=== PATIENT | female | born 1935 | race Caucasian/White ===

== ENCOUNTER → 2016-06-07 | Outpatient (CLI) | payer OTHER ==
--- NOTE | 2016-06-07 12:53 | MR ---
MRI of the Lumbar Spine (Without Contrast) Clinical Indications: Severe low back pain. Comparison: Most recent MRI or any lumbar spine imaging I have is from July 25, 2010, CT angio abdom en . There is a lumbar spine MRI of September 16, 2008. Technique: Sagittal and axial images of the lumbar spine were acquired using T1-weighted and fast T2 -weighted sequences. Findings: Alignment of the lumbar spine is within normal limits, with the exception of L5-S1, where t here is a 13 mm anterolisthesis of L5 on S1.. Conus terminates at L2. The canal is congenitally pasha l in size. No acute bony compression. No acute edema related to compression or infiltrative process. Paraspinal soft tissues are symmetric. T10-T11: There is near complete loss of disk height. This is a change from the 2008 MRI. At that time , this disk space was pretty much normal. In addition, there is moderate compression deformity to T11 , which was present in the 2010 CT scan. Therefore, the compression deformity must have happened some time between September 22, 2008, and July 25, 2010. There is a moderate amount of endplate edema surroundi ng the T10-T11 junction, at the lower aspect of T10, and superior aspect of T11. There is a small pos terior disk bulge with effacement of the ventral thecal sac, causing mild overall canal stenosis. The re is moderate right, and mild left foraminal stenosis. T11-T12: There is a Schmorl's node at the superior endplate of T12, also new. There is significant de generative disk height loss at T11-T12. No bone marrow edema to suggest acute compression. The disk b ulge contributes to moderate canal compromise. There is mild bilateral foraminal stenosis. T12-L1: Overall good preservation of the disk space. No canal or foraminal stenosis. L1-L2: Good preservation of disk space. Very minimal canal compromise from facet arthropathy. L2-L3: There is a very mild posterior disk bulge. There is moderate bilateral facet arthropathy and l igamentum flavum hypertrophy, with overall moderate canal stenosis. L3-L4: There is moderate disk height loss, and moderate posterior disk bulge. Canal stenosis is sever e. AP diameter of the canal is 6 mm compared to the normal 16 mm. This has significantly progressed c ompared to the previous MRI, where the AP diameter of the canal measured 12 mm. Moderate bilateral fa cet arthropathy, on the left second containing some fluid, also is associated with moderate bilateral ligamentum flavum hypertrophy. L4-L5: There is a central broad-based disk bulge. There is moderate bilateral facet arthropathy, with fluid in the facet joints bilaterally. The degree of canal stenosis is decreased because the overall degree of disk bulge has improved, along with disk dehydration. Overall disk height loss has increas ed. The degree of canal stenosis is moderate. AP diameter of the canal is 12 mm. L5-S1: There is now complete loss of the disk space, with the appearance of spontaneous fusion betwee n the 2 bones. There is a 13 mm anterolisthesis of L5 on S1, which is unchanged. Degree of canal and foraminal stenosis at this level is unchanged. Impression: 1. Significant interval worsening, since 2008, of degenerative spine disease centering at [id number], largely due to chronic compression deformity of T11. 2. Interval significant worsening of degenerative disk disease and facet disease at L3-L4, now with s evere canal stenosis. 3. Interval dehydration and improvement in degree of disk bulge at L4-L5, without significant change in degree of canal stenosis. 4. Autofusion of L5-S1 with absence of disk space at this point. No change in 13 mm anterolisthesis o f L5 on S1, and degree of canal and foraminal stenosis at this level. 5. Otherwise please see above.
--- NOTE | 2016-06-07 13:46 | MR ---
MRI pelvis without contrast History: Back pain. Technique: MRI was performed of the pelvis using a 1.5 Karon MRI system. Sagittal, coronal, and axial imaging was obtained with standard imaging sequences. Findings: Degenerative disk and degenerative joint disease are seen in the lower lumbar spine and th ere is anterolisthesis of L5 on S1 with fusion, which is described in the MRI lumbar spine report als o performed today. There is no evidence for sacroiliitis. No evidence for a stress fracture or insuff iciency fracture of the sacrum. No evidence for avascular necrosis of the femoral head or stress frac ture of the femoral neck. No significant joint effusion. Mild degenerative change is seen in both hip s. Mild degenerative change is seen in the symphysis pubis. There is abnormal signal intensity and at tenuation of the right common hamstring tendon origin with moderate attenuation and minimal edema. Th ere is mild abnormal signal intensity without attenuation of the left common hamstring tendon origin. Minimal edema is seen at the gluteus tendon insertion at the greater trochanters bilaterally, right greater than left. The other visualized musculature and tendons are unremarkable. A 2.5-cm leiomyoma is seen at the fundus of the uterus. Nabothian cyst is seen in the cervix. No significant free fluid in the pelvis. Impression: 1. No evidence for sacroiliitis or insufficiency fracture of the sacrum. 2. 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 3. Minimal tendinopathy gluteus tendon insertion at the greater trochanters bilaterally. 4. Mild degenerative change in both hips.
== END ==
LOC: FIMAGING 08:59
PROVIDERS: ATTEND Internal Medicine
DX: M54.5 Low back pain (principal); S76.311D Strain of muscle, fascia and tendon of the posterior muscle group at thigh level, right thigh, subsequent encounter; M77.9 Enthesopathy, unspecified; M16.0 Bilateral primary osteoarthritis of hip; M51.35 Other intervertebral disc degeneration, thoracolumbar region; M51.36 Other intervertebral disc degeneration, lumbar region; M48.06 Spinal stenosis, lumbar region; M43.26 Fusion of spine, lumbar region; S22.080D Wedge compression fracture of T11-T12 vertebra, subsequent encounter for fracture with routine healing

== ENCOUNTER 2016-09-26 07:50 | Inpatient (IN) | payer OTHER ==
[2016-09-26] MEDS ORDERED: fentaNYL 100 MCG/2 ML INJ ONE (08:07)
[2016-09-26] MEDS ORDERED: ONDANSETRON 4 MG/2 ML VIAL ONE (08:07)
[2016-09-26] MEDS ORDERED: fentaNYL 100 MCG/2 ML INJ IVP ONE (08:10)
[2016-09-26] MEDS ORDERED: ONDANSETRON 4 MG/2 ML VIAL IVP ONE (08:11)
[2016-09-26] MEDS ORDERED: NS 1,000 ML IV ONE (08:11)
--- NOTE | 2016-09-26 08:14 | EDPHY ---
H & P Time Seen by Provider: 09/26/16 07:55 HPI/ROS: CHIEF COMPLAINT: Severe left-sided abdominal pain HISTORY OF PRESENT ILLNESS: 81-year-old woman presents with sudden onset of severe left-sided abdominal pain which woke her from sleep this morning at 6 o' clock. She says radiates to her back and is associated with nausea. She felt fine when she went to bed last night. She specifically says she does not feel like it is in her chest, she does not feel short of breath. No urinary symptoms. REVIEW OF SYSTEMS: Eye: no change in vision ENT: no sore throat Cardiac: no chest pain or syncope Pulmonary: no cough or SOB Abdomen: HPI, no diarrhea Musculoskeletal: no back pain, no recent fall or injury Skin: no rash Neuro: no headache Constitutional: no fever : no urinary symptoms A comprehensive 10 point review of systems is otherwise negative aside from elements mentioned in the history of present illness. PAST MEDICAL HISTORY: Hypertension, arthritis, left knee surgery, left ankle surgery. Social history: General Appearance: Alert and conversant, cooperative. Moderately uncomfortable , and moving around on the bed. Eyes: No scleral icterus. ENT, Mouth: Slightly dry mucous membranes. Respiratory: Normal respiratory effort, breath sounds equal, lungs are clear to auscultation. Cardiovascular: Regular rate and rhythm. Gastrointestinal: No rebound or guarding. She has some voluntary guarding of the left upper and lower abdomen but no peritoneal signs. Neurological: Alert and oriented x3. Normally conversant. Face symmetric, normal movement and sensation in all extremities. Skin: Warm and dry, no rashes. Musculoskeletal: No peripheral edema and no joint swelling. Psychiatric: Not agitated. Emergency Department course/MDM: Plan for symptom control with IV Zofran 4 mg, CT scanning. 918: CT reviewed with Dr. Glenn Mullen at 9:18 a.m. showing 5 mm left proximal ureteral stone with hydronephrosis causing patient's symptoms. Results discussed with the patient at this time, 15 mg IV Toradol and 0.5 mg IV Dilaudid. Admission for pain control and urology consultation. 948: Discussed with Ysabel from Urology will consult. Negative UA for infection. Smoking Status: Never smoked Constitutional: Initial Vital Signs Temperature (C) 36.4 C 09/26/16 07:53 Heart Rate 65 09/26/16 07:53 Respiratory Rate 18 09/26/16 07:53 Blood Pressure 117/63 09/26/16 07:53 O2 Sat (%) 97 09/26/16 07:53 O2 Delivery Mode Room Air O2 (L/minute) 4 Allergies/Adverse Reactions: codeine Allergy (Verified 09/26/16 07:52) Home Medications: Medication Instructions Recorded Herbals/Supplements -Info Only 1 ea PO DAILY 09/26/16 Lovastatin 10 mg PO DAILY 09/26/16 [place]-3 Fatty Acids [Fish Oil 1000 1,000 mg PO DAILY 09/26/16 mg (*)] amLODIPine BESYLATE [Norvasc 10 mg 10 mg PO DAILY 09/26/16 (*)] celeCOXIB [Celebrex (*)] 200 mg PO DAILY 09/26/16 Medical Decision Making - Diagnostics Imaging Results: Imaging Impressions Abdomen CT 09/26/16 08:22 Impression: 1. Moderate to severe left hydronephrosis secondary to a 5 mm obstructing calculus in the proximal left ureter. Additional left renal pelvis 10 mm calculus. Diminished enhancement and excretion of the left kidney. 2. No right nephrolithiasis or hydronephrosis. 3. 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 4. Severe degenerative changes in the spine with L5-S1 spondylolytic grade 2 spondylolisthesis and old T11 moderate compression fracture. Findings and recommendations discussed with Emergency Department physician, Pantera Barrett at 0915 hours on September 26, 2016. Final report concurs with initial preliminary interpretation. Differential Diagnosis: Differential considered including but not limited to aortic aneurysm or dissection, kidney stone, bowel obstruction, diverticulitis. Consult/Admit Bed Type: [place] [id number] - Data Points Laboratory Results: Laboratory Results 09/26/16 08:00 09/26/16 08:00 09/26/16 09/26/16 09/26/16 09:15 08:14 08:00 WBC RBC Hgb POC Hgb 13.6 gm/dL gm/dL (12.3-15.9) Hct POC Hct 40 % % (35.5-47.5) MCV MCH MCHC RDW Plt Count MPV Neut % (Auto) Lymph % (Auto) [place] % (Auto) Eos % (Auto) Baso % (Auto) Nucleat RBC Rel Count Absolute Neuts (auto) Absolute Lymphs (auto) Absolute Monos (auto) Absolute Eos (auto) Absolute Basos (auto) Absolute Nucleated RBC Immature Gran % Immature Gran # POC Sodium 144 mEq/L mEq/L (134-144) Sodium 142 mEq/L mEq/L (134-144) POC Potassium 3.6 mEq/L mEq/L (3.3-5.0) Potassium 4.1 mEq/L mEq/L (3.5-5.2) POC Chloride 109 mEq/L H mEq/L (96-108) Chloride 110 mEq/L mEq/L (97-110) Carbon Dioxide 20 mEq/l L mEq/l (22-31) Anion Gap 12 mEq/L mEq/L (8-16) POC BUN 27 mg/dL H mg/dL (7-23) BUN 28 mg/dL H mg/dL (7-23) Creatinine 0.8 mg/dL mg/dL (0.6-1.0) POC Creatinine 0.7 mg/dL mg/dL (0.6-1.2) Estimated GFR > 60 Glucose 131 mg/dL H mg/dL (70-100) POC Glucose 133 mg/dL H mg/dL (70-100) Calcium 9.7 mg/dL mg/dL (8.5-10.4) Urine RBC 1-3 /hpf /hpf (0-3) Urine WBC 1-3 /hpf /hpf (0-3) Ur Epithelial Cells TRACE /lpf /lpf (NONE-1+) 09/26/16 08:00 WBC 9.10 10^3/uL 10^3/uL (3.80-9.50) RBC 4.54 10^6/uL 10^6/uL (4.18-5.33) Hgb 14.0 g/dL g/dL (12.6-16.3) POC Hgb Hct 42.4 % % (38.0-47.0) POC Hct MCV 93.4 fL fL (81.5-99.8) MCH 30.8 pg pg (27.9-34.1) MCHC 33.0 g/dL g/dL (32.4-36.7) RDW 14.6 % % (11.5-15.2) Plt Count 269 10^3/uL 10^3/uL (150-400) MPV 11.9 fL H fL (8.7-11.7) Neut % (Auto) 61.1 % % (39.3-74.2) Lymph % (Auto) 26.2 % % (15.0-45.0) [place] % (Auto) 8.2 % % (4.5-13.0) Eos % (Auto) 3.3 % % (0.6-7.6) Baso % (Auto) 0.8 % % (0.3-1.7) Nucleat RBC Rel Count 0.0 % % (0.0-0.2) Absolute Neuts (auto) 5.56 10^3/uL 10^3/uL (1.70-6.50) Absolute Lymphs (auto) 2.38 10^3/uL 10^3/uL (1.00-3.00) Absolute Monos (auto) 0.75 10^3/uL 10^3/uL (0.30-0.80) Absolute Eos (auto) 0.30 10^3/uL 10^3/uL (0.03-0.40) Absolute Basos (auto) 0.07 10^3/uL 10^3/uL (0.02-0.10) Absolute Nucleated RBC 0.00 10^3/uL 10^3/uL (0-0.01) Immature Gran % 0.4 % % (0.0-1.1) Immature Gran # 0.04 10^3/uL 10^3/uL (0.00-0.10) POC Sodium Sodium POC Potassium Potassium POC Chloride Chloride Carbon Dioxide Anion Gap POC BUN BUN Creatinine POC Creatinine Estimated GFR Glucose POC Glucose Calcium Urine RBC Urine WBC Ur Epithelial Cells Medications Given: Discontinued Medications Fentanyl (Sublimaze) 100 mcg IVP EDNOW ONE Stop: 09/26/16 08:11 Last Admin: 09/26/16 08:10 Dose: 100 mcg Hydromorphone HCl (Dilaudid) 0.5 mg IVP EDNOW ONE Stop: 09/26/16 09:21 Last Admin: 09/26/16 09:36 Dose: 0.5 mg Sodium Chloride (Ns) 1,000 mls @ 0 mls/hr IV ONCE ONE PRN Reason: Wide Open Stop: 09/26/16 08:12 Last Admin: 09/26/16 08:00 Dose: 1,000 mls Ketorolac Tromethamine (Toradol) 15 mg IVP EDNOW ONE Stop: 09/26/16 09:21 Last Admin: 09/26/16 09:36 Dose: 15 mg Morphine Sulfate (Morphine) 4 mg IVP EDNOW ONE Stop: 09/26/16 08:27 Last Admin: 09/26/16 08:34 Dose: 4 mg Ondansetron HCl (Zofran) 4 mg IVP EDNOW ONE Stop: 09/26/16 08:12 Last Admin: 09/26/16 08:11 Dose: 4 mg Point of Care Test Results: 09/26/16 08:14 POC Sodium 144 POC Potassium 3.6 POC Chloride 109 H POC BUN 27 H POC Creatinine 0.7 POC Glucose 133 H Departure - Departure Disposition: [facility] Inpatient Acute Clinical Impression: Renal colic on left side Condition: Good
[2016-09-26 08:24] LABS: % IMMATURE GRANULYOCYTES 0.4 % (0.0-1.1); ABSOLUTE IMMATURE GRANULOCYTES 0.04 10^3/uL (0.00-0.10); ADD DIFF? NO; ADD MORPH? NO; ADD SCAN? NO; ATYPICAL LYMPHOCYTE FLAG 10 (0-99); FRAGMENT RBC FLAG 0 (0-99); HEMATOCRIT 42.4 % (38.0-47.0); LEFT SHIFT FLG 0 (0-99); LIPEMIA HEMOLYSIS FLAG 80 (0-99); MEAN CELL HEMOGLOBIN 30.8 pg (27.9-34.1); MEAN CELL VOLUME 93.4 fL (81.5-99.8); MEAN PLATELET VOLUME 11.9 fL (8.7-11.7); PLATELET CLUMPS FLAG 0 (0-99); PLATELET COUNT 269 10^3/uL (150-400); RED BLOOD CELL COUNT 4.54 10^6/uL (4.18-5.33); RED CELL DISTRIBUTION WIDTH 14.6 % (11.5-15.2)
[2016-09-26 08:43] LABS: ANION GAP 12 mEq/L (8-16); CALCIUM 9.7 mg/dL (8.5-10.4); CARBON DIOXIDE 20 mEq/l (22-31); CHLORIDE 110 mEq/L (97-110); CREATININE 0.8 mg/dL (0.6-1.0); GLOMERULAR FILTRATION RATE > 60; GLUCOSE 131 mg/dL (70-100); POTASSIUM 4.1 mEq/L (3.5-5.2); SODIUM 142 mEq/L (134-144)
[2016-09-26] MEDS ORDERED: IOPAMIDOL (ISOVUE-300) 100 ML BTL ONE (08:48)
[2016-09-26] MEDS ORDERED: HYDROmorphONE/DILAUDID 1 MG/ML SYR IVP ONE (09:20)
[2016-09-26] MEDS ORDERED: KETOROLAC 30 MG/1 ML SDV IVP ONE (09:20)
[2016-09-26] MEDS ORDERED: MAGNESIUM HYDROXIDE 30 ML UDCUP PO PRN (11:12)
[2016-09-26] MEDS ORDERED: ONDANSETRON 4 MG/2 ML VIAL IVP PRN (11:12)
[2016-09-26] MEDS ORDERED: LACTULOSE 20 GM/30 ML UDCUP PO PRN (11:12)
[2016-09-26] MEDS ORDERED: BISACODYL 10 MG SUPP PR PRN (11:12)
[2016-09-26] MEDS ORDERED: ONDANSETRON DISINTEGRATING 4 MG TAB PO PRN (11:12)
[2016-09-26] MEDS ORDERED: POLYETHYLENE GLYCOL 3350 17 GM PKT PO PRN (11:12)
[2016-09-26] MEDS ORDERED: NS 1,000 ML IV SCH (11:15)
[2016-09-26] MEDS: PANTOPRAZOLE SODIUM 40 MG in NS 100 ML IV SCH (12:11)
--- NOTE | 2016-09-26 15:06 | SOAPPROG ---
SOAP Progress Note Assessment/Plan: Assessment: 81 yo female w/ nephrolithiasis and hydronephrosis, 1x 5-6 mm stone L ureter w/ obstruction, 1 x 10 mm L renal pelvis superiorly -admitted for pain mngt, urology consult - appreciated Dr. Grady seeing pt, will likely need ureteroscope and possible stenting. Place on IVF, npo P MN tonight for procedure tomorrow. Placed on PPI w/ toradol on board and hospitalization. Encourage po water intake as well. -h/o htn - cont amlodipine. -osteoporosis - on prolia, wt bearing exercise, d - level appropriate checked as outpt not excessively high. -dvt proph - lovenox -dispo - will depend on upcoming urologic procedure and recovery, anticipate likely 2 MN's. Will change admission status to inpt. Plan: 09/26/16 15:02 09/26/16 15:10 Subjective: Woke w/ acute L flank/side/abdominal pain -, went to ER this am - CT w/ L stones see hpi. Objective: Vital Signs Temp Pulse Resp BP Pulse Ox 36.7 C 77 16 111/50 L 96 09/26/16 11:44 09/26/16 11:44 09/26/16 11:44 09/26/16 11:44 09/26/16 11:44 09/25/16 09/26/16 09/27/16 05:59 05:59 05:59 Intake Total 1200 Output Total 400 Balance 800 Gen: doing better now, not uncomfortable ruth, was horribly uncomfortable this morning, A&O x 3, pleasant HEENT: perr, eomi Neck, soft, supple Chest: cta b CV: rrr nl s1 s2 Abd: soft, nl bs, + generalized discomfort ayo on L lateral side Ext: no edema, she reports she has had some w/ [place] was [place] her trip - Pending Discharge Pending Discharge Within 24 Hours: No ICD10 Worksheet Patient Problems: Problems Problem Status Onset Renal colic on left side Acute
[2016-09-26] MEDS: KETOROLAC 15 MG/1 ML SDV IM PRN (15:42)
[2016-09-26] MEDS ORDERED: ENOXAPARIN 40 MG/0.4 ML SYR SC ONE (17:00)
--- NOTE | 2016-09-26 17:26 | GHP ---
[f rep st] HISTORY AND PHYSICAL DATE OF ADMISSION: 09/26/2016 CHIEF COMPLAINT: Left-sided pain. HISTORY OF PRESENT ILLNESS: Patient is a pleasant 81-year-old female who went to bed last night in her usual state of health, but woke up this morning with sudden onset of severe left-sided abdominal pain, which was not like any other pain she has had before. It radiated across her abdomen, to her left side, and was so severe she felt chills and sweaty from it. She was supposed to go to an appointment up in [place] for her ankle, but the pain was so bad her spouse drove her to the ER for evaluation. In the ER, she had labs drawn (which were basically normal) and abdominal CT. The CT showed a 5-6 mm left proximal ureteral stone with hydronephrosis, as well as a higher up 10 mm stone in the renal pelvis, which was not likely contributing to the symptoms but, regardless , a large size stone up higher in the urinary tract. She was treated with Toradol and fentanyl and Dilaudid, and her pain improved greatly. We were called to admit the patient, and Dr. Carl Grady for Urology was on today and was also contacted by the ER, and a plan made to admit the patient for treatment of her renal stones with hydronephrosis. PAST MEDICAL HISTORY: Significant for hypertension, osteoporosis, and a pelvic fracture, stable L renal aneurysm. SURGICAL HISTORY: Significant for ankle replacement on her left side in 1999, left knee replacement in 2007. FAMILY HISTORY: Father is , no history known; she did not know him. Mother at 93 with a glioblastoma multiforme. She has no siblings. SOCIAL HISTORY: She is a nonsmoker. She has rare/occasional alcohol. She is , has 3 children, exercises regularly, no drugs, and recently is retired. ALLERGIES: Include codeine (which gave her a rash) and Cipro (left Achilles pain). REVIEW OF SYSTEMS: CONSTITUTIONAL: Positive for chills, in general not feeling well from the discomfort this morning, but now this has calmed down. HEENT: Negative. RESPIRATORY: Denies cough, shortness of breath, wheezing. CARDIOVASCULAR: No chest pain or palpitations. GI: Discomfort in left abdominal side and flank, has had good control, normal bowel movements over the past several days. : Denies any urinary burning, frequency, or urgency. MUSCULOSKELETAL: She has chronic low back pain, with lumbar stenosis, and discomfort in her left ankle that is not new. SKIN: Denies any hives, itching , or rash. NEUROLOGIC: No fainting, confusion, loss of strength. PSYCHIATRIC : No acute change in mood or stressors, other than her discomfort this morning. PHYSICAL EXAMINATION: VITALS: Her blood pressure is 100/56, heart rate 81, respiratory rate 18, satting 96% to 100% on 2 L. Afebrile at 36.4. LABORATORIES: Show white count of 9, hemoglobin 13.6, hematocrit 42.4. Chemistry: Sodium 142, potassium 4.1, chloride 110, carbon dioxide 20, anion gap 12, BUN 28, creatinine 0.8, glucose 131, calcium 9.7. IMAGING: CT abdomen, as discussed above, has moderate to severe left hydronephrosis secondary to a 5-6 mm, obstructing calculus in the left proximal ureter, with an additional 10 mm calculus in the left renal pelvis. Also showing severe degenerative disk disease in her lower lumbar spine, as previously known. ASSESSMENT AND PLAN: 1. 81-year-old female with acute onset of nephrolithiasis with hydronephrosis. She has not had any of this prior. She did just return from a long hiking trip in [facility]. She is very grateful that this did not occur while she was out in the middle of the [facility]. The plan will be to admit her for pain management. Urology consult placed with Dr. Grady. She will most likely need a ureteroscope and possible stenting. Will place her on IV fluids and encourage p.o. intake of water as well to help flush out anything that we can. She will be n.p.o. after midnight tonight for urologic procedure tomorrow. Will control pain with Toradol and fentanyl if needed as well, which she tolerated fine in the ER. Will place her on a PPI given the acute hospitalization stress as well as Toradol, for gastrointestinal protection. 2. History of hypertension: Continue on amlodipine. 3. Osteoporosis: Continue on Prolia, weightbearing exercise, appropriate calcium and vitamin D intake. Recent vitamin D level checked and appropriate as an outpatient. 4. Deep venous thrombosis prophylaxis: Lovenox. 5. Disposition: Most likely will require greater than 2 midnights in order to have urologic surgery and stent, so will place her on inpatient status. /[id number]/MODL MTDD
[2016-09-26] MEDS: ACETAMINOPHEN 325 MG TAB PO PRN (19:59)
[2016-09-26] MEDS: SENNOSIDES/DOCUSATE SODIUM TAB PO SCH (19:59)
--- NOTE | 2016-09-26 21:27 | GCON ---
[f rep st] CONSULTATION UROLOGY CONSULTATION DATE OF CONSULTATION: 09/26/2016 REFERRING PHYSICIAN: Sanjuanita Agosto MD REASON FOR CONSULTATION: Left kidney and ureteral stones. HISTORY: This is a 81-year-old woman who started experiencing acute onset of left-sided upper quadrant abdominal pain, with radiation into the lower abdomen early this morning, along with some associated sweats, chills, nausea, and near- emesis. She presented to the emergency room and underwent imaging, which revealed left nephroureterolithiasis. The patient was admitted for further management. Since admission, she has continued to have intermittent pain, but has greatly improved on the current medication regimen. She denies any prior history of nephrolithiasis, nor more recent history of dysuria, gross hematuria , changes in her voiding pattern, nor measured fevers. PAST MEDICAL HISTORY: Notable for hypertension, osteoporosis. ADMISSION MEDICATIONS: Include Celebrex 200 mg daily, Norvasc 10 mg daily, lovastatin 10 mg daily. ALLERGIES: Codeine. FAMILY HISTORY: Not contributory. Specifically, no kidney stones to her knowledge. SOCIAL HISTORY: The patient and her live in the [facility]. She denies use of tobacco products, and consumes alcohol occasionally. She has 3 children. She exercises regularly. REVIEW OF SYSTEMS: Unremarkable, other than mentioned above in the HPI and Past Medical History. PHYSICAL EXAM: GENERAL: Well-developed, well-nourished white female, lying supine in bed, in no acute distress presently. VITAL SIGNS: Blood pressure 100 /56, pulse 81, respirations 18, oxygen saturation is 91% on 3 L nasal cannula, temperature 36.8 Celsius. Height 162 cm. Weight 64.8 kg. BMI 24.5. HEENT: Normocephalic, atraumatic. NECK: Supple. HEART: Regular rate. CHEST: Unlabored respiratory pattern. ABDOMEN: Soft, with mild left upper quadrant tenderness to deep palpation. No peritoneal signs. No involuntary guarding. No obvious organomegaly is appreciated. EXTREMITIES: Warm, without cyanosis, clubbing, nor significant edema. NEUROLOGIC: She is alert and oriented. She answers all questions appropriately with normal mood and affect. VASCULAR: Normal femoral, dorsalis pedis, and posterior tibial pulses bilaterally. IMAGING: Iodinated abdominopelvic CT scan today: Upon my review, notable for possible 9.5 x 8 x 8 mm long left renal pelvic calculus (versus, less likely, vascular calcification). There is moderate left hydronephrosis down to a 5 x 4 x 7 mm long ureteral calculus at L3. There is also a left renal artery aneurysm measuring up to 14 mm. No other stones are seen. A calcified uterine fibroid is noted. LABORATORY: Chemistry panel today notable for unremarkable electrolytes, with creatinine 0.8, calcium 9.7. CBC is unremarkable. Admission urinalysis reveals 1-3 red blood cells, 1-3 white blood cells per high-power field, no bacteria. IMPRESSION: 1. Symptomatic left proximal ureterolithiasis. 2. Probable sizable left renal pelvic calculus. I had an extended discussion with the patient late this afternoon regarding her urologic situation. Management options for her symptomatic ureteral stone, as well as the other sizable ipsilateral renal stone, were reviewed in detail today. All questions were answered, and she appeared to understand. PLAN: 1. Continue medical management, parental analgesics, continuation of low-dose Toradol IV, and Flomax. 2. We will also increase her IV fluid rate and encourage p.o. fluid intake until midnight. 3. We will proceed with intraoperative ureteroscopy and stone management tomorrow, along with ureteral stent placement. Thank you for this consultation. /[id number]/MODL MTDD
[2016-09-26] MEDS: KETOROLAC 15 MG/1 ML SDV IVP SCH (22:02)
[2016-09-27] MEDS ORDERED: NS BOLUS 1000 ML (Wide open) IV ONE (02:00)
[2016-09-27] MEDS: ACETAMINOPHEN 325 MG TAB PO PRN (04:51)
[2016-09-27] MEDS: KETOROLAC 15 MG/1 ML SDV IVP SCH (04:53)
[2016-09-27 04:57] LABS: ADD DIFF? YES; ADD MORPH? NO; ATYPICAL LYMPHOCYTE FLAG 0 (0-99); FRAGMENT RBC FLAG 0 (0-99); HEMATOCRIT 34.6 % (38.0-47.0); HEMOGLOBIN 11.4 g/dL (12.6-16.3); LIPEMIA HEMOLYSIS FLAG 80 (0-99); MEAN CELL HEMOGLOBIN 31.8 pg (27.9-34.1); MEAN CELL HEMOGLOBIN CONCENTR. 32.9 g/dL (32.4-36.7); MEAN CELL VOLUME 96.4 fL (81.5-99.8); MEAN PLATELET VOLUME 11.2 fL (8.7-11.7); PLATELET CLUMPS FLAG 10 (0-99); PLATELET COUNT 117 10^3/uL (150-400); RED BLOOD CELL COUNT 3.59 10^6/uL (4.18-5.33)
[2016-09-27 05:07] LABS: LEFT SHIFT FLG 300 (0-99)
[2016-09-27 05:08] LABS: ADD SCAN? NO
[2016-09-27 05:22] LABS: ANION GAP 8 mEq/L (8-16); CALCIUM 7.8 mg/dL (8.5-10.4); CARBON DIOXIDE 18 mEq/l (22-31); CHLORIDE 108 mEq/L (97-110); CREATININE 1.3 mg/dL (0.6-1.0); GLOMERULAR FILTRATION RATE 40; GLUCOSE 117 mg/dL (70-100); POTASSIUM 4.8 mEq/L (3.5-5.2); SODIUM 134 mEq/L (134-144)
[2016-09-27 05:48] LABS: PLATELET ESTIMATE DECREASED (ADEQ)
[2016-09-27 06:38] LABS: ALBUMIN 2.7 g/dL (3.5-5.0); BILIRUBIN,TOTAL 0.6 mg/dL (0.1-1.4); BILIRUBIN-CONJUGATED 0.4 mg/dL (0.0-0.5); BILIRUBIN-UNCONJUGATED 0.2 mg/dL (0.0-1.1)
--- NOTE | 2016-09-27 06:47 | CPEKG ---
Heart Rate: 84 RR Interval: 714 P-R Interval: 188 QRSD Interval: 98 QT Interval: 376 QTC Interval: 445 P [place]: 59 QRS [place]: 29 T Wave [place]: 31 EKG Severity - BORDERLINE ECG - EKG Impression: SINUS RHYTHM EKG Impression: LOW VOLTAGE THROUGHOUT Electronically Signed By: Ursula Brady 27-Sep-2016 10:47:37
[2016-09-27 07:06] LABS: ADD DIFF? YES; ADD MORPH? NO; ATYPICAL LYMPHOCYTE FLAG 0 (0-99); FRAGMENT RBC FLAG 0 (0-99); HEMATOCRIT 34.6 % (38.0-47.0); HEMOGLOBIN 11.2 g/dL (12.6-16.3); LIPEMIA HEMOLYSIS FLAG 80 (0-99); MEAN CELL HEMOGLOBIN 31.2 pg (27.9-34.1); MEAN CELL HEMOGLOBIN CONCENTR. 32.4 g/dL (32.4-36.7); MEAN CELL VOLUME 96.4 fL (81.5-99.8); MEAN PLATELET VOLUME 11.4 fL (8.7-11.7); PLATELET CLUMPS FLAG 10 (0-99); PLATELET COUNT 107 10^3/uL (150-400); RED BLOOD CELL COUNT 3.59 10^6/uL (4.18-5.33); RED CELL DISTRIBUTION WIDTH 14.9 % (11.5-15.2)
[2016-09-27 07:09] LABS: LEFT SHIFT FLG 300 (0-99)
[2016-09-27 07:15] LABS: ADD SCAN? NO
[2016-09-27 07:24] LABS: CREATINE KINASE-MB FRACTION 1.06 ng/mL (0-3.19); TROPONIN I 0.032 ng/mL (0-0.034)
[2016-09-27] MEDS: KETOROLAC 15 MG/1 ML SDV IM PRN (07:38)
[2016-09-27 08:08] LABS: ELLIPTOCYTES 1+; PLATELET ESTIMATE DECREASED (ADEQ); TOXIC VACUOLIZATION PRESENT
[2016-09-27] MEDS: fentaNYL 100 MCG/2 ML INJ IVP PRN ×2 (08:21→08:22)
[2016-09-27 08:28] LABS: BASE EXCESS -9.9 mEq/L (-2.5-2.5); BICARBONATE 17 mEq/L (22-26); MEASURED OXYGEN SATURATION 94 % (92-95); PCO2 41 mmHg (34-38); PO2 82 mmHg (65-75); TCO2 18 mEq/L (23-27)
--- NOTE | 2016-09-27 08:30 | SOAPPROG ---
SOAP Progress Note Assessment/Plan: Assessment:Obstructing renal stone. Possible pneumonia. WBC and lactate strongly suggests sepsis. Plan: ICU, when stable repeat CT of abdomen to look for complication of renal stone. IV antibiotics. Skein Bander consult. 09/27/16 08:30 Subjective: Having ongoing pain in abdomen. Was hypotensive last night. Did not respond to fluid bolus. CBC revealed increased WBC and decreased HGB. Lactate was elevated. Pt transferred to ICU. Her BP has responded to wide open fluids. CXR shows possible LLL infiltrate. CT of abd from yesterday shows small infiltrate vs scar in LLL. She remains easily arousable and responds appropriately to questions. COR mild tachycardia. Oxygen saturation 96% on mask. Objective: Vital Signs Temp Pulse Resp BP Pulse Ox 37 C 83 16 100/61 95 09/27/16 05:57 09/27/16 05:57 09/27/16 05:57 09/27/16 07:54 09/27/16 05:57 Laboratory Results 09/27/16 06:56 09/27/16 04:39 09/26/16 09/27/16 09/28/16 05:59 05:59 05:59 Intake Total 3000 1478 Output Total 775 Balance 2225 1478 Lungs with bibasilar rales. L greater than R. COR RRR. Abd persistent tenderness. ICD10 Worksheet Patient Problems: Problems Problem Status Onset Renal colic on left side Acute
[2016-09-27] MEDS ORDERED: SODIUM BICARBONATE 50 MEQ/50 ML SYR IVP ONE ×5 (08:39→21:13)
[2016-09-27] MEDS ORDERED: SODIUM BICARBONATE 50 MEQ/50 ML SYR ONE (08:43)
[2016-09-27] MEDS ORDERED: MEROPENEM 1 GM in NS 100 ML IV SCH (09:00)
[2016-09-27] MEDS ORDERED: Herbals/Supplements -Info Only PO SCH (09:00)
[2016-09-27] MEDS ORDERED: LOVASTATIN 10 MG PO SCH (09:00)
--- NOTE | 2016-09-27 09:06 | SOAPPROG ---
SOAP Progress Note Assessment/Plan: Assessment: Last night & this AM's events reviewed with Drs. Agosto, Gary, & Jason. I am concerned she has become uroseptic from the obstruction of her left kidney. Plan: 1. Agree with antibiotics and aggressive medical management. 2. Postpone today's planned surgery & proceed with left nephrostomy in IR. I have left a message w/ Dr. Taylor regarding this case. Orders to go in now. 09/27/16 09:06 Objective: Vital Signs Temp Pulse Resp BP Pulse Ox 37 C 83 16 100/61 95 09/27/16 05:57 09/27/16 05:57 09/27/16 05:57 09/27/16 07:54 09/27/16 05:57 Laboratory Results 09/27/16 06:56 09/27/16 04:39 09/26/16 09/27/16 09/28/16 05:59 05:59 05:59 Intake Total 3000 1478 Output Total 775 Balance 2221 1478 ICD10 Worksheet Patient Problems: Problems Problem Status Onset Renal colic on left side Acute
[2016-09-27] MEDS: PRAVASTATIN SODIUM 10 MG TAB PO SCH (09:24)
[2016-09-27] MEDS: PANTOPRAZOLE SODIUM 40 MG in NS 100 ML IV SCH (09:24)
[2016-09-27] MEDS: SENNOSIDES/DOCUSATE SODIUM TAB PO SCH (09:25)
[2016-09-27] MEDS ORDERED: NOREPINEPHRINE/NS 4 MG/500 ML BAG IV ONE ×2 (09:38→13:21)
--- NOTE | 2016-09-27 10:28 | GCON ---
[f rep st] CONSULTATION PULMONARY/CRITICAL CARE CONSULTATION. DATE OF CONSULTATION: 09/27/2016 REFERRING PHYSICIAN: Daquan Vega MD REASON FOR REFERRAL: Evaluation and management of sepsis. HISTORY: The patient is a 81-year-old woman who was in her usual state of good health the day before yesterday, but woke up yesterday morning with sudden onset of severe left-sided abdominal pain that radiated across her abdomen. She presented to the emergency department where she had normal labs and an abdominal CT that showed a proximal obstructing left ureteral stone with hydronephrosis as well as a nonobstructing 10 mm stone in the renal pelvis. She was treated with Toradol, fentanyl and Dilaudid and her pain improved. Dr. Grady was consulted. The patient was started on antibiotics and moved to the floor. Overnight, she developed hypotension that did not respond to a fluid bolus as well as anemia and an elevated white blood count. Her lactate was also elevated. She responded to further fluid boluses. Currently the patient reports that her pain is fairly well controlled after receiving some fentanyl. She feels she is beginning to develop some shortness of breath. PAST MEDICAL HISTORY: 1. Hypertension. 2. Osteoporosis. 3. Pelvic fracture. 4. Left renal aneurysm. MEDICATIONS: At the time of admission include Celebrex, lovastatin, Norvasc. ALLERGIES: Codeine. SOCIAL HISTORY: The patient is a nonsmoker and drinks alcohol infrequently. She exercises regularly. She recently retired. FAMILY HISTORY: Unremarkable. REVIEW OF SYSTEMS: A 10-point review of systems adds nothing to the history of present illness. PHYSICAL EXAMINATION: GENERAL: The patient is awake, alert, and in mild distress with some dyspnea. VITAL SIGNS: Her blood pressure is 77/42, her heart rate is 92. She is afebrile. Oxygen saturation 95% on 4 L. HEENT: Normocephalic and atraumatic. No icterus. NECK: No JVD. Trachea is midline. CHEST: She has some basilar rales. CARDIAC: Regular rate and rhythm without murmur. ABDOMEN: Soft. Nontender. Bowel sounds are present. EXTREMITIES: No clubbing, cyanosis, or edema. LABORATORY DATA: Creatinine is 1.3, up from 0.8. A white blood count is 3.8, with 28% bands, down from 18.6. Hemoglobin is 11.2. Her platelet count is 107. An arterial blood gas shows a pH of 7.23 with a pO2 of 82, a CO2 of 41 and a bicarbonate of 18. Lactate is 3.8, up from 3.1. IMAGING: Chest x-ray shows hypoventilatory changes with some possible diffuse interstitial infiltrates/edema as well as a small amount of possible density in the left base. Images reviewed. A CT of the abdomen shows the aforementioned 5 mm obstructing calculus in the left ureter with severe hydronephrosis as well as a left renal pelvic calculus. There are no significant lung findings. Images reviewed. ASSESSMENT: 1. Severe sepsis. The patient has an elevated lactate, hypotension, renal insufficiency and a dramatically reduced white blood count with bandemia as well as increasing oxygen needs. The likely source is her obstructed left kidney. The patient has been started on appropriate antibiotics with Levaquin and meropenem. The patient is receiving IV fluids. A PICC line is being placed to start pressors. 2. History of hypertension. The patient is currently hypotensive. 3. Acute hypoxemic respiratory failure. This is likely due to the patient's sepsis. RECOMMENDATIONS: Continue antibiotics. Continue IV fluid boluses to support pressure. I will place an icon monitor to help determine fluid responsiveness. A PICC line will be placed and the patient will be started on norepinephrine once this is in place. Dr. Taylor has been consulted regarding placement of a percutaneous nephrostomy tube, which can occur as soon as the patient is stable. The patient is getting increasingly unstable throughout the day despite aggressive resuscitation. Total critical care time managing hypotension, hypoxemia, coagulopathy, electrolyte disturbances, and coordinating urgent procedures during 6-8 visits throughout the day: 175 minutes. /[id number]/MODL MTDD
[2016-09-27 10:52] LABS: ADD DIFF? YES; ADD MORPH? NO; ATYPICAL LYMPHOCYTE FLAG 0 (0-99); FRAGMENT RBC FLAG 0 (0-99); HEMATOCRIT 30.5 % (38.0-47.0); HEMOGLOBIN 9.9 g/dL (12.6-16.3); LIPEMIA HEMOLYSIS FLAG 80 (0-99); MEAN CELL HEMOGLOBIN CONCENTR. 32.5 g/dL (32.4-36.7); MEAN CELL VOLUME 98.7 fL (81.5-99.8); MEAN PLATELET VOLUME 11.5 fL (8.7-11.7); PLATELET CLUMPS FLAG 20 (0-99); PLATELET COUNT 73 10^3/uL (150-400); RED BLOOD CELL COUNT 3.09 10^6/uL (4.18-5.33); RED CELL DISTRIBUTION WIDTH 15.3 % (11.5-15.2)
[2016-09-27 10:54] LABS: LEFT SHIFT FLG 300 (0-99)
[2016-09-27 10:55] LABS: ADD SCAN? NO
[2016-09-27] MEDS ORDERED: VASOPRESSIN/DEXTROSE 250 ML IV SCH (11:00)
[2016-09-27] MEDS ORDERED: MIDAZOLAM 2 MG/2 ML VIAL ONE ×2 (11:30→17:10)
[2016-09-27] MEDS ORDERED: IOPAMIDOL (ISOVUE-300) 100 ML BTL ONE (12:04)
--- NOTE | 2016-09-27 12:07 | POSTOPPROG ---
Post Op Note Date of Operation: 09/27/16 Surgeon: Wyatt Taylor Anesthesia: IV Sedation Pre-op Diagnosis: Obstructive urosepsis Post-op Diagnosis: Left ureter obstructed by stone Indication: Sepsis Procedure: Percutaneous left nephrostomy Findings: 10 F nephrostomy tube in good position Inf/Abcess present in the surg proc area at time of surgery?: Yes Depth: Organ Space (Possibly infected urine.) EBL: Minimal Complications: 0 Drains: Nephrostomy (10 F pigtail) Specimen(s): 15 ml dark yellow urine sent to lab for microbiology.
[2016-09-27 12:24] LABS: TOXIC VACUOLIZATION PRESENT
[2016-09-27 12:27] LABS: ECHINOCYTES 2+; PLATELET ESTIMATE DECREASED (ADEQ)
[2016-09-27] MEDS: OMEGA-3 FATTY ACIDS 1,000 MG CAP PO SCH (13:08)
[2016-09-27] MEDS ORDERED: ALBUMIN 5% 500 ML BOTTLE IV ONE (13:37)
[2016-09-27] MEDS ORDERED: ALBUMIN 5% 500 ML IV ONE (14:00)
[2016-09-27 14:49] LABS: ADD DIFF? YES; ADD MORPH? NO; ATYPICAL LYMPHOCYTE FLAG 0 (0-99); FRAGMENT RBC FLAG 0 (0-99); HEMATOCRIT 35.8 % (38.0-47.0); HEMOGLOBIN 11.3 g/dL (12.6-16.3); LIPEMIA HEMOLYSIS FLAG 80 (0-99); MEAN CELL HEMOGLOBIN 31.9 pg (27.9-34.1); MEAN CELL HEMOGLOBIN CONCENTR. 31.6 g/dL (32.4-36.7); MEAN CELL VOLUME 101.1 fL (81.5-99.8); MEAN PLATELET VOLUME 11.4 fL (8.7-11.7); PLATELET CLUMPS FLAG 20 (0-99); PLATELET COUNT 76 10^3/uL (150-400); RED BLOOD CELL COUNT 3.54 10^6/uL (4.18-5.33); RED CELL DISTRIBUTION WIDTH 15.4 % (11.5-15.2)
[2016-09-27 14:52] LABS: LEFT SHIFT FLG 300 (0-99)
[2016-09-27 14:53] LABS: ADD SCAN? NO
[2016-09-27 14:54] LABS: INR 2.29 (0.83-1.16); PROTIME(PATIENT) 25.4 SEC (12.0-15.0)
[2016-09-27 14:55] LABS: ALANINE AMINOTRANSFERASE 35 IU/L (9-52); ALBUMIN 3.1 g/dL (3.5-5.0); ALKALINE PHOSPHATASE 136 IU/L (38-126); ANION GAP 12 mEq/L (8-16); ASPARTATE AMINOTRANSFERASE 34 IU/L (14-46); BILIRUBIN,TOTAL 1.9 mg/dL (0.1-1.4); CALCIUM 6.6 mg/dL (8.5-10.4); CARBON DIOXIDE 16 mEq/l (22-31); CHLORIDE 110 mEq/L (97-110); CREATININE 1.5 mg/dL (0.6-1.0); GLOMERULAR FILTRATION RATE 33; GLUCOSE 98 mg/dL (70-100); POTASSIUM 3.8 mEq/L (3.5-5.2); SODIUM 138 mEq/L (134-144); TOTAL PROTEIN 5.1 g/dL (6.3-8.2)
[2016-09-27 14:58] LABS: CALCULATED OXYGEN SATURATION 81 % (92-95); O2 CONCENTRATIION 12 % (0-100)
[2016-09-27 14:59] LABS: BASE EXCESS -14.1 mEq/L (-2.5-2.5); BICARBONATE 12 mEq/L (22-26); MEASURED OXYGEN SATURATION 88 % (92-95); PCO2 28 mmHg (34-38); PO2 61 mmHg (65-75); TCO2 13 mEq/L (23-27)
[2016-09-27 15:02] LABS: CALCULATED OXYGEN SATURATION 80 % (92-95); O2 CONCENTRATIION 12 % (0-100)
[2016-09-27 15:06] LABS: TROPONIN I 0.096 ng/mL (0-0.034)
[2016-09-27] MEDS ORDERED: LIDOCAINE 2% JELLY 5 ML TUBE ONE (15:23)
[2016-09-27] MEDS ORDERED: LIDOCAINE 1% 300 MG/30 ML SDV ONE (15:23)
[2016-09-27] MEDS ORDERED: HYDROCORTISONE 100 MG/2 ML VIAL ONE (15:29)
[2016-09-27] MEDS ORDERED: LIDOCAINE 1% 300 MG/30 ML SDV MISC ONE (15:30)
[2016-09-27] MEDS ORDERED: LIDOCAINE 2% JELLY 5 ML TUBE TP ONE ×3 (15:30→18:31)
[2016-09-27 15:37] LABS: PLATELET ESTIMATE DECREASED (ADEQ); POLYCHROMASIA 1+
[2016-09-27] MEDS ORDERED: VANCOMYCIN 1 GM/NS 250 ML BAG IV ONE (15:37)
[2016-09-27 15:38] LABS: ECHINOCYTES 1+; ELLIPTOCYTES 1+; MACROCYTES 1+
[2016-09-27] MEDS ORDERED: NA BICARBONATE 50 MEQ/50 ML VIAL ONE (15:43)
[2016-09-27] MEDS ORDERED: fentanYL/NACL/100 ML BAG IV ONE (15:44)
[2016-09-27] MEDS ORDERED: PROPOFOL/EMULSION 1,000 MG/100 ML BOTTLE IV ONE (15:44)
[2016-09-27] MEDS ORDERED: BENZOCAINE UNIT DOSE SPRAY HURRICAINE MM ONE ×3 (15:48→19:00)
[2016-09-27] MEDS ORDERED: ceFAZolin 2 GM/DEXTROSE 100 ML IV ONE (16:00)
[2016-09-27] MEDS: HYDROCORTISONE 100 MG/2 ML VIAL IVP SCH (16:16)
[2016-09-27] MEDS ORDERED: CALCIUM GLUCONATE 50 ML IV ONE ×2 (16:30→19:00)
[2016-09-27] MEDS ORDERED: VANCOMYCIN HCL/NORMAL SALINE 250 ML IV ONE (16:30)
[2016-09-27 17:40] LABS: PCO2 VENOUS 35 mmHg (40-44); PO2 VENOUS 46 mmHg (35-40); TCO2 VENOUS 14 mEq/L (23-27); VEN MEASURED OXYGEN SATURATION 76 % (65-75)
[2016-09-27 17:42] LABS: IONIZED CALCIUM 0.94 MMOL/L (1.12-1.30)
[2016-09-27 17:45] LABS: ADD DIFF? YES; ADD MORPH? NO; ATYPICAL LYMPHOCYTE FLAG 0 (0-99); FRAGMENT RBC FLAG 0 (0-99); HEMATOCRIT 30.8 % (38.0-47.0); HEMOGLOBIN 9.7 g/dL (12.6-16.3); LIPEMIA HEMOLYSIS FLAG 80 (0-99); MEAN CELL HEMOGLOBIN 31.9 pg (27.9-34.1); MEAN CELL HEMOGLOBIN CONCENTR. 31.5 g/dL (32.4-36.7); MEAN CELL VOLUME 101.3 fL (81.5-99.8); MEAN PLATELET VOLUME 12.3 fL (8.7-11.7); PLATELET CLUMPS FLAG 10 (0-99); PLATELET COUNT 61 10^3/uL (150-400); RED BLOOD CELL COUNT 3.04 10^6/uL (4.18-5.33); RED CELL DISTRIBUTION WIDTH 15.6 % (11.5-15.2)
[2016-09-27] MEDS ORDERED: fentaNYL 100 MCG/2 ML INJ IVP ONE (17:45)
[2016-09-27] MEDS ORDERED: MIDAZOLAM 2 MG/2 ML VIAL IVP ONE (17:45)
[2016-09-27] MEDS ORDERED: CALCIUM CHLORIDE 1 GM/10 ML INJ IVP ONE (17:45)
[2016-09-27 17:48] LABS: LEFT SHIFT FLG 300 (0-99)
[2016-09-27 17:49] LABS: ADD SCAN? NO
[2016-09-27 17:56] LABS: ALANINE AMINOTRANSFERASE 41 IU/L (9-52); ALBUMIN 2.6 g/dL (3.5-5.0); ALKALINE PHOSPHATASE 87 IU/L (38-126); ANION GAP 12 mEq/L (8-16); ASPARTATE AMINOTRANSFERASE 45 IU/L (14-46); BILIRUBIN,TOTAL 2.3 mg/dL (0.1-1.4); CALCIUM 6.6 mg/dL (8.5-10.4); CARBON DIOXIDE 15 mEq/l (22-31); CHLORIDE 101 mEq/L (97-110); CREATININE 1.4 mg/dL (0.6-1.0); GLOMERULAR FILTRATION RATE 36; GLUCOSE 432 mg/dL (70-100); POTASSIUM 3.4 mEq/L (3.5-5.2); SODIUM 128 mEq/L (134-144); TOTAL PROTEIN 4.6 g/dL (6.3-8.2)
[2016-09-27 18:06] LABS: BILIRUBIN-CONJUGATED 1.1 mg/dL (0.0-0.5); BILIRUBIN-UNCONJUGATED 1.2 mg/dL (0.0-1.1)
[2016-09-27] MEDS: SODIUM BICARBONATE 150 MEQ in D5W 1,000 ML IV SCH (18:08)
--- NOTE | 2016-09-27 18:19 | SOAPPROG ---
SOAP Progress Note Assessment/Plan: Assessment:Obstructing renal stone. Possible pneumonia. WBC and lactate strongly suggests sepsis. Cultures confirm gm negative sepsis. Plan: Continue IV antibiotics, Trial of PRBC to expand volume to allow pressors to work. IV Bicarb 09/27/16 08:30 09/27/16 18:18 Objective: Vital Signs Temp Pulse Resp BP Pulse Ox 37.8 C 86 30 H 89/46 L 88 L 09/27/16 16:00 09/27/16 16:10 09/27/16 16:10 09/27/16 16:00 09/27/16 16:10 Microbiology 09/27/16 11:55 Gram Stain - Final Other - Aspirate Laboratory Results 09/27/16 17:30 09/27/16 17:30 09/26/16 09/27/16 09/28/16 05:59 05:59 05:59 Intake Total 3000 1978 Output Total 775 195 Balance 2225 1783 PT 25.4 SEC (12.0-15.0) H 09/27/16 14:35 INR 2.29 (0.83-1.16) H 09/27/16 14:35 Terrible day. Persistent hypotension, Inability to maintain fluid volume. Now in near end stage shock. ICD10 Worksheet Patient Problems: Problems Problem Status Onset Renal colic on left side Acute
--- NOTE | 2016-09-27 18:30 | GCON ---
[f rep st] CONSULTATION DATE OF CONSULTATION: 09/27/2016 REFERRING PHYSICIAN: Ward Gomez MD REASON FOR CONSULTATION: Acute kidney injury. HISTORY OF PRESENT ILLNESS: The patient is a 81-year-old female, who was in her normal state of health until yesterday, when she developed acute left flank pain. She just got back on a sight-seeing trip in [facility] in [facility]. She came into the emergency department, then underwent abdominal CT scan with IV contrast that showed an obstructing proximal left ureteral stone. She had left-sided hydronephrosis. Her denies any antecedent fevers or urinary symptoms, or prior history of kidney stones or kidney disease. Her creatinine on admission was 0.8. Over the course of today, she has deteriorated hemodynamically. She has become oliguric and her creatinnie bumped to 1.5. She now is requiring 3 vasopressors for blood pressure support. She developed lactic acidosis, and increased respiratory effort. She was intubated to offload her respiratory demands. We were asked to evaluate and help manage her renal failure. This morning at 10 a.m., due to deterioration, she underwent urgent percutaneous nephrostomy tube placement by Interventional Radiology. The history is taken from discussion with Dr. Gomez, the patient's , and review of the medical record, all of which I summarized here. I do note that she received a single dose of Toradol 15 mg yesterday evening. She also received an ampule of sodium bicarbonate with intubation. PAST MEDICAL HISTORY: See HPI. Hypertension, osteoporosis, prior left ankle fracture, with replacement, also left knee replacement. SOCIAL HISTORY: She does not smoke. She rarely drinks alcohol. She is with 3 children, and exercises regularly. She is recently retired. FAMILY HISTORY: Noncontributory. ALLERGIES: Codeine and Cipro. REVIEW OF SYSTEMS: Unable to obtain, as patient is intubated. Per review of the admitting note, she has chronic low back pain. CURRENT MEDICATIONS: Include Levophed, vasopressin, Obed-Synephrine, meropenem, vancomycin, Levaquin, Protonix, fentanyl p.r.n. PHYSICAL EXAMINATION: VITAL SIGNS: 97/52 on 3 vasopressors, with a heart rate of 86, respiratory rate of 30, saturating 88% on 100% FiO2, with a temperature of 35.9, T-max of 37.9 yesterday evening. CVP of 15. GENERAL APPEARANCE: She is alert and communicative with her and staff, and appears uncomfortable. She is intubated. HEAD: Atraumatic. EYES: Without scleral icterus. NECK: No lymphadenopathy. Jugular venous distention is not seen. HEART: Tachycardic, regular rhythm, without murmurs, gallops, or rubs. LUNGS: Clear to auscultation bilaterally. ABDOMEN: Obese, but soft and nontender. No suprapubic tenderness. GENITOURINARY: She has a left-sided percutaneous nephrostomy tube that has 50-100 cc of bloody urine, as well as a Shafer catheter in place with 200 cc of dark dylan urine drained over the past 10 hours since 8 a.m. LOWER EXTREMITIES: Without any pitting edema. She has Cruzito's on and REGINALDO hose. Her hands are cool, clammy, and cyanotic. SKIN: Otherwise without mottling or rashes. NEUROLOGICAL: Nonfocal. MUSCULOSKELETAL : No gross joint deformity. Left ankle appears slightly more swollen than the right. LABORATORY DATA: I personally reviewed her abdominal CT scan, which did show a large, approximately 1 cm, left ureteropelvic junction stone with hydronephrosis. Her kidneys otherwise appeared normal to my eye, and her bladder was full of urine. Per radiology report, there was a 5-mm proximal ureteral stone, 10-mm left renal pelvic stone. Left renal artery aneurysm. Spinal degenerative changes. Chest x-ray showed increased bilateral pulmonary infiltrates. Urine showed 1-3 red and white cells, and trace epithelial cells. Last blood gas at 1450 was 7.24, 28, 61, 13 on 12 L OxyMask. Lactate of 5.5. IMPRESSION AND PLAN: 1. Acute kidney injury. Her baseline creatinine was normal. She is now oliguric. This is presumably ischemic acute tubular necrosis. Also, she undoubtedly has a component of contrast, as well as NSAID-induced kidney injury. She appears to have had adequate fluid resuscitation, but is still extremely ill requiring 3 vasopressors. She is acidotic. There is a good likelihood that she will require dialysis. I would start with CRRT, given her hemodynamic instability. It is not clear what her trajectory is, now that she has had decompression of her left kidney, and adequate antibiotic therapy. I have discussed the findings and plan with her , who is in agreement with dialysis as necessary. 2. Septic shock. Continue broad-spectrum antibiotic coverage. Doses have been renally adjusted for GFR of less than 10. Continue vasopressor support. Her CVP is 15. She appears to have received adequate fluid resuscitation. 3. Acidosis. Her lactate was as high as 5. I will add some sodium bicarbonate -based IV fluids. If she is not turning around by the morning, then we will place a dialysis catheter and initiate CRRT. Repeat some labs later tonight. Her anion gap was not elevated; however, her clinical scenario is consistent with primary lactic acidosis. 4. Urosepsis. 5. Respiratory failure. Either congestive heart failure due to fluid resuscitation versus adult respiratory distress syndrome. Her respiratory drive is also a result of her acidosis. She has been intubated. 6. Further definitive management of her renal stone once she has stabilized. For now, continue percutaneous nephrostomy. I did spend from 1630 to 1715 with this patient in critical care time. Thank you for this consultation. We will continue to follow closely michael. /[id number]/MODL MTDD
[2016-09-27 18:33] LABS: ECHINOCYTES 1+; KERATOCYTES 1+; MACROCYTES 1+; PLATELET ESTIMATE DECREASED (ADEQ); POLYCHROMASIA 1+
[2016-09-27] MEDS ORDERED: POTASSIUM Cl (KCl) 50 ML IV ONE (19:00)
[2016-09-27] MEDS: PHENYLEPHRINE HCL 50 MG in D5W 250 ML IV SCH (19:20)
[2016-09-27] MEDS: NOREPINEPHRINE BITARTRATE 16 MG in D5W 250 ML IV SCH (19:53)
[2016-09-27] MEDS: fentaNYL/NACL 100 ML IV SCH (19:54)
[2016-09-27] MEDS: PROPOFOL/EMULSION 100 ML IV SCH (19:54)
[2016-09-27 21:00] LABS: ANION GAP 19 mEq/L (8-16); CALCIUM 7.8 mg/dL (8.5-10.4); CARBON DIOXIDE 14 mEq/l (22-31); CHLORIDE 111 mEq/L (97-110); CREATININE 1.8 mg/dL (0.6-1.0); GLOMERULAR FILTRATION RATE 27; GLUCOSE 133 mg/dL (70-100); POTASSIUM 3.7 mEq/L (3.5-5.2); SODIUM 144 mEq/L (134-144)
[2016-09-27 21:07] LABS: PCO2 VENOUS 38 mmHg (40-44); PO2 VENOUS 42 mmHg (35-40); TCO2 VENOUS 14 mEq/L (23-27); VEN MEASURED OXYGEN SATURATION 70 % (65-75)
[2016-09-27 21:11] LABS: PH VENOUS BLOOD 7.16 (7.31-7.42)
[2016-09-27] MEDS: ACETAMINOPHEN 650 MG SUPP PR PRN (21:46)
[2016-09-27 22:01] LABS: INR 2.15 (0.83-1.16); PROTIME(PATIENT) 24.2 SEC (12.0-15.0)
[2016-09-27 22:02] LABS: APTT 45.6 SEC (23.0-38.0)
--- NOTE | 2016-09-27 22:21 | PCMIDPN ---
Assessment/Plan: Called by lab with results that polymicrobial GNR bacteremia based on BCID panel : E coli and Klebsiella. No changes to antibiotics based on these results. Continue meropenem and levofloxacin renal dosed for CrCl <10 based on anuria Objective: Vital Signs Temp Pulse Resp BP Pulse Ox 38.5 C H 101 H 30 H 88/67 L 90 L 09/27/16 22:00 09/27/16 22:00 09/27/16 22:00 09/27/16 22:00 09/27/16 22:00 Microbiology 09/27/16 11:55 Gram Stain - Final Other - Aspirate Laboratory Results 09/27/16 17:30 09/27/16 20:40 09/26/16 09/27/16 09/28/16 05:59 05:59 05:59 Intake Total 3000 6670 Output Total 775 195 Balance 4137 9245 ICD10 Worksheet Patient Problems: Problems Problem Status Onset Renal colic on left side Acute
[2016-09-27 22:28] LABS: PCO2 VENOUS 36 mmHg (40-44); PH VENOUS BLOOD 7.24 (7.31-7.42); PO2 VENOUS 38 mmHg (35-40); TCO2 VENOUS 16 mEq/L (23-27); VEN MEASURED OXYGEN SATURATION 69 % (65-75)
--- NOTE | 2016-09-27 23:25 | SOAPPROG ---
AL[facility]A Progress Note Assessment/Plan: Assessment: 1. GNR bacteremia. 2. Obstructing left nephroureterolithiasis, s/p nephrostomy tube placement earlier today. Plan: 1. Continue aggressive medical management, as per critical care, ID, & nephrology. 2. Continue left nephrostomy drainage. Had an extensive discussion w/ the pt's today regarding her current situation. Subjective: Pt. intubated and sedated. Objective: Vital Signs Temp Pulse Resp BP Pulse Ox 38.5 C H 101 H 30 H 88/67 L 90 L 09/27/16 22:00 09/27/16 22:00 09/27/16 22:00 09/27/16 22:00 09/27/16 22:00 Microbiology 09/27/16 11:55 Gram Stain - Final Other - Aspirate Laboratory Results 09/27/16 17:30 09/27/16 20:40 09/26/16 09/27/16 09/28/16 05:59 05:59 05:59 Intake Total 3000 6670 Output Total 775 195 Balance 2225 6475 PT 24.2 SEC (12.0-15.0) H 09/27/16 21:45 INR 2.15 (0.83-1.16) H 09/27/16 21:45 Physical Exam - Physical Exam General Appearance: other (intubated & sedated) Back: Other (left neph. tube draining blood-tinged urine) ICD10 Worksheet Patient Problems: Problems Problem Status Onset Renal colic on left side Acute
[2016-09-27 23:52] LABS: IONIZED CALCIUM 0.98 MMOL/L (1.12-1.30)
[2016-09-27] MEDS ORDERED: CALCIUM CHLORIDE 1 GM/10 ML INJ IV ONE (23:56)
[2016-09-28 00:11] LABS: ANION GAP 22 mEq/L (8-16); CALCIUM 7.1 mg/dL (8.5-10.4); CARBON DIOXIDE 13 mEq/l (22-31); CHLORIDE 105 mEq/L (97-110); CREATININE 2.1 mg/dL (0.6-1.0); GLOMERULAR FILTRATION RATE 23; GLUCOSE 149 mg/dL (70-100); MAGNESIUM 1.6 mg/dL (1.6-2.3); POTASSIUM 4.7 mEq/L (3.5-5.2); SODIUM 140 mEq/L (134-144)
[2016-09-28] MEDS: BGK 4/2.5 PRISMASATE 5,000 ML DIAL SCH ×14 (00:12→22:53)
[2016-09-28 00:15] LABS: PCO2 VENOUS 38 mmHg (40-44); PO2 VENOUS 45 mmHg (35-40); TCO2 VENOUS 12 mEq/L (23-27); VEN MEASURED OXYGEN SATURATION 70 % (65-75)
[2016-09-28] MEDS: SENNOSIDES/DOCUSATE SODIUM TAB PO SCH ×2 (00:23→10:50)
[2016-09-28] MEDS ORDERED: CALCIUM CHLORIDE 1 GM/10 ML INJ IV ONE (00:25)
[2016-09-28] MEDS ORDERED: SODIUM BICARBONATE 50 MEQ/50 ML SYR IVP ONE (00:26)
[2016-09-28] MEDS ORDERED: POTASSIUM Cl (KCl) 100 ML IV PRN (00:30)
[2016-09-28] MEDS ORDERED: MAGNESIUM SULF 2 GM/WATER 50 ML IV PRN (00:30)
[2016-09-28] MEDS ORDERED: NA BICARBONATE 50 MEQ/50 ML VIAL ONE (00:33)
[2016-09-28] MEDS: SODIUM BICARBONATE 150 MEQ in D5W 1,000 ML IV SCH ×2 (00:37→05:04)
[2016-09-28] MEDS: PROPOFOL/EMULSION 100 ML IV SCH ×2 (02:47→17:01)
[2016-09-28] MEDS: HYDROCORTISONE 100 MG/2 ML VIAL IVP SCH ×2 (03:40→16:47)
--- NOTE | 2016-09-28 04:01 | GOP ---
[f rep st] OPERATIVE REPORT DATE OF OPERATION: 09/27/2016 SURGEON: Tia Storey MD ANESTHESIA: Currently sedated and intubated. PREOPERATIVE DIAGNOSIS: Acute kidney injury with acidosis. POSTOPERATIVE DIAGNOSIS: Acute kidney injury with acidosis. PROCEDURE PERFORMED: Ultrasound-guided right internal jugular placement of temporary dialysis catheter. FINDINGS: Hematoma after procedure SPECIMENS: None. ESTIMATED BLOOD LOSS: 15 cc. INDICATIONS: The patient is a 81-year-old woman, who was admitted with pyelonephritis and has developed sepsis. She is becoming progressively acidotic and has acute kidney injury. She had a nephrostomy tube placed but is continuing to decompensate. Due to the urgent need of CRRT temporary dialysis catheter was requested. Her INR was 2.1. I gave her 2 units of FFP, and then proceeded with the procedure. Her signed the consent DESCRIPTION OF PROCEDURE: She was in the ICU intubated and sedated. A time out was performed. Her right neck was prepped and draped in the usual sterile fashion. I used the ultrasound to identify the right internal jugular vein. It was easily accessed with dark return of blood flow. The guidewire was advanced and the needle was withdrawn. I made a small barbara in the skin, and then I sequentially using the Seldinger technique, placed the dilators over the wire. I then ultimately placed the catheter that I had previously flushed over the wire and removed the wire. Each of the ports withdrew blood easily and were flushed with saline. It was sutured into place with 2-0 nylon. A dressing was applied. At the end of the procedure she did have a hematoma at her neck. Chest x-ray shows the catheter in good position. We are monitoring the hematoma. Case discussed with Dr. Vega, as well as her Michael /[id number]/MODL MTDD
[2016-09-28] MEDS: NS 1,000 ML MISC SCH ×3 (04:34→16:38)
[2016-09-28] MEDS: PHENYLEPHRINE HCL 50 MG in D5W 250 ML IV SCH ×2 (05:04→10:38)
[2016-09-28] MEDS: NOREPINEPHRINE BITARTRATE 16 MG in D5W 250 ML IV SCH (05:04)
[2016-09-28 05:39] LABS: BASE EXCESS -16.6 mEq/L (-2.5-2.5); BICARBONATE 11 mEq/L (22-26); IONIZED CALCIUM 1.07 MMOL/L (1.12-1.30); MEASURED OXYGEN SATURATION 98 % (92-95); PCO2 28 mmHg (34-38); PO2 108 mmHg (65-75); TCO2 11 mEq/L (23-27)
[2016-09-28 05:40] LABS: ASSIST CONTROL YES; O2 CONCENTRATIION 80 % (0-100); P/F RATIO 135 RATIO
[2016-09-28 05:41] LABS: END TIDAL CO2 26; TOTAL RATE 30
[2016-09-28 06:11] LABS: ADD DIFF? YES; ADD MORPH? NO; ATYPICAL LYMPHOCYTE FLAG 0 (0-99); FRAGMENT RBC FLAG 0 (0-99); HEMATOCRIT 41.2 % (38.0-47.0); HEMOGLOBIN 12.9 g/dL (12.6-16.3); LIPEMIA HEMOLYSIS FLAG 80 (0-99); MEAN CELL HEMOGLOBIN 31.4 pg (27.9-34.1); MEAN CELL HEMOGLOBIN CONCENTR. 31.3 g/dL (32.4-36.7); MEAN CELL VOLUME 100.2 fL (81.5-99.8); MEAN PLATELET VOLUME 12.7 fL (8.7-11.7); PLATELET CLUMPS FLAG 30 (0-99); RED BLOOD CELL COUNT 4.11 10^6/uL (4.18-5.33); RED CELL DISTRIBUTION WIDTH 17.7 % (11.5-15.2)
[2016-09-28 06:22] LABS: INR 2.08 (0.83-1.16); PROTIME(PATIENT) 23.5 SEC (12.0-15.0)
[2016-09-28 06:24] LABS: ADD SCAN? NO; LEFT SHIFT FLG 300 (0-99); PLATELET COUNT 38 10^3/uL (150-400)
[2016-09-28 06:35] LABS: ALBUMIN 3.2 g/dL (3.5-5.0); ALKALINE PHOSPHATASE 106 IU/L (38-126); ANION GAP 21 mEq/L (8-16); CALCIUM 7.6 mg/dL (8.5-10.4); CARBON DIOXIDE 13 mEq/l (22-31); CHLORIDE 104 mEq/L (97-110); CREATININE 1.6 mg/dL (0.6-1.0); GLOMERULAR FILTRATION RATE 31; GLUCOSE 104 mg/dL (70-100); MAGNESIUM 2.1 mg/dL (1.6-2.3); POTASSIUM 4.4 mEq/L (3.5-5.2); SODIUM 138 mEq/L (134-144); TOTAL PROTEIN 5.7 g/dL (6.3-8.2)
[2016-09-28 06:43] LABS: ALANINE AMINOTRANSFERASE 1523 IU/L (9-52)
[2016-09-28 06:52] LABS: BILIRUBIN-CONJUGATED 2.3 mg/dL (0.0-0.5); BILIRUBIN-UNCONJUGATED 1.7 mg/dL (0.0-1.1)
[2016-09-28 06:56] LABS: PLATELET ESTIMATE DECREASED (ADEQ)
[2016-09-28 06:59] LABS: ASPARTATE AMINOTRANSFERASE 2264 IU/L (14-46); ECHINOCYTES 1+; MACROCYTES 1+
--- NOTE | 2016-09-28 08:25 | SOAPPROG ---
SOAP Progress Note Assessment/Plan: Assessment: 1. LYLA. Ischemia/NSAIDs/IV contrast. CRRT initiated with noncitrated solution d/t shock liver. RFR 1500, DFR 1500 cc/hr. Excessive, reduce dose to 1250/1250 once acidosis improved. No UF. 2. Severe septic shock/urosepsis. BCxs with E. Coli and K. pneumo. Adjust abx for CRRT. Discussed with pharmacy. 3. Lactic acidosis. Lactate 14.9 this am. Poor prognostic indicator. pH 7.2, adequate resp compensation. Continue HCO3 gtt, CRRT. 4. MODS w/ shock liver, ARDS? Also may have CHF. Consider echo. Aggressive fluid resuscitation. 5. Coagulopathy- DIC? Check DIC panel. Avoid heparin. Plan: 09/28/16 08:25 09/28/16 08:27 Subjective: Due to persistent anuria, acidosis and shock not improving, Dr. Storey placed dialysis catheter (appreciate help) and pt started CRRT last night. Received PRBCs. Received FFP prior to procedure. Objective: Vital Signs Temp Pulse Resp BP Pulse Ox 35.7 C L 79 30 H 96/63 L 100 09/28/16 06:00 09/28/16 06:00 09/28/16 06:00 09/28/16 06:00 09/28/16 06:00 Microbiology 09/27/16 11:55 Gram Stain - Final Other - Aspirate Laboratory Results 09/28/16 05:50 09/28/16 05:50 09/27/16 09/28/16 09/29/16 05:59 05:59 05:59 Intake Total 3000 9690 Output Total 775 295 Balance 2225 9395 PT 23.5 SEC (12.0-15.0) H 09/28/16 05:50 INR 2.08 (0.83-1.16) H 09/28/16 05:50 Intubated, FiO2 80%, PEEP 10 Barely responsive to vigorous sternal rub. On fent/propofol +vasopressin/levophed/neosynephrin; [id number] at 100/hr On CRRT RRR, no m/g/r CTAB Abdom obese, soft, nt Hands and feet cyanotic but warm, no purpura or necrosis L PCN with scan bloody urine CXR - cardiomegaly, no obvious infiltrates ICD10 Worksheet Patient Problems: Problems Problem Status Onset Renal colic on left side Acute
--- NOTE | 2016-09-28 08:25 | SOAPPROG ---
SOAP Progress Note Assessment/Plan: Assessment: s/p temporary dialysis catheter. 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 Hematoma at site much softer. Surgery on standby Plan: 09/28/16 08:24 Objective: Vital Signs Temp Pulse Resp BP Pulse Ox 35.7 C L 79 30 H 96/63 L 100 09/28/16 06:00 09/28/16 06:00 09/28/16 06:00 09/28/16 06:00 09/28/16 06:00 Microbiology 09/27/16 11:55 Gram Stain - Final Other - Aspirate Laboratory Results 09/28/16 05:50 09/28/16 05:50 09/27/16 09/28/16 09/29/16 05:59 05:59 05:59 Intake Total 3000 9690 Output Total 775 295 Balance 2225 9395 PT 23.5 SEC (12.0-15.0) H 09/28/16 05:50 INR 2.08 (0.83-1.16) H 09/28/16 05:50 ICD10 Worksheet Patient Problems: Problems Problem Status Onset Renal colic on left side Acute
[2016-09-28] MEDS: PRE-DILUTION FILTER SET 100 ****SEND #2 INITIALLY MISC PRN ×2 (08:39→16:38)
[2016-09-28] MEDS ORDERED: NS IV SCH (09:00)
[2016-09-28] MEDS ORDERED: MEROPENEM IV SCH (09:00)
[2016-09-28] MEDS ORDERED: ENOXAPARIN 40 MG/0.4 ML SYR SC SCH (09:00)
[2016-09-28] MEDS: fentaNYL/NACL 100 ML IV SCH ×2 (09:15→10:30)
--- NOTE | 2016-09-28 09:25 | PDINTPN ---
Data Entry Associate Progress Note Assessment/Plan: Assessment: Severe Sepsis: Due to bacteremia with E. Coli, K. pneumonia from impacted left nephrolithiasis. Now s/p drainage with nephrostomy tube, but MSOF has progressed , now hepatic and renal failure. LYLA: Anuric, on CVVHD. Severe lactic acidosis: Lactate continues to increase. Likely due to peripheral ischemia, acute hepatitis, but mesenteric ischemia also a possibility. Acute hepatitic: Lexii to shock. INR remains moderately elevated. Thrombocytopenia: Continues to fall. Likely due to consumption/DIC. Acute hypoxemic respiratory failure: Stable on vent, with slightly improved O2 needs. Cardiomyopathy: Likely septic. Plan: Add DB, try to wean down propofol, NE, phenylephrine. Continue CVVHD. Repeat labs and transfuse platelets, FFP, adjust HCO3 PRN. 45 minutes CC time managing hypotension on pressors, metabolic acidosis. 09/28/16 13:08 Subjective: Intubated, sedated Objective: Vital Signs Temp Pulse Resp BP Pulse Ox 35.8 C L 86 25 H 103/58 L 99 09/28/16 09:01 09/28/16 09:01 09/28/16 09:01 09/28/16 09:01 09/28/16 09:01 Microbiology 09/27/16 06:48 Blood Panel (PCR) - Final Blood Klebsiella Pneumoniae Escherichia Coli 09/27/16 11:55 Gram Stain - Final Other - Aspirate Laboratory Results 09/28/16 05:50 09/28/16 05:50 09/27/16 09/28/16 09/29/16 05:59 05:59 05:59 Intake Total 3000 9690 Output Total 775 295 Balance 2225 9395 PT 23.5 SEC (12.0-15.0) H 09/28/16 05:50 INR 2.08 (0.83-1.16) H 09/28/16 05:50 Laboratory Tests 09/28/16 09/28/16 09/28/16 05:30 05:50 05:50 INR 2.08 H pCO2 28 L pO2 108 H Total CO2 11 L ABG pH 7.20 L ABG O2 Saturation 98 H VBG Lactic Acid 14.9 H O2 Concentration % 80 Respiration Rate 30 Assist Control YES Tidal Volume 450 CXR: Improved interstitial edema. ETT, Central line OK. Images reviewed. ECHO: EF 15-20%, global hypokinesis. Microbiology 09/27/16 06:48 Blood Blood Panel (PCR) - Final Klebsiella Pneumoniae Escherichia Coli 09/27/16 06:48 Blood Blood Culture - Preliminary 09/27/16 06:48 Blood Gram Negative Mike Physical Exam - Physical Exam General Appearance: unresponsive, No alert EENT: normal ENT inspection Neck: normal inspection Respiratory: lungs clear, normal breath sounds Cardiac/Chest: regular rate, rhythm, No edema Abdomen: normal bowel sounds, non-tender, soft Skin: normal color, warm/dry Extremities: other (cyanosis of all digits.) Neuro/Psych: No alert ICD10 Worksheet Patient Problems: Problems Problem Status Onset Renal colic on left side Acute
[2016-09-28 09:35] LABS: INR 2.41 (0.83-1.16); PROTIME(PATIENT) 26.5 SEC (12.0-15.0)
[2016-09-28 09:36] LABS: APTT 46.8 SEC (23.0-38.0)
[2016-09-28 09:44] LABS: PLATELET COUNT 35 10^3/uL (150-400)
[2016-09-28 09:46] LABS: FIBRINOGEN 282 mg/dL (214-456)
[2016-09-28] MEDS: MEROPENEM 1 GM in NS 100 ML IV SCH ×2 (10:31→21:49)
[2016-09-28] MEDS: PRAVASTATIN SODIUM 10 MG TAB PO SCH (10:49)
[2016-09-28] MEDS: OMEGA-3 FATTY ACIDS 1,000 MG CAP PO SCH (10:49)
--- NOTE | 2016-09-28 11:03 | SOAPPROG ---
SOAP Progress Note Assessment/Plan: Assessment: 81 yo female w/ nephrolithiasis and hydronephrosis, 1x 5-6 mm stone L ureter w/ obstruction, 1 x 10 mm L renal pelvis superiorly -admitted for pain mngt, urology consult - appreciated Dr. Grady seeing pt, will likely need ureteroscope and possible stenting. Place on IVF, npo P MN tonight for procedure tomorrow. Placed on PPI w/ toradol on board and hospitalization. Encourage po water intake as well. -h/o htn - cont amlodipine. -osteoporosis - on prolia, wt bearing exercise, d - level appropriate checked as outpt not excessively high. -dvt proph - lovenox -dispo - will depend on upcoming urologic procedure and recovery, anticipate likely 2 MN's. Will change admission status to inpt. Plan: 09/26/16 15:02 09/26/16 15:10 09/28/16 10:56 81 yo female w/ sepsis/multiorgan failure/ likely DIC/resp'y failure, admitted w / nephrolithiasis w/ obstruction -[facility] - appreciate support of global marketing coordinator, nephrology, surgery, resp'y team - pt lightly sedated on vent, oxygen saturations better today, central line placed last night by w/ initiation of dialysis by Dr. Irene after to help w/ her severe lactic acidosis - lactate very high at 15 today, LFT's jumped, INR holding at 2.4, platelets continue to drop at 35 now concern for DIC. Pt very critically ill. -Spent time w/ family last night and this morning discussing her sepsis and grim prognosis. -Pharmacy helping to dose abx for E coli and klebsiella sepsis, ID helping w/ guidance. - Objective: Vital Signs Temp Pulse Resp BP Pulse Ox 36 C 83 29 H 100/76 100 09/28/16 10:00 09/28/16 10:00 09/28/16 10:00 09/28/16 10:00 09/28/16 10:00 Microbiology 09/27/16 11:55 Gram Stain - Final Other - Aspirate 09/27/16 06:48 Blood Panel (PCR) - Final Blood Klebsiella Pneumoniae Escherichia Coli Laboratory Results 09/28/16 09:00 09/28/16 05:50 09/27/16 09/28/16 09/29/16 05:59 05:59 05:59 Intake Total 3000 9690 389.0 Output Total 775 295 558 Balance 2225 9395 -169.0 PT 26.5 SEC (12.0-15.0) H 09/28/16 09:00 INR 2.41 (0.83-1.16) H 09/28/16 09:00 GEN: pt is arousable, is moving all extremities, family at bedside Neck: R neck w/ hematoma and central line Chest: coarse bs CV: rrr Ext: dusky but warmer - Pending Discharge Pending Discharge Within 48 Hours: No ICD10 Worksheet Patient Problems: Problems Problem Status Onset Renal colic on left side Acute
--- NOTE | 2016-09-28 11:37 | ECHO ---
[id number] + + [address] : : [place] [address] : : [phone] + + Adult Echocardiographic Report + --------+ :Name: AMAIRANI RUTHERFORD WStudy Date: 09/28/2016 10:34 AM BP: 91/57 mmH g : : Hospital Admission Number: [id number] Locat ion: 247: :: 1935 Gender: Female Height: 64 in : :Age: 81 yrs Race: WH Weight: 143 l b : :Reason For Study: Eval LV Fx : : BSA: 1.7 mete rs2 : :History: Sepsis, Intubated, Hypotension : + --------+ MMode/2D Measurements \T\ Calculations IVSd: 1.1 cm LVIDd: 4.7 cm FS: 14.6 % Ao root diam: LVPWd: 1.3 cm LVIDs: 4.0 cm EDV(Teich): 2.8 cm 101.0 ml ACS: 2.0 cm ESV(Teich): 69.7 ml EF(Teich): 31.0 % LVLd ap4: 6.4 cm SV(MOD-sp4): EDV(MOD-sp4): 11.0 ml 51.0 ml LVLs ap4: 6.4 cm ESV(MOD-sp4): 40.0 ml EF(MOD-sp4): 21.6 % Normal Measurement Values: + + :LVIDd (3.5-5.7cm) IVSd (0.6-1.1cm) LVPWd (0.6-1.1cm) Aortic Root (2.0-3.7cm)Left Atrium (1.5-4.0cm): :LV Vol(d) (76-115ml) LV Vol(s) (29-48ml) Ejec Fraction (50-65%)PV Manny (0.6- 1.2m/s) TV Manny (0.4-1.0m/s) : :MV E Manny (0.8-1.0m/s)MV A Manny (0.3-1.0m/s)LVOT Manny (0.7-1.2m/s) Asc Ao Manny ( 0.9-1.8m/s) : + + Doppler Measurements \T\ Calculations Ao V2 max: 112.7 cm/sec LV V1 max: 65.2 cm/sec TR max manny: 248.4 cm/sec Ao max P.1 mmHg LV V1 max P.7 mmHg TR max P.7 mmHg RAP systole: 5.0 mmHg RVSP(TR): 29.7 mmHg Left Ventricle The left ventricle is normal in size. There is normal left ventricular wall thickness. Left ventricular systolic function is severely reduced. Ejection Fraction = 15-20%. There is severe global hypokinesis of the left ventricle. Right Ventricle The right ventricle is moderately dilated. The right ventricular systolic function is moderate to severely reduced. Atria The left atrial size is normal. The right atrium is moderately dilated. Mitral Valve The mitral valve is normal. There is no evidence of mitral valve prolapse. No significant mitral valve stenosis. There is trace mitral regurgitation. Tricuspid Valve Grossly normal. There is mild tricuspid regurgitation. Aortic Valve Mild Aortic Valve Calcification. There is no aortic stenosis. There is no aortic insufficiency. Pulmonic Valve The pulmonic valve is normal in structure and function. There is no pulmonic valvular regurgitation. Great Vessels The aortic root is normal size. Pericardium/Pleural Small anterior pericardial effusion. There is a moderate pleural effusion. Conclusion A complete two-dimensional transthoracic echocardiogram was performed (2D, M-mode, Doppler and color flow Doppler). Normal LV size. Left ventricular systolic function is severely reduced. Ejection Fraction = 15-20%. There is severe global hypokinesis of the left ventricle. The right ventricle is moderately dilated. The right ventricular systolic function is moderate to severely reduced. The left atrial size is normal. The right atrium is moderately dilated. Normal appearing valvular structures with mild age appropriate valvular changes. Small anterior pericardial effusion There is a moderate pleural effusion. There is mild tricuspid regurgitation. There is trace mitral regurgitation. Final Reading Physician: Karlos Noonan signed on 09/28/2016 11:36 AM Ordering Physician: Brenda Mora Performed By: Adrian Levy, RUST
--- NOTE | 2016-09-28 11:43 | GCON ---
[f rep st] CONSULTATION INFECTIOUS DISEASE CONSULTATION DATE OF CONSULTATION: 09/27/2016 REFERRING PHYSICIAN: Ward Gomez MD REASON FOR CONSULTATION: Antibiotic management for Septic shock, secondary to left-sided pyelonephritis and gram-negative evelio bacteremia. HISTORY OF PRESENT ILLNESS: A 81-year-old relatively healthy woman, who was in her usual state of health, but awoke on 09/26/2016 with sudden-onset left flank pain. It radiated across her abdomen, and she felt associated chills and sweats. She came to the emergency room for evaluation, and underwent a CT scan. A CT scan showed a 6-mm obstructing stone on the proximal left ureter, and a second calculus in the pelvis. She had [id number] left hydronephrosis. The patient did not initially receive antibiotics as she looked well and was afebrile, normal blood pressure, had a normal white count, and urinalysis was bland. The patient subsequently had hypotension overnight, and Dr. Vega transferred the patient to the ICU this morning and started on empiric antibiotics at that time, with meropenem and levofloxacin. Subsequently, patient had increasing pressor requirements, and eventually required intubation for further hemodynamic stabilization and airway protection. Today, the patient also had a nephrostomy tube placed on the left, with Gram stain showing 4+ gram- negative rods - simultaneously blood cultures all grew gram-negative rods. ID is asked to see the patient for directed antibiotic therapy. Today, in addition to meropenem, Levaquin, patient received 1 dose of IV vancomycin and 1 dose of Zosyn. Source of history: , chart. PAST MEDICAL HISTORY: 1. Recurrent UTIs. Microbiology was reviewed back to 2014. Most recent culture from 02/2016 showed Klebsiella, was only resistant to nitrofurantoin and ampicillin. In 03/2015, patient had a more resistant E. coli, which was resistant to levofloxacin, Bactrim, ceftriaxone, cefepime, and Unasyn. 2. Hypertension. 3. Osteoporosis. 4. Pelvic fracture. 5. Left renal aneurysm. SURGICAL HISTORY: 1. Ankle replacement on the left. 2. Knee replacement in 2007. FAMILY HISTORY: Mother had glioblastoma multiforme. No siblings. SOCIAL HISTORY: She is a nonsmoker. She has been for over 50 years. She has 3 adult children, and 7 grandchildren. Exercises regularly. In fact, they were traveling on a tour prior to the onset of this illness through [employer] and [employer]. No drugs. The patient's last international travel was [place] in May of 2016. MEDICATIONS: Dulcolax, fentanyl, lactulose, Levaquin 750mg x1, meropenem 1 g IV q.12, norepinephrine, fish oil, Protonix, phenylephrine, Pravachol, Senokot, normal saline, vasopressin, and vancomycin x1. ALLERGIES: Codeine causes a rash, and she has had some tendon pain related to Cipro. REVIEW OF SYSTEMS: A review of systems was obtained through questioning of her . The patient denied any urinary symptoms, GI symptoms, respiratory symptoms. She does have chronic low back pain, and left ankle pain that is not new. PHYSICAL EXAM: VITAL SIGNS: Blood pressure 90/50, heart rate in the 100s, saturation 100% on 100% ventilator support, temperature 36.8. GENERAL: This is a sedated woman, who has a general healthy appearance. HEENT: Pupils are reactive bilaterally. No conjunctival hemorrhages. ET tube is in place. NECK: Supple. No lymphadenopathy. CARDIOVASCULAR: tachycardia. No systolic murmur. CHEST: Clear to auscultation bilaterally. ABDOMEN: Mildly distended, soft nontender. Bowel sounds are decreased. : Shafer was in place. Left nephrostomy tube was in place, with blood tinged urine in the bag, no purulence. EXTREMITIES : No joint swelling. No joint stiffness. Patient was recently sedated, not moving spontaneously at time of my exam. SKIN: No rashes. LABORATORY DATA: White count 4.7, hematocrit 35, platelets of 76, 69% neutrophils, 26% bands. Creatinine 1.5, with no urinary output. Total bilirubin 1.6, AST 34, ALT 35, alkaline phosphatase 136. ABG: pH 7.2, pO2 is 61, pCO2 28. IMAGING: As per HPI. In addition, chest x-ray was personally reviewed by me, which showed a slightly enlarged cardiomediastinal silhouette and some interstitial infiltrates. ASSESSMENT AND PLAN: A 81-year-old woman, with a past medical history of recurrent urinary tract infections, who is critically ill with septic shock, evidenced by refractory metabolic acidosis, mild elevated LFTs, with bilirubinemia, acute renal failure with anuria, and a bandemia, but notable, also, with a relatively low total WBC. # Septic Shock: Source of infection is left pyelonephritis related to obstruction, secondary to obstructive nephrolithiasis complicated by bacteremia. RECOMMENDATIONS: 1. Spectrum of activity of meropenem and levofloxacin is reasonable while await identification of gram-negative evelio. Most recent urine cultures so relatively susceptible Klebsiella, but because of critical illness would include coverage of ESBLs. Adjust dosing of antibiotics because of ARF/anuria: creatinine clearance as less than 10. Would adjust dosing of meropenem to 500 mg IV daily. In addition, the patient received a loading dose of levofloxacin 750 today, and would dose at 500 every 48 hours. 2. Await identification of gram-negative rods. Once specific organism(s) identified, can narrow antibiotic therapy. May be able to select an antibiotic with minimal kidney metabolism. 3. discontinuation of Zosyn and vancomycin needed. Known GNR in blood, coverage of MRSA not needed 4. Slightly elevated cardiomediastinal silhouette on x ray would obtain ECHO # Acute renal failure is likely multifactorial, with sepsis, obstructive uropathy, and kidney toxic agents such as Toradol, antibiotics, and contrast. Renal dosing of antibiotics as above. Assess daily as patient may initiated hemodialysis soon. Time was 75 minutes. Greater than 50% time spent with education and counseling, with the at the bedside, coordination of care, with Nephrology and Critical Care. Emphasis was placed on management of infection which including placement of nephrostomy tube to drain source of infection (L kidney) and initial broad coverage to improve changes of covering GNR and subsequent tailoring of therapy. Thank you for this consultation. We will continue to follow on a daily basis. /[id number]/MODL MTDD
[2016-09-28] MEDS: DOBUTamine 500 MG in D5W 250 ML IV SCH (12:35)
[2016-09-28 12:55] LABS: ALBUMIN 3.2 g/dL (3.5-5.0); ANION GAP 21 mEq/L (8-16); CALCIUM 7.3 mg/dL (8.5-10.4); CARBON DIOXIDE 14 mEq/l (22-31); CHLORIDE 103 mEq/L (97-110); CREATININE 1.4 mg/dL (0.6-1.0); GLOMERULAR FILTRATION RATE 36; GLUCOSE 86 mg/dL (70-100); MAGNESIUM 2.1 mg/dL (1.6-2.3); POTASSIUM 4.7 mEq/L (3.5-5.2); SODIUM 138 mEq/L (134-144)
--- NOTE | 2016-09-28 14:03 | GPN ---
[f rep st] PROCEDURE NOTE DATE OF PROCEDURE: 09/27/2016 PROCEDURE: Flexible fiberoptic bronchoscopy. REASON FOR THE PROCEDURE: Respiratory failure, possible retained secretions. PROCEDURE NOTE: The risks and benefits of the procedure were explained to the patient's family, who agreed to proceed. The entire procedure was performed in the intensive care unit with the patient under blood pressure, EKG, and oximetry monitoring. It was my assessment that there was no signific ant risk of airborne infection from the procedure. After a time out, the patient's oropharynx was a nesthetized with topical spray, and a bite block was placed between her teeth. The bronchoscope was advanced through the bite block into the posterior pharynx where I encountered some thick purulent secretions. These were suctioned and the scope had to be removed to clear the channel. The patient saturations were falling precipitously, so the patient was bagged, but her saturations remained in the 40s to 50s. The bronchoscope was quickly reintroduced into the oropharynx and the vocal cords w ere identified. The bronchoscope was advanced through the vocal cords, and an endotracheal tube was advanced over the bronchoscope and secured in place. The patient was bagged, and her oxygen satura tions came up to the 80s quickly. The bronchoscope was then reintroduced into the endotracheal tube , and the endotracheal tube was found to be just above the farheen. It was withdrawn somewhat. I ex amined all the airways bilaterally and encountered just a small amount of secretions, which were eas nely suctioned. The bronchoscope was then removed from the endotracheal tube. The patient received 2 mg of Versed and 50 mcg of fentanyl intravenously for analgesia and sedation. No specimens were s ent. There were no complications apparent at the end of the procedure with the exception of the tra nsient hypoxemia. /[id number]/MODL
--- NOTE | 2016-09-28 14:29 | PCMIDPN ---
Assessment/Plan: Assessment: septic shock -- stable from a hemodynamic viewpoint at present. Agree completely with the concentration on dobutamine rather than levophed given low EF. Of interest, the patient is growing both e.coli and klebsiella from blood. She is well covered with both levaquin and meropenem providing empiric coverage. Await formal sensitivity panel before making any changes. Plan: 1) Continue both Meropenem and Levaquin to cover the gram negatives in the blood. 2) Follow up on clinical changes as well as urine culture (from the neph tube) and sensitivities of the isolates. 09/29/16 00:02 Subjective: Patient remains intubated and sedated. Spoke at length with her son in the patient's room. Questions all addressed. Objective: Levaqiun # 2 Meropenem # 2 Vital Signs Temp Pulse Resp BP Pulse Ox 36.1 C 84 30 H 95/59 L 98 09/28/16 14:00 09/28/16 14:00 09/28/16 14:00 09/28/16 14:00 09/28/16 14:00 Microbiology 09/27/16 11:55 Gram Stain - Final Other - Aspirate 09/27/16 06:48 Blood Panel (PCR) - Final Blood Klebsiella Pneumoniae Escherichia Coli Laboratory Results 09/28/16 09:00 09/28/16 12:30 09/27/16 09/28/16 09/29/16 05:59 05:59 05:59 Intake Total 3000 9690 1086.7 Output Total 880 161 5685 Balance 2225 9395 -33.3 - Physical Exam General Appearance: WD/WN, other (intubated and sedated) Respiratory: lungs clear, normal breath sounds, other (ET tube in place), No respiratory distress Cardiac/Chest: regular rate, rhythm, No tachycardia Extremities: other, No normal inspection ICD10 Worksheet Patient Problems: Problems Problem Status Onset Renal colic on left side Acute
[2016-09-28 15:54] LABS: PCO2 VENOUS 34 mmHg (40-44); PH VENOUS BLOOD 7.32 (7.31-7.42); PO2 VENOUS 39 mmHg (35-40); TCO2 VENOUS 18 mEq/L (23-27); VEN MEASURED OXYGEN SATURATION 72 % (65-75)
[2016-09-28] MEDS: ACCESSORY DRAIN 1 EA BAG***SEND #2 INITIALLY MISC PRN (16:38)
[2016-09-28] MEDS: SODIUM CITRATE 4% 5 ML in SYRINGE 0 ML DIAL PRN (16:38)
[2016-09-28] MEDS: PANTOPRAZOLE SODIUM 40 MG in NS 100 ML IV SCH (16:40)
[2016-09-28 18:34] LABS: IONIZED CALCIUM 0.97 MMOL/L (1.12-1.30)
[2016-09-28 18:38] LABS: ABSOLUTE NRBC COUNT 0.03 10^3/uL (0-0.01); ADD MORPH? NO; ADD SCAN? YES; ATYPICAL LYMPHOCYTE FLAG 0 (0-99); FRAGMENT RBC FLAG 0 (0-99); HEMATOCRIT 35.7 % (38.0-47.0); HEMOGLOBIN 11.7 g/dL (12.6-16.3); LEFT SHIFT FLG 300 (0-99); LIPEMIA HEMOLYSIS FLAG 80 (0-99); MEAN CELL HEMOGLOBIN 31.5 pg (27.9-34.1); MEAN CELL HEMOGLOBIN CONCENTR. 32.8 g/dL (32.4-36.7); MEAN CELL VOLUME 96.2 fL (81.5-99.8); NRBC-AUTO% 0.2 % (0.0-0.2); PLATELET CLUMPS FLAG 10 (0-99); RED BLOOD CELL COUNT 3.71 10^6/uL (4.18-5.33); RED CELL DISTRIBUTION WIDTH 17.2 % (11.5-15.2)
[2016-09-28 18:44] LABS: PLATELET COUNT 25 10^3/uL (150-400)
[2016-09-28 18:56] LABS: ALBUMIN 3.1 g/dL (3.5-5.0); ANION GAP 15 mEq/L (8-16); CALCIUM 6.9 mg/dL (8.5-10.4); CARBON DIOXIDE 20 mEq/l (22-31); CHLORIDE 102 mEq/L (97-110); CREATININE 1.2 mg/dL (0.6-1.0); GLOMERULAR FILTRATION RATE 43; GLUCOSE 90 mg/dL (70-100); POTASSIUM 4.9 mEq/L (3.5-5.2); SODIUM 137 mEq/L (134-144)
[2016-09-28 20:25] LABS: PLATELET ESTIMATE DECREASED (ADEQ); SCAN POSITIVE
[2016-09-28 20:26] LABS: ADD DIFF? YES
[2016-09-28 20:47] LABS: TOXIC VACUOLIZATION PRESENT
[2016-09-28 21:04] LABS: ECHINOCYTES 1+; GIANT PLATELETS PRESENT; KERATOCYTES 1+; POLYCHROMASIA 1+
[2016-09-29 00:38] LABS: IONIZED CALCIUM 0.99 MMOL/L (1.12-1.30)
[2016-09-29] MEDS: fentaNYL/NACL 100 ML IV SCH ×2 (00:40→19:53)
[2016-09-29 01:00] LABS: ALBUMIN 2.9 g/dL (3.5-5.0); ANION GAP 11 mEq/L (8-16); CALCIUM 7.1 mg/dL (8.5-10.4); CARBON DIOXIDE 24 mEq/l (22-31); CHLORIDE 101 mEq/L (97-110); CREATININE 1.2 mg/dL (0.6-1.0); GLOMERULAR FILTRATION RATE 43; GLUCOSE 113 mg/dL (70-100); MAGNESIUM 2.1 mg/dL (1.6-2.3); POTASSIUM 4.8 mEq/L (3.5-5.2); SODIUM 136 mEq/L (134-144)
[2016-09-29] MEDS: BGK 4/2.5 PRISMASATE 5,000 ML DIAL SCH ×9 (02:37→22:55)
[2016-09-29] MEDS: HYDROCORTISONE 100 MG/2 ML VIAL IVP SCH ×2 (04:21→21:21)
[2016-09-29 05:52] LABS: BASE EXCESS 0.3 mEq/L (-2.5-2.5); BICARBONATE 24 mEq/L (22-26); MEASURED OXYGEN SATURATION 82 % (92-95); PCO2 37 mmHg (34-38); PO2 47 mmHg (65-75); TCO2 25 mEq/L (23-27)
[2016-09-29 05:58] LABS: ABSOLUTE NRBC COUNT 0.06 10^3/uL (0-0.01); ADD MORPH? NO; ADD SCAN? YES; ATYPICAL LYMPHOCYTE FLAG 0 (0-99); FRAGMENT RBC FLAG 0 (0-99); HEMATOCRIT 35.4 % (38.0-47.0); HEMOGLOBIN 11.7 g/dL (12.6-16.3); LIPEMIA HEMOLYSIS FLAG 80 (0-99); MEAN CELL HEMOGLOBIN CONCENTR. 33.1 g/dL (32.4-36.7); MEAN CELL VOLUME 93.9 fL (81.5-99.8); NRBC-AUTO% 0.4 % (0.0-0.2); PLATELET CLUMPS FLAG 0 (0-99); RED BLOOD CELL COUNT 3.77 10^6/uL (4.18-5.33); RED CELL DISTRIBUTION WIDTH 16.6 % (11.5-15.2)
[2016-09-29 06:03] LABS: INR 1.98 (0.83-1.16); PROTIME(PATIENT) 22.6 SEC (12.0-15.0)
[2016-09-29 06:04] LABS: LEFT SHIFT FLG 300 (0-99)
[2016-09-29 06:08] LABS: PLATELET COUNT 15 10^3/uL (150-400)
[2016-09-29] MEDS: SODIUM BICARBONATE 150 MEQ in D5W 1,000 ML IV SCH (06:27)
[2016-09-29 06:32] LABS: ALBUMIN 2.8 g/dL (3.5-5.0); ALKALINE PHOSPHATASE 141 IU/L (38-126); ANION GAP 11 mEq/L (8-16); BILIRUBIN,TOTAL 8.6 mg/dL (0.1-1.4); CALCIUM 7.2 mg/dL (8.5-10.4); CARBON DIOXIDE 25 mEq/l (22-31); CHLORIDE 102 mEq/L (97-110); CREATININE 1.1 mg/dL (0.6-1.0); GLOMERULAR FILTRATION RATE 48; GLUCOSE 126 mg/dL (70-100); MAGNESIUM 2.3 mg/dL (1.6-2.3); POTASSIUM 4.8 mEq/L (3.5-5.2); SODIUM 138 mEq/L (134-144); TOTAL PROTEIN 5.2 g/dL (6.3-8.2)
[2016-09-29 06:37] LABS: ADD DIFF? YES; SCAN POSITIVE
[2016-09-29 06:44] LABS: PLATELET ESTIMATE DECREASED (ADEQ); TOXIC VACUOLIZATION PRESENT
[2016-09-29 06:45] LABS: KERATOCYTES 1+
[2016-09-29 06:46] LABS: POLYCHROMASIA 1+
[2016-09-29 06:57] LABS: BILIRUBIN-CONJUGATED 3.5 mg/dL (0.0-0.5); BILIRUBIN-UNCONJUGATED 5.1 mg/dL (0.0-1.1)
[2016-09-29 06:58] LABS: ALANINE AMINOTRANSFERASE 3505 IU/L (9-52)
[2016-09-29 07:09] LABS: ASPARTATE AMINOTRANSFERASE 5206 IU/L (14-46)
[2016-09-29] MEDS ORDERED: levOFLOXACIN 500 MG/DEXTROSE 100 ML IV SCH (09:00)
--- NOTE | 2016-09-29 09:47 | SOAPPROG ---
SOAP Progress Note Assessment/Plan: Assessment: 1. LYLA. Ischemia/NSAIDs/IV contrast. CRRT initiated with noncitrated solution d/t shock liver. Currently anuric. RFR 1500, DFR 1500 cc/hr. Will reduce dose to 1250/1250 today as acidosis improved but with noncitrated solution, may need higher RFR to prevent clotting. CVP 19. Try 50cc/hr UF. Contiue CRRT until hemodynamically more stable. 2. Severe septic shock/urosepsis. Due to obstructed L kidney stone. s/p PCN, currently no UOP. BCxs with E. Coli and K. pneumo. Adjust abx for CRRT. Dobutamine for cardiogenic shock. CI in upper 2s. 3. Lactic acidosis. Lactate coming down nicely, 5.8 this am. D/c HCO3 gtt. 4. MODS w/ shock liver, CHF. EF 15%. 5. DIC. Plts 15 today. INR improving. Tx platelets prn. 6. Digital ischemia. Off pressors. Plan: 09/28/16 08:25 09/28/16 08:27 09/29/16 09:46 09/29/16 09:47 09/29/16 09:51 Subjective: Remains off pressors, on dobutamine. FiO2 needs decreased. C/o pain. Seen and examined on CRRT. Objective: Vital Signs Temp Pulse Resp BP Pulse Ox 35.5 C L 79 24 H 99/63 L 100 09/29/16 08:53 09/29/16 08:53 09/29/16 08:53 09/29/16 08:53 09/29/16 08:53 Microbiology 09/27/16 11:55 Gram Stain - Final Other - Aspirate 09/27/16 06:48 Blood Panel (PCR) - Final Blood Klebsiella Pneumoniae Escherichia Coli Laboratory Results 09/29/16 05:30 09/29/16 05:30 09/28/16 09/29/16 09/30/16 05:59 05:59 05:59 Intake Total 9690 3848.4 Output Total 295 2676.0 Balance 9395 1172.4 PT 22.6 SEC (12.0-15.0) H 09/29/16 05:30 INR 1.98 (0.83-1.16) H 09/29/16 05:30 Intubated but awake and responsive RRR, no m/g/r CTAB Abdom soft, nt Fingers/toes very cyanotic, cool but w/o necrosis 1-2+ sacral and LE edema ICD10 Worksheet Patient Problems: Problems Problem Status Onset ESBL (extended spectrum beta-lactamase) producing bacteria infection Acute ~ Renal colic on left side Acute
--- NOTE | 2016-09-29 10:00 | PDINTPN ---
Client Integration Manager Progress Note Assessment/Plan: Assessment: Severe Sepsis: Due to bacteremia with ESBL E. Coli, K. pneumonia from impacted left nephrolithiasis. Now s/p drainage with nephrostomy tube, but MSOF has progressed, now hepatic and renal failure. LYLA: Anuric, on CVVHD. Severe lactic acidosis: Improved today. Likely due to peripheral ischemia, acute hepatitis. Mesenteric ischemia less likely with improvement in lactate. Acute hepatitis: Lexii to shock. Transaminases higher, but INR down a bit. Thrombocytopenia: Continues to fall. Likely due to consumption/DIC. Increased risk of bleeding related to this Acute hypoxemic respiratory failure: Stable on vent, with improved O2 needs. Cardiomyopathy: Likely due to sepsis. Maintaining adequate BP since DB started. Plan: Try titrating DB, following CI and vitals. Continue CVVHD. Stop HCO3 infusion, reduce vent rate, and recheck ABG. Repeat labs and transfuse platelets. 40 minutes CC time managing pressors/CI, metabolic acidosis, thrombocytopenia. 09/29/16 10:56 Subjective: Awakens to voice, follows simple commands. Objective: Vital Signs Temp Pulse Resp BP Pulse Ox 35.5 C L 79 24 H 99/63 L 100 09/29/16 08:53 09/29/16 08:53 09/29/16 08:53 09/29/16 08:53 09/29/16 08:53 Microbiology 09/27/16 11:55 Gram Stain - Final Other - Aspirate 09/27/16 06:48 Blood Panel (PCR) - Final Blood Klebsiella Pneumoniae Escherichia Coli Laboratory Results 09/29/16 05:30 09/29/16 05:30 09/28/16 09/29/16 09/30/16 05:59 05:59 05:59 Intake Total 9690 3848.4 Output Total 295 2676.0 Balance 9395 1172.4 PT 22.6 SEC (12.0-15.0) H 09/29/16 05:30 INR 1.98 (0.83-1.16) H 09/29/16 05:30 Microbiology 09/27/16 11:55 Other - Aspirate Gram Stain - Final 09/27/16 11:55 Other - Aspirate Anaerobic Culture - Preliminary Escherichia Coli Esbl Laboratory Tests 09/29/16 09/29/16 09/29/16 05:30 05:30 05:30 INR 1.98 H pCO2 37 pO2 47 L Total CO2 25 ABG pH 7.43 ABG O2 Saturation 82 L VBG Lactic Acid 5.8 H Ionized Calcium 1.00 L Physical Exam - Physical Exam General Appearance: alert, no apparent distress EENT: normal ENT inspection Neck: normal inspection Respiratory: lungs clear, normal breath sounds Cardiac/Chest: regular rate, rhythm, edema Abdomen: normal bowel sounds, non-tender, soft Skin: normal color, warm/dry Extremities: other (peripheral cyanosis with small areas of necrosis at digital tips.) Neuro/Psych: alert (with stimulation), No oriented x 3 ICD10 Worksheet Patient Problems: Problems Problem Status Onset ESBL (extended spectrum beta-lactamase) producing bacteria infection Acute ~ Renal colic on left side Acute
--- NOTE | 2016-09-29 10:12 | PCMIDPN ---
Assessment/Plan: Assessment: septic shock -- stable from a hemodynamic viewpoint at present. The patient is growing both e.coli and klebsiella from blood. E coli is ESBL. Levaquin not covering and was appropriately discontinued this morning. Continues on meropenem monotherapy. Will wait Klebsiella sensitivity panel. Plan: 1) Continue Meropenem to cover both the E coli ESBL and Klebsiella.. 2) Follow up on clinical changes as well as urine culture (from the neph tube) and sensitivities of the isolates. 09/29/16 00:02 09/29/16 16:45 09/29/16 16:45 Subjective: Patient remains intubated and sedated. Hemodynamically stable at present. All pressors off except for dobutamine. Objective: Meropenem #3 Vital Signs Temp Pulse Resp BP Pulse Ox 35.5 C L 79 24 H 99/63 L 100 09/29/16 08:53 09/29/16 08:53 09/29/16 08:53 09/29/16 08:53 09/29/16 08:53 Microbiology 09/27/16 11:55 Gram Stain - Final Other - Aspirate 09/27/16 06:48 Blood Panel (PCR) - Final Blood Klebsiella Pneumoniae Escherichia Coli Laboratory Results 09/29/16 05:30 09/29/16 05:30 09/28/16 09/29/16 09/30/16 05:59 05:59 05:59 Intake Total 9690 3848.4 Output Total 295 2676.0 Balance 9395 1172.4 - Physical Exam General Appearance: WD/WN, toxic, other (Intubated and sedated.), No alert Respiratory: lungs clear, normal breath sounds, No respiratory distress Cardiac/Chest: regular rate, rhythm, No tachycardia Skin: normal color, warm/dry, No rash ICD10 Worksheet Patient Problems: Problems Problem Status Onset ESBL (extended spectrum beta-lactamase) producing bacteria infection Acute ~ Renal colic on left side Acute
[2016-09-29] MEDS: MEROPENEM 1 GM in NS 100 ML IV SCH ×2 (10:18→21:21)
[2016-09-29 11:13] LABS: PCO2 VENOUS 42 mmHg (40-44); PH VENOUS BLOOD 7.38 (7.31-7.42); PO2 VENOUS 62 mmHg (35-40); TCO2 VENOUS 25 mEq/L (23-27); VEN MEASURED OXYGEN SATURATION 90 % (65-75)
--- NOTE | 2016-09-29 11:29 | WOCRNPDOC ---
WOCRN Advanced Assessment Note - Skin Integrity Problem, Advanced Assess Left Lateral Breast Blister Dressing Type: Open to Air Exudate Amount: None Exudate Characteristic(s): None Integumentary Issue Intervention: Dressing Applied Laura Wound Tissue: Ecchymotic Laura Wound Swelling: Mild Wound Bed Color: Purple Wound Bed Constitution: Intact Sanguineous Blister Site Odor: None Site Measurement - Head-to-Toe Length X Width X Depth (cm): 3.5cmx5.5cmx blister (1 cm raised) Skin Integrity Problem Comment: Large, intact serosanguinous blister noted on L lateral breast. There is ecchymosis surrounding the blister, indicative of a possible deeper tissue injury. Etiology is unknown at this time. This wound does not appear to be pressure-related, as it is located over a fleshy area and does not appear to have any device-related involvement. Patient has been on pressors, which may have contributed to the injury. Site covered w/ protective dressing, and nursing advised to contact wound care if blister de-roofs and begins draining. Wound RN will round on patient again on Sunday 10/01.
[2016-09-29] MEDS: PANTOPRAZOLE SODIUM 40 MG in NS 100 ML IV SCH (11:52)
[2016-09-29] MEDS: NS 1,000 ML MISC SCH ×2 (11:53→16:24)
[2016-09-29 12:21] LABS: IONIZED CALCIUM 1.03 MMOL/L (1.12-1.30)
[2016-09-29 12:44] LABS: ALBUMIN 2.9 g/dL (3.5-5.0); ANION GAP 8 mEq/L (8-16); CALCIUM 7.2 mg/dL (8.5-10.4); CARBON DIOXIDE 27 mEq/l (22-31); CHLORIDE 102 mEq/L (97-110); GLOMERULAR FILTRATION RATE 53; GLUCOSE 124 mg/dL (70-100); MAGNESIUM 2.3 mg/dL (1.6-2.3); POTASSIUM 4.4 mEq/L (3.5-5.2); SODIUM 137 mEq/L (134-144)
[2016-09-29 12:46] LABS: ABSOLUTE NRBC COUNT 0.06 10^3/uL (0-0.01); ADD MORPH? NO; ADD SCAN? YES; ATYPICAL LYMPHOCYTE FLAG 0 (0-99); FRAGMENT RBC FLAG 0 (0-99); HEMATOCRIT 35.2 % (38.0-47.0); HEMOGLOBIN 11.5 g/dL (12.6-16.3); LIPEMIA HEMOLYSIS FLAG 80 (0-99); MEAN CELL HEMOGLOBIN 30.9 pg (27.9-34.1); MEAN CELL HEMOGLOBIN CONCENTR. 32.7 g/dL (32.4-36.7); MEAN CELL VOLUME 94.6 fL (81.5-99.8); MEAN PLATELET VOLUME 8.8 fL (8.7-11.7); NRBC-AUTO% 0.4 % (0.0-0.2); PLATELET CLUMPS FLAG 0 (0-99); RED BLOOD CELL COUNT 3.72 10^6/uL (4.18-5.33); RED CELL DISTRIBUTION WIDTH 16.5 % (11.5-15.2)
[2016-09-29 12:50] LABS: LEFT SHIFT FLG 300 (0-99); PLATELET COUNT 35 10^3/uL (150-400)
[2016-09-29 12:51] LABS: ADD DIFF? NO
[2016-09-29 13:13] LABS: SCAN POSITIVE
[2016-09-29 13:28] LABS: ECHINOCYTES 1+; PLATELET ESTIMATE DECREASED (ADEQ); TOXIC GRANULATION PRESENT
[2016-09-29 13:30] LABS: ACANTHOCYTES 1+; ELLIPTOCYTES 1+; MACROCYTES 1+
[2016-09-29] MEDS ORDERED: NITROGLYCERIN/DEXTROSE 250 ML IV SCH (13:30)
[2016-09-29 15:08] LABS: PCO2 VENOUS 44 mmHg (40-44); PH VENOUS BLOOD 7.38 (7.31-7.42); PO2 VENOUS 50 mmHg (35-40); TCO2 VENOUS 26 mEq/L (23-27); VEN MEASURED OXYGEN SATURATION 83 % (65-75)
[2016-09-29 15:10] LABS: O2 CONCENTRATIION 70 % (0-100); PATIENT RATE 20; PRESSURE SUPPORT 7; SIMV YES
[2016-09-29] MEDS: SODIUM PHOS 20 MM in D5W 250 ML IV PRN (15:35)
--- NOTE | 2016-09-29 18:11 | SOAPPROG ---
SOAP Progress Note Assessment/Plan: Assessment:Obstructing renal stone. Cultures confirm gm negative sepsis. Renal failure from shock kidney, hepatic failure from shock liver, Low platelets from DIC and shock. However compared to 48 hours ago, her prognosis has steadily improved. Plan: Continue IV antibiotics, continue full court press support. Will hold Levaquin pending ID evaluation. 09/27/16 08:30 09/27/16 18:18 09/29/16 18:09 Subjective: She continues to slowly improve. She is sedated at this time however she has been able to awaken and recognize family. Objective: Vital Signs Temp Pulse Resp BP Pulse Ox 35.7 C L 89 18 106/47 L 100 09/29/16 17:00 09/29/16 17:00 09/29/16 17:00 09/29/16 17:00 09/29/16 17:00 Microbiology 09/27/16 06:48 Blood Panel (PCR) - Final Blood Klebsiella Pneumoniae Escherichia Coli 09/27/16 11:55 Gram Stain - Final Other - Aspirate Laboratory Results 09/29/16 12:37 09/29/16 12:10 09/28/16 09/29/16 09/30/16 05:59 05:59 05:59 Intake Total 9690 3848.4 Output Total 295 2676.0 Balance 9395 1172.4 PT 22.6 SEC (12.0-15.0) H 09/29/16 05:30 INR 1.98 (0.83-1.16) H 09/29/16 05:30 Requiring lower oxygen concentration. Also blood pressure good on 5mcg/kg/min of dobutamine. Perfusion of extremities improved. Liver tests continue to deteriorate however INR is improved. Platelet count down to 15K. ICD10 Worksheet Patient Problems: Problems Problem Status Onset ESBL (extended spectrum beta-lactamase) producing bacteria infection Acute ~ Renal colic on left side Acute
[2016-09-29 18:46] LABS: IONIZED CALCIUM 1.05 MMOL/L (1.12-1.30)
[2016-09-29 19:10] LABS: ALBUMIN 2.5 g/dL (3.5-5.0); ANION GAP 6 mEq/L (8-16); CARBON DIOXIDE 26 mEq/l (22-31); CHLORIDE 102 mEq/L (97-110); CREATININE 0.9 mg/dL (0.6-1.0); GLOMERULAR FILTRATION RATE > 60; GLUCOSE 165 mg/dL (70-100); MAGNESIUM 2.2 mg/dL (1.6-2.3); POTASSIUM 4.1 mEq/L (3.5-5.2); SODIUM 134 mEq/L (134-144)
[2016-09-29 20:33] LABS: PCO2 VENOUS 48 mmHg (40-44); PH VENOUS BLOOD 7.35 (7.31-7.42); PO2 VENOUS 53 mmHg (35-40); TCO2 VENOUS 27 mEq/L (23-27); VEN MEASURED OXYGEN SATURATION 85 % (65-75)
[2016-09-29 20:37] LABS: ABSOLUTE NRBC COUNT 0.06 10^3/uL (0-0.01); ADD DIFF? YES; ADD MORPH? NO; ATYPICAL LYMPHOCYTE FLAG 0 (0-99); FRAGMENT RBC FLAG 0 (0-99); HEMATOCRIT 32.7 % (38.0-47.0); HEMOGLOBIN 10.7 g/dL (12.6-16.3); LIPEMIA HEMOLYSIS FLAG 80 (0-99); MEAN CELL HEMOGLOBIN 30.9 pg (27.9-34.1); MEAN CELL HEMOGLOBIN CONCENTR. 32.7 g/dL (32.4-36.7); MEAN CELL VOLUME 94.5 fL (81.5-99.8); NRBC-AUTO% 0.3 % (0.0-0.2); PLATELET CLUMPS FLAG 20 (0-99); RED BLOOD CELL COUNT 3.46 10^6/uL (4.18-5.33); RED CELL DISTRIBUTION WIDTH 16.4 % (11.5-15.2)
[2016-09-29 20:39] LABS: LEFT SHIFT FLG 300 (0-99)
[2016-09-29 20:40] LABS: PLATELET COUNT 19 10^3/uL (150-400)
[2016-09-29 21:12] LABS: KERATOCYTES 1+; MACROCYTES 1+; MICROCYTES 1+; PLATELET ESTIMATE DECREASED (ADEQ); SCHISTOCYTES 1+; TOXIC VACUOLIZATION PRESENT
[2016-09-30] MEDS: BGK 4/2.5 PRISMASATE 5,000 ML DIAL SCH ×10 (04:03→20:15)
[2016-09-30] MEDS: ACCESSORY DRAIN 1 EA BAG***SEND #2 INITIALLY MISC PRN (04:04)
[2016-09-30 05:33] LABS: ABSOLUTE NRBC COUNT 0.06 10^3/uL (0-0.01); ADD DIFF? YES; ADD MORPH? NO; ATYPICAL LYMPHOCYTE FLAG 0 (0-99); FRAGMENT RBC FLAG 0 (0-99); HEMATOCRIT 33.7 % (38.0-47.0); LIPEMIA HEMOLYSIS FLAG 80 (0-99); MEAN CELL HEMOGLOBIN CONCENTR. 32.6 g/dL (32.4-36.7); MEAN CELL VOLUME 94.9 fL (81.5-99.8); MEAN PLATELET VOLUME 10.5 fL (8.7-11.7); NRBC-AUTO% 0.3 % (0.0-0.2); PLATELET CLUMPS FLAG 0 (0-99); RED BLOOD CELL COUNT 3.55 10^6/uL (4.18-5.33); RED CELL DISTRIBUTION WIDTH 16.7 % (11.5-15.2)
[2016-09-30 05:34] LABS: INR 1.26 (0.83-1.16); PROTIME(PATIENT) 15.8 SEC (12.0-15.0)
[2016-09-30 05:35] LABS: ADD SCAN? NO; LEFT SHIFT FLG 300 (0-99); PLATELET COUNT 46 10^3/uL (150-400)
[2016-09-30 05:50] LABS: ALBUMIN 2.8 g/dL (3.5-5.0); ALKALINE PHOSPHATASE 190 IU/L (38-126); ANION GAP 7 mEq/L (8-16); BILIRUBIN,TOTAL 13.3 mg/dL (0.1-1.4); CALCIUM 7.5 mg/dL (8.5-10.4); CARBON DIOXIDE 27 mEq/l (22-31); CHLORIDE 105 mEq/L (97-110); GLOMERULAR FILTRATION RATE 53; GLUCOSE 84 mg/dL (70-100); POTASSIUM 4.2 mEq/L (3.5-5.2); SODIUM 139 mEq/L (134-144); TOTAL PROTEIN 5.6 g/dL (6.3-8.2)
[2016-09-30 06:22] LABS: ASPARTATE AMINOTRANSFERASE 1464 IU/L (14-46)
[2016-09-30 06:39] LABS: BILIRUBIN-CONJUGATED 9.1 mg/dL (0.0-0.5); BILIRUBIN-UNCONJUGATED 4.2 mg/dL (0.0-1.1); SPECIMEN ICTERUS 6
[2016-09-30] MEDS: DOBUTamine 500 MG in D5W 250 ML IV SCH ×2 (06:47→07:44)
[2016-09-30 06:50] LABS: ALANINE AMINOTRANSFERASE 2502 IU/L (9-52)
[2016-09-30 07:25] LABS: ACANTHOCYTES 1+; ECHINOCYTES 1+; SCHISTOCYTES 1+
[2016-09-30 07:26] LABS: KERATOCYTES 1+
[2016-09-30 07:27] LABS: PLATELET ESTIMATE DECREASED (ADEQ)
[2016-09-30 07:52] LABS: MAGNESIUM 2.4 mg/dL (1.6-2.3)
[2016-09-30] MEDS: MEROPENEM 1 GM in NS 100 ML IV SCH ×2 (08:55→21:36)
[2016-09-30] MEDS: NS 1,000 ML MISC SCH ×3 (09:00→17:44)
[2016-09-30] MEDS: HYDROCORTISONE 100 MG/2 ML VIAL IVP SCH ×2 (09:21→21:36)
--- NOTE | 2016-09-30 09:30 | PDINTPN ---
Web Marketing Strategist Progress Note Assessment/Plan: Assessment: Severe Sepsis: Due to bacteremia with ESBL E. Coli, K. pneumonia from impacted left nephrolithiasis. Now s/p drainage with nephrostomy tube. On Meropenem. LYLA: Anuric, on CVVHD. 20ml from nephrostomy Severe lactic acidosis: Continues to improve, nearly normal today. Likely due to peripheral ischemia, acute hepatitis. Mesenteric ischemia less likely with improvement in lactate. Acute hepatitis: due to shock. Transaminases , INR down today. Bili up suggesting cholestasis. Thrombocytopenia: Remains low, but a bit better than yesterday. Likely due to consumption/DIC. Increased risk of bleeding related to this. Acute hypoxemic respiratory failure: Stable on vent, with improved O2 needs. Have reduced set respiratory rate. Cardiomyopathy: Likely due to sepsis. Maintaining adequate BP since DB started. Tolerating low-dose nitro to try to improve peripheral perfusion, reduce ischemia/necrosis. Plan: Continue DB, following CI and vitals. Continue CVVHD. ? increase fluid removal if possible. Repeat labs and transfuse platelets PRN. Wean ventilator, ? trial of CPAP. 35 minutes CC time managing pressors/CI, reassessing ventilator needs/settings, metabolic acidosis, thrombocytopenia. 09/30/16 09:25 Subjective: Alerts to voice and following commands Objective: Vital Signs Temp Pulse Resp BP Pulse Ox 37 C 100 18 111/49 L 97 09/30/16 08:00 09/30/16 08:30 09/30/16 08:30 09/30/16 08:30 09/30/16 08:30 Microbiology 09/27/16 06:48 Blood Panel (PCR) - Final Blood Klebsiella Pneumoniae Escherichia Coli 09/27/16 11:55 Gram Stain - Final Other - Aspirate Laboratory Results 09/30/16 05:00 09/30/16 05:00 09/29/16 09/30/16 10/01/16 05:59 05:59 05:59 Intake Total 3848.4 2862 Output Total 2676.0 4269 Balance 1172.4 -1407 PT 15.8 SEC (12.0-15.0) H 09/30/16 05:00 INR 1.26 (0.83-1.16) H 09/30/16 05:00 CXR: Increased basilar atelectasis/effusions. Images reviewed. Laboratory Tests 09/30/16 09/30/16 09/30/16 05:00 05:00 05:00 INR 1.26 H VBG Lactic Acid 2.4 H Phosphorus Total Bilirubin 13.3 H D AST 1464 H ALT 2502 H Alkaline Phosphatase 190 H Albumin 2.8 L 09/30/16 05:00 INR VBG Lactic Acid Phosphorus 2.2 L D Total Bilirubin AST ALT Alkaline Phosphatase Albumin Physical Exam - Physical Exam General Appearance: alert EENT: normal ENT inspection Neck: normal inspection Respiratory: lungs clear, normal breath sounds Cardiac/Chest: regular rate, rhythm, No edema Abdomen: normal bowel sounds, non-tender Skin: normal color, warm/dry Extremities: other (persistent distal digital cyanosis/necrosis multiple digits) Neuro/Psych: alert, normal mood/affect, No oriented x 3 ICD10 Worksheet Patient Problems: Problems Problem Status Onset ESBL (extended spectrum beta-lactamase) producing bacteria infection Acute ~ Renal colic on left side Acute
--- NOTE | 2016-09-30 10:07 | SOAPPROG ---
SOAP Progress Note Assessment/Plan: Assessment:Obstructing renal stone. Cultures confirm gm negative sepsis. Renal failure from shock kidney, hepatic failure from shock liver, Low platelets from DIC and shock. However compared to 48 hours ago, her prognosis has steadily improved. Liver and platelets are further improved. Lungs are improved. Renal function still nil. Plan: Continue IV antibiotics, continue full court press support. Consider DVT prophylaxis if platelet count exceeds 50K 09/27/16 08:30 09/27/16 18:18 09/29/16 18:09 09/30/16 10:06 Subjective: Awakens easily with verbal stimulation. Responds to questions accurately. Fingers are not painful. Objective: Vital Signs Temp Pulse Resp BP Pulse Ox 37.1 C 94 16 103/48 L 98 09/30/16 09:27 09/30/16 09:27 09/30/16 09:27 09/30/16 09:27 09/30/16 09:27 Microbiology 09/27/16 06:48 Blood Panel (PCR) - Final Blood Klebsiella Pneumoniae Escherichia Coli 09/27/16 11:55 Gram Stain - Final Other - Aspirate Laboratory Results 09/30/16 05:00 09/30/16 05:00 09/29/16 09/30/16 10/01/16 05:59 05:59 05:59 Intake Total 3848.4 2862 Output Total 2676.0 4269 Balance 1172.4 -1407 PT 15.8 SEC (12.0-15.0) H 09/30/16 05:00 INR 1.26 (0.83-1.16) H 09/30/16 05:00 TV improved. INR improved Platelet count improved Transaminase levels improved , Unconjugated bili improved. ICD10 Worksheet Patient Problems: Problems Problem Status Onset ESBL (extended spectrum beta-lactamase) producing bacteria infection Acute ~ Renal colic on left side Acute
--- NOTE | 2016-09-30 10:15 | SOAPPROG ---
SOAP Progress Note Assessment/Plan: Assessment/Plan: LYLA: likely ischemic ATN, remains oliguric, on CRRT. - Will continue CRRT without citrate, no clotting issues overnight. - Will increase fluid removal to 50-100ml/hr. - Will continue to monitor labs closely and adjust as needed. Shock: pt on dobutamine for cardiogenic shock and BP now stable, will continue to monitor. Hypophosphatemia: due to CRRT, will replace today and continue to replace as needed. Subjective: No acute events overnight. BP has been stable and tolerating 50cc fluid removal an hour. She remains on vent, denies any pain but mostly just uncomfortable. Objective: Vital Signs Temp Pulse Resp BP Pulse Ox 37.1 C 94 16 103/48 L 98 09/30/16 09:27 09/30/16 09:27 09/30/16 09:27 09/30/16 09:27 09/30/16 09:27 Microbiology 09/27/16 06:48 Blood Panel (PCR) - Final Blood Klebsiella Pneumoniae Escherichia Coli 09/27/16 11:55 Gram Stain - Final Other - Aspirate Laboratory Results 09/30/16 05:00 09/30/16 05:00 09/29/16 09/30/16 10/01/16 05:59 05:59 05:59 Intake Total 3848.4 2862 Output Total 2676.0 4269 Balance 1172.4 -1407 PT 15.8 SEC (12.0-15.0) H 09/30/16 05:00 INR 1.26 (0.83-1.16) H 09/30/16 05:00 General: awake, alert, no acute distress Eyes; EOMI, PERRL OP: intubated CV: RRR Resp: intubated and on vent Abd; Soft, NT Ext: +1 edema, ischemic toes Neuro: CN II-XII grossly intact, no asterixis ICD10 Worksheet Patient Problems: Problems Problem Status Onset ESBL (extended spectrum beta-lactamase) producing bacteria infection Acute ~ Renal colic on left side Acute
[2016-09-30] MEDS: PANTOPRAZOLE SODIUM 40 MG in NS 100 ML IV SCH (10:18)
[2016-09-30] MEDS: SODIUM PHOS 20 MM in D5W 250 ML IV PRN ×2 (10:24→20:02)
[2016-09-30 10:58] LABS: PCO2 VENOUS 43 mmHg (40-44); PH VENOUS BLOOD 7.37 (7.31-7.42); PO2 VENOUS 49 mmHg (35-40); TCO2 VENOUS 25 mEq/L (23-27); VEN MEASURED OXYGEN SATURATION 85 % (65-75)
[2016-09-30 12:44] LABS: ANION GAP 6 mEq/L (8-16); CALCIUM 7.2 mg/dL (8.5-10.4); CARBON DIOXIDE 26 mEq/l (22-31); CHLORIDE 104 mEq/L (97-110); CREATININE 0.9 mg/dL (0.6-1.0); GLOMERULAR FILTRATION RATE > 60; GLUCOSE 179 mg/dL (70-100); MAGNESIUM 2.2 mg/dL (1.6-2.3); SODIUM 136 mEq/L (134-144)
--- NOTE | 2016-09-30 13:48 | PCMIDPN ---
Assessment/Plan: 1. Severe sepsis secondary to ESBL E coli and Klebsiella from obstructive nephrolithiasis: I spoke to the microbiology lab. Full Klebsiella susceptibility panel is pending, but preliminary results show sensitivity to meropenem. Therefore, continue meropenem as is, and present dose is fine. I ordered repeat blood cultures to document clearance. 2. Urine culture with 1000 colonies of enterococcus faecalis: This is clearly not an issue presently. No need to treat. (Not covered with meropenem) 3. transaminitis: Secondary to ischemic hepatopathy. Continue to follow. 4. Elevated white blood cell count: Patient's initial white blood cell count was 1.87. This is likely an appropriate leukemoid response in the setting of her significant sepsis. Suspect it will start to fall moving forward as she continues to improve. 09/30/16 13:50 Subjective: Continues to improve each day. No overnight events. Remains intubated But alert. Complaining of pain in her feet. Objective: Vital Signs Temp Pulse Resp BP Pulse Ox 36.5 C 96 12 131/61 H 100 09/30/16 13:00 09/30/16 13:00 09/30/16 13:00 09/30/16 13:00 09/30/16 13:00 Microbiology 09/27/16 11:55 Gram Stain - Final Other - Aspirate 09/27/16 06:48 Blood Panel (PCR) - Final Blood Klebsiella Pneumoniae Escherichia Coli Laboratory Results 09/30/16 05:00 09/30/16 12:12 09/29/16 09/30/16 10/01/16 05:59 05:59 05:59 Intake Total 3848.4 2862 Output Total 2676.0 4269 Balance 1172.4 -1407 - Physical Exam General Appearance: other ( Intubated, but awake. Complaining of pain in her feet.) EENT: No scleral icterus Respiratory: lungs clear Cardiac/Chest: regular rate, rhythm Extremities: other ( Mottled, with several purple and dusky digits.) Abdomen: non-tender, soft Skin: other ( Diffuse purpura. No evidence of drug rash.) ICD10 Worksheet Patient Problems: Problems Problem Status Onset ESBL (extended spectrum beta-lactamase) producing bacteria infection Acute ~ Renal colic on left side Acute
[2016-09-30 14:16] LABS: PCO2 VENOUS 43 mmHg (40-44); PH VENOUS BLOOD 7.37 (7.31-7.42); PO2 VENOUS 41 mmHg (35-40); TCO2 VENOUS 26 mEq/L (23-27); VEN MEASURED OXYGEN SATURATION 76 % (65-75)
[2016-09-30 14:19] LABS: ABSOLUTE NRBC COUNT 0.14 10^3/uL (0-0.01); ADD DIFF? YES; ADD MORPH? NO; ATYPICAL LYMPHOCYTE FLAG 0 (0-99); FRAGMENT RBC FLAG 20 (0-99); HEMATOCRIT 32.6 % (38.0-47.0); HEMOGLOBIN 10.7 g/dL (12.6-16.3); LIPEMIA HEMOLYSIS FLAG 80 (0-99); MEAN CELL HEMOGLOBIN 31.1 pg (27.9-34.1); MEAN CELL HEMOGLOBIN CONCENTR. 32.8 g/dL (32.4-36.7); MEAN CELL VOLUME 94.8 fL (81.5-99.8); NRBC-AUTO% 0.4 % (0.0-0.2); PLATELET CLUMPS FLAG 0 (0-99); RED BLOOD CELL COUNT 3.44 10^6/uL (4.18-5.33); RED CELL DISTRIBUTION WIDTH 16.7 % (11.5-15.2)
[2016-09-30 14:38] LABS: ADD SCAN? NO; LEFT SHIFT FLG 300 (0-99); PLATELET COUNT 21 10^3/uL (150-400)
[2016-09-30 15:38] LABS: TOXIC GRANULATION PRESENT
[2016-09-30 15:39] LABS: PLATELET ESTIMATE DECREASED (ADEQ); SCHISTOCYTES 2+
[2016-09-30 18:23] LABS: IONIZED CALCIUM 1.12 MMOL/L (1.12-1.30)
[2016-09-30 18:41] LABS: ANION GAP 5 mEq/L (8-16); CALCIUM 7.2 mg/dL (8.5-10.4); CARBON DIOXIDE 27 mEq/l (22-31); CHLORIDE 107 mEq/L (97-110); CREATININE 1.1 mg/dL (0.6-1.0); GLOMERULAR FILTRATION RATE 48; GLUCOSE 108 mg/dL (70-100); MAGNESIUM 2.4 mg/dL (1.6-2.3); SODIUM 139 mEq/L (134-144)
[2016-09-30] MEDS: fentaNYL/NACL 100 ML IV SCH (18:42)
[2016-09-30] MEDS: PROPOFOL/EMULSION 100 ML IV SCH (18:47)
--- NOTE | 2016-09-30 21:13 | SOAPPROG ---
SOAP Progress Note Assessment/Plan: Assessment:Obstructing renal stone. Cultures confirm gm negative sepsis. Renal failure from shock kidney, hepatic failure from shock liver, Low platelets from DIC and shock. However compared to 48 hours ago, her prognosis has steadily improved. Liver and platelets are further improved. Lungs are improved. Renal function still nil. Plan: Continue IV antibiotics, continue full court press support. Consider DVT prophylaxis if platelet count exceeds 50K 09/27/16 08:30 09/27/16 18:18 09/29/16 18:09 09/30/16 10:06 Subjective: Awakens with verbal command. No CO pain in fingers or toes. Able to feel toe with touching. MOves fingers and toes on command. Objective: Vital Signs Temp Pulse Resp BP Pulse Ox 36.7 C 91 10 L 124/54 H 100 09/30/16 20:00 09/30/16 20:00 09/30/16 20:00 09/30/16 20:00 09/30/16 20:00 Microbiology 09/27/16 11:00 Urine Culture - Final Urine,Catheterized Enterococcus Faecalis 09/27/16 11:55 Gram Stain - Final Other - Aspirate 09/27/16 06:56 Blood Culture - Final Blood Escherichia Coli Esbl Klebsiella Pneumoniae 09/27/16 06:48 Blood Panel (PCR) - Final Blood Klebsiella Pneumoniae Escherichia Coli Laboratory Results 09/30/16 14:10 09/30/16 18:20 09/29/16 09/30/16 10/01/16 05:59 05:59 05:59 Intake Total 3848.4 2862 1245 Output Total 2676.0 4269 2096 Balance 1172.4 -1407 -851 PT 15.8 SEC (12.0-15.0) H 09/30/16 05:00 INR 1.26 (0.83-1.16) H 09/30/16 05:00 Labs reviewed. CVP is down and blood pressure is good. Platelet count still low however INR improved this morning. No significant urine yet. ICD10 Worksheet Patient Problems: Problems Problem Status Onset ESBL (extended spectrum beta-lactamase) producing bacteria infection Acute ~ Renal colic on left side Acute
[2016-10-01 00:53] LABS: IONIZED CALCIUM 1.11 MMOL/L (1.12-1.30); PCO2 VENOUS 47 mmHg (40-44); PH VENOUS BLOOD 7.33 (7.31-7.42); PO2 VENOUS 47 mmHg (35-40); TCO2 VENOUS 25 mEq/L (23-27); VEN MEASURED OXYGEN SATURATION 81 % (65-75)
[2016-10-01 01:06] LABS: INR 1.21 (0.83-1.16); PROTIME(PATIENT) 15.3 SEC (12.0-15.0)
[2016-10-01 01:17] LABS: ALBUMIN 2.9 g/dL (3.5-5.0); ALKALINE PHOSPHATASE 277 IU/L (38-126); ANION GAP 8 mEq/L (8-16); BILIRUBIN,TOTAL 16.2 mg/dL (0.1-1.4); CALCIUM 7.5 mg/dL (8.5-10.4); CARBON DIOXIDE 26 mEq/l (22-31); CHLORIDE 107 mEq/L (97-110); CREATININE 1.1 mg/dL (0.6-1.0); GLOMERULAR FILTRATION RATE 48; GLUCOSE 110 mg/dL (70-100); POTASSIUM 3.9 mEq/L (3.5-5.2); SODIUM 141 mEq/L (134-144); SPECIMEN ICTERUS 8; TOTAL PROTEIN 5.4 g/dL (6.3-8.2)
[2016-10-01 01:35] LABS: BILIRUBIN-CONJUGATED 13.5 mg/dL (0.0-0.5); BILIRUBIN-UNCONJUGATED 2.7 mg/dL (0.0-1.1)
[2016-10-01 01:36] LABS: ALANINE AMINOTRANSFERASE 1849 IU/L (9-52); ASPARTATE AMINOTRANSFERASE 765 IU/L (14-46)
[2016-10-01 01:59] LABS: MAGNESIUM 2.5 mg/dL (1.6-2.3)
[2016-10-01] MEDS: ACCESSORY DRAIN 1 EA BAG***SEND #2 INITIALLY MISC PRN (02:00)
[2016-10-01] MEDS: BGK 4/2.5 PRISMASATE 5,000 ML DIAL SCH ×9 (03:05→21:00)
[2016-10-01 03:10] LABS: HEMATOCRIT 30.6 % (38.0-47.0); LIPEMIA HEMOLYSIS FLAG 80 (0-99); MEAN CELL HEMOGLOBIN CONCENTR. 32.7 g/dL (32.4-36.7); MEAN CELL VOLUME 94.7 fL (81.5-99.8); PLATELET CLUMPS FLAG 20 (0-99); RED BLOOD CELL COUNT 3.23 10^6/uL (4.18-5.33); RED CELL DISTRIBUTION WIDTH 17.1 % (11.5-15.2)
[2016-10-01 03:12] LABS: PLATELET COUNT 35 10^3/uL (150-400)
[2016-10-01 03:57] LABS: PLATELET ESTIMATE DECREASED (ADEQ)
[2016-10-01 05:01] LABS: PCO2 VENOUS 49 mmHg (40-44); PH VENOUS BLOOD 7.31 (7.31-7.42); PO2 VENOUS 81 mmHg (35-40); TCO2 VENOUS 26 mEq/L (23-27); VEN MEASURED OXYGEN SATURATION 95 % (65-75)
[2016-10-01] MEDS: fentaNYL/NACL 100 ML IV SCH ×2 (05:16→20:48)
[2016-10-01] MEDS: SODIUM CITRATE 4% 5 ML in SYRINGE 0 ML DIAL PRN (05:16)
[2016-10-01 05:18] LABS: INR 1.17 (0.83-1.16); PROTIME(PATIENT) 14.9 SEC (12.0-15.0)
[2016-10-01 05:23] LABS: ALBUMIN 2.7 g/dL (3.5-5.0); ALKALINE PHOSPHATASE 276 IU/L (38-126); ANION GAP 7 mEq/L (8-16); ASPARTATE AMINOTRANSFERASE 661 IU/L (14-46); CALCIUM 7.5 mg/dL (8.5-10.4); CARBON DIOXIDE 26 mEq/l (22-31); CHLORIDE 108 mEq/L (97-110); CREATININE 1.1 mg/dL (0.6-1.0); GLOMERULAR FILTRATION RATE 48; GLUCOSE 109 mg/dL (70-100); POTASSIUM 4.1 mEq/L (3.5-5.2); SODIUM 141 mEq/L (134-144); SPECIMEN ICTERUS 6; TOTAL PROTEIN 5.3 g/dL (6.3-8.2)
[2016-10-01 05:55] LABS: ALANINE AMINOTRANSFERASE 1669 IU/L (9-52)
[2016-10-01 06:04] LABS: BILIRUBIN-CONJUGATED 12.6 mg/dL (0.0-0.5); BILIRUBIN-UNCONJUGATED 2.4 mg/dL (0.0-1.1)
[2016-10-01] MEDS ORDERED: niCARdipine/NACL 200 ML IV SCH (08:00)
--- NOTE | 2016-10-01 09:12 | PDINTPN ---
Electromatic Typist Progress Note Assessment/Plan: Assessment: Severe Sepsis: Due to bacteremia with ESBL E. Coli, K. pneumonia from impacted left nephrolithiasis. Now s/p drainage with nephrostomy tube. On Meropenem. LYLA: Anuric, on CVVHD. No output from nephrostomy Severe lactic acidosis: Likely due to peripheral ischemia, acute hepatitis. Likely normalized Acute hepatitis: due to shock. Transaminases , INR down today. Bili up suggesting cholestasis, improved slightly. Thrombocytopenia: Remains low, s/p daily Plt transfusions. Likely due to consumption/DIC. Increased risk of bleeding related to this. Acute hypoxemic respiratory failure: Stable on vent, with improved O2 needs. Trying CPAP Cardiomyopathy: Likely due to sepsis. Maintaining adequate BP since DB started. BP and CI up overnight, now back to prior levels. Digital necrosis: Due to sepsis, high-dose pressors/hypotension. Clinically stable. Using vasodilators to try to improve perfusion. Plan: Continue DB, following CI and vitals. Add nicardipine if BP goes up to try to increase CI in setting of non-ischemic CM. Continue CVVHD with fluid removal, ? change to standard HD soon. Less imperative to transfuse Plt given normalized INR. Wean ventilator, ? extubate. Start DVT prophylaxis once Plt increase further. 40 minutes CC time managing pressors/CI, reassessing ventilator wean/extubation , thrombocytopenia. 10/01/16 09:20 10/01/16 09:22 Subjective: More alert, c/o foot pain and some chest discomfort. Objective: Vital Signs Temp Pulse Resp BP Pulse Ox 36.6 C 83 14 136/57 H 100 10/01/16 08:00 10/01/16 08:00 10/01/16 08:00 10/01/16 08:00 10/01/16 08:00 Microbiology 09/27/16 06:48 Blood Panel (PCR) - Final Blood Klebsiella Pneumoniae Escherichia Coli 09/27/16 11:00 Urine Culture - Final Urine,Catheterized Enterococcus Faecalis 09/27/16 11:55 Gram Stain - Final Other - Aspirate 09/27/16 06:56 Blood Culture - Final Blood Escherichia Coli Esbl Klebsiella Pneumoniae Laboratory Results 10/01/16 03:00 10/01/16 04:45 09/30/16 10/01/16 10/02/16 05:59 05:59 05:59 Intake Total 2862 2195 Output Total 4269 4232 Balance -1407 -2037 PT 14.9 SEC (12.0-15.0) 10/01/16 04:45 INR 1.17 (0.83-1.16) H 10/01/16 04:45 CXR: Improved basilar infiltrate left, effusion on right. Images reviewed. Physical Exam - Physical Exam General Appearance: alert, no apparent distress EENT: normal ENT inspection, ET tube Neck: normal inspection Respiratory: lungs clear, respiratory distress, No normal breath sounds Cardiac/Chest: regular rate, rhythm, No edema Abdomen: non-tender, No soft Skin: normal color, warm/dry, rash (petichial) Extremities: normal inspection (stable digital cyanosis, necrosis), other Neuro/Psych: alert, No motor weakness ICD10 Worksheet Patient Problems: Problems Problem Status Onset ESBL (extended spectrum beta-lactamase) producing bacteria infection Acute ~ Renal colic on left side Acute
[2016-10-01] MEDS: HYDROCORTISONE 100 MG/2 ML VIAL IVP SCH (09:41)
[2016-10-01] MEDS: MEROPENEM 1 GM in NS 100 ML IV SCH ×2 (09:41→21:48)
[2016-10-01] MEDS: PANTOPRAZOLE SODIUM 40 MG in NS 100 ML IV SCH (09:42)
--- NOTE | 2016-10-01 10:27 | SOAPPROG ---
SOAP Progress Note Assessment/Plan: Assessment/Plan: LYLA: likely ischemic ATN, remains oliguric, on CRRT. - Will continue CRRT without citrate. - Will change prismasate, both DFR and RFR, to 1500ml/1500ml. - Will increase fluid removal to 50-150ml/hr. - Will continue to monitor labs closely and adjust as needed. Shock: pt on dobutamine alone for cardiogenic shock and BP now stable, will continue to monitor. Hypophosphatemia: due to CRRT, will replace today and continue to replace as needed. Subjective: No acute events overnight. CRRT clotted at 4am, now restarted. Tolerated yesterday pulling 100cc/hr. Objective: Vital Signs Temp Pulse Resp BP Pulse Ox 36.3 C 101 H 13 98/73 L 94 10/01/16 10:00 10/01/16 10:00 10/01/16 10:00 10/01/16 10:00 10/01/16 10:00 Microbiology 09/27/16 06:48 Blood Culture - Final Blood Escherichia Coli Esbl Klebsiella Pneumoniae Ssp Pneu Blood Panel (PCR) - Final Klebsiella Pneumoniae Escherichia Coli 09/27/16 11:00 Urine Culture - Final Urine,Catheterized Enterococcus Faecalis 09/27/16 11:55 Gram Stain - Final Other - Aspirate 09/27/16 06:56 Blood Culture - Final Blood Escherichia Coli Esbl Klebsiella Pneumoniae Laboratory Results 10/01/16 03:00 10/01/16 04:45 09/30/16 10/01/16 10/02/16 05:59 05:59 05:59 Intake Total 2862 2195 Output Total 4262 4232 Balance -1407 -2037 PT 14.9 SEC (12.0-15.0) 10/01/16 04:45 INR 1.17 (0.83-1.16) H 10/01/16 04:45 General: alert and oriented, no acute distress Eyes: EOMI, PERRL OP: intubatd CV: RRR Resp: intubated and on vent, coarse breath sounds throughout Abd: SOft, NT Ext: +1 edema all extremities Neuro: CN II-XII Grossly intact, no asterixis ICD10 Worksheet Patient Problems: Problems Problem Status Onset ESBL (extended spectrum beta-lactamase) producing bacteria infection Acute ~ Renal colic on left side Acute
--- NOTE | 2016-10-01 12:04 | WOCRNPDOC ---
JON Advanced Assessment Note - Skin Integrity Problem, Advanced Assess Left Lateral Breast Blister Dressing Type: Allevyn Life Dressing Description: Intact Exudate Amount: None Exudate Characteristic(s): None Integumentary Issue Intervention: Visualized Under Dressing Laura Wound Tissue: Intact Laura Wound Swelling: None Wound Bed Color: Purple Wound Bed Constitution: Intact Sanguineous Blister Site Odor: None Skin Integrity Problem Comment: Serosanguinous blister to L lateral breast remains intact, no changes since prior assessment on 09/29. Concerning because of the purple, ecchymotic appearance. Etiology unlcear, but it is possible that this injury was caused by pressure or tx w/ pressors, or combination of both. Surrounding tissue is intact w/ resolving ecchymosis. Wound care will continue to follow patient, rounding again on Wednesday 10/04. Lip Pressure Injury Dressing Type: Open to Air Exudate Amount: Scant Exudate Color: Red Exudate Characteristic(s): Bloody, Dried Integumentary Issue Intervention: Lotion/Cream Applied (Lip balm applied) Laura Wound Tissue: Swollen Laura Wound Swelling: Mild Wound Bed Color: Red Wound Bed Constitution: Smooth Tissue, Intact Sanguineous Blister Site Odor: None Site Measurement - Head-to-Toe Length X Width X Depth (cm): 0.4cmx0.3cmx blister ( medial bottom lip). 0.2cmx0.5cmx0.1 cm (upper lip) Pressure Injury Stage: Stage 2, Coater Operator Related Pressure Injury (ET tube) Pressure Injury Present on Admit: No Skin Integrity Problem Comment: Partial thickness tissue loss observed on upper lip, w/ red, bloody tissue noted. Lower lip has a small, serosanguinous blister medially. Both are consistent w/ stage 2 pressure injury r/t to pressure fro ET tube. There is also a small area of pinpoint petechiae-like lesions on the soft palate of patient's mouth, also consistent w/ pressure injury from ET tube. This injury appears shallow, no apparent necrosis. Expect al injuries to resolve now that ET tube is out. Cleansed lips w/ NS and gauze, and applied lip balm. Wound care will conitnue to follow these wounds.
[2016-10-01 13:41] LABS: ALBUMIN 2.8 g/dL (3.5-5.0); ALKALINE PHOSPHATASE 327 IU/L (38-126); ANION GAP 5 mEq/L (8-16); ASPARTATE AMINOTRANSFERASE 603 IU/L (14-46); BILIRUBIN,TOTAL 15.2 mg/dL (0.1-1.4); CALCIUM 7.7 mg/dL (8.5-10.4); CARBON DIOXIDE 27 mEq/l (22-31); CHLORIDE 107 mEq/L (97-110); CREATININE 1.1 mg/dL (0.6-1.0); GLOMERULAR FILTRATION RATE 48; GLUCOSE 101 mg/dL (70-100); POTASSIUM 4.1 mEq/L (3.5-5.2); SODIUM 139 mEq/L (134-144); SPECIMEN ICTERUS 7; TOTAL PROTEIN 5.6 g/dL (6.3-8.2)
[2016-10-01 14:50] LABS: ALANINE AMINOTRANSFERASE 1671 IU/L (9-52)
[2016-10-01 15:00] LABS: BILIRUBIN-CONJUGATED 12.6 mg/dL (0.0-0.5); BILIRUBIN-UNCONJUGATED 2.6 mg/dL (0.0-1.1)
--- NOTE | 2016-10-01 15:15 | PCMIDPN ---
Assessment/Plan: 1. Severe sepsis secondary to ESBL E coli and Klebsiella from obstructive nephrolithiasis: Given susceptibility profiles of the two gram negative rods, will change meropenem to ertapenem, dose adjusted for renal insufficiency. Repeat blood cultures no growth so far. 2. Urine culture with 1000 colonies of enterococcus faecalis: This is clearly not an issue presently. No need to treat. (Not covered with Ertapenem) 3. transaminitis: Secondary to ischemic hepatopathy. Continue to follow. improving. 4. Elevated white blood cell count: Patient's initial white blood cell count was 1.87. This is likely an appropriate leukemoid response in the setting of her significant sepsis. Suspect it will start to fall moving forward as she continues to improve. 5. Digital ischemia/necrosis: Being followed by wound care. Subjective: Extubated! Flat affect. Alert and oriented, but tells me "I do not feel well." Starting to process the fact that she almost . Remains on 5 of dobutamine only, for cardiogenic shock. On CRRT. Objective: Meropenem 1 g IV q.12 hours day 5 T-max 37.1degrees Vital Signs Temp Pulse Resp BP Pulse Ox 37.1 C 101 H 14 156/59 H 99 10/01/16 13:00 10/01/16 13:00 10/01/16 13:00 10/01/16 13:00 10/01/16 13:00 Microbiology 09/27/16 06:48 Blood Culture - Final Blood Escherichia Coli Esbl Klebsiella Pneumoniae Ssp Pneu Blood Panel (PCR) - Final Klebsiella Pneumoniae Escherichia Coli 09/27/16 11:00 Urine Culture - Final Urine,Catheterized Enterococcus Faecalis 09/27/16 11:55 Gram Stain - Final Other - Aspirate 09/27/16 06:56 Blood Culture - Final Blood Escherichia Coli Esbl Klebsiella Pneumoniae Laboratory Results 10/01/16 03:00 10/01/16 13:00 09/30/16 10/01/16 10/02/16 05:59 05:59 05:59 Intake Total 2862 2195 Output Total 4233 9592 Balance -7 -2036September 27 blood cultures with ESBL E coli sensitive to ertapenem and Klebsiella pneumoniae sensitive to ertapenem Blood culture no growth so far - Physical Exam General Appearance: alert, other ( looks tired) EENT: scleral icterus, No thrush Respiratory: lungs clear Neck: other ( hemodialysis catheter right neck) Cardiac/Chest: regular rate, rhythm, systolic murmur Extremities: other ( PICC line left upper extremity looks fine.) Abdomen: non-tender, soft Skin: other ( digital ischemia fingertips and toes) ICD10 Worksheet Patient Problems: Problems Problem Status Onset ESBL (extended spectrum beta-lactamase) producing bacteria infection Acute ~ Renal colic on left side Acute
[2016-10-01 15:43] LABS: MAGNESIUM 2.4 mg/dL (1.6-2.3)
[2016-10-01] MEDS: NS 1,000 ML MISC SCH (15:58)
[2016-10-01] MEDS: SODIUM PHOS 20 MM in D5W 250 ML IV PRN (17:17)
[2016-10-01 18:15] LABS: IONIZED CALCIUM 1.12 MMOL/L (1.12-1.30)
[2016-10-01 18:37] LABS: ALBUMIN 2.9 g/dL (3.5-5.0); ALKALINE PHOSPHATASE 323 IU/L (38-126); ANION GAP 7 mEq/L (8-16); ASPARTATE AMINOTRANSFERASE 583 IU/L (14-46); BILIRUBIN,TOTAL 15.8 mg/dL (0.1-1.4); CALCIUM 7.9 mg/dL (8.5-10.4); CARBON DIOXIDE 26 mEq/l (22-31); CHLORIDE 107 mEq/L (97-110); CREATININE 1.1 mg/dL (0.6-1.0); GLOMERULAR FILTRATION RATE 48; GLUCOSE 108 mg/dL (70-100); MAGNESIUM 2.5 mg/dL (1.6-2.3); POTASSIUM 4.2 mEq/L (3.5-5.2); SODIUM 140 mEq/L (134-144); TOTAL PROTEIN 5.6 g/dL (6.3-8.2)
[2016-10-01 18:49] LABS: SPECIMEN ICTERUS 8
[2016-10-01 18:54] LABS: ALANINE AMINOTRANSFERASE 1617 IU/L (9-52)
[2016-10-01 19:02] LABS: BILIRUBIN-CONJUGATED 12.9 mg/dL (0.0-0.5); BILIRUBIN-UNCONJUGATED 2.9 mg/dL (0.0-1.1)
[2016-10-01 20:43] LABS: ABSOLUTE NRBC COUNT 0.46 10^3/uL (0-0.01); ADD DIFF? YES; ADD MORPH? NO; ADD SCAN? YES; ATYPICAL LYMPHOCYTE FLAG 0 (0-99); FRAGMENT RBC FLAG 20 (0-99); HEMOGLOBIN 10.6 g/dL (12.6-16.3); LIPEMIA HEMOLYSIS FLAG 80 (0-99); MEAN CELL HEMOGLOBIN 31.1 pg (27.9-34.1); MEAN CELL HEMOGLOBIN CONCENTR. 33.1 g/dL (32.4-36.7); MEAN CELL VOLUME 93.8 fL (81.5-99.8); NRBC-AUTO% 0.7 % (0.0-0.2); PLATELET CLUMPS FLAG 10 (0-99); RED BLOOD CELL COUNT 3.41 10^6/uL (4.18-5.33); RED CELL DISTRIBUTION WIDTH 17.2 % (11.5-15.2)
[2016-10-01 20:46] LABS: LEFT SHIFT FLG 300 (0-99)
[2016-10-01 20:48] LABS: PLATELET COUNT 18 10^3/uL (150-400)
[2016-10-01 20:52] LABS: ALBUMIN 2.9 g/dL (3.5-5.0); ALKALINE PHOSPHATASE 332 IU/L (38-126); ANION GAP 9 mEq/L (8-16); ASPARTATE AMINOTRANSFERASE 529 IU/L (14-46); BILIRUBIN,TOTAL 15.5 mg/dL (0.1-1.4); CALCIUM 7.7 mg/dL (8.5-10.4); CARBON DIOXIDE 26 mEq/l (22-31); CHLORIDE 106 mEq/L (97-110); GLOMERULAR FILTRATION RATE 53; GLUCOSE 107 mg/dL (70-100); SODIUM 141 mEq/L (134-144); SPECIMEN ICTERUS 7; TOTAL PROTEIN 5.6 g/dL (6.3-8.2)
[2016-10-01 21:25] LABS: PLATELET ESTIMATE DECREASED (ADEQ); POLYCHROMASIA 1+; SCHISTOCYTES 1+
[2016-10-01 21:26] LABS: TOXIC GRANULATION PRESENT
[2016-10-01] MEDS: MELATONIN 3 MG TAB PO SCH (21:48)
[2016-10-01 22:13] LABS: BILIRUBIN-CONJUGATED 12.7 mg/dL (0.0-0.5); BILIRUBIN-UNCONJUGATED 2.8 mg/dL (0.0-1.1)
[2016-10-01 22:14] LABS: ALANINE AMINOTRANSFERASE 1560 IU/L (9-52)
[2016-10-02] MEDS: BGK 4/2.5 PRISMASATE 5,000 ML DIAL SCH ×6 (00:17→09:36)
[2016-10-02 00:37] LABS: IONIZED CALCIUM 1.12 MMOL/L (1.12-1.30)
[2016-10-02 00:50] LABS: ANION GAP 6 mEq/L (8-16); CALCIUM 7.7 mg/dL (8.5-10.4); CARBON DIOXIDE 26 mEq/l (22-31); CHLORIDE 108 mEq/L (97-110); GLOMERULAR FILTRATION RATE 53; GLUCOSE 104 mg/dL (70-100); MAGNESIUM 2.4 mg/dL (1.6-2.3); POTASSIUM 3.9 mEq/L (3.5-5.2); SODIUM 140 mEq/L (134-144)
[2016-10-02] MEDS: DOBUTamine 500 MG in D5W 250 ML IV SCH (01:10)
[2016-10-02 05:57] LABS: IONIZED CALCIUM 1.14 MMOL/L (1.12-1.30)
[2016-10-02 06:02] LABS: ABSOLUTE NRBC COUNT 0.41 10^3/uL (0-0.01); ADD DIFF? YES; ADD MORPH? NO; ATYPICAL LYMPHOCYTE FLAG 0 (0-99); FRAGMENT RBC FLAG 20 (0-99); HEMATOCRIT 29.6 % (38.0-47.0); HEMOGLOBIN 9.8 g/dL (12.6-16.3); LIPEMIA HEMOLYSIS FLAG 80 (0-99); MEAN CELL HEMOGLOBIN 31.1 pg (27.9-34.1); MEAN CELL HEMOGLOBIN CONCENTR. 33.1 g/dL (32.4-36.7); NRBC-AUTO% 0.6 % (0.0-0.2); PLATELET CLUMPS FLAG 10 (0-99); RED BLOOD CELL COUNT 3.15 10^6/uL (4.18-5.33); RED CELL DISTRIBUTION WIDTH 17.2 % (11.5-15.2)
[2016-10-02 06:03] LABS: PLATELET COUNT 47 10^3/uL (150-400)
[2016-10-02 06:04] LABS: LEFT SHIFT FLG 300 (0-99)
[2016-10-02 06:05] LABS: ADD SCAN? NO
[2016-10-02 06:08] LABS: INR 1.17 (0.83-1.16); PROTIME(PATIENT) 14.9 SEC (12.0-15.0)
[2016-10-02 06:21] LABS: ALBUMIN 2.6 g/dL (3.5-5.0); ALKALINE PHOSPHATASE 258 IU/L (38-126); ANION GAP 4 mEq/L (8-16); ASPARTATE AMINOTRANSFERASE 317 IU/L (14-46); BILIRUBIN,TOTAL 11.9 mg/dL (0.1-1.4); CALCIUM 7.8 mg/dL (8.5-10.4); CARBON DIOXIDE 25 mEq/l (22-31); CHLORIDE 108 mEq/L (97-110); CREATININE 0.9 mg/dL (0.6-1.0); GLOMERULAR FILTRATION RATE > 60; GLUCOSE 90 mg/dL (70-100); MAGNESIUM 2.4 mg/dL (1.6-2.3); POTASSIUM 3.8 mEq/L (3.5-5.2); SODIUM 137 mEq/L (134-144); TOTAL PROTEIN 5.4 g/dL (6.3-8.2)
[2016-10-02 06:24] LABS: BILIRUBIN-CONJUGATED 9.4 mg/dL (0.0-0.5); BILIRUBIN-UNCONJUGATED 2.5 mg/dL (0.0-1.1)
[2016-10-02 06:31] LABS: ALANINE AMINOTRANSFERASE 1217 IU/L (9-52)
[2016-10-02 06:34] LABS: ELLIPTOCYTES 1+; HYPOCHROMIA 1+; KERATOCYTES 1+; PLATELET ESTIMATE DECREASED (ADEQ); POLYCHROMASIA 1+
[2016-10-02] MEDS ORDERED: K PHOS 20 MMOL in D5W 250 ML IV ONE (08:00)
[2016-10-02] MEDS: ERTAPENEM 0.5 GM in NS 100 ML IV SCH (09:34)
[2016-10-02] MEDS: PANTOPRAZOLE SODIUM 40 MG in NS 100 ML IV SCH (09:34)
[2016-10-02] MEDS: SODIUM PHOS 20 MM in D5W 250 ML IV PRN (09:35)
[2016-10-02] MEDS ORDERED: OXYCODONE/APAP 5/325 TAB PO PRN (10:06)
[2016-10-02] MEDS ORDERED: niCARdipine/NACL 200 ML IV PRN (11:02)
--- NOTE | 2016-10-02 11:03 | SOAPPROG ---
SOAP Progress Note Assessment/Plan: Assessment:Obstructing renal stone. Cultures confirm gm negative sepsis. Renal failure from shock kidney, hepatic failure from shock liver- improving, Low platelets from DIC and shock. However, her prognosis has steadily improved. Liver and platelets are further improved. Lungs are improved. Renal function still nil. Plan: Continue IV antibiotics, continue full court press support. Consider DVT prophylaxis if platelet count exceeds 50K. Agree with CT scan with oral contrast . 09/27/16 08:30 09/27/16 18:18 09/29/16 18:09 09/30/16 10:06 10/02/16 11:02 Subjective: Doing about the same. Can awaken to verbal commands. On a reasonable dose of fentanyl and somewhat sedated. Objective: Vital Signs Temp Pulse Resp BP Pulse Ox 35.7 C L 78 7 L 92/45 L 95 10/02/16 09:00 10/02/16 09:00 10/02/16 09:00 10/02/16 09:00 10/02/16 09:00 Microbiology 09/27/16 06:48 Blood Culture - Final Blood Escherichia Coli Esbl Klebsiella Pneumoniae Ssp Pneu Blood Panel (PCR) - Final Klebsiella Pneumoniae Escherichia Coli Laboratory Results 10/02/16 05:45 10/02/16 05:45 10/01/16 10/02/16 10/03/16 05:59 05:59 05:59 Intake Total 2195 1514 Output Total 4232 3777 Balance -7 -2263 PT 14.9 SEC (12.0-15.0) 10/02/16 05:45 INR 1.17 (0.83-1.16) H 10/02/16 05:45 Liver functions continue to improve. WBC still significantly elevated. Blood pressure and rhythm is stable. Toes on L foot look better. R foot demonstrates blisters over the toes but good color to the feet up to the toes. Very little necrosis of toes. ICD10 Worksheet Patient Problems: Problems Problem Status Onset ESBL (extended spectrum beta-lactamase) producing bacteria infection Acute ~ Renal colic on left side Acute
--- NOTE | 2016-10-02 11:05 | PDINTPN ---
Mental Health Aides Teacher Progress Note Assessment/Plan: Assessment: Severe Sepsis: Due to bacteremia with ESBL E. Coli, K. pneumonia from impacted left nephrolithiasis. Now s/p drainage with nephrostomy tube. On Invanz. LYLA: Anuric, on CVVHD. No output from nephrostomy Severe lactic acidosis: Likely due to peripheral ischemia, acute hepatitis. Normalized Acute hepatitis: due to shock. Transaminases, INR down today. Bili up suggesting cholestasis, improved slightly. Thrombocytopenia: Remains low, s/p daily Plt transfusions, last 10/01 PM. Likely due to consumption/DIC. Increased risk of bleeding related to this. Acute hypoxemic respiratory failure: Extubated. O2 needs up with increased narcotics Cardiomyopathy: Likely due to sepsis. Maintaining adequate BP since DB started. CI down overnight. Digital necrosis: Due to sepsis, high-dose pressors/hypotension. Clinically stable. Using low-dose nicardipine to try to improve perfusion Abdominal/back pain: Likely due to nephrolithiasis or chronic back pain. However , other acute causes such as RP hemorrhage, perinephric abscess, viscous perf also possible, but less likely. Labs reassuring, except for climbing WBC. Plan: CT abdomen. Continue DB, following CI and vitals, aim to wean down/off today. Wean Fentanyl down/off, start PO narcotics. Nicardipine if gets hypertensive. Continue CVVHD with fluid removal, ? change to standard HD today. Less imperative to transfuse Plt given normalized INR. Start DVT prophylaxis once Plt increase further. 10/02/16 11:09 Subjective: Abdominal/back pain overnight. Improved now on higher dose of fentanyl. Objective: Vital Signs Temp Pulse Resp BP Pulse Ox 35.7 C L 78 7 L 92/45 L 95 10/02/16 09:00 10/02/16 09:00 10/02/16 09:00 10/02/16 09:00 10/02/16 09:00 Microbiology 09/27/16 06:48 Blood Culture - Final Blood Escherichia Coli Esbl Klebsiella Pneumoniae Ssp Pneu Blood Panel (PCR) - Final Klebsiella Pneumoniae Escherichia Coli Laboratory Results 10/02/16 05:45 10/02/16 05:45 10/01/16 10/02/16 10/03/16 05:59 05:59 05:59 Intake Total 2195 1514 Output Total 4232 7467 Balance -2036 -2262 PT 14.9 SEC (12.0-15.0) 10/02/16 05:45 INR 1.17 (0.83-1.16) H 10/02/16 05:45 CXR: Basilar atelectasis. Images reviewed. Abdominal Xray: Normal bowel gas, no free air. Images reviewed. Laboratory Tests 10/02/16 10/02/16 05:45 05:45 VBG Lactic Acid 1.2 D Total Bilirubin 11.9 H AST 317 H ALT 1217 H Albumin 2.6 L Physical Exam - Physical Exam General Appearance: alert, no apparent distress EENT: normal ENT inspection Neck: normal inspection Respiratory: lungs clear, normal breath sounds Cardiac/Chest: regular rate, rhythm, No edema Abdomen: normal bowel sounds, non-tender, soft Skin: normal color, warm/dry Extremities: other (increased hemorrhagic blisters right toes.), No normal inspection Neuro/Psych: alert, normal mood/affect, oriented x 3 ICD10 Worksheet Patient Problems: Problems Problem Status Onset ESBL (extended spectrum beta-lactamase) producing bacteria infection Acute ~ Renal colic on left side Acute
[2016-10-02] MEDS ORDERED: niCARdipine/NACL 200 ML IV SCH (11:30)
[2016-10-02] MEDS: NS 1,000 ML MISC SCH (11:51)
--- NOTE | 2016-10-02 11:58 | PCMIDPN ---
Assessment/Plan: 1. Severe sepsis secondary to ESBL E coli and Klebsiella from obstructive nephrolithiasis: Obtain abdominal CT with oral contrast only today to look for evidence of intrarenal/perinephric abscess, or evidence of bowel ischemia versus other. Will continue ertapenem alone for now pending further data. Repeat blood cultures sterile. 2. Urine culture with 1000 colonies of enterococcus faecalis: This is clearly not an issue presently. No need to treat. (Not covered with Ertapenem) 3. transaminitis: Secondary to ischemic hepatopathy. Continue to follow. improving. 4. Elevated white blood cell count: Initially, felt secondary to profound leukemoid response after initial white cell count was 1.8. That being said, given her abdominal pain as outlined I do feel that it is prudent to obtain a CT scan of the abdomen and pelvis to disprove alternate process. 5. Digital ischemia/necrosis: Being followed by wound care. Subjective: Complained of abdominal pain last night that would not relent. Nurse reports that she had a small BM. She does not know whether or not it had blood. Patient denies abdominal pain now. No nausea or vomiting. Nephrostomy tube drainage practically nil. remains on dobutamine, but no other pressors. Patient is very tired, but opens her eyes to voice and responds appropriately. Received a significant amount of Fentanyl last night. Objective: ertapenem 0.5 g IV daily day 1 ( antibiotics day 7 T max 36 Vital Signs Temp Pulse Resp BP Pulse Ox 35.7 C L 78 7 L 92/45 L 95 10/02/16 09:00 10/02/16 09:00 10/02/16 09:00 10/02/16 09:00 10/02/16 09:00 Microbiology 09/27/16 06:48 Blood Culture - Final Blood Escherichia Coli Esbl Klebsiella Pneumoniae Ssp Pneu Blood Panel (PCR) - Final Klebsiella Pneumoniae Escherichia Coli Laboratory Results 10/02/16 05:45 10/02/16 05:45 10/01/16 10/02/16 10/03/16 05:59 05:59 05:59 Intake Total 2195 1514 Output Total 9229 8304 Balance -2036 blood culture September 30 no growth September 27 blood culture with E coli, ESBL, and Klebsiella pneumoniae - Physical Exam General Appearance: other ( extremely fatigued.) EENT: scleral icterus, No thrush Neck: other ( right-sided hemodialysis catheter) Cardiac/Chest: regular rate, rhythm Extremities: necrosis ( Necrosis /digital ischemia Multiple fingers and toes. No open wounds.), other Abdomen: non-tender, soft, No distended Skin: rash ( ecchymoses diffusely. Digital necrosis fingers and toes as above.) ICD10 Worksheet Patient Problems: Problems Problem Status Onset ESBL (extended spectrum beta-lactamase) producing bacteria infection Acute ~ Renal colic on left side Acute
[2016-10-02 12:12] LABS: IONIZED CALCIUM 1.15 MMOL/L (1.12-1.30)
[2016-10-02 12:29] LABS: ANION GAP 5 mEq/L (8-16); CALCIUM 7.6 mg/dL (8.5-10.4); CARBON DIOXIDE 27 mEq/l (22-31); CHLORIDE 105 mEq/L (97-110); CREATININE 0.9 mg/dL (0.6-1.0); GLOMERULAR FILTRATION RATE > 60; GLUCOSE 102 mg/dL (70-100); MAGNESIUM 2.3 mg/dL (1.6-2.3); POTASSIUM 3.8 mEq/L (3.5-5.2); SODIUM 137 mEq/L (134-144)
--- NOTE | 2016-10-02 17:19 | SOAPPROG ---
SOAP Progress Note Assessment/Plan: Assessment/Plan: LYLA: likely ischemic ATN, remains oliguric, was on CRRT until this afternoon. She is now extubated and off dobutamine and all pressors. Her volume status is markedly improved with volume removal on CRRT the past few days. - Will stop CRRT. - Will do intermittent HD tomorrow. - Will continue to monitor renal function. - Avoid hypotension and nephrotoxins. Shock: improved, now off dobutamine, will monitor. Subjective: No acute events overnight. Pt extubated and off dobutamine. Went for CT abd/ pelvis today, taken off of CRRT this afternoon. Objective: Vital Signs Temp Pulse Resp BP Pulse Ox 36.8 C 77 10 L 106/83 H 97 10/02/16 16:00 10/02/16 16:00 10/02/16 16:00 10/02/16 16:00 10/02/16 16:00 Microbiology 09/27/16 11:55 Gram Stain - Final Other - Aspirate Laboratory Results 10/02/16 05:45 10/02/16 12:00 10/01/16 10/02/16 10/03/16 05:59 05:59 05:59 Intake Total 2195 1514 1473 Output Total 4232 3777 1476 Balance -7 -2263 -3 PT 14.9 SEC (12.0-15.0) 10/02/16 05:45 INR 1.17 (0.83-1.16) H 10/02/16 05:45 General: awake, alert, no acute distress, somnolent Eyes: EOMI, PERRL OP: clear CV: RRR Resp: CTAB, nonlabored respirations on NC Abd: Soft, NT Ext: trace edema BLE Neuro: CN II-XII Grossly intact, no asterixis ICD10 Worksheet Patient Problems: Problems Problem Status Onset ESBL (extended spectrum beta-lactamase) producing bacteria infection Acute ~ Renal colic on left side Acute
[2016-10-02] MEDS: MELATONIN 3 MG TAB PO SCH (22:10)
[2016-10-03 05:06] LABS: ABSOLUTE NRBC COUNT 0.34 10^3/uL (0-0.01); ADD DIFF? YES; ADD MORPH? NO; ATYPICAL LYMPHOCYTE FLAG 0 (0-99); FRAGMENT RBC FLAG 20 (0-99); HEMATOCRIT 31.3 % (38.0-47.0); HEMOGLOBIN 10.4 g/dL (12.6-16.3); LIPEMIA HEMOLYSIS FLAG 80 (0-99); MEAN CELL HEMOGLOBIN 30.5 pg (27.9-34.1); MEAN CELL HEMOGLOBIN CONCENTR. 33.2 g/dL (32.4-36.7); MEAN CELL VOLUME 91.8 fL (81.5-99.8); NRBC-AUTO% 0.5 % (0.0-0.2); PLATELET CLUMPS FLAG 10 (0-99); RED BLOOD CELL COUNT 3.41 10^6/uL (4.18-5.33); RED CELL DISTRIBUTION WIDTH 16.8 % (11.5-15.2)
[2016-10-03 05:10] LABS: LEFT SHIFT FLG 300 (0-99)
[2016-10-03 05:12] LABS: ADD SCAN? NO; PLATELET COUNT 22 10^3/uL (150-400)
[2016-10-03 05:18] LABS: ALANINE AMINOTRANSFERASE 802 IU/L (9-52); ALBUMIN 2.5 g/dL (3.5-5.0); ALKALINE PHOSPHATASE 289 IU/L (38-126); ANION GAP 6 mEq/L (8-16); ASPARTATE AMINOTRANSFERASE 152 IU/L (14-46); BILIRUBIN,TOTAL 7.1 mg/dL (0.1-1.4); CALCIUM 7.9 mg/dL (8.5-10.4); CARBON DIOXIDE 23 mEq/l (22-31); CHLORIDE 106 mEq/L (97-110); CREATININE 1.8 mg/dL (0.6-1.0); GLOMERULAR FILTRATION RATE 27; GLUCOSE 104 mg/dL (70-100); POTASSIUM 4.2 mEq/L (3.5-5.2); SODIUM 135 mEq/L (134-144); TOTAL PROTEIN 5.3 g/dL (6.3-8.2)
[2016-10-03 05:29] LABS: BILIRUBIN-CONJUGATED 5.4 mg/dL (0.0-0.5); BILIRUBIN-UNCONJUGATED 1.7 mg/dL (0.0-1.1)
[2016-10-03 05:45] LABS: VITAMIN D 25-HYDROXY TOTAL 35.8 ng/mL (30-100)
[2016-10-03 05:49] LABS: ECHINOCYTES 1+; HYPOCHROMIA 1+; KERATOCYTES 1+; MACROCYTES 1+; POLYCHROMASIA 1+; SCHISTOCYTES 1+; TOXIC GRANULATION PRESENT
[2016-10-03 05:50] LABS: PLATELET ESTIMATE DECREASED (ADEQ)
[2016-10-03] MEDS: PANTOPRAZOLE SODIUM 40 MG in NS 100 ML IV SCH (08:32)
[2016-10-03] MEDS: fentaNYL 100 MCG/2 ML INJ IVP PRN (08:32)
--- NOTE | 2016-10-03 08:32 | PCMIDPN ---
Assessment/Plan: Assessment/Plan: 1. Polymicrobial septic shock with ESBL E.coli/Klebsiella pneumonia secondary to obstructive uropathy: - Left ureter stone s/p left nephrostomy - Currently on Invanz. -Initial blood cx positive on 09/27/16. f/u blood cx still positive with E. coli and now yeast. drawn from picc line per RN.see below -Remains critical. prognosis guarded. -care coodinated with RN, pulp piler 2. Fungemia: new -f/u blood cx now with C. albicans from one set -due to elevated LFT from ischemia hepatopathy, will start micafungin. -will repeat blood cx in 48 hours -ideally would like to remove picc line but given above, low plts etc, will keep in and hopefully can change out soon. 3. Leukocytosis: - multifactorial (current infection, digital ischemia, new fungemia etc) - c. diff pending. -will follow 4. Abd pain: - unclear etiology. Ct abd (noncontrast) unrevealing. - new loose stools. c. diff pending -will d/w pulp piler 5. Elevated LFT's/ischemic hepatopathy: - improving 6. Digitial ischemia: - followed by wound care. Meds invanz 500mg daily- 10/02/16 Subjective: Afebrile. in ICU. On HD. Continues to c/o of abd pain all over. denies nausea. loose stools since yesterday. Minimal cough. Objective: Vital Signs Temp Pulse Resp BP Pulse Ox 36.8 C 82 20 131/62 H 96 10/03/16 04:00 10/03/16 06:00 10/03/16 06:00 10/03/16 06:00 10/03/16 06:00 Microbiology 09/30/16 14:10 Blood Panel (PCR) - Final Blood Escherichia Coli Adriana Albicans 09/27/16 11:55 Gram Stain - Final Other - Aspirate Laboratory Results 10/03/16 04:30 10/03/16 04:30 10/02/16 10/03/16 10/04/16 05:59 05:59 05:59 Intake Total 1514 1903 Output Total 9287 1511 Balance -2263 392 - Physical Exam General Appearance: alert, other (weak) EENT: other (mucous membranes dry. necrotic changes involving lips.) Respiratory: lungs clear Cardiac/Chest: regular rate, rhythm Extremities: other (digital ischemia involving toes and fingers. soft. no induration. no cellulitis. ), No swelling Abdomen: normal bowel sounds, soft, tender (to mild palpation), No distended Skin: other (see above. Flattened blister involving left breast. no surrouinding cellulitis.) - Time Spent With Patient Time Spent with Patient: greater than 35 minutes Time Spent with Patient: Greater than 35 minutes spent on this patients care, greater than 50% of time spent counseling, educating, and coordinating care regarding the above mentioned plan. ICD10 Worksheet Patient Problems: Problems Problem Status Onset ESBL (extended spectrum beta-lactamase) producing bacteria infection Acute ~ Renal colic on left side Acute
[2016-10-03] MEDS: ERTAPENEM 0.5 GM in NS 100 ML IV SCH (08:33)
--- NOTE | 2016-10-03 08:57 | PDINTPN ---
Manager Paper Progress Note Assessment/Plan: Assessment/Plan: * Severe Sepsis: Due to bacteremia with ESBL E. Coli, K. pneumonia from impacted left nephrolithiasis. Now s/p drainage with nephrostomy tube. On Invanz. * LYLA: Anuric, of CRRT, now on hemodialysis * Severe lactic acidosis-resolved * Acute hepatitis: due to shock. Transaminases markedly improved. INR down today. Bili up suggesting cholestasis, improved slightly. -follow * Shock-off pressors. * Thrombocytopenia: Remains low, s/p daily Plt transfusions, last 10/01 PM. Likely due to consumption/DIC. Increased risk of bleeding related to this. * Acute hypoxemic respiratory failure: Extubated. O2 needs up with increased narcotics * Cardiomyopathy: Likely due to sepsis. Maintaining adequate BP since DB started. CI down overnight. * Digital necrosis: Due to sepsis, high-dose pressors/hypotension. Clinically stable. Using low-dose nicardipine to try to improve perfusion * Abdominal/back pain: Likely due to nephrolithiasis or chronic back pain. However, other acute causes such as RP hemorrhage, perinephric abscess, viscous perf also possible, but less likely. Labs reassuring, except for climbing WBC. -CT scan of the abdomen and pelvis showed normal bowel pattern and nothing acute Case discussed with Infectious Disease, and nursing. Subjective: Awake and alert. Complains of abdominal pain. Objective: Vital Signs Temp Pulse Resp BP Pulse Ox 36.8 C 82 20 131/62 H 96 10/03/16 04:00 10/03/16 06:00 10/03/16 06:00 10/03/16 06:00 10/03/16 06:00 Microbiology 09/30/16 14:10 Blood Panel (PCR) - Final Blood Escherichia Coli Adriana Albicans 09/27/16 11:55 Gram Stain - Final Other - Aspirate Laboratory Results 10/03/16 04:30 10/03/16 04:30 10/02/16 10/03/16 10/04/16 05:59 05:59 05:59 Intake Total 1514 1903 Output Total 0357 1511 Balance -2263 392 PT 14.9 SEC (12.0-15.0) 10/02/16 05:45 INR 1.17 (0.83-1.16) H 10/02/16 05:45 Laboratory Results 10/03/16 04:30 10/03/16 04:30 10/03/16 10/03/16 04:45 04:30 Total Bilirubin 7.1 mg/dL H mg/dL (0.1 - 1.4) Conjugated Bilirubin 5.4 mg/dL H mg/dL (0.0 - 0.5) Unconjugated Bilirubin 1.7 mg/dL H mg/dL (0.0 - 1.1) AST 152 IU/L H IU/L (14 - 46) ALT 802 IU/L H IU/L (9 - 52) Alkaline Phosphatase 289 IU/L H IU/L (38 - 126) Total Protein 5.3 g/dL L g/dL (6.3 - 8.2) Albumin 2.5 g/dL L g/dL (3.5 - 5.0) 25-OH Vitamin D Total 35.8 ng/mL ng/mL (30 - 100) C. difficile Tox (PCR) NEGATIVE 09/30/16 14:10 Blood Culture - Preliminary Blood Blood Panel (PCR) - Final Escherichia Coli Adriana Albicans 09/27/16 11:55 Gram Stain - Final Other - Aspirate Anaerobic Culture - Preliminary Escherichia Coli Esbl 09/27/16 06:48 Blood Culture - Final Blood Blood Panel (PCR) - Final Escherichia Coli Esbl Klebsiella Pneumoniae Ssp Pneu Klebsiella Pneumoniae Escherichia Coli Physical Exam - Physical Exam General Appearance: alert, mild distress EENT: PERRL/EOMI Neck: non-tender, full range of motion, supple, normal inspection Respiratory: chest non-tender, lungs clear, normal breath sounds Cardiac/Chest: normal peripheral pulses, regular rate, rhythm Abdomen: soft, No non-tender Pelvic Exam: deferred Rectal: deferred Extremities: normal range of motion, non-tender, normal inspection, normal capillary refill Neuro/Psych: alert ICD10 Worksheet Patient Problems: Problems Problem Status Onset ESBL (extended spectrum beta-lactamase) producing bacteria infection Acute ~ Renal colic on left side Acute
--- NOTE | 2016-10-03 09:52 | SOAPPROG ---
SOAP Progress Note Assessment/Plan: Assessment: 1. LYLA Off CRRT. HD today, tolerating well. Had slight drop in BP, backed off on UF. 2. Leukocytosis/ID Impressive, ID following. Fungemia, initial urinary source 3. Urology Nephrostomy in place. Ultimate care when stabilized 4. Abdominal Pain Soft on exam, but concerning 5. Ischemic Digits Follow. 6. Anemia Stable Plan: 10/03/16 09:42 10/03/16 09:53 Subjective: Awake, disoriented Objective: Vital Signs Temp Pulse Resp BP Pulse Ox 36.8 C 82 20 131/62 H 96 10/03/16 04:00 10/03/16 06:00 10/03/16 06:00 10/03/16 06:00 10/03/16 06:00 Microbiology 09/30/16 14:10 Blood Panel (PCR) - Final Blood Escherichia Coli Adriana Albicans 09/27/16 11:55 Gram Stain - Final Other - Aspirate Laboratory Results 10/03/16 04:30 10/03/16 04:30 10/02/16 10/03/16 10/04/16 05:59 05:59 05:59 Intake Total 1514 1903 Output Total 3777 1511 Balance -2263 392 PT 14.9 SEC (12.0-15.0) 10/02/16 05:45 INR 1.17 (0.83-1.16) H 10/02/16 05:45 Physical Exam - Physical Exam General Appearance: mild distress Respiratory: lungs clear Cardiac/Chest: regular rate, rhythm Abdomen: soft Extremities: pedal edema, other (toe ischemic noted) ICD10 Worksheet Patient Problems: Problems Problem Status Onset ESBL (extended spectrum beta-lactamase) producing bacteria infection Acute ~ Renal colic on left side Acute
[2016-10-03] MEDS ORDERED: SODIUM CITRATE 4% 5 ML in SYRINGE 0 ML DIAL PRN (10:38)
--- NOTE | 2016-10-03 14:27 | SOAPPROG ---
SOAP Progress Note Assessment/Plan: Assessment: Impacted, infected left ureterolithiasis. Sepsis. Plan: Catheter removed last night by RN per protocol, according to note. Unable to assess patient voiding status given limited mobility and loose stools. Bladder scan ordered and urology to be called if retaining >400ml. Continue aggressive care in this patient. Our office will contact her to arrange followup with Dr Grady and management of stone in 2-3 weeks from discharge. 10/03/16 14:26 10/03/16 14:40 Subjective: No new or different suprapubic pain. Objective: Vital Signs Temp Pulse Resp BP Pulse Ox 36.4 C 76 16 110/59 L 96 10/03/16 12:00 10/03/16 12:00 10/03/16 12:00 10/03/16 12:00 10/03/16 12:00 Microbiology 09/30/16 14:10 Blood Panel (PCR) - Final Blood Escherichia Coli Adriana Albicans 09/27/16 11:55 Gram Stain - Final Other - Aspirate Laboratory Results 10/03/16 04:30 10/03/16 04:30 10/02/16 10/03/16 10/04/16 05:59 05:59 05:59 Intake Total 1514 1903 Output Total 3777 1511 1300 Balance -2263 392 -1300 PT 14.9 SEC (12.0-15.0) 10/02/16 05:45 INR 1.17 (0.83-1.16) H 10/02/16 05:45 Physical Exam - Physical Exam General Appearance: No alert Respiratory: No respiratory distress Abdomen: non-tender, other (neph tube with minimal dark red urine) Pelvic Exam: other (no bladder distension. ) ICD10 Worksheet Patient Problems: Problems Problem Status Onset ESBL (extended spectrum beta-lactamase) producing bacteria infection Acute ~ Renal colic on left side Acute
[2016-10-03] MEDS: MICAFUNGIN NA 100 MG in NS 100 ML IV SCH (15:00)
[2016-10-03 15:18] LABS: HEMOGLOBIN 10.6 g/dL (12.6-16.3)
[2016-10-03] MEDS: MELATONIN 3 MG TAB PO SCH (19:57)
[2016-10-03 20:39] LABS: HEMATOCRIT 30.2 % (38.0-47.0); HEMOGLOBIN 10.3 g/dL (12.6-16.3)
--- NOTE | 2016-10-03 21:48 | SOAPPROG ---
SOAP Progress Note Assessment/Plan: Assessment:Obstructing renal stone. Cultures confirm gm negative sepsis. Repeat cultures show persistent bactereia as well as adriana. There were drawn through the PICC which was placed durig sepsis which makes the culture results questionable but mandates the early removal of this as well as possiblty the dialysis lines. Plan: Continue IV antibiotics, begin antifungal antibiotics. Remove PICC in AM even if it mandates platelet transfusion to do so. continue full court press support. Consider DVT prophylaxis if platelet count exceeds 50K. Agree with CT scan with oral contrast . 09/27/16 08:30 09/27/16 18:18 09/29/16 18:09 09/30/16 10:06 10/02/16 11:02 10/03/16 21:46 Subjective: CO abdominal pain. responding to questions clearly. Objective: Vital Signs Temp Pulse Resp BP Pulse Ox 36.6 C 83 16 109/55 L 96 10/03/16 20:00 10/03/16 20:00 10/03/16 20:00 10/03/16 20:00 10/03/16 20:00 Microbiology 09/30/16 14:10 Blood Panel (PCR) - Final Blood Escherichia Coli Adriana Albicans 09/27/16 11:55 Gram Stain - Final Other - Aspirate Laboratory Results 10/03/16 20:20 10/03/16 04:30 10/02/16 10/03/16 10/04/16 05:59 05:59 05:59 Intake Total 1514 1903 940 Output Total 3777 1511 1300 Balance -2263 392 -360 PT 14.9 SEC (12.0-15.0) 10/02/16 05:45 INR 1.17 (0.83-1.16) H 10/02/16 05:45 Culture positive for gm - evelio and adriana. The PICC as well as the dialysis catheter were placed during the peak of sepsis. Lungs without wheezing. COR RRR afebrile ICD10 Worksheet Patient Problems: Problems Problem Status Onset ESBL (extended spectrum beta-lactamase) producing bacteria infection Acute ~ Renal colic on left side Acute
[2016-10-04 03:38] LABS: ADD DIFF? YES; ADD MORPH? NO; ATYPICAL LYMPHOCYTE FLAG 50 (0-99); FRAGMENT RBC FLAG 20 (0-99); HEMATOCRIT 29.8 % (38.0-47.0); HEMOGLOBIN 10.1 g/dL (12.6-16.3); LIPEMIA HEMOLYSIS FLAG 90 (0-99); MEAN CELL HEMOGLOBIN 30.9 pg (27.9-34.1); MEAN CELL HEMOGLOBIN CONCENTR. 33.9 g/dL (32.4-36.7); MEAN CELL VOLUME 91.1 fL (81.5-99.8); NRBC-AUTO% 0.4 % (0.0-0.2); PLATELET CLUMPS FLAG 0 (0-99); RED BLOOD CELL COUNT 3.27 10^6/uL (4.18-5.33); RED CELL DISTRIBUTION WIDTH 16.2 % (11.5-15.2)
[2016-10-04 03:40] LABS: LEFT SHIFT FLG 300 (0-99); PLATELET COUNT 35 10^3/uL (150-400)
[2016-10-04 03:43] LABS: ADD SCAN? NO
[2016-10-04 04:19] LABS: KERATOCYTES 1+; MACROCYTES 1+; PLATELET ESTIMATE DECREASED (ADEQ); POLYCHROMASIA 1+
[2016-10-04 04:49] LABS: ALANINE AMINOTRANSFERASE 518 IU/L (9-52); ALBUMIN 2.2 g/dL (3.5-5.0); ALKALINE PHOSPHATASE 269 IU/L (38-126); ANION GAP 6 mEq/L (8-16); ASPARTATE AMINOTRANSFERASE 84 IU/L (14-46); BILIRUBIN,TOTAL 4.2 mg/dL (0.1-1.4); CALCIUM 7.5 mg/dL (8.5-10.4); CARBON DIOXIDE 25 mEq/l (22-31); CHLORIDE 102 mEq/L (97-110); CREATININE 2.2 mg/dL (0.6-1.0); GLOMERULAR FILTRATION RATE 22; GLUCOSE 95 mg/dL (70-100); POTASSIUM 4.1 mEq/L (3.5-5.2); SODIUM 133 mEq/L (134-144); TOTAL PROTEIN 4.8 g/dL (6.3-8.2)
[2016-10-04 05:04] LABS: BILIRUBIN-CONJUGATED 3.1 mg/dL (0.0-0.5); BILIRUBIN-UNCONJUGATED 1.1 mg/dL (0.0-1.1)
[2016-10-04] MEDS: PANTOPRAZOLE SODIUM 40 MG in NS 100 ML IV SCH (08:04)
[2016-10-04] MEDS: ERTAPENEM 0.5 GM in NS 100 ML IV SCH (08:04)
--- NOTE | 2016-10-04 08:24 | SOAPPROG ---
SOAP Progress Note Assessment/Plan: Assessment:Obstructing renal stone. Cultures confirm gm negative sepsis. Repeat cultures show persistent bactereia as well as adriana. There were drawn through the PICC which was placed durig sepsis which makes the culture results questionable but mandates the early removal of this as well as possiblty the dialysis lines. Plan: Continue IV antibiotics, begin antifungal antibiotics. Remove PICC in AM even if it mandates platelet transfusion to do so. Consider replacement of dialysis catheter also considering it was also placed during period of florid sepsis. continue full court press support. Consider DVT prophylaxis if platelet count exceeds 50K. 09/27/16 08:30 09/27/16 18:18 09/29/16 18:09 09/30/16 10:06 10/02/16 11:02 10/03/16 21:46 10/04/16 08:23 Subjective: No complaint of pain this morning. CO vertigo which resolved after a couple of minutes. Objective: Vital Signs Temp Pulse Resp BP Pulse Ox 36.4 C 74 16 92/72 L 97 10/04/16 04:00 10/04/16 06:00 10/04/16 06:00 10/04/16 06:00 10/04/16 06:00 Microbiology 09/30/16 14:10 Blood Panel (PCR) - Final Blood Escherichia Coli Adriana Albicans 09/27/16 11:55 Gram Stain - Final Other - Aspirate Laboratory Results 10/04/16 03:30 10/04/16 03:30 10/03/16 10/04/16 10/05/16 05:59 05:59 05:59 Intake Total 1903 940 Output Total 1511 1320 Balance 392 -380 PT 14.9 SEC (12.0-15.0) 10/02/16 05:45 INR 1.17 (0.83-1.16) H 10/02/16 05:45 PEERL. good symmetrical strength. No nystagmus. Ischemic digits continue to look non-infected. COR RRR, no murmur. WBC still significantly elevated but slightly lower. ONe of two blood cultures posiotive for e-coli and adriana, likely contaminants however persistent infection remains a concern. ICD10 Worksheet Patient Problems: Problems Problem Status Onset ESBL (extended spectrum beta-lactamase) producing bacteria infection Acute ~ Renal colic on left side Acute
[2016-10-04] MEDS ORDERED: ALTEPLASE 2 MG VIAL IVP PRN (08:57)
--- NOTE | 2016-10-04 08:58 | SOAPPROG ---
SOAP Progress Note Assessment/Plan: Assessment: 1. LYLA. Ischemia/NSAIDs/IV contrast. Oliguric but 100cc urine in [place] today. Volume status much better. HD yesterday, plan for next tomorrow. 2. Severe septic shock/urosepsis. Due to obstructed L kidney stone. s/p L PCN, currently minimal UOP. BCxs with persistent ESBL E. Coli and now adriana. Continue invanz, micafungin per ID. Agree with line exchange. D/c dialysis cath today, draw BCxs, replace tomorrow if BCxs clear. 3. MODS w/ shock liver, CHF. EF 15%. LFTs, plts improving. Off dobutamine. Plan: 09/28/16 08:25 09/28/16 08:27 09/29/16 09:46 09/29/16 09:47 09/29/16 09:51 10/04/16 08:56 10/04/16 08:56 10/04/16 08:58 10/04/16 08:59 10/04/16 09:00 Subjective: No over night events reported. No complaints. Objective: Vital Signs Temp Pulse Resp BP Pulse Ox 36.4 C 74 16 92/72 L 97 10/04/16 04:00 10/04/16 06:00 10/04/16 06:00 10/04/16 06:00 10/04/16 06:00 Microbiology 09/30/16 14:10 Blood Panel (PCR) - Final Blood Escherichia Coli Adriana Albicans 09/27/16 11:55 Gram Stain - Final Other - Aspirate Laboratory Results 10/04/16 03:30 10/04/16 03:30 10/03/16 10/04/16 10/05/16 05:59 05:59 05:59 Intake Total 1903 940 Output Total 1511 1320 Balance 392 -380 PT 14.9 SEC (12.0-15.0) 10/02/16 05:45 INR 1.17 (0.83-1.16) H 10/02/16 05:45 Weak, lethargic, arousable. Answers questions RRR, no m/g/r CTAB Abdom soft, nt Several digits on hands and feet dark purple, some with swelling, blistering. Hands/feet warm Tr sacral pitting edema ICD10 Worksheet Patient Problems: Problems Problem Status Onset ESBL (extended spectrum beta-lactamase) producing bacteria infection Acute ~ Renal colic on left side Acute
[2016-10-04] MEDS: MICAFUNGIN NA 100 MG in NS 100 ML IV SCH (09:01)
--- NOTE | 2016-10-04 09:05 | PDINTPN ---
Teasel Setter Progress Note Assessment/Plan: Assessment/Plan: * Severe Sepsis: Due to bacteremia with ESBL E. Coli, K. pneumonia from impacted left nephrolithiasis. Now s/p drainage with nephrostomy tube. On Invanz. 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 Transaminases markedly improved. INR down today. Bili up suggesting cholestasis, improved slightly. -follow * Shock-off pressors. * Central lines-will change out PICC line today and dialysis catheter tomorrow. Will culture the tips of both. * Thrombocytopenia: Remains low, however count is up today * Acute hypoxemic respiratory failure: Extubated. O2 needs up with increased narcotics * Cardiomyopathy: Likely due to sepsis. Maintaining adequate BP since DB started. CI down overnight. * Digital necrosis: Due to sepsis, high-dose pressors/hypotension. Clinically stable. Using low-dose nicardipine to try to improve perfusion. Digits site John improved today * Abdominal/back pain: Likely due to nephrolithiasis or chronic back pain. However, other acute causes such as RP hemorrhage, perinephric abscess, viscous perf also possible, but less likely. Labs reassuring, except for climbing WBC. -CT scan of the abdomen and pelvis showed normal bowel pattern and nothing acute * Disposition-will transfer to step-down unit today Case discussed with Infectious Disease, and nursing. Subjective: Drowsy this morning, however awake and alert. She states she feels weak this morning. Objective: Vital Signs Temp Pulse Resp BP Pulse Ox 36.4 C 75 16 123/58 H 96 10/04/16 04:00 10/04/16 08:00 10/04/16 08:00 10/04/16 08:00 10/04/16 08:00 Microbiology 09/30/16 14:10 Blood Panel (PCR) - Final Blood Escherichia Coli Adriana Albicans 09/27/16 11:55 Gram Stain - Final Other - Aspirate Laboratory Results 10/04/16 03:30 10/04/16 03:30 10/03/16 10/04/16 10/05/16 05:59 05:59 05:59 Intake Total 1903 940 Output Total 1511 1320 Balance 392 -380 PT 14.9 SEC (12.0-15.0) 10/02/16 05:45 INR 1.17 (0.83-1.16) H 10/02/16 05:45 Laboratory Results 10/04/16 03:30 10/04/16 03:30 10/04/16 03:30 Calcium 7.5 mg/dL L mg/dL (8.5 - 10.4) Total Bilirubin 4.2 mg/dL H mg/dL (0.1 - 1.4) Conjugated Bilirubin 3.1 mg/dL H mg/dL (0.0 - 0.5) Unconjugated Bilirubin 1.1 mg/dL mg/dL (0.0 - 1.1) AST 84 IU/L H IU/L (14 - 46) ALT 518 IU/L H IU/L (9 - 52) Alkaline Phosphatase 269 IU/L H IU/L (38 - 126) Total Protein 4.8 g/dL L g/dL (6.3 - 8.2) Albumin 2.2 g/dL L g/dL (3.5 - 5.0) Physical Exam - Physical Exam General Appearance: alert, mild distress EENT: PERRL/EOMI, normal ENT inspection Neck: non-tender, full range of motion, supple, normal inspection Respiratory: chest non-tender, lungs clear, normal breath sounds Cardiac/Chest: normal peripheral pulses, regular rate, rhythm Abdomen: normal bowel sounds, non-tender, soft Pelvic Exam: deferred Rectal: deferred Skin: normal color, warm/dry Extremities: other (Does appear improved) Neuro/Psych: no motor/sensory deficits, alert ICD10 Worksheet Patient Problems: Problems Problem Status Onset ESBL (extended spectrum beta-lactamase) producing bacteria infection Acute ~ Renal colic on left side Acute
--- NOTE | 2016-10-04 09:35 | WOCRNPDOC ---
JON Advanced Assessment Note - Skin Integrity Problem, Advanced Assess Left Lateral Breast Blister Dressing Type: Allevyn Life Dressing Description: Intact Exudate Amount: None Exudate Characteristic(s): None Integumentary Issue Intervention: Visualized Under Dressing Laura Wound Tissue: Ecchymotic Laura Wound Swelling: Mild Wound Bed Color: Purple, Red Wound Bed Constitution: Intact Serous Filled Blister Site Odor: None Skin Integrity Problem Comment: Blister on L lateral breast remains intact, more clearly serous-filled upon this assessment than in previous assessments, where fluid appeared serosanguinous. Fluid is reabsorbing, and bruising that was apparent underneath the blister is turning from purple to red, resolving. Advise keeping site covered and protected until injury fully resolves. Report given to silhouette artist Marium. Lip Pressure Injury Dressing Type: Open to Air Exudate Amount: Scant Exudate Color: Brown Exudate Characteristic(s): Bloody, Dried Laura Wound Tissue: Swollen Laura Wound Swelling: Mild Wound Bed Color: Brown, Red Wound Bed Constitution: De-roofed Sanguineous blister Pressure Injury Stage: Stage 2, Billiard Table Assembler Related Pressure Injury Pressure Injury Present on Admit: No (The result of pressure from ET tube.) Skin Integrity Problem Comment: Sanguinous blister on lower lip noted in previous assessment has since deroofed, presently dried and scabbed. Scab remains intact, soft on upper lip. Will continue to have nursing apply lip balm to site and monitor for complications.
[2016-10-04 10:49] LABS: HEMATOCRIT 29.2 % (38.0-47.0); HEMOGLOBIN 9.9 g/dL (12.6-16.3)
[2016-10-04] MEDS: ACETAMINOPHEN 325 MG TAB PO PRN (12:43)
--- NOTE | 2016-10-04 13:08 | PCMIDPN ---
Assessment/Plan: Assessment/Plan: * Polymicrobial bacteremia with ESBL producing E coli as well as Klebsiella pneumoniae due to obstructive uropathy from ureteral stone status post nephrostomy: Continue ertapenem. Repeat blood cultures in a.m. to assess for clearing of bacteremia. Clinically appears to be stabilizing from septic shock perspective. * Candidemia: Considerations for etiology include potential association with obstructive uropathy/urosepsis versus line-related infection. Cultures taken at time of nephrostomy tube placement to date have not shown growth of yeast however. PICC line will be changed today and dialysis catheter removed. Repeat blood cultures in a.m. to assess for clearing of candidemia. Continue micafungin which is being utilized over fluconazole in the setting of elevated liver enzymes. * Leukocytosis: Likely multifactorial with component of leukemoid reaction after initially having leukopenia with septic shock. C difficile testing is negative. * Increased liver function tests: Likely associated with hypoperfusion in the setting of septic shock. Improving with time. * Digital ischemia: No signs of superinfection present currently. Subjective: Patient without specific complaints. History, clinical findings, and microbiologic data all reviewed. Objective: Vital Signs Temp Pulse Resp BP Pulse Ox 36.4 C 74 20 128/67 H 96 10/04/16 04:00 10/04/16 12:00 10/04/16 12:00 10/04/16 12:00 10/04/16 12:00 Microbiology 09/27/16 11:55 Gram Stain - Final Other - Aspirate 09/30/16 14:10 Blood Panel (PCR) - Final Blood Escherichia Coli Adriana Albicans Laboratory Results 10/04/16 10:20 10/04/16 03:30 10/03/16 10/04/16 10/05/16 05:59 05:59 05:59 Intake Total 1903 940 Output Total 1511 1320 Balance 392 -380 Ertapenem # 3 Micafungin # 2 Blood culture 09/30/2016 with growth of ESBL producing E coli and Adriana albicans Blood culture 09/27/2016 with growth of ESBL producing E coli and Klebsiella pneumoniae Nephrostomy culture with growth of ESBL producing E coli - Physical Exam General Appearance: alert, no apparent distress EENT: other (Scabbing over lips) Respiratory: coarse breath sounds, No respiratory distress Cardiac/Chest: regular rate, rhythm Extremities: inflammation (Ischemic changes diffusely over feet and toes) Abdomen: non-tender, No distended Skin: No rash ICD10 Worksheet Patient Problems: Problems Problem Status Onset ESBL (extended spectrum beta-lactamase) producing bacteria infection Acute ~ Renal colic on left side Acute
[2016-10-04 13:58] LABS: HEPATITIS Bs Ab QUANT 14.4 mIU/mL
[2016-10-04 15:47] LABS: HEMATOCRIT 30.6 % (38.0-47.0); HEMOGLOBIN 10.4 g/dL (12.6-16.3)
[2016-10-04] MEDS: MELATONIN 3 MG TAB PO SCH (21:50)
[2016-10-05 05:35] LABS: ABSOLUTE NRBC COUNT 0.04 10^3/uL (0-0.01); ADD DIFF? YES; ADD MORPH? NO; ATYPICAL LYMPHOCYTE FLAG 70 (0-99); FRAGMENT RBC FLAG 20 (0-99); HEMATOCRIT 27.6 % (38.0-47.0); HEMOGLOBIN 9.3 g/dL (12.6-16.3); LIPEMIA HEMOLYSIS FLAG 80 (0-99); MEAN CELL HEMOGLOBIN CONCENTR. 33.7 g/dL (32.4-36.7); NRBC-AUTO% 0.1 % (0.0-0.2); PLATELET CLUMPS FLAG 10 (0-99); PLATELET COUNT 75 10^3/uL (150-400); RED CELL DISTRIBUTION WIDTH 17.2 % (11.5-15.2)
[2016-10-05 05:45] LABS: LEFT SHIFT FLG 170 (0-99)
[2016-10-05 06:28] LABS: PLATELET ESTIMATE ADEQUATE (ADEQ)
[2016-10-05 06:29] LABS: POLYCHROMASIA 1+
[2016-10-05 07:11] LABS: ADD SCAN? NO
[2016-10-05] MEDS: MICAFUNGIN NA 100 MG in NS 100 ML IV SCH (08:16)
[2016-10-05] MEDS: PANTOPRAZOLE SODIUM 40 MG in NS 100 ML IV SCH (08:16)
[2016-10-05] MEDS: ERTAPENEM 0.5 GM in NS 100 ML IV SCH (08:16)
--- NOTE | 2016-10-05 09:00 | PDINTPN ---
Portfolio Consultant Progress Note Assessment/Plan: Assessment/Plan: * Severe Sepsis: Due to bacteremia with ESBL E. Coli, K. pneumonia from impacted left nephrolithiasis. Now s/p drainage with nephrostomy tube. On Invanz. Clinically improved. 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 Transaminases markedly improved. INR down today. -follow * Shock-off pressors. Resolved * Central lines-will change out PICC line today and dialysis catheter tomorrow. Will culture the tips of both. * Thrombocytopenia: Remains low, however count is up today * Acute hypoxemic respiratory failure: Extubated. O2 needs up with increased narcotics * Cardiomyopathy: Likely due to sepsis. Maintaining adequate BP since DB started. CI down overnight. * Digital necrosis: Due to sepsis, high-dose pressors/hypotension. Clinically stable. Using low-dose nicardipine to try to improve perfusion. -improving * Abdominal/back pain: Improved -CT scan of the abdomen and pelvis showed normal bowel pattern and nothing acute * Disposition-will keep in step-down today Case discussed with Infectious Disease, and nursing. Subjective: Resting comfortably in bed. Awake and alert and oriented x3. Still somewhat fatigued. Denies any breathlessness or chest pain Objective: Vital Signs Temp Pulse Resp BP Pulse Ox 36.2 C 66 17 120/54 L 98 10/05/16 07:33 10/05/16 07:33 10/05/16 07:33 10/05/16 07:33 10/05/16 07:33 Microbiology 09/30/16 14:10 Blood Panel (PCR) - Final Blood Escherichia Coli Adriana Albicans 09/27/16 11:55 Gram Stain - Final Other - Aspirate Laboratory Results 10/05/16 04:48 10/04/16 03:30 10/04/16 10/05/16 10/06/16 05:59 05:59 05:59 Intake Total 940 310 Output Total 1320 40 Balance -380 270 PT 14.9 SEC (12.0-15.0) 10/02/16 05:45 INR 1.17 (0.83-1.16) H 10/02/16 05:45 Laboratory Results 10/05/16 04:48 10/04/16 03:30 09/30/16 14:10 Blood Culture - Preliminary Blood Blood Panel (PCR) - Final Escherichia Coli Esbl Adriana Albicans Escherichia Coli Adriana Albicans 09/27/16 11:55 Gram Stain - Final Other - Aspirate Anaerobic Culture - Preliminary Escherichia Coli Esbl Physical Exam - Physical Exam General Appearance: alert, no apparent distress EENT: PERRL/EOMI, other (Necrotic lips healing) Neck: non-tender, full range of motion, supple, normal inspection Respiratory: crackles, No respiratory distress, No stridor, No wheezing Cardiac/Chest: normal peripheral pulses, regular rate, rhythm Abdomen: normal bowel sounds, non-tender, soft Pelvic Exam: deferred Rectal: deferred Skin: normal color, warm/dry Extremities: other (Digital necrosis healing) Neuro/Psych: alert, oriented x 3 ICD10 Worksheet Patient Problems: Problems Problem Status Onset ESBL (extended spectrum beta-lactamase) producing bacteria infection Acute ~ Renal colic on left side Acute
[2016-10-05] MEDS: fentaNYL 100 MCG/2 ML INJ IVP PRN (09:12)
--- NOTE | 2016-10-05 09:12 | SOAPPROG ---
SOAP Progress Note Assessment/Plan: Assessment: Plan: 10/05/16 09:52 Sepsis due to obstructing stone: improved. PICC line replaced yesterday due to positive f/u cx. Cath tip cx pending. Dialysis catheter likely to be removed today as well, possibly after dialysis, as per renal. Additional blood cx drawn this morning. WBC down significantly. Slight drop in hgb as well. LYLA: making small amount urine. Cr up to 2.2 today. Continuing with dialysis. Urine with small amount of Enteroccoccus. Thrombocytopenia: plts better today. Pain in L thigh: associated with petechiae. New complaint. Will check doppler to assess for clot. Not yet inclined to begin lovenox due to slight drop in hgb , ongoing need for plt transfusion, unless clot present. 10/05/16 09:54 Subjective: C/o pain in her upper thigh that started this morning. Discouraged. Objective: Vital Signs Temp Pulse Resp BP Pulse Ox 36.2 C 66 17 120/54 L 98 10/05/16 07:33 10/05/16 07:33 10/05/16 07:33 10/05/16 07:33 10/05/16 07:33 Microbiology 09/30/16 14:10 Blood Panel (PCR) - Final Blood Escherichia Coli Adriana Albicans 09/27/16 11:55 Gram Stain - Final Other - Aspirate Laboratory Results 10/05/16 04:48 10/04/16 03:30 10/04/16 10/05/16 10/06/16 05:59 05:59 05:59 Intake Total 940 310 Output Total 1320 40 Balance -380 270 PT 14.9 SEC (12.0-15.0) 10/02/16 05:45 INR 1.17 (0.83-1.16) H 10/02/16 05:45 General: resting in bed but arouses easily. Lungs: limited exam--clear Cardiovascular: RRR Abdomen: soft, NT Extremities: L thigh with petechiae, tender with light touch. No edema, erythema. Digital ischemia, swelling. ICD10 Worksheet Patient Problems: Problems Problem Status Onset ESBL (extended spectrum beta-lactamase) producing bacteria infection Acute ~ Renal colic on left side Acute
[2016-10-05 10:24] LABS: ALBUMIN 2.4 g/dL (3.5-5.0); ANION GAP 11 mEq/L (8-16); CALCIUM 7.4 mg/dL (8.5-10.4); CARBON DIOXIDE 22 mEq/l (22-31); CHLORIDE 103 mEq/L (97-110); CREATININE 4.1 mg/dL (0.6-1.0); GLOMERULAR FILTRATION RATE 10; GLUCOSE 101 mg/dL (70-100); POTASSIUM 4.8 mEq/L (3.5-5.2); SODIUM 136 mEq/L (134-144)
--- NOTE | 2016-10-05 10:56 | SOAPPROG ---
SOAP Progress Note Assessment/Plan: Assessment/Plan: LYLA: likely ischemic ATN, remains oliguric. She is now extubated and off dobutamine and all pressors. Was on CRRT but stopped on 10/02, last had HD on . - Will do HD today after line replaced. - Next HD on Sunday. - Will continue to monitor renal function. - Avoid hypotension and nephrotoxins. Hypervolemia: will modulate on HD. Subjective: No acute events overnight. Pt had dialysis catheter removed yesterday, new one being replaced this am. Objective: Vital Signs Temp Pulse Resp BP Pulse Ox 36.2 C 66 17 120/54 L 98 10/05/16 07:33 10/05/16 07:33 10/05/16 07:33 10/05/16 07:33 10/05/16 07:33 Microbiology 09/30/16 14:10 Blood Panel (PCR) - Final Blood Escherichia Coli Adriana Albicans 09/27/16 11:55 Gram Stain - Final Other - Aspirate Laboratory Results 10/05/16 04:48 10/05/16 09:58 10/04/16 10/05/16 10/06/16 05:59 05:59 05:59 Intake Total 940 310 Output Total 1320 40 Balance -380 270 PT 14.9 SEC (12.0-15.0) 10/02/16 05:45 INR 1.17 (0.83-1.16) H 10/02/16 05:45 General: sleepy but arousable, no acute distress Eyes; EOMI, PERRL OP: Clear CV: RRR Resp: nonlabored respirations on NC Abd: Soft, ND Ext: trace edema BLE Neuro: CN II-XII grossly intact, no asterixis Access; none ICD10 Worksheet Patient Problems: Problems Problem Status Onset ESBL (extended spectrum beta-lactamase) producing bacteria infection Acute ~ Renal colic on left side Acute
[2016-10-05] MEDS ORDERED: LIDO/EPI 1% **Not for Epidural 20 ML MDV IF ONE (13:15)
--- NOTE | 2016-10-05 14:32 | WOCRNPDOC ---
WOCRN Advanced Assessment Note - Skin Integrity Problem, Advanced Assess Left Lateral Breast Blister Dressing Type: Open to Air Exudate Amount: Minimal Exudate Color: Yellow Exudate Characteristic(s): Serous Integumentary Issue Intervention: Dressing Applied (Cavilon prep to periwound; Adaptic Touch contact layer, Mepilex non-bordered foam, hydrocolloid (Replicare ) strips to secure), Dressing Initialed & Dated Laura Wound Tissue: Erythema, Thin, Painful/Tender Wound Bed Color: [place] Wound Bed Constitution: Smooth Tissue, Draining Serous Blister Wound Edges: Irregular (blister flap attached) Site Odor: None Site Measurement - Head-to-Toe Length X Width X Depth (cm): 5.5 x 4.5 x 0 ( blister flap) Skin Integrity Problem Comment: Followed up per request of NADINE Celis reporting that blister was found opened and draining clear yellow serous. Drainage subsided after cleansing with sterile NS and gauze. Applied dressing as described above; NADINE Celis observing. Right Fifth Finger Blister Dressing Type: Open to Air Exudate Amount: Scant Exudate Color: Clear, Yellow Exudate Characteristic(s): Serous Integumentary Issue Intervention: Dressing Applied (Cavilon prep; Adaptic Touch , non-bordered foam, gauze and tape), Dressing Initialed & Dated Laura Wound Tissue: Ecchymotic Laura Wound Swelling: Moderate Wound Bed Constitution: Draining Serous Blister Site Odor: None Skin Integrity Problem Comment: Approximately 0.7 cm protruding height of blister extending along most of small digit. Blister is beginning to drain serous fluid. A protective, wicking dressing was applied, as described above. Bilateral Toe Blister Dressing Type: Open to Air Exudate Amount: Scant Exudate Color: Clear, Yellow Exudate Characteristic(s): Serous Integumentary Issue Intervention: Dressing Applied (Cavilon prep; Mepilex transfer foam, rose mary gauze) Laura Wound Tissue: Ecchymotic, Thin Laura Wound Swelling: Moderate Wound Bed Constitution: Draining Serous Blister Site Odor: None Skin Integrity Problem Comment: Blistering across dorsal aspects of all 10 pedal digits, some beginning to open and drain serous fluid. Provided supplies for dressing application, to be completed by NADINE Celis.
[2016-10-05] MEDS ORDERED: HEPARIN 50,000 UNIT/10 ML VIAL DIAL ONE (15:00)
--- NOTE | 2016-10-05 18:29 | PCMIDPN ---
Assessment/Plan: Assessment/Plan: * Polymicrobial bacteremia with ESBL producing E coli as well as Klebsiella pneumoniae due to obstructive uropathy from ureteral stone status post nephrostomy: Slow clinical improvement. Repeat blood cultures pending from today to assess for clearing of bacteremia. Continue ertapenem * Candidemia: PICC line and dialysis catheter both changed. Repeat cultures are pending. Suspect this is most likely associated with obstructive uropathy although line related process remains possible. Catheter tip cultures are also pending. Continue micafungin given liver enzyme abnormality. Adriana susceptibility profile has been requested. * Leukocytosis: Likely multifactorial with component of leukemoid reaction after initially having leukopenia with septic shock. Improved significantly today. * Increased liver function tests: Likely associated with hypoperfusion in the setting of septic shock. Follow over time. * Digital ischemia: No signs of superinfection present currently. 10/05/16 18:25 Subjective: Patient without specific complaints. Objective: Vital Signs Temp Pulse Resp BP Pulse Ox 36.3 C 75 17 101/64 99 10/05/16 16:00 10/05/16 16:00 10/05/16 16:00 10/05/16 16:00 10/05/16 16:00 Microbiology 09/30/16 14:10 Blood Panel (PCR) - Final Blood Escherichia Coli Adriana Albicans 09/27/16 11:55 Gram Stain - Final Other - Aspirate Laboratory Results 10/05/16 04:48 10/05/16 09:58 10/04/16 10/05/16 10/06/16 05:59 05:59 05:59 Intake Total 940 310 680 Output Total 1320 40 1550 Balance -380 270 -870 Ertapenem # 4 Micafungin # 3 Blood cultures 10/05/2016 pending - Physical Exam General Appearance: alert, no apparent distress, non-toxic EENT: No thrush Cardiac/Chest: regular rate, rhythm Extremities: other (No change in diffuse digital ischemia) Abdomen: non-tender, No distended ICD10 Worksheet Patient Problems: Problems Problem Status Onset ESBL (extended spectrum beta-lactamase) producing bacteria infection Acute ~ Renal colic on left side Acute
[2016-10-05] MEDS: MELATONIN 3 MG TAB PO SCH (21:23)
[2016-10-06 04:32] LABS: ADD DIFF? YES; ADD MORPH? NO; ATYPICAL LYMPHOCYTE FLAG 60 (0-99); FRAGMENT RBC FLAG 20 (0-99); HEMATOCRIT 27.1 % (38.0-47.0); LIPEMIA HEMOLYSIS FLAG 80 (0-99); MEAN CELL HEMOGLOBIN 30.9 pg (27.9-34.1); MEAN CELL HEMOGLOBIN CONCENTR. 33.2 g/dL (32.4-36.7); MEAN CELL VOLUME 93.1 fL (81.5-99.8); MEAN PLATELET VOLUME 13.8 fL (8.7-11.7); PLATELET CLUMPS FLAG 10 (0-99); PLATELET COUNT 137 10^3/uL (150-400); RED BLOOD CELL COUNT 2.91 10^6/uL (4.18-5.33); RED CELL DISTRIBUTION WIDTH 16.9 % (11.5-15.2)
[2016-10-06 04:49] LABS: ALANINE AMINOTRANSFERASE 259 IU/L (9-52); ALBUMIN 2.2 g/dL (3.5-5.0); ALKALINE PHOSPHATASE 183 IU/L (38-126); ANION GAP 5 mEq/L (8-16); ASPARTATE AMINOTRANSFERASE 74 IU/L (14-46); BILIRUBIN,TOTAL 2.6 mg/dL (0.1-1.4); CALCIUM 7.5 mg/dL (8.5-10.4); CARBON DIOXIDE 27 mEq/l (22-31); CHLORIDE 101 mEq/L (97-110); CREATININE 2.6 mg/dL (0.6-1.0); GLOMERULAR FILTRATION RATE 18; GLUCOSE 95 mg/dL (70-100); LEFT SHIFT FLG 110 (0-99); POTASSIUM 4.7 mEq/L (3.5-5.2); SODIUM 133 mEq/L (134-144); TOTAL PROTEIN 4.8 g/dL (6.3-8.2)
[2016-10-06 05:10] LABS: BILIRUBIN-CONJUGATED 1.7 mg/dL (0.0-0.5); BILIRUBIN-UNCONJUGATED 0.9 mg/dL (0.0-1.1)
[2016-10-06 05:42] LABS: ADD SCAN? NO
[2016-10-06 05:44] LABS: PLATELET ESTIMATE ADEQUATE (ADEQ)
[2016-10-06 05:47] LABS: SCHISTOCYTES 1+
[2016-10-06 05:50] LABS: POLYCHROMASIA 1+
[2016-10-06] MEDS ORDERED: ERTAPENEM 0.5 GM in NS 100 ML IV ONE (08:30)
--- NOTE | 2016-10-06 08:38 | PCMIDPN ---
Assessment/Plan: # Septic shock: Significant measures of improvement including Off pressors and extubated, improving LFTs, improving leukocytosis and thrombocytopenia # Polymicrobial bacteremia with ESBL E coli, Klebsiella, and Adriana albicans. Source obstructive uropathy and left pyelonephritis but oddly sample from left kidney only grew ESBL E coli. Once Adriana albicans isolated to be cautious all lines were changed. 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 Complaining of nasal congestion and digit pain Objective: Vital Signs Temp Pulse Resp BP Pulse Ox 36.3 C 69 14 128/72 H 99 10/06/16 08:00 10/06/16 08:00 10/06/16 08:00 10/06/16 08:00 10/06/16 08:00 Microbiology 09/30/16 14:10 Blood Panel (PCR) - Final Blood Escherichia Coli Adriana Albicans 09/27/16 11:55 Gram Stain - Final Other - Aspirate Laboratory Results 10/06/16 04:20 10/06/16 04:20 10/05/16 10/06/16 10/07/16 05:59 05:59 05:59 Intake Total 310 930 Output Total 40 1550 Balance 270 -620 - Physical Exam General Appearance: alert, no apparent distress EENT: pale conjunctiva, other (Crusted hemorrhagic lesions on lips likely related to pressure from the ETT and hypotension), No scleral icterus Respiratory: other (Decreased breath sounds in the bases), No accessory muscle use Neck: supple Cardiac/Chest: regular rate, rhythm Extremities: other (Ischemic lesions on both toes and fingers from septic shock) , No pedal edema Abdomen: normal bowel sounds, non-tender, soft, other (Left nephrostomy tube with dark brown drainage) Skin: No rash Neuro/Psych: alert, normal mood/affect - Line/s RUE PICC Lines: No drainage, No erythema Mcnamara Lines: other (Left chest wall), No drainage, No erythema - Time Spent With Patient Time Spent with Patient: greater than 35 minutes Time Spent with Patient: Greater than 35 minutes spent on this patients care, greater than 50% of time spent counseling, educating, and coordinating care regarding the above mentioned plan. ICD10 Worksheet Patient Problems: Problems Problem Status Onset ESBL (extended spectrum beta-lactamase) producing bacteria infection Acute ~ Renal colic on left side Acute
[2016-10-06] MEDS: PANTOPRAZOLE SODIUM 40 MG TAB PO SCH (08:45)
[2016-10-06] MEDS: MICAFUNGIN NA 100 MG in NS 100 ML IV SCH (08:45)
[2016-10-06] MEDS ORDERED: ENOXAPARIN 40 MG/0.4 ML SYR SC SCH (09:00)
--- NOTE | 2016-10-06 09:39 | PDINTPN ---
Hydrotel Operator Progress Note Assessment/Plan: Assessment/Plan: * Severe Sepsis: Due to bacteremia with ESBL E. Coli, K. pneumonia from impacted left nephrolithiasis. Now s/p drainage with nephrostomy tube. On Invanz. Clinically improved. 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 Transaminases continued to improve -follow * Shock- Resolved * Central lines-new PICC line and dialysis catheter placed * Thrombocytopenia: Markedly up today * Acute hypoxemic respiratory failure: Extubated. O2 needs up with increased narcotics * Cardiomyopathy: Will recheck echocardiogram * Digital necrosis: Due to sepsis, high-dose pressors/hypotension. Clinically stable. -improving * Abdominal/back pain: Improved -CT scan of the abdomen and pelvis showed normal bowel pattern and nothing acute * PT/OT Case discussed with Infectious Disease, and nursing. 10/06/16 09:39 Subjective: Awake and alert. Seems less confused and more conversant this morning. Objective: Vital Signs Temp Pulse Resp BP Pulse Ox 36.3 C 69 14 128/72 H 99 10/06/16 08:00 10/06/16 08:00 10/06/16 08:00 10/06/16 08:00 10/06/16 08:00 Microbiology 09/30/16 14:10 Blood Panel (PCR) - Final Blood Escherichia Coli Adriana Albicans 09/27/16 11:55 Gram Stain - Final Other - Aspirate Laboratory Results 10/06/16 04:20 10/06/16 04:20 10/05/16 10/06/16 10/07/16 05:59 05:59 05:59 Intake Total 310 930 Output Total 40 1550 Balance 270 -620 PT 14.9 SEC (12.0-15.0) 10/02/16 05:45 INR 1.17 (0.83-1.16) H 10/02/16 05:45 Physical Exam - Physical Exam General Appearance: alert, no apparent distress EENT: PERRL/EOMI, normal ENT inspection Neck: non-tender, full range of motion, supple, normal inspection Respiratory: crackles (Few), No respiratory distress, No wheezing Cardiac/Chest: normal peripheral pulses, regular rate, rhythm, systolic murmur Peripheral Pulses: 2+: carotid (R), carotid (L), femoral (R), femoral (L), dorsalis-pedis (R), dorsalis-pedis (L) Abdomen: normal bowel sounds, non-tender, soft Pelvic Exam: deferred Rectal: deferred Skin: normal color, warm/dry Extremities: other (Digital infarctions unchanged) Neuro/Psych: alert ICD10 Worksheet Patient Problems: Problems Problem Status Onset ESBL (extended spectrum beta-lactamase) producing bacteria infection Acute ~ Renal colic on left side Acute
--- NOTE | 2016-10-06 10:47 | ECHO ---
[id number] + + [address] : : [place] [address] : : [phone] + + Adult Echocardiographic Report + --------+ :Name: AMAIRANI RUTHERFORD WStudy Date: 10/06/2016 10:12 AM : : Hospital Admission Number: [id number] Locat ion: 243: :: 1935 Gender: Female : :Age: 81 yrs Race: WH : :Reason For Study: CMP : + --------+ Left Ventricle Left ventricular systolic function is normal. Ejection Fraction = 60-65%. Pericardium/Pleural Left pleural effusion. Conclusion Limited 2-D echo. Compared to the previous echo of 09/28/16, the EF has normalized. Left ventricular systolic function is normal. Ejection Fraction = 60-65%. Final Reading Physician: Karlos Zayas signed on 10/06/2016 10:45 AM Ordering Physician: Ward Stinson Performed By: Dalila Harper [facility]
--- NOTE | 2016-10-06 12:51 | SOAPPROG ---
ALIZA Progress Note Assessment/Plan: Assessment:Plan: ARF-normal baseline -50ml of urine documented -I would expect recovery -plan for dialysis tomorrow -follow urine output Access-s/p new catheter Dispo-if she does not recover renal function prior to release to rehab, the [facility] and the [facility] are equipped with Arabella lifts. This is not available at the [facility] unit. She would need to be able to transfer independently to be able to get treatment at a dialysis clinic that does not provide this level of care. Hopefully she will recover kidney function and be off dialysis prior to discharge. Discussed with family. 10/06/16 12:52 Subjective: up in chair Objective: Vital Signs Temp Pulse Resp BP Pulse Ox 36.3 C 66 16 135/64 H 99 10/06/16 12:00 10/06/16 12:00 10/06/16 12:00 10/06/16 12:00 10/06/16 12:00 Microbiology 09/30/16 14:10 Blood Panel (PCR) - Final Blood Escherichia Coli Adriana Albicans 09/27/16 11:55 Gram Stain - Final Other - Aspirate Laboratory Results 10/06/16 04:20 10/06/16 04:20 10/05/16 10/06/16 10/07/16 05:59 05:59 05:59 Intake Total 310 930 Output Total 40 1550 Balance 270 -620 PT 14.9 SEC (12.0-15.0) 10/02/16 05:45 INR 1.17 (0.83-1.16) H 10/02/16 05:45 Physical Exam - Physical Exam General Appearance: alert, mild distress EENT: normal ENT inspection, other (mouth sores on lip) Neck: normal inspection Respiratory: decreased breath sounds Cardiac/Chest: regular rate, rhythm Abdomen: normal bowel sounds Extremities: swelling (trace) ICD10 Worksheet Patient Problems: Problems Problem Status Onset ESBL (extended spectrum beta-lactamase) producing bacteria infection Acute ~ Renal colic on left side Acute
[2016-10-06] MEDS ORDERED: ERTAPENEM 0.5 GM in NS 100 ML IV SCH (16:00)
--- NOTE | 2016-10-06 18:14 | SOAPPROG ---
SOAP Progress Note Assessment/Plan: Assessment:Obstructing renal stone. Cultures confirm gm negative sepsis. Repeat cultures show persistent bactereia as well as adriana. Repeat cultures are negative at 24 hours since the removal of the lines. Plan: Continue IV antibiotics, begin antifungal antibiotics. Agree with proplylatic heparin now that the platelet counts are adequate. 09/27/16 08:30 09/27/16 18:18 09/29/16 18:09 09/30/16 10:06 10/02/16 11:02 10/03/16 21:46 10/04/16 08:23 10/06/16 18:13 Subjective: Alert an appropriate. Had multiple questions about the events of the past week. CO diffuse muscle pain and some toe pain. Objective: Vital Signs Temp Pulse Resp BP Pulse Ox 36.3 C 77 16 113/49 L 96 10/06/16 12:00 10/06/16 16:00 10/06/16 16:00 10/06/16 16:00 10/06/16 16:00 Microbiology 09/27/16 11:55 Gram Stain - Final Other - Aspirate Anaerobic Culture - Final Escherichia Coli Esbl 09/30/16 14:10 Blood Panel (PCR) - Final Blood Escherichia Coli Adriana Albicans Laboratory Results 10/06/16 04:20 10/06/16 04:20 10/05/16 10/06/16 10/07/16 05:59 05:59 05:59 Intake Total 310 930 680 Output Total 40 1550 Balance 270 -620 680 PT 14.9 SEC (12.0-15.0) 10/02/16 05:45 INR 1.17 (0.83-1.16) H 10/02/16 05:45 Labs significantly improved. Lungs without wheezing. COR RRR. moves all extremities. Alert and appropriate. Conversational. ICD10 Worksheet Patient Problems: Problems Problem Status Onset ESBL (extended spectrum beta-lactamase) producing bacteria infection Acute ~ Renal colic on left side Acute
[2016-10-06] MEDS: MELATONIN 3 MG TAB PO SCH (20:50)
[2016-10-06] MEDS: ACETAMINOPHEN 325 MG TAB PO PRN (20:55)
[2016-10-07 04:49] LABS: ADD DIFF? YES; ADD MORPH? NO; ADD SCAN? NO; ATYPICAL LYMPHOCYTE FLAG 80 (0-99); FRAGMENT RBC FLAG 40 (0-99); HEMATOCRIT 24.8 % (38.0-47.0); HEMOGLOBIN 8.3 g/dL (12.6-16.3); LEFT SHIFT FLG 70 (0-99); LIPEMIA HEMOLYSIS FLAG 80 (0-99); MEAN CELL HEMOGLOBIN 31.7 pg (27.9-34.1); MEAN CELL HEMOGLOBIN CONCENTR. 33.5 g/dL (32.4-36.7); MEAN CELL VOLUME 94.7 fL (81.5-99.8); MEAN PLATELET VOLUME 12.9 fL (8.7-11.7); PLATELET CLUMPS FLAG 0 (0-99); PLATELET COUNT 186 10^3/uL (150-400); RED BLOOD CELL COUNT 2.62 10^6/uL (4.18-5.33); RED CELL DISTRIBUTION WIDTH 16.7 % (11.5-15.2)
[2016-10-07 04:50] LABS: ALANINE AMINOTRANSFERASE 182 IU/L (9-52); ALBUMIN 2.1 g/dL (3.5-5.0); ALKALINE PHOSPHATASE 133 IU/L (38-126); ANION GAP 10 mEq/L (8-16); ASPARTATE AMINOTRANSFERASE 62 IU/L (14-46); BILIRUBIN,TOTAL 2.2 mg/dL (0.1-1.4); CALCIUM 7.3 mg/dL (8.5-10.4); CARBON DIOXIDE 23 mEq/l (22-31); CHLORIDE 100 mEq/L (97-110); GLOMERULAR FILTRATION RATE 11; GLUCOSE 88 mg/dL (70-100); MAGNESIUM 2.2 mg/dL (1.6-2.3); SODIUM 133 mEq/L (134-144); TOTAL PROTEIN 4.4 g/dL (6.3-8.2)
[2016-10-07 05:04] LABS: BILIRUBIN-CONJUGATED 1.6 mg/dL (0.0-0.5); BILIRUBIN-UNCONJUGATED 0.6 mg/dL (0.0-1.1)
[2016-10-07 05:18] LABS: PLATELET ESTIMATE ADEQUATE (ADEQ)
[2016-10-07] MEDS: PANTOPRAZOLE SODIUM 40 MG TAB PO SCH (07:56)
[2016-10-07] MEDS: HEPARIN 5,000 UNIT/0.5 ML SYR SC SCH ×3 (07:56→21:56)
[2016-10-07] MEDS: ACETAMINOPHEN 325 MG TAB PO PRN (08:32)
--- NOTE | 2016-10-07 08:46 | SOAPPROG ---
ALIZA Progress Note Assessment/Plan: Assessment:Plan: ARF-normal baseline -50ml of urine documented previous 24 hours, 95 today -I would expect recovery -plan for dialysis today -follow urine output Access-s/p new catheter Dispo-if she does not recover renal function prior to release to rehab, the [facility] and the [facility] are equipped with Arabella lifts. This is not available at the [facility] unit. She would need to be able to transfer independently to be able to get treatment at a dialysis clinic that does not provide this level of care. Hopefully she will recover kidney function and be off dialysis prior to discharge. Discussed with family. 10/07/16 08:44 Subjective: stable overnite Objective: Vital Signs Temp Pulse Resp BP Pulse Ox 36.3 C 64 12 127/63 H 100 10/07/16 07:50 10/07/16 07:50 10/07/16 07:50 10/07/16 07:50 10/07/16 07:50 Microbiology 09/27/16 11:55 Gram Stain - Final Other - Aspirate Anaerobic Culture - Final Escherichia Coli Esbl Laboratory Results 10/07/16 04:25 10/07/16 04:25 10/06/16 10/07/16 10/08/16 05:59 05:59 05:59 Intake Total 930 920 Output Total 1550 95 Balance -620 825 PT 14.9 SEC (12.0-15.0) 10/02/16 05:45 INR 1.17 (0.83-1.16) H 10/02/16 05:45 Physical Exam - Physical Exam General Appearance: no apparent distress EENT: other (unchanged) Neck: normal inspection Respiratory: lungs clear, decreased breath sounds Cardiac/Chest: regular rate, rhythm Abdomen: normal bowel sounds, non-tender Extremities: swelling, other (unchanged) ICD10 Worksheet Patient Problems: Problems Problem Status Onset ESBL (extended spectrum beta-lactamase) producing bacteria infection Acute ~ Renal colic on left side Acute
[2016-10-07] MEDS: MICAFUNGIN NA 100 MG in NS 100 ML IV SCH (09:45)
--- NOTE | 2016-10-07 10:25 | SOAPPROG ---
SOAP Progress Note Assessment/Plan: Assessment: Plan: 10/05/16 09:52 Sepsis due to obstructing stone: improved. PICC line replaced yesterday due to positive f/u cx. Cath tip cx pending. Dialysis catheter likely to be removed today as well, possibly after dialysis, as per renal. Additional blood cx drawn this morning. WBC down significantly. Slight drop in hgb as well. LYLA: making small amount urine. Cr up to 2.2 today. Continuing with dialysis. Urine with small amount of Enteroccoccus. Thrombocytopenia: plts better today. Pain in L thigh: associated with petechiae. New complaint. Will check doppler to assess for clot. Not yet inclined to begin lovenox due to slight drop in hgb , ongoing need for plt transfusion, unless clot present. 10/05/16 09:54 10/07/16 10:21 Sepsis: making a remarkable recovery. Echocardiogram yesterday with normalized EF. F/u blood cx, cath tip cx negative so far. Remains on antibiotics for obstructing renal stone, sandy LYLA: to be dialyzed today. Making small amounts of urine. DVT prophylaxis: now on sq heparin as platelets have normalized Subjective: Sitting up in chair. Family here. Eating some raspberries. Main complaint is pain in her feet. Objective: Vital Signs Temp Pulse Resp BP Pulse Ox 36.3 C 64 12 127/63 H 100 10/07/16 07:50 10/07/16 07:50 10/07/16 07:50 10/07/16 07:50 10/07/16 07:50 Microbiology 09/27/16 11:55 Gram Stain - Final Other - Aspirate Anaerobic Culture - Final Escherichia Coli Esbl Laboratory Results 10/07/16 04:25 10/07/16 04:25 10/06/16 10/07/16 10/08/16 05:59 05:59 05:59 Intake Total 930 920 Output Total 1550 95 Balance -620 825 PT 14.9 SEC (12.0-15.0) 10/02/16 05:45 INR 1.17 (0.83-1.16) H 10/02/16 05:45 General: awake, alert, interacting with family Lungs: clear Cardiovascular: RRR without murmur Abdomen: soft, NT Extremities: pedal edema, necrotic toes wrapped ICD10 Worksheet Patient Problems: Problems Problem Status Onset ESBL (extended spectrum beta-lactamase) producing bacteria infection Acute ~ Renal colic on left side Acute
[2016-10-07] MEDS ORDERED: STERILE WATER INJ 20 ML VIAL MISC ONE ×2 (11:30)
[2016-10-07] MEDS ORDERED: ALTEPLASE 2 MG VIAL IV ONE ×2 (11:30)
--- NOTE | 2016-10-07 12:09 | PCMIDPN ---
Assessment/Plan: # Septic shock: Significant measures of improvement including Off pressors and extubated, improving LFTs, improving leukocytosis and thrombocytopenia # Polymicrobial bacteremia with ESBL E coli, Klebsiella, and Adriana albicans. Source obstructive uropathy and left pyelonephritis but oddly sample from left kidney only grew ESBL E coli. Once Adriana albicans isolated to be cautious all lines were changed. 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 # Leukocytosis/thrombocytopenia - all improving, due to septic shock Microbiology 10/05/16 blood culture (2 sets): Pending 10/04/16 tips of lines x2: No growth to date 09/30/16 Blood culture (1 set): ESBL Escherichia Coli, Adriana Albicans 09/27/16 left kidney aspirate ESBL E coli 09/27/16 Urine,Catheterized Enterococcus Faecalis 09/27/16 Blood culture (2 sets): Escherichia Coli Esbl, Klebsiella Pneumoniae medications micafungin 100mg IV daily, #5 ertapenem 500mg IV daily, #6 Objective: Vital Signs Temp Pulse Resp BP Pulse Ox 36.3 C 60 16 130/61 H 100 10/07/16 07:50 10/07/16 12:00 10/07/16 12:00 10/07/16 12:00 10/07/16 12:00 Microbiology 10/04/16 13:05 Catheter Tip Culture - Final Catheter Tip 09/27/16 11:55 Gram Stain - Final Other - Aspirate Anaerobic Culture - Final Escherichia Coli Esbl Laboratory Results 10/07/16 04:25 10/07/16 04:25 10/06/16 10/07/16 10/08/16 05:59 05:59 05:59 Intake Total 930 920 Output Total 1550 95 Balance -620 825 ICD10 Worksheet Patient Problems: Problems Problem Status Onset ESBL (extended spectrum beta-lactamase) producing bacteria infection Acute ~ Renal colic on left side Acute
[2016-10-07 14:25] LABS: INR 1.12 (0.83-1.16); PROTIME(PATIENT) 14.3 SEC (12.0-15.0)
[2016-10-07 14:26] LABS: APTT 30.1 SEC (23.0-38.0)
[2016-10-07 14:27] LABS: ADD DIFF? YES; ADD MORPH? NO; ADD SCAN? NO; ATYPICAL LYMPHOCYTE FLAG 30 (0-99); FRAGMENT RBC FLAG 40 (0-99); HEMATOCRIT 26.8 % (38.0-47.0); LEFT SHIFT FLG 50 (0-99); LIPEMIA HEMOLYSIS FLAG 80 (0-99); MEAN CELL HEMOGLOBIN 31.6 pg (27.9-34.1); MEAN CELL HEMOGLOBIN CONCENTR. 33.6 g/dL (32.4-36.7); MEAN PLATELET VOLUME 13.3 fL (8.7-11.7); PLATELET CLUMPS FLAG 0 (0-99); PLATELET COUNT 225 10^3/uL (150-400); RED BLOOD CELL COUNT 2.85 10^6/uL (4.18-5.33); RED CELL DISTRIBUTION WIDTH 16.6 % (11.5-15.2)
[2016-10-07] MEDS ORDERED: LIDOCAINE 1% 300 MG/30 ML SDV ONE (14:39)
[2016-10-07] MEDS ORDERED: HEPARIN 50,000 UNIT/10 ML VIAL ONE ×2 (14:52→21:27)
[2016-10-07 15:15] LABS: KERATOCYTES 1+; MACROCYTES 1+; PLATELET ESTIMATE ADEQUATE (ADEQ); POLYCHROMASIA 2+
--- NOTE | 2016-10-07 15:19 | POSTOPPROG ---
Post Op Note Date of Operation: 10/05/16 Surgeon: Wyatt Fernandes Anesthesia: Local (Specify) Pre-op Diagnosis: renal failure Post-op Diagnosis: same Indication: dialysis Procedure: left subclavian 20cm dialysis cath Findings: great flow Inf/Abcess present in the surg proc area at time of surgery?: No Depth: Deep Incisional (Fascial) EBL: Minimal Complications: 0
--- NOTE | 2016-10-07 15:21 | SOAPPROG ---
SOAP Progress Note Assessment/Plan: Assessment: pts dialysis catheter occluded and not functioning risks and options fully discussed and she wishes to proceed coags ok Plan:replace with flouro guidance 10/07/16 15:19 Objective: Vital Signs Temp Pulse Resp BP Pulse Ox 36.3 C 60 16 130/61 H 100 10/07/16 07:50 10/07/16 12:00 10/07/16 12:00 10/07/16 12:00 10/07/16 12:00 Microbiology 10/04/16 13:05 Catheter Tip Culture - Final Catheter Tip 09/27/16 11:55 Gram Stain - Final Other - Aspirate Anaerobic Culture - Final Escherichia Coli Esbl Laboratory Results 10/07/16 13:20 10/07/16 04:25 10/06/16 10/07/16 10/08/16 05:59 05:59 05:59 Intake Total 930 920 Output Total 1550 95 Balance -620 825 PT 14.3 SEC (12.0-15.0) 10/07/16 13:20 INR 1.12 (0.83-1.16) 10/07/16 13:20 ICD10 Worksheet Patient Problems: Problems Problem Status Onset ESBL (extended spectrum beta-lactamase) producing bacteria infection Acute ~ Renal colic on left side Acute
--- NOTE | 2016-10-07 15:23 | POSTOPPROG ---
Post Op Note Date of Operation: 10/07/16 Surgeon: Wyatt Fernandes Anesthesia: Local (Specify) Pre-op Diagnosis: occluded dialysis access Post-op Diagnosis: same Indication: left subclavian cath placement with flouro Procedure: left subclavian dialysis cath placement with flouro Findings: great flow and position Inf/Abcess present in the surg proc area at time of surgery?: No Depth: Deep Incisional (Fascial) EBL: Minimal Complications: 0
--- NOTE | 2016-10-07 16:20 | PCMIDPN ---
Assessment/Plan: # Septic shock: Resolved. Off pressors and extubated, improving LFTs, improving leukocytosis and thrombocytopenia # Polymicrobial bacteremia with ESBL E coli, Klebsiella, and Adriana albicans. Source obstructive uropathy and left pyelonephritis but oddly sample from left kidney only grew ESBL E coli. Once Adriana albicans isolated to be cautious all lines were changed. 10/05/16 show clearance of bacteremia --follow-up on Adriana albicans susceptibilities --continue micafungin &ertapenem renal dosing --contact precautions for ESBL E coli # Positive cath top cx GPC clusters: clinical improvement, no abx changes currently. Blood cx were not drawn simultaneous, significance of results will be difficult to determine. # Lip ulcer r/o HSV --swab today # Obstructive uropathy and L pyelonephritis, nephrostomy in place : source of bacteremia as above. Stone removal at some point. 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 # Leukocytosis/thrombocytopenia - all improving, due to septic shock Microbiology 10/05/16 blood culture (2 sets): NGTD 10/04/16 tips of lines x2: one set with GPC clusters 09/30/16 Blood culture (1 set): ESBL Escherichia Coli, Adriana Albicans 09/27/16 left kidney aspirate ESBL E coli 09/27/16 Urine,Catheterized Enterococcus Faecalis 09/27/16 Blood culture (2 sets): Escherichia Coli Esbl, Klebsiella Pneumoniae medications micafungin 100mg IV daily, #5 ertapenem 500mg IV daily, #6 10/07/16 16:21 Subjective: patient worried about slow strength improvements c/o finger and toe pain Objective: Vital Signs Temp Pulse Resp BP Pulse Ox 36.3 C 60 16 130/61 H 100 10/07/16 07:50 10/07/16 12:00 10/07/16 12:00 10/07/16 12:00 10/07/16 12:00 Microbiology 10/04/16 13:05 Catheter Tip Culture - Final Catheter Tip 09/27/16 11:55 Gram Stain - Final Other - Aspirate Anaerobic Culture - Final Escherichia Coli Esbl Laboratory Results 10/07/16 13:20 10/07/16 04:25 10/06/16 10/07/16 10/08/16 05:59 05:59 05:59 Intake Total 930 920 Output Total 1550 95 Balance -620 825 General Appearance: alert, no apparent distress EENT: pale conjunctiva, Crusted hemorrhagic lesions on upper and lower lips, No scleral icterus Respiratory: other (Decreased breath sounds in the bases), No accessory muscle use Neck: supple Cardiac/Chest: regular rate, rhythm Extremities: Ischemic lesions on both toes and fingers from septic shock, No pedal edema Abdomen: normal bowel sounds, non-tender, soft, Left nephrostomy tube with mixed dark brown and yellow urine Skin: No rash Neuro/Psych: alert, normal mood/affect RUE PICC: No drainage, No erythema Mcnamara (Left chest wall), No drainage, No erythema, currently clotted no thornton - Time Spent With Patient Time Spent with Patient: greater than 35 minutes (reviewed source of sepsis, planned antibiotic therapy, measures of improvement with patient and her daugher ) Time Spent with Patient: Greater than 35 minutes spent on this patients care, greater than 50% of time spent counseling, educating, and coordinating care regarding the above mentioned plan. ICD10 Worksheet Patient Problems: Problems Problem Status Onset ESBL (extended spectrum beta-lactamase) producing bacteria infection Acute ~ Renal colic on left side Acute
[2016-10-07] MEDS: CHOLECALCIFEROL VIT D3 2,000 UNITS TAB/CAP PO SCH ×2 (17:21→20:55)
[2016-10-07] MEDS: ERTAPENEM 0.5 GM in NS 100 ML IV SCH (17:23)
[2016-10-07] MEDS: MELATONIN 3 MG TAB PO SCH (20:55)
[2016-10-08 04:27] LABS: ADD MORPH? NO; ADD SCAN? YES; ATYPICAL LYMPHOCYTE FLAG 30 (0-99); FRAGMENT RBC FLAG 20 (0-99); HEMATOCRIT 24.7 % (38.0-47.0); HEMOGLOBIN 8.1 g/dL (12.6-16.3); LEFT SHIFT FLG 20 (0-99); LIPEMIA HEMOLYSIS FLAG 80 (0-99); MEAN CELL HEMOGLOBIN 30.9 pg (27.9-34.1); MEAN CELL HEMOGLOBIN CONCENTR. 32.8 g/dL (32.4-36.7); MEAN CELL VOLUME 94.3 fL (81.5-99.8); MEAN PLATELET VOLUME 12.5 fL (8.7-11.7); PLATELET CLUMPS FLAG 10 (0-99); PLATELET COUNT 262 10^3/uL (150-400); RED BLOOD CELL COUNT 2.62 10^6/uL (4.18-5.33); RED CELL DISTRIBUTION WIDTH 16.6 % (11.5-15.2)
[2016-10-08 04:42] LABS: ALANINE AMINOTRANSFERASE 153 IU/L (9-52); ALBUMIN 2.2 g/dL (3.5-5.0); ALKALINE PHOSPHATASE 124 IU/L (38-126); ANION GAP 8 mEq/L (8-16); ASPARTATE AMINOTRANSFERASE 62 IU/L (14-46); CALCIUM 7.5 mg/dL (8.5-10.4); CARBON DIOXIDE 25 mEq/l (22-31); CHLORIDE 101 mEq/L (97-110); CREATININE 3.3 mg/dL (0.6-1.0); GLOMERULAR FILTRATION RATE 13; GLUCOSE 74 mg/dL (70-100); MAGNESIUM 2.1 mg/dL (1.6-2.3); POTASSIUM 4.7 mEq/L (3.5-5.2); SODIUM 134 mEq/L (134-144); TOTAL PROTEIN 4.5 g/dL (6.3-8.2)
[2016-10-08 04:51] LABS: ADD DIFF? YES; SCAN POSITIVE
[2016-10-08 04:59] LABS: HYPOCHROMIA 1+
[2016-10-08 05:00] LABS: KERATOCYTES 1+; MICROCYTES 1+; PLATELET ESTIMATE ADEQUATE (ADEQ); POLYCHROMASIA 1+
[2016-10-08] MEDS: HEPARIN 5,000 UNIT/0.5 ML SYR SC SCH ×3 (06:11→22:30)
[2016-10-08] MEDS: CHOLECALCIFEROL VIT D3 2,000 UNITS TAB/CAP PO SCH ×2 (09:27→20:20)
[2016-10-08] MEDS: ACETAMINOPHEN 325 MG TAB PO PRN ×2 (09:27→20:20)
[2016-10-08] MEDS: PANTOPRAZOLE SODIUM 40 MG TAB PO SCH (09:27)
[2016-10-08] MEDS: MICAFUNGIN NA 100 MG in NS 100 ML IV SCH (09:28)
--- NOTE | 2016-10-08 10:36 | SOAPPROG ---
SOAP Progress Note Assessment/Plan: Assessment: Plan: 10/05/16 09:52 Sepsis due to obstructing stone: improved. PICC line replaced yesterday due to positive f/u cx. Cath tip cx pending. Dialysis catheter likely to be removed today as well, possibly after dialysis, as per renal. Additional blood cx drawn this morning. WBC down significantly. Slight drop in hgb as well. LYLA: making small amount urine. Cr up to 2.2 today. Continuing with dialysis. Urine with small amount of Enteroccoccus. Thrombocytopenia: plts better today. Pain in L thigh: associated with petechiae. New complaint. Will check doppler to assess for clot. Not yet inclined to begin lovenox due to slight drop in hgb , ongoing need for plt transfusion, unless clot present. 10/05/16 09:54 10/07/16 10:21 Sepsis: making a remarkable recovery. Echocardiogram yesterday with normalized EF. F/u blood cx, cath tip cx negative so far. Remains on antibiotics for obstructing renal stone, sandy LYLA: to be dialyzed today. Making small amounts of urine. DVT prophylaxis: now on sq heparin as platelets have normalized 10/08/16 10:36 Sepsis: recovered. She is much improved today compared to the last 2 days. Remains on antibx per ID. Cath tip culture with S. epidermidis 2/2, but cx done a couple of hours previously is negative so far. LYLA: continues to require dialysis but catheter not functioning. Was replaced yesterday by surgery but dialysis short yesterday due to malfunction. Per discussion with Dr. Stinson, will keep her here one more day as these issues are worked out. Making more urine each day. Anemia: note decrease in hgb from yesterday. Will continue to monitor closely. 10/08/16 10:37 10/08/16 10:42 10/08/16 10:44 10/08/16 10:46 Subjective: Sitting up in bed. Family here. Feeding herself with help. Joking. Difficulty with dialysis catheter not functioning properly. Objective: Vital Signs Temp Pulse Resp BP Pulse Ox 36.1 C 61 13 119/61 97 10/08/16 08:00 10/08/16 08:00 10/08/16 08:00 10/08/16 08:00 10/08/16 08:00 Microbiology 10/04/16 13:05 Catheter Tip Culture - Final Catheter Tip Laboratory Results 10/08/16 04:15 10/08/16 04:15 10/07/16 10/08/16 10/09/16 05:59 05:59 05:59 Intake Total 920 740 Output Total 95 140 Balance 825 600 PT 14.3 SEC (12.0-15.0) 10/07/16 13:20 INR 1.12 (0.83-1.16) 10/07/16 13:20 General: awake, alert, conversant, making jokes Neck: dialysis catheter Lungs: limited exam--clear Cardiovascular: RRR Abdomen: soft Extremities: still with edema in hands, feet, necrosis in fingers, toes. Edema in hands making it difficult to use them. ICD10 Worksheet Patient Problems: Problems Problem Status Onset ESBL (extended spectrum beta-lactamase) producing bacteria infection Acute ~ Renal colic on left side Acute
--- NOTE | 2016-10-08 11:03 | PDINTPN ---
[facility] Progress Note Assessment/Plan: Assessment/Plan: * Severe Sepsis: Due to bacteremia with ESBL E. Coli, K. pneumonia from impacted left nephrolithiasis. Now s/p drainage with nephrostomy tube. On Invanz. Clinically resolved. * LYLA: on hemodialysis- improving. Making urine. Problems with dialysis catheter * Severe lactic acidosis-resolved * Acute hepatitis: due to shock. Transaminases continued to improve -follow * Shock- Resolved * Central lines-new PICC line and dialysis catheter placed * Thrombocytopenia-resolved * Respiratory-stable on minimal oxygen * Cardiomyopathy-resolved. Current ejection fraction in the normal range * Digital necrosis: Due to sepsis, high-dose pressors/hypotension. Clinically stable. -improving * Abdominal/back pain: Resolved * PT/OT Subjective: Much more awake and alert this morning. Very conversant. Digital pain has improved. Objective: Vital Signs Temp Pulse Resp BP Pulse Ox 36.1 C 61 13 119/61 97 10/08/16 08:00 10/08/16 08:00 10/08/16 08:00 10/08/16 08:00 10/08/16 08:00 Microbiology 10/04/16 13:05 Catheter Tip Culture - Final Catheter Tip Laboratory Results 10/08/16 04:15 10/08/16 04:15 10/07/16 10/08/16 10/09/16 05:59 05:59 05:59 Intake Total 920 740 Output Total 95 140 Balance 825 600 PT 14.3 SEC (12.0-15.0) 10/07/16 13:20 INR 1.12 (0.83-1.16) 10/07/16 13:20 Laboratory Results 10/08/16 04:15 10/08/16 04:15 10/08/16 10/06/16 04:15 04:20 Calcium 7.5 mg/dL L mg/dL 7.5 mg/dL L mg/dL (8.5 - 10.4) (8.5 - 10.4) Phosphorus 6.8 mg/dL H D mg/dL 5.9 mg/dL H D mg/dL (2.5 - 4.5) (2.5 - 4.5) Magnesium 2.1 mg/dL mg/dL (1.6 - 2.3) Total Bilirubin 2.0 mg/dL H mg/dL 2.6 mg/dL H mg/dL (0.1 - 1.4) (0.1 - 1.4) Conjugated Bilirubin 1.7 mg/dL H mg/dL (0.0 - 0.5) Unconjugated Bilirubin 0.9 mg/dL mg/dL (0.0 - 1.1) AST 62 IU/L H IU/L 74 IU/L H IU/L (14 - 46) (14 - 46) ALT 153 IU/L H IU/L 259 IU/L H IU/L (9 - 52) (9 - 52) Alkaline Phosphatase 124 IU/L IU/L 183 IU/L H IU/L (38 - 126) (38 - 126) Total Protein 4.5 g/dL L g/dL 4.8 g/dL L g/dL (6.3 - 8.2) (6.3 - 8.2) Albumin 2.2 g/dL L g/dL 2.2 g/dL L g/dL (3.5 - 5.0) (3.5 - 5.0) 10/04/16 15:30 Catheter Tip Culture - Preliminary Catheter Tip Staphylococcus Epidermidis Physical Exam - Physical Exam General Appearance: alert, no apparent distress EENT: PERRL/EOMI, other (Necrosis of lips improving) Neck: non-tender, full range of motion, supple, normal inspection Respiratory: crackles (Few ), No respiratory distress, No wheezing Cardiac/Chest: systolic murmur Abdomen: normal bowel sounds, non-tender, soft Pelvic Exam: deferred Rectal: deferred Skin: normal color, warm/dry Extremities: normal range of motion, other (Digital infarcts improving) Neuro/Psych: alert, oriented x 3 ICD10 Worksheet Patient Problems: Problems Problem Status Onset ESBL (extended spectrum beta-lactamase) producing bacteria infection Acute ~ Renal colic on left side Acute
--- NOTE | 2016-10-08 12:41 | GOP ---
[f rep st] OPERATIVE REPORT DATE OF OPERATION: 10/05/2016 SURGEON: Wyatt Fernandes MD PREOPERATIVE DIAGNOSIS: Acute renal failure. POSTOPERATIVE DIAGNOSIS: Acute renal failure. PROCEDURE PERFORMED: Placement of left subclavian Mahurkar dialysis catheter. FINDINGS: GOOD FLOW DESCRIPTION OF PROCEDURE: The patient was placed in Trendelenburg, prepped and draped in the usual sterile fashion. Using a 1% Xylocaine local infiltration, a direct stick was made into the left subclavian vein. A guidewire was introduced and passed into the right atrium. A dilator was passed with the guidewire and then a 20 cm dialysis catheter was then introduced and passed over the guidewire. There were some difficulties going into the clavicle with the larger catheter, but the catheter was positioned in a good enough place to have excellent back flow on testing. The catheter was secured in place with 3-0 nylon sutures. All lumens were flushed and instilled with the appropriate amount of 5000 units/mL of heparin. The wound was dressed. She tolerated the procedure well. Chest x-ray showed good position of the catheter. There were no complications. /[id number]/MODL MTDD
--- NOTE | 2016-10-08 12:56 | GOP ---
[f rep st] OPERATIVE REPORT DATE OF OPERATION: 10/07/2016 SURGEON: Wyatt Fernandes MD PREOPERATIVE DIAGNOSIS: 1. Acute renal failure. 2. Malfunctioning dialysis catheter. POSTOPERATIVE DIAGNOSIS: RENAL FAILURE PROCEDURE PERFORMED: LEFT SUBCLAVIAN DIALYSIS CATH FINDINGS: GOOD FLOW DESCRIPTION OF PROCEDURE: The patient was in her own bed in the hospital. She was prepped and draped in the usual sterile fashion and placed in Trendelenburg. A guidewire was passed through her present dialysis catheter and passed into the right atrium. Position was confirmed with fluoroscopy. A dilator was passed with the guidewire and then a 20 cm Mahurkar catheter was introduced and passed without difficulty over the guidewire into the right atrium. The catheter was then secured in place with 3-0 nylon sutures. Back flow from the catheter was excellent. The catheter was flushed with heparin and saline, and then instilled with the appropriate amount of 5000 units/mL of heparin. The wound was dressed. She tolerated the procedure well. Chest x-ray confirmed good position of the catheter, without complications. /[id number]/MODL MTDD
--- NOTE | 2016-10-08 14:37 | PCMIDPN ---
Assessment/Plan: Multiple attempts were made to see patient, but was not successful. Labs reviewed # Polymicrobial bacteremia with ESBL E coli, Klebsiella, and Adriana albicans. Source obstructive uropathy and left pyelonephritis but oddly sample from left kidney only grew ESBL E coli. Once Adriana albicans isolated to be cautious all lines were changed. 10/05/16 show clearance of bacteremia --Adriana albicans susceptible to fluconazole. LFTs improved from sepsis, could consider change to PO fluconazole to complete treatment course when patient seen tomorrow --ertapenem renal dosing --contact precautions for ESBL E coli # Positive cath top staph Epi: doubt pathogen. # Lip ulcer r/o HSV: pending PCR # Obstructive uropathy and L pyelonephritis, nephrostomy in place : source of bacteremia as above. Stone removal at some point. # ARF on intermittent HD --ertapenem 500 mg dose to be given after hemodialysis Microbiology 10/05/16 blood culture (2 sets): NGTD 10/04/16 tips of lines x2 one grew s. epi 09/30/16 Blood culture (1 set): ESBL Escherichia Coli, Adriana Albicans 09/27/16 left kidney aspirate ESBL E coli 09/27/16 Urine,Catheterized Enterococcus Faecalis 09/27/16 Blood culture (2 sets): Escherichia Coli Esbl, Klebsiella Pneumoniae medications micafungin 100mg IV daily, #6 (plan 14 days antifungal therapy from negative blood cx 10/05) ertapenem 500mg IV daily, #7 (plan 14 days antibacterial therapy from negative blood cx 10/05) Objective: Vital Signs Temp Pulse Resp BP Pulse Ox 36.1 C 69 22 H 112/69 96 10/08/16 08:00 10/08/16 12:00 10/08/16 12:00 10/08/16 12:00 10/08/16 12:00 Microbiology 09/30/16 14:10 Blood Culture - Final Blood Escherichia Coli Esbl Adriana Albicans Blood Panel (PCR) - Final Escherichia Coli Adriana Albicans 10/04/16 13:05 Catheter Tip Culture - Final Catheter Tip Laboratory Results 10/08/16 04:15 10/08/16 04:15 10/07/16 10/08/16 10/09/16 05:59 05:59 05:59 Intake Total 920 740 Output Total 95 140 Balance 825 600 ICD10 Worksheet Patient Problems: Problems Problem Status Onset ESBL (extended spectrum beta-lactamase) producing bacteria infection Acute ~ Renal colic on left side Acute
--- NOTE | 2016-10-08 15:43 | SOAPPROG ---
SOAP Progress Note Assessment/Plan: Assessment:Plan: ARF-normal baseline -urine output increasing daily -50ml then 95 then 140 the last 24 hours -I would expect recovery -plan for dialysis tomorrow -follow urine output Access-s/p new catheter -poor function -CXR does not show any issues with position -as long as it aspirates and can run at 200 or better we will limp along with current catheter Dispo-if she does not recover renal function prior to release to rehab, the [facility] and the [facility] are equipped with Arabella lifts. This is not available at the [facility] unit. She would need to be able to transfer independently to be able to get treatment at a dialysis clinic that does not provide this level of care. Hopefully she will recover kidney function and be off dialysis prior to discharge. Discussed previously with family. Discussed pathology of acute injury and recovery from this injury with daughter and patient. 10/08/16 15:42 Subjective: out on patio Objective: Vital Signs Temp Pulse Resp BP Pulse Ox 36.1 C 69 22 H 112/69 96 10/08/16 08:00 10/08/16 12:00 10/08/16 12:00 10/08/16 12:00 10/08/16 12:00 Microbiology 09/30/16 14:10 Blood Culture - Final Blood Escherichia Coli Esbl Adriana Albicans Blood Panel (PCR) - Final Escherichia Coli Adriana Albicans 10/04/16 13:05 Catheter Tip Culture - Final Catheter Tip Laboratory Results 10/08/16 04:15 10/08/16 04:15 10/07/16 10/08/16 10/09/16 05:59 05:59 05:59 Intake Total 920 740 Output Total 95 140 Balance 825 600 PT 14.3 SEC (12.0-15.0) 10/07/16 13:20 INR 1.12 (0.83-1.16) 10/07/16 13:20 Physical Exam - Physical Exam General Appearance: WD/WN, alert, no apparent distress EENT: other (lip sores) Neck: normal inspection Respiratory: decreased breath sounds (at bases) Cardiac/Chest: regular rate, rhythm Abdomen: normal bowel sounds Extremities: swelling (minimal edema) ICD10 Worksheet Patient Problems: Problems Problem Status Onset ESBL (extended spectrum beta-lactamase) producing bacteria infection Acute ~05/ 27/17 Renal colic on left side Acute
[2016-10-08] MEDS: CALCIUM CARBONATE 500 MG CHEWABLE TAB PO SCH ×2 (16:58→20:19)
[2016-10-08] MEDS: ERTAPENEM 0.5 GM in NS 100 ML IV SCH (16:58)
[2016-10-08] MEDS: MELATONIN 3 MG TAB PO SCH (20:30)
[2016-10-09 04:44] LABS: ADD MORPH? NO; ADD SCAN? YES; ATYPICAL LYMPHOCYTE FLAG 70 (0-99); FRAGMENT RBC FLAG 20 (0-99); HEMATOCRIT 23.8 % (38.0-47.0); HEMOGLOBIN 7.9 g/dL (12.6-16.3); LEFT SHIFT FLG 10 (0-99); LIPEMIA HEMOLYSIS FLAG 80 (0-99); MEAN CELL HEMOGLOBIN 31.6 pg (27.9-34.1); MEAN CELL HEMOGLOBIN CONCENTR. 33.2 g/dL (32.4-36.7); MEAN CELL VOLUME 95.2 fL (81.5-99.8); MEAN PLATELET VOLUME 12.3 fL (8.7-11.7); PLATELET CLUMPS FLAG 10 (0-99); PLATELET COUNT 338 10^3/uL (150-400); RED CELL DISTRIBUTION WIDTH 16.4 % (11.5-15.2)
[2016-10-09 05:00] LABS: ALANINE AMINOTRANSFERASE 120 IU/L (9-52); ALBUMIN 2.2 g/dL (3.5-5.0); ALKALINE PHOSPHATASE 114 IU/L (38-126); ANION GAP 7 mEq/L (8-16); ASPARTATE AMINOTRANSFERASE 46 IU/L (14-46); BILIRUBIN,TOTAL 1.5 mg/dL (0.1-1.4); CALCIUM 7.4 mg/dL (8.5-10.4); CARBON DIOXIDE 24 mEq/l (22-31); CHLORIDE 101 mEq/L (97-110); CREATININE 4.4 mg/dL (0.6-1.0); GLOMERULAR FILTRATION RATE 10; GLUCOSE 90 mg/dL (70-100); MAGNESIUM 2.1 mg/dL (1.6-2.3); POTASSIUM 5.4 mEq/L (3.5-5.2); SODIUM 132 mEq/L (134-144); TOTAL PROTEIN 4.6 g/dL (6.3-8.2)
[2016-10-09 05:25] LABS: ADD DIFF? YES; SCAN POSITIVE
[2016-10-09] MEDS: HEPARIN 5,000 UNIT/0.5 ML SYR SC SCH ×3 (06:00→21:08)
[2016-10-09] MEDS: CALCIUM CARBONATE 500 MG CHEWABLE TAB PO SCH ×3 (09:00→21:06)
[2016-10-09] MEDS: PANTOPRAZOLE SODIUM 40 MG TAB PO SCH (09:00)
[2016-10-09] MEDS: CHOLECALCIFEROL VIT D3 2,000 UNITS TAB/CAP PO SCH ×2 (09:00→21:07)
[2016-10-09] MEDS: MICAFUNGIN NA 100 MG in NS 100 ML IV SCH (09:00)
--- NOTE | 2016-10-09 10:38 | PDINTPN ---
[employer] Progress Note Assessment/Plan: Assessment: * Severe Sepsis: Due to bacteremia with ESBL E. Coli, K. pneumonia from impacted left nephrolithiasis. Now s/p drainage with nephrostomy tube. On Invanz. With hypotension and lactic acidosis: resolving. * LYLA: on hemodialysis- improving. Making increased urine. Problems with dialysis catheter: replaced yesterday. For repeat HD today. * Acute hepatitis: due to shock liver. Resolving: Transaminases continued to improve * Shock- Resolved * Thrombocytopenia-resolved * Respiratory-stable, on minimal oxygen * Cardiomyopathy-resolved. Ejection fraction now normal * Digital necrosis: Due to sepsis, high-dose pressors/hypotension. Clinically stable, improved * Anemia: Hct 24. No evidence of active bleeding, follow. * Pain: Especially in feet if she tries to stand. Remains weak as well. Hand pain and clumsiness also an issue. * PT/OT Plan: Continue to increase activity as tolerated. For HD today. Transfer to medical-surgical bed after HD. Follow laboratory, clinical status. Increase activity as tolerated. Pain management 25 minutes of critical care time spent directly with the patient today. Discussed with nursing. Subjective: Complains of weakness, hand pain, foot pain. Unable to walk secondary to pain and weakness. Denies shortness of breath. Objective: Vital Signs Temp Pulse Resp BP Pulse Ox 36.6 C 75 16 110/61 92 10/08/16 23:29 10/09/16 04:00 10/09/16 04:00 10/09/16 04:00 10/09/16 04:00 Microbiology 09/30/16 14:10 Blood Culture - Final Blood Escherichia Coli Esbl Adriana Albicans Blood Panel (PCR) - Final Escherichia Coli Adriana Albicans Laboratory Results 10/09/16 04:30 10/09/16 04:30 10/08/16 10/09/16 10/10/16 05:59 05:59 05:59 Intake Total 740 616 Output Total 140 115 Balance 600 501 PT 14.3 SEC (12.0-15.0) 10/07/16 13:20 INR 1.12 (0.83-1.16) 10/07/16 13:20 Laboratory Tests 10/09/16 04:30 Calcium 7.4 L Phosphorus 8.0 H Magnesium 2.1 Total Bilirubin 1.5 H AST 46 ALT 120 H Albumin 2.2 L Physical Exam - Physical Exam General Appearance: alert, mild distress EENT: other (Nasal cannula at 1 L), No normal ENT inspection (Lip eschars comma of all then) Neck: normal inspection Respiratory: lungs clear, decreased breath sounds, rales (Few basilar rales), other (Dialysis catheter in place on the left via subclavian approach), No rhonchi (at bases), No wheezing Cardiac/Chest: regular rate, rhythm Abdomen: normal bowel sounds, non-tender, soft Pelvic Exam: other (Nephrostomy tube in place) Skin: warm/dry, pallor, other (Digital ischemia, hands and feetcomma of all the) Extremities: pedal edema, No normal inspection (As above, ischemic areas: Black comma vulva Ng) Neuro/Psych: motor weakness (Generalized, nonfocal) ICD10 Worksheet Patient Problems: Problems Problem Status Onset ESBL (extended spectrum beta-lactamase) producing bacteria infection Acute ~ Renal colic on left side Acute
--- NOTE | 2016-10-09 12:38 | SOAPPROG ---
SOAP Progress Note Assessment/Plan: Assessment: Plan: 10/05/16 09:52 Sepsis due to obstructing stone: improved. PICC line replaced yesterday due to positive f/u cx. Cath tip cx pending. Dialysis catheter likely to be removed today as well, possibly after dialysis, as per renal. Additional blood cx drawn this morning. WBC down significantly. Slight drop in hgb as well. LYLA: making small amount urine. Cr up to 2.2 today. Continuing with dialysis. Urine with small amount of Enteroccoccus. Thrombocytopenia: plts better today. Pain in L thigh: associated with petechiae. New complaint. Will check doppler to assess for clot. Not yet inclined to begin lovenox due to slight drop in hgb , ongoing need for plt transfusion, unless clot present. 10/05/16 09:54 10/07/16 10:21 Sepsis: making a remarkable recovery. Echocardiogram yesterday with normalized EF. F/u blood cx, cath tip cx negative so far. Remains on antibiotics for obstructing renal stone, adriana LYLA: to be dialyzed today. Making small amounts of urine. DVT prophylaxis: now on sq heparin as platelets have normalized 10/08/16 10:36 Sepsis: recovered. She is much improved today compared to the last 2 days. Remains on antibx per ID. Cath tip culture with S. epidermidis 2/2, but cx done a couple of hours previously is negative so far. LYLA: continues to require dialysis but catheter not functioning. Was replaced yesterday by surgery but dialysis short yesterday due to malfunction. Per discussion with Dr. Stinson, will keep her here one more day as these issues are worked out. Making more urine each day. Anemia: note decrease in hgb from yesterday. Will continue to monitor closely. 10/08/16 10:37 10/08/16 10:42 10/08/16 10:44 10/08/16 10:46 10/09/16 12:40 Sepsis: due to obstructing stone, resolved. Remains on Ivanz, micafungin LYLA: note Cr 4.4, K+ 5.4. To undergo dialysis today. Making more urine. Anemia: hgb down to 7.9, so will transfuse 1 u PRBCs with dialysis. Spoke to Dr. Angel about this. Concerned about her digital necrosis. Doubt she is bleeding , given the slow decline. Expect this is due to renal injury. Dispo: continue with PT, OT. Agree with transfer to floor after dialysis. 10/09/16 12:41 10/09/16 12:43 Subjective: Sitting up in chair, awake, alert. No complaints other than significant pain in feet when standing with PT, and hands still clumsy due to swelling. with her. Objective: Vital Signs Temp Pulse Resp BP Pulse Ox 36.6 C 75 16 110/61 92 10/08/16 23:29 10/09/16 04:00 10/09/16 04:00 10/09/16 04:00 10/09/16 04:00 Microbiology 10/04/16 15:30 Catheter Tip Culture - Final Catheter Tip Staphylococcus Epidermidis 09/30/16 14:10 Blood Culture - Final Blood Escherichia Coli Esbl Adriana Albicans Blood Panel (PCR) - Final Escherichia Coli Adriana Albicans Laboratory Results 10/09/16 04:30 10/09/16 04:30 10/08/16 10/09/16 10/10/16 05:59 05:59 05:59 Intake Total 740 616 Output Total 140 115 Balance 600 501 PT 14.3 SEC (12.0-15.0) 10/07/16 13:20 INR 1.12 (0.83-1.16) 10/07/16 13:20 General: awake, alert, oriented, thoughtful today HEENT: lips looking better Lungs: clear Cardiovascular: RRR Abdomen: soft, NT Extremities: hands and feet remain edematous. Necrosis in fingers, toes appears somewhat imroved ICD10 Worksheet Patient Problems: Problems Problem Status Onset ESBL (extended spectrum beta-lactamase) producing bacteria infection Acute ~ Renal colic on left side Acute
[2016-10-09 13:59] LABS: HYPOCHROMIA 1+; KERATOCYTES 1+; PLATELET ESTIMATE ADEQUATE (ADEQ); POLYCHROMASIA 1+
--- NOTE | 2016-10-09 16:00 | PCMIDPN ---
Assessment/Plan: Assessment: septic shock -- clearly improved from my last visit the previous week. The patient initially grew both ESBL E coli and Klebsiella from her blood. She is covered for these by ertapenem. Subsequently she grew Adriana albicans from another culture set and lines were changed. Micafungin certainly covers. azoles are good choices as well however with recent liver inflammation secondary to septic shock perhaps an azole challenge would be best delayed until she is more stable. Plan: 1) Continue ertapenem to cover both the E coli ESBL and Klebsiella. Anticipate a 14 day total course from clearance. 2) continue micafungin for now. Also anticipate a 14 day total course. Subjective: Patient is sitting up in her bed. States that she feels weak is a kitten otherwise is feeling better. No new complaints. Is eating well. Objective: Micafungin # 7 Ertapenem # 8 Vital Signs Temp Pulse Resp BP Pulse Ox 36.8 C 70 18 117/58 L 99 10/09/16 12:00 10/09/16 12:00 10/09/16 12:00 10/09/16 12:00 10/09/16 12:00 Microbiology 10/04/16 15:30 Catheter Tip Culture - Final Catheter Tip Staphylococcus Epidermidis 09/30/16 14:10 Blood Culture - Final Blood Escherichia Coli Esbl Adriana Albicans Blood Panel (PCR) - Final Escherichia Coli Adriana Albicans Laboratory Results 10/09/16 04:30 10/09/16 04:30 10/08/16 10/09/16 10/10/16 05:59 05:59 05:59 Intake Total 740 616 Output Total 140 255 Balance 600 361 - Physical Exam General Appearance: WD/WN, alert, no apparent distress, non-toxic Respiratory: lungs clear, normal breath sounds, No respiratory distress Cardiac/Chest: regular rate, rhythm, No tachycardia Extremities: non-tender, No normal inspection (Dark duskiness in the nail beds both upper and lower extremities.), No inflammation Skin: normal color, warm/dry, No rash Neuro/Psych: alert, normal mood/affect, oriented x 3 ICD10 Worksheet Patient Problems: Problems Problem Status Onset ESBL (extended spectrum beta-lactamase) producing bacteria infection Acute ~ Renal colic on left side Acute
--- NOTE | 2016-10-09 16:33 | SOAPPROG ---
SOAP Progress Note Assessment/Plan: Assessment/Plan: LYLA: likely ischemic ATN. She is now extubated and off dobutamine and all pressors. Was on CRRT but stopped on 10/02 and switched to intermittent HD. Noted to have increasing UOP, up to 255ml yesterday. - Will do HD today. - Next HD on Sunday if needed. - Will continue to monitor renal function. - Avoid hypotension and nephrotoxins. Hyperkalemia: K 5.4, will modulate on HD. Anemia: pt to be transfused 1 unit PRBCs today while on HD, will continue to monitor. Subjective: No acute events overnight. Pt states that she is feeling ok, breathing comfortably, has no complaints this am, trying to get more PO intake. Objective: Vital Signs Temp Pulse Resp BP Pulse Ox 36.8 C 70 14 125/68 H 99 10/09/16 12:00 10/09/16 16:00 10/09/16 16:00 10/09/16 16:00 10/09/16 16:00 Microbiology 10/04/16 15:30 Catheter Tip Culture - Final Catheter Tip Staphylococcus Epidermidis 09/30/16 14:10 Blood Culture - Final Blood Escherichia Coli Esbl Adriana Albicans Blood Panel (PCR) - Final Escherichia Coli Adriana Albicans Laboratory Results 10/09/16 04:30 10/09/16 04:30 10/08/16 10/09/16 10/10/16 05:59 05:59 05:59 Intake Total 740 616 Output Total 140 255 Balance 600 361 PT 14.3 SEC (12.0-15.0) 10/07/16 13:20 INR 1.12 (0.83-1.16) 10/07/16 13:20 General: alert and oriented, no acute distress Eyes; EOMI, PERRL OP: Clear CV: RRR Resp: nonlabored respiraitons on NC Abd: Soft, NT Ext: trace edema BLE Neuro: CN II-XII grossly intact, no asterixis Psych: cooperative, appropriate mood and affect ICD10 Worksheet Patient Problems: Problems Problem Status Onset ESBL (extended spectrum beta-lactamase) producing bacteria infection Acute ~ Renal colic on left side Acute
[2016-10-09] MEDS ORDERED: HEPARIN 50,000 UNIT/10 ML VIAL ONE (19:45)
[2016-10-09] MEDS: MELATONIN 3 MG TAB PO SCH (21:06)
[2016-10-09] MEDS: ERTAPENEM 0.5 GM in NS 100 ML IV SCH (21:15)
[2016-10-10 04:18] LABS: % IMMATURE GRANULYOCYTES 2.7 % (0.0-1.1); ABSOLUTE IMMATURE GRANULOCYTES 0.22 10^3/uL (0.00-0.10); ADD DIFF? NO; ADD MORPH? NO; ADD SCAN? NO; ATYPICAL LYMPHOCYTE FLAG 70 (0-99); FRAGMENT RBC FLAG 10 (0-99); HEMOGLOBIN 8.8 g/dL (12.6-16.3); LEFT SHIFT FLG 30 (0-99); LIPEMIA HEMOLYSIS FLAG 90 (0-99); MEAN CELL HEMOGLOBIN 31.3 pg (27.9-34.1); MEAN CELL HEMOGLOBIN CONCENTR. 33.8 g/dL (32.4-36.7); MEAN CELL VOLUME 92.5 fL (81.5-99.8); MEAN PLATELET VOLUME 11.6 fL (8.7-11.7); PLATELET CLUMPS FLAG 0 (0-99); PLATELET COUNT 324 10^3/uL (150-400); RED BLOOD CELL COUNT 2.81 10^6/uL (4.18-5.33); RED CELL DISTRIBUTION WIDTH 16.7 % (11.5-15.2)
[2016-10-10 04:46] LABS: ALANINE AMINOTRANSFERASE 96 IU/L (9-52); ALBUMIN 2.1 g/dL (3.5-5.0); ALKALINE PHOSPHATASE 119 IU/L (38-126); ANION GAP 4 mEq/L (8-16); ASPARTATE AMINOTRANSFERASE 45 IU/L (14-46); BILIRUBIN,TOTAL 1.2 mg/dL (0.1-1.4); CALCIUM 7.7 mg/dL (8.5-10.4); CARBON DIOXIDE 27 mEq/l (22-31); CHLORIDE 100 mEq/L (97-110); CREATININE 2.9 mg/dL (0.6-1.0); GLOMERULAR FILTRATION RATE 16; GLUCOSE 95 mg/dL (70-100); MAGNESIUM 1.7 mg/dL (1.6-2.3); POTASSIUM 4.7 mEq/L (3.5-5.2); SODIUM 131 mEq/L (134-144); TOTAL PROTEIN 4.6 g/dL (6.3-8.2)
[2016-10-10] MEDS: HEPARIN 5,000 UNIT/0.5 ML SYR SC SCH ×3 (06:21→22:29)
[2016-10-10] MEDS: PANTOPRAZOLE SODIUM 40 MG TAB PO SCH (09:04)
[2016-10-10] MEDS: MICAFUNGIN NA 100 MG in NS 100 ML IV SCH (09:04)
[2016-10-10] MEDS: CHOLECALCIFEROL VIT D3 2,000 UNITS TAB/CAP PO SCH ×2 (09:04→20:23)
[2016-10-10] MEDS: CALCIUM CARBONATE 500 MG CHEWABLE TAB PO SCH ×3 (09:04→20:24)
--- NOTE | 2016-10-10 09:49 | SOAPPROG ---
SOAP Progress Note Assessment/Plan: Assessment/Plan: LYLA: likely ischemic ATN. She is now extubated and off dobutamine and all pressors. Was on CRRT but stopped on 10/02 and switched to intermittent HD. Noted to have increasing UOP, had 160ml yesterday. - HD done yesterday. - Will plan on HD again tomorrow. - Will continue to monitor renal function. - Avoid hypotension and nephrotoxins. Hyperkalemia: K improved to 4.7 with HD, will continue to monitor and modulate on HD as needed. Anemia: pt transfused 1 unit PRBCs yesterday with improvement of Hgb to 8.8, will continue to monitor. CAITLYN: phos 5.4, not on binders, will monitor for now. Subjective: No acute events overnight. Pt had HD done yesterday, line is very positional but did manage to have a decent run. She is feeling comfortable today, no dyspnea. She notes that she wants to start working out her legs more, but her feet are still quite painful. Objective: Vital Signs Temp Pulse Resp BP Pulse Ox 37.0 C 82 18 141/61 H 96 10/10/16 08:00 10/10/16 08:00 10/10/16 08:00 10/10/16 08:00 10/10/16 08:00 Microbiology 10/05/16 04:42 Blood Culture - Final Blood 10/05/16 04:48 Blood Culture - Final Blood 10/04/16 15:30 Catheter Tip Culture - Final Catheter Tip Staphylococcus Epidermidis Laboratory Results 10/10/16 04:12 10/10/16 04:12 10/09/16 10/10/16 10/11/16 05:59 05:59 05:59 Intake Total 616 490 Output Total 255 160 Balance 361 330 PT 14.3 SEC (12.0-15.0) 10/07/16 13:20 INR 1.12 (0.83-1.16) 10/07/16 13:20 General: alert and oriented, no acute distress Eyes; EOMI, PERRL CV: RRR Resp: nonlabored respirations on NC Abd: Soft, NT/ND Ext: no edema BLE Skin: ischemic toes bilaterally Neuro: CN II-XII grossly intact, no asterixis Psych: cooperative, appropriate mood and affect ICD10 Worksheet Patient Problems: Problems Problem Status Onset ESBL (extended spectrum beta-lactamase) producing bacteria infection Acute ~ Renal colic on left side Acute
--- NOTE | 2016-10-10 09:50 | SOAPPROG ---
SOAP Progress Note Assessment/Plan: Assessment: 81 yo female admitted w/ obstructive stone s/p septic shock and thrombocytopenia due to bacteremia from eSBL E. Coli and Klebsiella, also w candiasis. Required intubation, pressors, mulitple organ involvement, plt transfusions, prbc, dialysis. -LYLA - on going, 2/2 ischemic ATN likely, renal following, appreciate input, rec 'd HD yesterday w/ 1 u prbc's, is starting to slowly make more urine. Will likely need HD again tomorrow. Hoping renal function continues to progress. Has nephrostomy tube in place. -Hepatitis - resolving from ischemia -thrombocytopenia - resolved -digital necrosis 2/2 ischemia/pressors - wound care following, dressings in place, very painful - dw Dr. Angel of renal if pt could try low dose neurontin to help - trial w/ 100 mg qd neurontin to start will be initiated. -obstructing stone w/ esbl E coli and Kleb as above - has nephrostomy tube in place and draining - concern w/ leaving stone in place after abx discontinued - will discuss w/ urology and IR. Also w/ candiasis. -ESBL E coli/Kleb/candiasis - appreciate ID input, on ertapenem and micafungin. -dvt prohp- hep sq -PT/OT as much as possible - pt really motivated to gain strength -dispo - ok to transfer to floor when bed avail Subjective: Doing better, feeling overwhelmed with everything that has been going on, feet really hurt when she tries to stand, wants to get stronger Objective: Vital Signs Temp Pulse Resp BP Pulse Ox 37.0 C 82 18 141/61 H 96 10/10/16 08:00 10/10/16 08:00 10/10/16 08:00 10/10/16 08:00 10/10/16 08:00 Microbiology 10/05/16 04:42 Blood Culture - Final Blood 10/05/16 04:48 Blood Culture - Final Blood 10/04/16 15:30 Catheter Tip Culture - Final Catheter Tip Staphylococcus Epidermidis Laboratory Results 10/10/16 04:12 10/10/16 04:12 10/09/16 10/10/16 10/11/16 05:59 05:59 05:59 Intake Total 616 490 Output Total 255 160 Balance 361 330 PT 14.3 SEC (12.0-15.0) 10/07/16 13:20 INR 1.12 (0.83-1.16) 10/07/16 13:20 Gen: A&O x 3, pleasant HEENT: blisters on lips Chest: cta b CV: rrr Abd soft nt nd Ext: toe on RLE worst, but several digits w/ dusky discoloration and pain, dressings in place, moving feet - Pending Discharge Pending Discharge Within 48 Hours: No ICD10 Worksheet Patient Problems: Problems Problem Status Onset ESBL (extended spectrum beta-lactamase) producing bacteria infection Acute ~ Renal colic on left side Acute
--- NOTE | 2016-10-10 12:14 | PCMIDPN ---
Assessment/Plan: Assessment/Plan: 1. Polymicrobial septic shock with ESBL E.coli/Klebsiella pneumonia secondary to obstructive uropathy: - Left ureter stone s/p left nephrostomy - Currently on Invanz. -Initial blood cx positive on 09/27/16. f/u blood cx from 10/05/16 ngtd - wbc improved. -updated patient and regarding listed issues including results of labs and cultures. . - 2. Fungemia: new -f/u blood cx with C. albicans -picc line and HD catheter changed - f/u blood cx from 10/05/16 ngtd - on micafungin primarily due to #5. LFT overall are improving 3. Ischemic hepatopathy: - improving 4. Digitial ischemia: - followed by wound care. Meds invanz 500mg daily- 10/02/16 micafungin 100mg daily- 10/03/16 Subjective: afebrile. sitting up in chair. feeling weak but better overall. far less abdominal pain cmpared to last week. eating some. denies sob. has pain invlving her digits. no diarrhea. Objective: Vital Signs Temp Pulse Resp BP Pulse Ox 37.0 C 82 18 141/61 H 96 10/10/16 08:00 10/10/16 08:00 10/10/16 08:00 10/10/16 08:00 10/10/16 08:00 Microbiology 10/05/16 04:42 Blood Culture - Final Blood 10/05/16 04:48 Blood Culture - Final Blood 10/04/16 15:30 Catheter Tip Culture - Final Catheter Tip Staphylococcus Epidermidis Laboratory Results 10/10/16 04:12 10/10/16 04:12 10/09/16 10/10/16 10/11/16 05:59 05:59 05:59 Intake Total 616 490 Output Total 255 160 Balance 361 330 - Physical Exam General Appearance: alert, no apparent distress Respiratory: lungs clear Cardiac/Chest: regular rate, rhythm Extremities: swelling Abdomen: normal bowel sounds, soft, other (mild tenderness), No distended Skin: other (digits with ischemic changes involving fingers adn toes (r > l). tender. ) ICD10 Worksheet Patient Problems: Problems Problem Status Onset ESBL (extended spectrum beta-lactamase) producing bacteria infection Acute ~ Renal colic on left side Acute
[2016-10-10] MEDS: GABAPENTIN 100 MG CAP PO SCH (12:37)
[2016-10-10 13:31] LABS: SPECIMEN SOURCE UPPER LIP
[2016-10-10] MEDS: ERTAPENEM 0.5 GM in NS 100 ML IV SCH (16:14)
[2016-10-10] MEDS: MELATONIN 3 MG TAB PO SCH (20:24)
[2016-10-10] MEDS: DOCOSANOL 2 GM CREAM TP SCH (23:28)
[2016-10-11 04:48] LABS: % IMMATURE GRANULYOCYTES 2.1 % (0.0-1.1); ABSOLUTE IMMATURE GRANULOCYTES 0.17 10^3/uL (0.00-0.10); ADD DIFF? NO; ADD MORPH? NO; ADD SCAN? NO; ATYPICAL LYMPHOCYTE FLAG 40 (0-99); FRAGMENT RBC FLAG 10 (0-99); HEMATOCRIT 26.1 % (38.0-47.0); HEMOGLOBIN 8.4 g/dL (12.6-16.3); LEFT SHIFT FLG 10 (0-99); LIPEMIA HEMOLYSIS FLAG 80 (0-99); MEAN CELL HEMOGLOBIN 30.5 pg (27.9-34.1); MEAN CELL HEMOGLOBIN CONCENTR. 32.2 g/dL (32.4-36.7); MEAN CELL VOLUME 94.9 fL (81.5-99.8); MEAN PLATELET VOLUME 12.1 fL (8.7-11.7); PLATELET CLUMPS FLAG 0 (0-99); PLATELET COUNT 404 10^3/uL (150-400); RED BLOOD CELL COUNT 2.75 10^6/uL (4.18-5.33); RED CELL DISTRIBUTION WIDTH 16.5 % (11.5-15.2)
[2016-10-11 05:57] LABS: ALBUMIN 2.1 g/dL (3.5-5.0); ANION GAP 8 mEq/L (8-16); CALCIUM 7.8 mg/dL (8.5-10.4); CARBON DIOXIDE 25 mEq/l (22-31); CHLORIDE 100 mEq/L (97-110); CREATININE 3.7 mg/dL (0.6-1.0); GLOMERULAR FILTRATION RATE 12; GLUCOSE 99 mg/dL (70-100); MAGNESIUM 1.8 mg/dL (1.6-2.3); POTASSIUM 4.6 mEq/L (3.5-5.2); SODIUM 133 mEq/L (134-144)
[2016-10-11] MEDS: BENZOCAINE TP SCH ×4 (06:01→21:34)
[2016-10-11] MEDS: DOCOSANOL 2 GM CREAM TP SCH ×5 (06:02→21:34)
[2016-10-11] MEDS: HEPARIN 5,000 UNIT/0.5 ML SYR SC SCH ×3 (06:05→21:30)
--- NOTE | 2016-10-11 09:14 | SOAPPROG ---
SOAP Progress Note Assessment/Plan: Assessment: Plan: 10/05/16 09:52 Sepsis due to obstructing stone: improved. PICC line replaced yesterday due to positive f/u cx. Cath tip cx pending. Dialysis catheter likely to be removed today as well, possibly after dialysis, as per renal. Additional blood cx drawn this morning. WBC down significantly. Slight drop in hgb as well. LYLA: making small amount urine. Cr up to 2.2 today. Continuing with dialysis. Urine with small amount of Enteroccoccus. Thrombocytopenia: plts better today. Pain in L thigh: associated with petechiae. New complaint. Will check doppler to assess for clot. Not yet inclined to begin lovenox due to slight drop in hgb , ongoing need for plt transfusion, unless clot present. 10/05/16 09:54 10/07/16 10:21 Sepsis: making a remarkable recovery. Echocardiogram yesterday with normalized EF. F/u blood cx, cath tip cx negative so far. Remains on antibiotics for obstructing renal stone, sandy LYLA: to be dialyzed today. Making small amounts of urine. DVT prophylaxis: now on sq heparin as platelets have normalized 10/08/16 10:36 Sepsis: recovered. She is much improved today compared to the last 2 days. Remains on antibx per ID. Cath tip culture with S. epidermidis 2/2, but cx done a couple of hours previously is negative so far. LYLA: continues to require dialysis but catheter not functioning. Was replaced yesterday by surgery but dialysis short yesterday due to malfunction. Per discussion with Dr. Stinson, will keep her here one more day as these issues are worked out. Making more urine each day. Anemia: note decrease in hgb from yesterday. Will continue to monitor closely. 10/08/16 10:37 10/08/16 10:42 10/08/16 10:44 10/08/16 10:46 10/09/16 12:40 Sepsis: due to obstructing stone, resolved. Remains on Ivanz, micafungin LYLA: note Cr 4.4, K+ 5.4. To undergo dialysis today. Making more urine. Anemia: hgb down to 7.9, so will transfuse 1 u PRBCs with dialysis. Spoke to Dr. Angel about this. Concerned about her digital necrosis. Doubt she is bleeding , given the slow decline. Expect this is due to renal injury. Dispo: continue with PT, OT. Agree with transfer to floor after dialysis. 10/09/16 12:41 10/09/16 12:43 10/11/16 09:09 Sepsis: due to obstructing stone, which is still present. She remains on antibx as result. Dr. Grady to meet with pt today to look at stone removal, nephrostomy tube removal. LYLA: continues to slowly increase urine output through nephrostomy tube. HD today. Anemia: hgb improved following transfusion. Starting to decrease again, so will monitor closely. Note slightly increased plt count. Necrosis in fingers, toes: neurontin added yesterday to help with pain. Swelling in hands seems a little better. No suggestion infection at this point. Subjective: Awake, alert. Spirits good this morning. Exercising her hands and feet as best she can. Noted increased RR on vital signs this morning. She denies any SOB or respiratory discomfort. Feeling mildly constipated. Aide in room and she will try sitting on bedpan this morning. Objective: Vital Signs Temp Pulse Resp BP Pulse Ox 36.8 C 58 L 24 H 142/64 H 97 10/11/16 08:00 10/11/16 08:00 10/11/16 08:00 10/11/16 08:00 10/11/16 08:00 Microbiology 10/05/16 04:42 Blood Culture - Final Blood 10/05/16 04:48 Blood Culture - Final Blood Laboratory Results 10/11/16 04:35 10/11/16 04:35 10/10/16 10/11/16 10/12/16 05:59 05:59 05:59 Intake Total 490 980 Output Total 160 320 Balance 330 660 PT 14.3 SEC (12.0-15.0) 10/07/16 13:20 INR 1.12 (0.83-1.16) 10/07/16 13:20 General: awake, alert, comfortable appearing Lungs: clear Cardiovascular: RRR Abdomen: soft, NT Extremities: hands, feet remain edematous, necrotic fingers and toes ICD10 Worksheet Patient Problems: Problems Problem Status Onset ESBL (extended spectrum beta-lactamase) producing bacteria infection Acute ~ Renal colic on left side Acute
[2016-10-11] MEDS: GABAPENTIN 100 MG CAP PO SCH (10:05)
[2016-10-11] MEDS: CHOLECALCIFEROL VIT D3 2,000 UNITS TAB/CAP PO SCH ×2 (10:05→21:27)
[2016-10-11] MEDS: PANTOPRAZOLE SODIUM 40 MG TAB PO SCH (10:05)
[2016-10-11] MEDS: CALCIUM CARBONATE 500 MG CHEWABLE TAB PO SCH ×3 (10:05→21:30)
[2016-10-11] MEDS: MICAFUNGIN NA 100 MG in NS 100 ML IV SCH (10:06)
--- NOTE | 2016-10-11 11:30 | SOAPPROG ---
SOAP Progress Note Assessment/Plan: Assessment: 1. LYLA Now hemodynamically stable, on intermittant standard dialysis. She will get HD today. Her urine output it increasing. 2. Leukocytosis/ID Positive blood bacterial and fungal cultures, treatment managed by ID. 3. Urology Nephrostomy in place. Urology following. Ok for stone removal from renal standpoint. 4. Ischemic Digits Follow. Supportive Care 6. Anemia Stable Subjective: Much Improved Objective: Vital Signs Temp Pulse Resp BP Pulse Ox 36.8 C 58 L 24 H 142/64 H 97 10/11/16 08:00 10/11/16 08:00 10/11/16 08:00 10/11/16 08:00 10/11/16 08:00 Microbiology 10/05/16 04:42 Blood Culture - Final Blood 10/05/16 04:48 Blood Culture - Final Blood Laboratory Results 10/11/16 04:35 10/11/16 04:35 10/10/16 10/11/16 10/12/16 05:59 05:59 05:59 Intake Total 490 980 Output Total 160 320 Balance 330 660 PT 14.3 SEC (12.0-15.0) 10/07/16 13:20 INR 1.12 (0.83-1.16) 10/07/16 13:20 Physical Exam - Physical Exam General Appearance: no apparent distress Neck: other (line site looks ok) Respiratory: lungs clear Cardiac/Chest: regular rate, rhythm Extremities: other (ischemic digits, wrapped) ICD10 Worksheet Patient Problems: Problems Problem Status Onset ESBL (extended spectrum beta-lactamase) producing bacteria infection Acute ~ Renal colic on left side Acute
--- NOTE | 2016-10-11 13:05 | PCMIDPN ---
Assessment/Plan: # Polymicrobial bacteremia with ESBL E coli, Klebsiella, and Adriana albicans. Source obstructive uropathy and left pyelonephritis but oddly sample from left kidney only grew ESBL E coli. Once Adriana albicans isolated to be cautious, all lines were changed. 10/05/16 show clearance of bacteremia --day 8 of IV antifungal/antibiotic from negative blood cx; stop date 10/19 --hopeful to get stone removed in the next couple days, talked to Dr. 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 --hopeful for stone removal soon # ARF on intermittent HD: renal dose meds # Ischemic changes fingers and toes: stable, due to severe sepsis # Hepatitis due to sepsis: essentially resolved Microbiology 10/05/16 blood culture (2 sets): Neg 10/04/16 tips of lines x2 one grew s. epi 09/30/16 Blood culture (1 set): ESBL Escherichia Coli, Adriana Albicans 09/27/16 left kidney aspirate ESBL E coli 09/27/16 Urine,Catheterized Enterococcus Faecalis 09/27/16 Blood culture (2 sets): Escherichia Coli Esbl, Klebsiella Pneumoniae medications micafungin 100mg IV daily, #9 ertapenem 500mg IV daily, #10 Subjective: c/o lip pain as well as finger and toe pain Patient history and limited exam on porch on PCU Objective: Vital Signs Temp Pulse Resp BP Pulse Ox 36.8 C 58 L 24 H 142/64 H 97 10/11/16 08:00 10/11/16 08:00 10/11/16 08:00 10/11/16 08:00 10/11/16 08:00 Microbiology 10/05/16 04:42 Blood Culture - Final Blood 10/05/16 04:48 Blood Culture - Final Blood Laboratory Results 10/11/16 04:35 10/11/16 04:35 10/10/16 10/11/16 10/12/16 05:59 05:59 05:59 Intake Total 490 980 Output Total 160 320 Balance 330 660 - Physical Exam General Appearance: alert, no apparent distress EENT: other (multiple scaly ulceration on upper and lower lips, unchanged) Respiratory: No accessory muscle use Cardiac/Chest: other (L subclavian hemodialysis cath) Neuro/Psych: alert, normal mood/affect, oriented x 3 - Time Spent With Patient Time Spent with Patient: greater than 25 minutes Time Spent with Patient: Greater than 25 minutes spent on this patients care, greater than 50% of time spent counseling, educating, and coordinating care regarding the above mentioned plan. ICD10 Worksheet Patient Problems: Problems Problem Status Onset ESBL (extended spectrum beta-lactamase) producing bacteria infection Acute ~ Renal colic on left side Acute
[2016-10-11] MEDS ORDERED: ACYCLOVIR 400 MG TAB PO SCH (18:00)
[2016-10-11] MEDS: ERTAPENEM 0.5 GM in NS 100 ML IV SCH (21:26)
[2016-10-11] MEDS: ACYCLOVIR 400 MG TAB PO SCH (21:27)
[2016-10-11] MEDS: MELATONIN 3 MG TAB PO SCH (21:27)
--- NOTE | 2016-10-11 22:17 | SOAPPROG ---
[facility] Progress Note Assessment/Plan: Assessment: 1. Polymicrobial GNR septic shock: continues to gradually improve. 2. Obstructing left nephroureterolithiasis, s/p nephrostomy tube placement. CT reveals 5x4x7 mm long left ureteral stone at ~ L4. Left renal stone not easily seen due to nephrostomy tube. 3. Acute renal failure. Continues with HD. Had an extensive discussion with the pt. and separately w/ her today regarding intraoperative left ureteroscopy and stone management. ID & nephrology believe it is safe to proceed with surgery from their respective standpoints. Plan: 1. Proceed with left ureteroscopy, nephrostomy tube removal, and ureteral stent placement tomorrow afternoon. 2. Continue left nephrostomy drainage in the meantime. Case also reviewed w/ Dr. Agosto. Subjective: Denies any significant flank/abd. pain. Currently undergoing HD. Objective: Vital Signs Temp Pulse Resp BP Pulse Ox 36.5 C 57 L 16 130/61 H 90 L 10/11/16 14:11 10/11/16 17:45 10/11/16 17:45 10/11/16 17:45 10/11/16 17:45 Laboratory Results 10/11/16 04:35 10/11/16 04:35 10/10/16 10/11/16 10/12/16 05:59 05:59 05:59 Intake Total 490 980 240 Output Total 160 320 350 Balance 330 660 -110 PT 14.3 SEC (12.0-15.0) 10/07/16 13:20 INR 1.12 (0.83-1.16) 10/07/16 13:20 Physical Exam - Physical Exam General Appearance: other (ill-appearing but in no acute distress) Back: Other (left neph. tube draining clear urine) Neuro/Psych: alert, normal mood/affect ICD10 Worksheet Patient Problems: Problems Problem Status Onset ESBL (extended spectrum beta-lactamase) producing bacteria infection Acute ~ Renal colic on left side Acute
[2016-10-12] MEDS: DOCOSANOL 2 GM CREAM TP SCH ×5 (06:01→22:17)
[2016-10-12] MEDS: BENZOCAINE TP SCH ×4 (06:02→22:26)
[2016-10-12 06:26] LABS: % IMMATURE GRANULYOCYTES 1.5 % (0.0-1.1); ABSOLUTE IMMATURE GRANULOCYTES 0.11 10^3/uL (0.00-0.10); ADD DIFF? NO; ADD MORPH? NO; ADD SCAN? NO; ATYPICAL LYMPHOCYTE FLAG 30 (0-99); FRAGMENT RBC FLAG 10 (0-99); HEMATOCRIT 24.7 % (38.0-47.0); HEMOGLOBIN 8.1 g/dL (12.6-16.3); LEFT SHIFT FLG 10 (0-99); LIPEMIA HEMOLYSIS FLAG 80 (0-99); MEAN CELL HEMOGLOBIN 31.2 pg (27.9-34.1); MEAN CELL HEMOGLOBIN CONCENTR. 32.8 g/dL (32.4-36.7); MEAN PLATELET VOLUME 11.9 fL (8.7-11.7); PLATELET CLUMPS FLAG 0 (0-99); PLATELET COUNT 421 10^3/uL (150-400); RED CELL DISTRIBUTION WIDTH 15.9 % (11.5-15.2)
[2016-10-12 06:40] LABS: ALBUMIN 2.1 g/dL (3.5-5.0); ANION GAP 4 mEq/L (8-16); CALCIUM 7.8 mg/dL (8.5-10.4); CARBON DIOXIDE 26 mEq/l (22-31); CHLORIDE 101 mEq/L (97-110); CREATININE 2.3 mg/dL (0.6-1.0); GLOMERULAR FILTRATION RATE 20; GLUCOSE 93 mg/dL (70-100); MAGNESIUM 1.7 mg/dL (1.6-2.3); POTASSIUM 4.4 mEq/L (3.5-5.2); SODIUM 131 mEq/L (134-144)
[2016-10-12] MEDS: ACETAMINOPHEN 650 MG SUPP PR PRN (06:52)
[2016-10-12] MEDS: MICAFUNGIN NA 100 MG in NS 100 ML IV SCH (08:57)
--- NOTE | 2016-10-12 10:19 | SOAPPROG ---
SOAP Progress Note Assessment/Plan: Assessment: 1. LYLA Now hemodynamically stable, on intermittant standard dialysis. UO gradually improving. Next HD tomorrow. 2. Leukocytosis/ID Positive blood bacterial and fungal cultures, treatment managed by ID. Fever spike last pm. 3. Urology Nephrostomy in place. Urology following. Ok for stone removal from renal standpoint. 4. Ischemic Digits Follow. Supportive Care 6. Anemia Gradual trend downward. 7. Crackles LLL Encouraged incentive spirometry 10/12/16 10:17 Subjective: Doing better Objective: Vital Signs Temp Pulse Resp BP Pulse Ox 39.3 C H 74 18 132/66 H 90 L 10/12/16 08:00 10/12/16 08:00 10/12/16 08:00 10/12/16 08:00 10/12/16 08:00 Laboratory Results 10/12/16 06:00 10/12/16 06:00 10/11/16 10/12/16 10/13/16 05:59 05:59 05:59 Intake Total 980 940 Output Total 320 450 Balance 660 490 PT 14.3 SEC (12.0-15.0) 10/07/16 13:20 INR 1.12 (0.83-1.16) 10/07/16 13:20 Physical Exam - Physical Exam General Appearance: no apparent distress Neck: other (L HD cath ok) Respiratory: crackles (L base) Cardiac/Chest: regular rate, rhythm Extremities: other (Trace to 1+ ps edema) Neuro/Psych: oriented x 3 ICD10 Worksheet Patient Problems: Problems Problem Status Onset ESBL (extended spectrum beta-lactamase) producing bacteria infection Acute ~ Renal colic on left side Acute
[2016-10-12] MEDS: CALCIUM CARBONATE 500 MG CHEWABLE TAB PO SCH ×3 (12:03→22:12)
[2016-10-12] MEDS: PANTOPRAZOLE SODIUM 40 MG TAB PO SCH (12:04)
[2016-10-12] MEDS: CHOLECALCIFEROL VIT D3 2,000 UNITS TAB/CAP PO SCH ×2 (12:04→22:12)
[2016-10-12] MEDS: GABAPENTIN 100 MG CAP PO SCH (12:04)
--- NOTE | 2016-10-12 15:16 | SOAPPROG ---
SOAP Progress Note Assessment/Plan: Assessment: 81 yo female admitted w/ obstructive stone s/p septic shock and thrombocytopenia due to bacteremia from eSBL E. Coli and Klebsiella, also w candiasis. Required intubation, pressors, mulitple organ involvement, plt transfusions, prbc, dialysis. -LYLA - on going, 2/2 ischemic ATN likely, renal following, appreciate input, HD yesterday, likely again tomorrow. RAJ Hernandez. If h/h continues to decreased may need 1 u prbc w/ dialysis tomorrow. Making more urine. -digital necrosis 2/2 ischemia/pressors - wound care following, dressings in place, very painful - started on neurontin 100 mg a day low dose due to renal function which Laura feels is doing some help. -obstructing stone w/ esbl E coli and Kleb as above - was planned for O.R. originally today for nephrostomy tube removal and removal of obstructing stone, but does have additional large stone - concerned w/ recurrent infection from this. Will dw urology, ID team. Query if able to remove both stones and nephrostomy tube next week since procedure has been delayed due to fever this am. She has a L renal artery calcified aneurysm - ? role in difficulty of surgery vs lithotripsy. ? possiblity of IR to assist. Appreciate input. -ESBL E coli/Kleb/candiasis - appreciate ID input, on ertapenem and micafungin. RAJ Mora this am - did have fever today ? source. Had one dose acyclovir, 2 doses neurontin as far as new drugs for drug fever not likely, toes/fingers look a bit better today, does has oxygen req't, cxr ordered, maybe viral, consider c diff w/ abx. -hsv - on acyclovir and topical abreva/anbesol for pain prn -fever this am - see above -dvt prohp- hep sq -PT/OT as much as possible - pt really motivated to gain strength 10/12/16 15:08 10/12/16 15:18 Subjective: Had fever this am, but now feeling fine, feels better each day little by little Objective: Vital Signs Temp Pulse Resp BP Pulse Ox 37.1 C 74 18 132/66 H 90 L 10/12/16 10:36 10/12/16 11:00 10/12/16 08:00 10/12/16 08:00 10/12/16 11:00 Laboratory Results 10/12/16 06:00 10/12/16 06:00 10/11/16 10/12/16 10/13/16 05:59 05:59 05:59 Intake Total 980 940 Output Total 320 450 Balance 660 490 PT 14.3 SEC (12.0-15.0) 10/07/16 13:20 INR 1.12 (0.83-1.16) 10/07/16 13:20 GEN: A&Ox 3, pleasant, spouse at bedside this am Heent: blisters on lips, wearing nasal cannula Chest: line in place no s/sx of infection Lungs: cta b, slightly decreased bs CV: rrr nl s1s 2 Ext: ischemic digits - R toe and R index finger worst of it, areas of dusky dark discoloration but warm to palpation ICD10 Worksheet Patient Problems: Problems Problem Status Onset ESBL (extended spectrum beta-lactamase) producing bacteria infection Acute ~ Renal colic on left side Acute
--- NOTE | 2016-10-12 15:28 | SOAPPROG ---
SOAP Progress Note Assessment/Plan: Assessment: 1. Polymicrobial GNR septic shock: continues to gradually improve. But spiked additional fevers earlier this AM. 2. Obstructing left nephroureterolithiasis, s/p nephrostomy tube placement. CT reveals 5x4x7 mm long left ureteral stone at ~ L4. Left renal stone not easily seen due to nephrostomy tube. 3. Acute renal failure. Continues with HD. Plan: 1. Due to fevers, postpone left ureteroscopy & stone management, nephrostomy tube removal, and ureteral stent placement that was scheduled for this afternoon. Surgery has been rescheduled for Sunday afternoon. 2. Continue left nephrostomy drainage in the meantime. Rescheduled timing of surgery discussed w/ Dr. Mora earlier today. Objective: Vital Signs Temp Pulse Resp BP Pulse Ox 36.3 C 66 18 156/72 H 96 10/12/16 15:16 10/12/16 15:16 10/12/16 15:16 10/12/16 15:16 10/12/16 15:16 Laboratory Results 10/12/16 06:00 10/12/16 06:00 10/11/16 10/12/16 10/13/16 05:59 05:59 05:59 Intake Total 980 940 Output Total 320 450 Balance 660 490 PT 14.3 SEC (12.0-15.0) 10/07/16 13:20 INR 1.12 (0.83-1.16) 10/07/16 13:20 ICD10 Worksheet Patient Problems: Problems Problem Status Onset ESBL (extended spectrum beta-lactamase) producing bacteria infection Acute ~ Renal colic on left side Acute
[2016-10-12] MEDS: ERTAPENEM 0.5 GM in NS 100 ML IV SCH (15:59)
--- NOTE | 2016-10-12 17:32 | PCMIDPN ---
Assessment/Plan: Assessment: septic shock -- improved markedly from admission. The patient initially grew both ESBL E coli and Klebsiella from her blood. She is covered for these by ertapenem. Subsequently she grew Adriana albicans from another culture set and lines were changed. Micafungin continues in covers this isolate well. Patient continues to slowly demarcate necrotic tissue on her fingers and toes. Unclear what final need for amputation will be. Fever-unclear source. Possibilities include dialysis catheter related infection , respiratory infection, drug fever, or infection secondary to necrotic areas. After taking history from this patient and examination I suspect that upper respiratory infection is the most likely reason. We will check blood cultures and monitor her course. Chest x-ray done earlier today does not reveal significant infiltrate. Plan: 1) Continue ertapenem to cover both the E coli ESBL and Klebsiella. Anticipate a 14 day total course from clearance. 2) continue micafungin for now. Also anticipate a 14 day total course. 10/12/16 18:13 10/12/16 18:15 Subjective: Patient is resting in her hospital bed. Notes the fever overnight but no new complaint otherwise. States that she feels like she is a bit stuffy in her sinuses and with a mild sore throat. Objective: Ertapenem # 11 Micafungin # 10 Vital Signs Temp Pulse Resp BP Pulse Ox 36.3 C 66 18 156/72 H 96 10/12/16 15:16 10/12/16 15:16 10/12/16 15:16 10/12/16 15:16 10/12/16 15:16 Laboratory Results 10/12/16 06:00 10/12/16 06:00 10/11/16 10/12/16 10/13/16 05:59 05:59 05:59 Intake Total 980 940 Output Total 320 450 Balance 660 490 - Physical Exam General Appearance: WD/WN, alert, no apparent distress, non-toxic Respiratory: lungs clear, normal breath sounds, No respiratory distress Cardiac/Chest: regular rate, rhythm, No tachycardia Extremities: necrosis, No normal inspection, No inflammation, No erythema Skin: normal color, warm/dry, No rash Neuro/Psych: alert, normal mood/affect, oriented x 3 ICD10 Worksheet Patient Problems: Problems Problem Status Onset ESBL (extended spectrum beta-lactamase) producing bacteria infection Acute ~ Renal colic on left side Acute
[2016-10-12] MEDS: ACYCLOVIR 400 MG TAB PO SCH (17:58)
[2016-10-12] MEDS ORDERED: NS 1,000 ML IV SCH (18:30)
[2016-10-12] MEDS: MELATONIN 3 MG TAB PO SCH (22:11)
[2016-10-13] MEDS: HEPARIN 5,000 UNIT/0.5 ML SYR SC SCH ×3 (05:56→21:24)
[2016-10-13] MEDS: BENZOCAINE TP SCH ×4 (05:56→21:25)
[2016-10-13] MEDS: DOCOSANOL 2 GM CREAM TP SCH ×5 (05:56→22:20)
[2016-10-13 06:22] LABS: % IMMATURE GRANULYOCYTES 1.1 % (0.0-1.1); ABSOLUTE IMMATURE GRANULOCYTES 0.08 10^3/uL (0.00-0.10); ADD DIFF? NO; ADD MORPH? NO; ADD SCAN? NO; ATYPICAL LYMPHOCYTE FLAG 20 (0-99); FRAGMENT RBC FLAG 10 (0-99); HEMATOCRIT 23.4 % (38.0-47.0); HEMOGLOBIN 7.4 g/dL (12.6-16.3); LEFT SHIFT FLG 10 (0-99); LIPEMIA HEMOLYSIS FLAG 80 (0-99); MEAN CELL HEMOGLOBIN CONCENTR. 31.6 g/dL (32.4-36.7); MEAN CELL VOLUME 97.9 fL (81.5-99.8); MEAN PLATELET VOLUME 11.7 fL (8.7-11.7); PLATELET CLUMPS FLAG 10 (0-99); PLATELET COUNT 403 10^3/uL (150-400); RED BLOOD CELL COUNT 2.39 10^6/uL (4.18-5.33); RED CELL DISTRIBUTION WIDTH 15.3 % (11.5-15.2)
[2016-10-13 07:01] LABS: ALBUMIN 2.2 g/dL (3.5-5.0); ANION GAP 7 mEq/L (8-16); CARBON DIOXIDE 24 mEq/l (22-31); CHLORIDE 104 mEq/L (97-110); CREATININE 2.9 mg/dL (0.6-1.0); GLOMERULAR FILTRATION RATE 16; GLUCOSE 95 mg/dL (70-100); MAGNESIUM 1.7 mg/dL (1.6-2.3); POTASSIUM 4.3 mEq/L (3.5-5.2); SODIUM 135 mEq/L (134-144)
[2016-10-13] MEDS ORDERED: HEPARIN 50,000 UNIT/10 ML VIAL ONE (10:00)
--- NOTE | 2016-10-13 11:12 | SOAPPROG ---
SOAP Progress Note Assessment/Plan: Assessment/Plan: LYLA: likely ischemic ATN. She is now extubated and off dobutamine and all pressors. Was on CRRT but stopped on 10/02 and switched to intermittent HD. Noted to have increasing UOP, had 800ml yesterday, hopefully recovering. - HD today. - Will plan on next HD on Sunday if needed. - Will continue to monitor renal function for recovery. - Avoid hypotension and nephrotoxins. Anemia: pt getting 1 unit PRBCs today, will monitor. Subjective: No acute events overnight. Pt states she is feeling well, on HD this am and tolerating fine. Noted she has 800ml UOP in past 24 hours. Objective: Vital Signs Temp Pulse Resp BP Pulse Ox 36.8 C 62 16 145/69 H 94 10/12/16 23:40 10/12/16 23:40 10/12/16 23:40 10/12/16 23:40 10/12/16 23:40 Laboratory Results 10/13/16 05:50 10/13/16 05:50 10/12/16 10/13/16 10/14/16 05:59 05:59 05:59 Intake Total 940 500 Output Total 450 800 Balance 490 -300 PT 14.3 SEC (12.0-15.0) 10/07/16 13:20 INR 1.12 (0.83-1.16) 10/07/16 13:20 General; alert and oriented, no acute distress Eyes; EOMI, PERRL CV: RRR Resp: nonlabored respirations on NC, CTAB Abd: Soft, NT Ext: trace edema BLE Neuro: CN II-XII grossly intact, no asterixis Psych: cooperative, appropriate mood and affect ICD10 Worksheet Patient Problems: Problems Problem Status Onset ESBL (extended spectrum beta-lactamase) producing bacteria infection Acute ~ Renal colic on left side Acute
[2016-10-13] MEDS: MICAFUNGIN NA 100 MG in NS 100 ML IV SCH (12:18)
[2016-10-13] MEDS: CHOLECALCIFEROL VIT D3 2,000 UNITS TAB/CAP PO SCH ×2 (12:18→21:23)
[2016-10-13] MEDS: GABAPENTIN 100 MG CAP PO SCH (12:18)
[2016-10-13] MEDS: PANTOPRAZOLE SODIUM 40 MG TAB PO SCH (12:20)
[2016-10-13] MEDS: CALCIUM CARBONATE 500 MG CHEWABLE TAB PO SCH ×3 (12:20→21:24)
--- NOTE | 2016-10-13 13:30 | PCMIDPN ---
Assessment/Plan: Assessment/Plan: * Polymicrobial bacteremia with ESBL producing E coli as well as Klebsiella pneumoniae due to obstructive uropathy from ureteral stone status post nephrostomy: Continued slow clinical improvement. Planning 14 days of antibiotic therapy. This will need to continue through stone extraction which is now scheduled for Sunday. * Candidemia: PICC line and dialysis catheter both changed. Repeat cultures are negative. Continue micafungin. See above regarding duration. * Digital ischemia: No signs of superinfection present currently. * Fever: No recurrent fever since temperature to 39 degrees. Blood cultures remain negative. Continue to observe. 10/13/16 13:27 Subjective: Patient complains of numbness in digits. Objective: Vital Signs Temp Pulse Resp BP Pulse Ox 36.8 C 62 16 145/69 H 94 10/12/16 23:40 10/12/16 23:40 10/12/16 23:40 10/12/16 23:40 10/12/16 23:40 Laboratory Results 10/13/16 05:50 10/13/16 05:50 10/12/16 10/13/16 10/14/16 05:59 05:59 05:59 Intake Total 940 500 Output Total 122 301 9828 Balance 490 -300 -2800 Ertapenem # 12 Micafungin # 11 Blood cultures x2 10/12/2016 no growth - Physical Exam General Appearance: alert, no apparent distress EENT: other (Extensive oral HSV with primarily scabbing present) Extremities: necrosis (Multiple areas of distal ischemic necrosis without active infection over fingers and toes) Abdomen: non-tender, No distended ICD10 Worksheet Patient Problems: Problems Problem Status Onset ESBL (extended spectrum beta-lactamase) producing bacteria infection Acute ~ Renal colic on left side Acute
[2016-10-13] MEDS: ERTAPENEM 0.5 GM in NS 100 ML IV SCH (15:57)
[2016-10-13] MEDS: ACETAMINOPHEN 325 MG TAB PO PRN (16:05)
[2016-10-13] MEDS: ACYCLOVIR 400 MG TAB PO SCH (17:41)
--- NOTE | 2016-10-13 18:53 | SOAPPROG ---
SOAP Progress Note Assessment/Plan: Assessment:Obstructing renal stone. Cultures confirm gm negative sepsis. Repeat cultures show persistent bactereia as well as sandy. Repeat cultures are negative at 24 hours since the removal of the lines. Plan: Continue IV antibiotics and antifungal antibiotics. She will need removal of both her obstructing stone as well as the other 10mm stone as the probability is very strong that both stones are infected witih the resistant E- Coli. Will transfuse as she needs optimal oxygen carrying capacity to handle the digital injuries. 09/27/16 08:30 09/27/16 18:18 09/29/16 18:09 09/30/16 10:06 10/02/16 11:02 10/03/16 21:46 10/04/16 08:23 10/06/16 18:13 10/13/16 18:52 Subjective: Feeling fatigued. On dialysis. No chest pain or shortness of breath. Objective: Vital Signs Temp Pulse Resp BP Pulse Ox 36.8 C 57 L 18 126/68 H 97 10/13/16 17:09 10/13/16 17:09 10/13/16 17:09 10/13/16 17:09 10/13/16 17:09 Laboratory Results 10/13/16 05:50 10/13/16 05:50 10/12/16 10/13/16 10/14/16 05:59 05:59 05:59 Intake Total 940 500 Output Total 776 099 7802 Balance 490 -300 -2900 PT 14.3 SEC (12.0-15.0) 10/07/16 13:20 INR 1.12 (0.83-1.16) 10/07/16 13:20 more anemic today. Lungs stable No fever. Labs show low HGB at 7.4 ICD10 Worksheet Patient Problems: Problems Problem Status Onset ESBL (extended spectrum beta-lactamase) producing bacteria infection Acute ~ Renal colic on left side Acute
[2016-10-13] MEDS: MELATONIN 3 MG TAB PO SCH (21:24)
--- NOTE | 2016-10-13 22:12 | WOCRNPDOC ---
MELANYCRJai Advanced Assessment Note - Skin Integrity Problem, Advanced Assess Left Lateral Breast Blister Dressing Type: Adaptic Touch, Non-Bordered Foam Dressing Description: Not Intact Exudate Amount: Scant Exudate Color: Clear Exudate Characteristic(s): Serous Integumentary Issue Intervention: Dressing Changed (Replicare hydrocolloid), Dressing Initialed & Dated, Dressing Removed Laura Wound Tissue: Intact Wound Bed Constitution: Smooth Tissue Wound Edges: Epithelizing Site Odor: None Skin Integrity Problem Comment: Post, clean, healing appearance, however still c /o tenderness. Cleansed w/sterile NS and gauze; skin prepped periwound, applied a hydrocolloid dressing. Will follow up on Monday 10/16 to assess progress. Right Fifth Finger Blister Dressing Type: Christopher Dressing Description: Clean/Dry, Intact (placed earlier by NADINE Friend) Bilateral Toe Blister Dressing Type: Gauze, Christopher, Non-Bordered Foam Dressing Description: Not Intact, Shadowed Exudate Amount: Moderate Exudate Color: Clear, Yellow Exudate Characteristic(s): Serous Integumentary Issue Intervention: Dressing Changed (Cavilon skin prep to intact ; Transfer foam strips, non-bordered foam, christopher), Dressing Initialed & Dated, Dressing Removed, Barrier Cream Applied (to intact skin ) Wound Bed Constitution: Intact Serous Filled Blister, Draining Serous Blister Site Odor: None Skin Integrity Problem Comment: Less dry eschar and discoloration than observed previously; Blisters are in various stages of draining serous fluid, more than suitable at this time for gauze to be sufficient, therefore changed to transfer foam to conduct moisture away from intact tissue. Patient reports that addition of moisture barrier cream was "soothing."
[2016-10-14] MEDS: HEPARIN 5,000 UNIT/0.5 ML SYR SC SCH ×3 (05:27→23:01)
[2016-10-14] MEDS: DOCOSANOL 2 GM CREAM TP SCH ×5 (05:28→23:02)
[2016-10-14] MEDS: BENZOCAINE TP SCH ×4 (05:28→23:02)
[2016-10-14 05:55] LABS: ABSOLUTE IMMATURE GRANULOCYTES 0.07 10^3/uL (0.00-0.10); ADD DIFF? NO; ADD MORPH? NO; ADD SCAN? NO; ATYPICAL LYMPHOCYTE FLAG 20 (0-99); FRAGMENT RBC FLAG 10 (0-99); HEMATOCRIT 25.3 % (38.0-47.0); HEMOGLOBIN 8.2 g/dL (12.6-16.3); LEFT SHIFT FLG 0 (0-99); LIPEMIA HEMOLYSIS FLAG 80 (0-99); MEAN CELL HEMOGLOBIN 30.9 pg (27.9-34.1); MEAN CELL HEMOGLOBIN CONCENTR. 32.4 g/dL (32.4-36.7); MEAN CELL VOLUME 95.5 fL (81.5-99.8); MEAN PLATELET VOLUME 11.5 fL (8.7-11.7); PLATELET CLUMPS FLAG 0 (0-99); PLATELET COUNT 357 10^3/uL (150-400); RED BLOOD CELL COUNT 2.65 10^6/uL (4.18-5.33); RED CELL DISTRIBUTION WIDTH 15.8 % (11.5-15.2)
[2016-10-14 06:15] LABS: ALANINE AMINOTRANSFERASE 61 IU/L (9-52); ALBUMIN 2.1 g/dL (3.5-5.0); ALKALINE PHOSPHATASE 85 IU/L (38-126); ANION GAP 3 mEq/L (8-16); ASPARTATE AMINOTRANSFERASE 44 IU/L (14-46); BILIRUBIN,TOTAL 0.9 mg/dL (0.1-1.4); CALCIUM 8.4 mg/dL (8.5-10.4); CARBON DIOXIDE 27 mEq/l (22-31); CHLORIDE 102 mEq/L (97-110); CREATININE 2.3 mg/dL (0.6-1.0); GLOMERULAR FILTRATION RATE 20; GLUCOSE 92 mg/dL (70-100); SODIUM 132 mEq/L (134-144); TOTAL PROTEIN 4.7 g/dL (6.3-8.2)
[2016-10-14 06:30] LABS: VITAMIN D 25-HYDROXY TOTAL 17.4 ng/mL (30-100)
[2016-10-14] MEDS: MICAFUNGIN NA 100 MG in NS 100 ML IV SCH (08:45)
[2016-10-14] MEDS: CHOLECALCIFEROL VIT D3 2,000 UNITS TAB/CAP PO SCH ×2 (10:28→23:02)
[2016-10-14] MEDS: GABAPENTIN 100 MG CAP PO SCH (10:29)
[2016-10-14] MEDS: PANTOPRAZOLE SODIUM 40 MG TAB PO SCH (10:29)
[2016-10-14] MEDS: CALCIUM CARBONATE 500 MG CHEWABLE TAB PO SCH ×3 (10:30→23:02)
--- NOTE | 2016-10-14 10:36 | SOAPPROG ---
SOAP Progress Note Assessment/Plan: Assessment: 81 yo female admitted w/ obstructive stone s/p septic shock and DIC in recovery , w/ MOF - ATN/hepatitis, all improving. -LYLA - on going, 2/2 ischemic ATN likely, renal following, appreciate input, HD yesterday, possibly again Sunday if UOP not enough. Improves UOP daily. -digital necrosis 2/2 ischemia/pressors - wound care following, dressings in place, very painful on neurontin, making slow but real progress. -obstructing stone w/ esbl E coli and Kleb as above - plan for OR on Sunday - hopeful removal of both stones and nephrostomy tube as she has a resistant E coli which is difficult to cover by any po abx. Cont abx until removed. Appreciate Dr. Grady's assistance w/ this and possibly IR as well. -ESBL E coli/Kleb/candiasis - appreciate ID input, on ertapenem and micafungin. Continued until stones/nephrostomy tube removed. -hsv - on acyclovir and topical abreva/anbesol for pain prn -fever two days ago - neg bcx to date, likely mild URI infection, following closely. -dvt prohp- hep sq -PT/OT 10/14/16 11:15 Subjective: DOing better today! Dtr, son and spouse in room, did pt this am and was able to stand on one foot at a time (painfully but able to!) Objective: Vital Signs Temp Pulse Resp BP Pulse Ox 36.7 C 57 L 16 147/64 H 96 10/14/16 08:00 10/14/16 08:00 10/14/16 08:00 10/14/16 08:00 10/14/16 08:00 Laboratory Results 10/14/16 05:30 10/14/16 05:30 10/13/16 10/14/16 10/15/16 05:59 05:59 05:59 Intake Total 500 Output Total 800 3100 Balance -300 -3100 PT 14.3 SEC (12.0-15.0) 10/07/16 13:20 INR 1.12 (0.83-1.16) 10/07/16 13:20 Gen: A&O x 4, pleasant, eating breakfast, finished successful pt session this am Heent; perr, eomi, bruising on R neck getting much better Chest: slight rhonchi L, otherwise cta CV: rrr nl s1 s2 Abd soft nt nd Ext: digits looking better and better - wound care just dressed feet, but fingers less dusky, more pink and warm - Pending Discharge Pending Discharge Within 24 Hours: No ICD10 Worksheet Patient Problems: Problems Problem Status Onset ESBL (extended spectrum beta-lactamase) producing bacteria infection Acute ~ Renal colic on left side Acute
--- NOTE | 2016-10-14 12:15 | SOAPPROG ---
SOAP Progress Note Assessment/Plan: Assessment: 1. LYLA - -Likely ischemic ATN in setting of septic shock. Requiring STEAMBOAT PILOT -She is now extubated and off dobutamine and all pressors. -Was on CRRT but stopped on 10/02 and switched to intermittent HD. -Noted to have increasing UOP, had 800ml 10/12-10/13 but no UOP so far today -Monitor for recovery -HD tomorrow as stone extraction surgery planned for Sunday 2. Anemia - -s/p 1 unit PRBCs 10/13, Hgb improved -Will monitor. Plan: 10/14/16 12:12 10/14/16 12:13 10/14/16 12:14 Subjective: Feels better. Family going to take her outside. No complaints. Objective: Vital Signs Temp Pulse Resp BP Pulse Ox 36.7 C 57 L 16 147/64 H 96 10/14/16 08:00 10/14/16 08:00 10/14/16 08:00 10/14/16 08:00 10/14/16 08:00 Laboratory Results 10/14/16 05:30 10/14/16 05:30 10/13/16 10/14/16 10/15/16 05:59 05:59 05:59 Intake Total 500 Output Total 800 3100 Balance -300 -3100 PT 14.3 SEC (12.0-15.0) 10/07/16 13:20 INR 1.12 (0.83-1.16) 10/07/16 13:20 Physical Exam - Physical Exam General Appearance: WD/WN, no apparent distress Respiratory: lungs clear, normal breath sounds Cardiac/Chest: regular rate, rhythm Abdomen: soft, other (L neph tube in place, bag draining yellow urine) Extremities: swelling (1+) ICD10 Worksheet Patient Problems: Problems Problem Status Onset ESBL (extended spectrum beta-lactamase) producing bacteria infection Acute ~ Renal colic on left side Acute
--- NOTE | 2016-10-14 16:20 | SOAPPROG ---
ALIZA Progress Note Assessment/Plan: Assessment:Obstructing renal stone. Vitamin D-3 level is very low despite 10,000 IU daily replacement. Plan: Will incerase daily replacement to 20,000 IU BID with close follow up. 09/27/16 08:30 09/27/16 18:18 09/29/16 18:09 09/30/16 10:06 10/02/16 11:02 10/03/16 21:46 10/04/16 08:23 10/06/16 18:13 10/13/16 18:52 10/14/16 16:19 Objective: Vital Signs Temp Pulse Resp BP Pulse Ox 36.7 C 57 L 16 147/64 H 96 10/14/16 08:00 10/14/16 08:00 10/14/16 08:00 10/14/16 08:00 10/14/16 08:00 Laboratory Results 10/14/16 05:30 10/14/16 05:30 10/13/16 10/14/16 10/15/16 05:59 05:59 05:59 Intake Total 500 Output Total 800 3100 Balance -300 -3100 PT 14.3 SEC (12.0-15.0) 10/07/16 13:20 INR 1.12 (0.83-1.16) 10/07/16 13:20 ICD10 Worksheet Patient Problems: Problems Problem Status Onset ESBL (extended spectrum beta-lactamase) producing bacteria infection Acute ~ Renal colic on left side Acute
[2016-10-14] MEDS: ERTAPENEM 0.5 GM in NS 100 ML IV SCH (17:00)
--- NOTE | 2016-10-14 17:19 | PCMIDPN ---
Assessment/Plan: Assessment/Plan: * Polymicrobial bacteremia with ESBL producing E coli as well as Klebsiella pneumoniae due to obstructive uropathy from ureteral stone status post nephrostomy: Continue ertapenem. Plans for stone extraction on Sunday. Continue antibiotic therapy through period of stone extraction. Physiology of septic shock reviewed with patient and family. * Candidemia: PICC line and dialysis catheter both changed. Repeat cultures are negative. Continue micafungin. * Digital ischemia: No signs of superinfection present currently. * Fever: Repeat blood cultures negative without recurrent fever. 10/14/16 17:17 Subjective: Overall feels better. Complains of pain in digits. Sitting up at window having soup. Objective: Vital Signs Temp Pulse Resp BP Pulse Ox 36.4 C 55 L 14 141/73 H 99 10/14/16 16:00 10/14/16 16:00 10/14/16 16:00 10/14/16 16:00 10/14/16 16:00 Laboratory Results 10/14/16 05:30 10/14/16 05:30 10/13/16 10/14/16 10/15/16 05:59 05:59 05:59 Intake Total 500 Output Total 800 3100 Balance -300 -3100 Ertapenem # 13 Micafungin # 12 Blood cultures 10/12/2016 no growth - Physical Exam General Appearance: alert, no apparent distress EENT: No thrush Abdomen: non-tender, No distended Back: No CVA tenderness ICD10 Worksheet Patient Problems: Problems Problem Status Onset ESBL (extended spectrum beta-lactamase) producing bacteria infection Acute ~ Renal colic on left side Acute
[2016-10-14] MEDS: ACYCLOVIR 400 MG TAB PO SCH (17:22)
[2016-10-14] MEDS: MELATONIN 3 MG TAB PO SCH (23:02)
[2016-10-15] MEDS: DOCOSANOL 2 GM CREAM TP SCH ×5 (05:34→21:01)
[2016-10-15] MEDS: HEPARIN 5,000 UNIT/0.5 ML SYR SC SCH ×3 (05:35→21:01)
[2016-10-15] MEDS: BENZOCAINE TP SCH ×4 (05:35→21:01)
[2016-10-15 05:58] LABS: % IMMATURE GRANULYOCYTES 0.8 % (0.0-1.1); ABSOLUTE IMMATURE GRANULOCYTES 0.05 10^3/uL (0.00-0.10); ADD DIFF? NO; ADD MORPH? NO; ADD SCAN? NO; ATYPICAL LYMPHOCYTE FLAG 10 (0-99); FRAGMENT RBC FLAG 10 (0-99); HEMATOCRIT 25.1 % (38.0-47.0); HEMOGLOBIN 8.2 g/dL (12.6-16.3); LEFT SHIFT FLG 0 (0-99); LIPEMIA HEMOLYSIS FLAG 80 (0-99); MEAN CELL HEMOGLOBIN 31.5 pg (27.9-34.1); MEAN CELL HEMOGLOBIN CONCENTR. 32.7 g/dL (32.4-36.7); MEAN CELL VOLUME 96.5 fL (81.5-99.8); MEAN PLATELET VOLUME 11.4 fL (8.7-11.7); PLATELET CLUMPS FLAG 0 (0-99); PLATELET COUNT 336 10^3/uL (150-400)
[2016-10-15 06:09] LABS: ALANINE AMINOTRANSFERASE 62 IU/L (9-52); ALBUMIN 2.2 g/dL (3.5-5.0); ALKALINE PHOSPHATASE 88 IU/L (38-126); ANION GAP 6 mEq/L (8-16); ASPARTATE AMINOTRANSFERASE 39 IU/L (14-46); CARBON DIOXIDE 25 mEq/l (22-31); CHLORIDE 102 mEq/L (97-110); CREATININE 2.8 mg/dL (0.6-1.0); GLOMERULAR FILTRATION RATE 16; GLUCOSE 103 mg/dL (70-100); POTASSIUM 3.8 mEq/L (3.5-5.2); SODIUM 133 mEq/L (134-144); TOTAL PROTEIN 4.7 g/dL (6.3-8.2)
[2016-10-15] MEDS: MICAFUNGIN NA 100 MG in NS 100 ML IV SCH (09:36)
[2016-10-15] MEDS: PANTOPRAZOLE SODIUM 40 MG TAB PO SCH (10:46)
[2016-10-15] MEDS: CHOLECALCIFEROL VIT D3 2,000 UNITS TAB/CAP PO SCH ×2 (10:47→21:02)
[2016-10-15] MEDS: GABAPENTIN 100 MG CAP PO SCH (10:47)
[2016-10-15] MEDS: CALCIUM CARBONATE 500 MG CHEWABLE TAB PO SCH ×3 (10:50→21:02)
--- NOTE | 2016-10-15 12:06 | SOAPPROG ---
SOAP Progress Note Assessment/Plan: Assessment: 81 yo female admitted w/ obstructive stone s/p septic shock and DIC in recovery , w/ MOF - ATN/hepatitis, all improving. -LYLA - on going, 2/2 ischemic ATN likely, renal following, appreciate input, making a lot of urine this am. Yesterday renal team felt she may need HD today in preparation for surgery. Will follow. -obstructing stone w/ esbl E coli and Kleb as above w/ 10 mm additional stone and nephrostomy - plan for OR on Sunday - appreciate Dr. Grady and possible Dr. Taylor assistance with this. -ESBL E coli/Kleb/candiasis - appreciate ID input, on ertapenem and micafungin. Continued until stones/nephrostomy tube removed. -hsv - on acyclovir and topical abreva/anbesol for pain prn -fever two days ago - neg bcx to date, likely mild URI infection, following closely, has slight cough but feeling better. -dvt prohp- hep sq -PT/OT - she is requesting more and more PT! She was able to ambulate today and pt suggested we reeval her for inpt rehab. She is doing amazingly well and really wants to get going on this. Will put in rehab inpt consult and ask them to please take a fresh look at her now that she has made so much progress. 10/15/16 12:02 Subjective: Was able to walk w/ PT forwards and backwards today! Slept well. Spouse and son in room. Objective: Vital Signs Temp Pulse Resp BP Pulse Ox 36.4 C 60 18 123/94 H 95 10/14/16 22:46 10/14/16 22:46 10/14/16 22:46 10/14/16 22:46 10/14/16 22:46 Laboratory Results 10/15/16 05:30 10/15/16 05:30 10/14/16 10/15/16 10/16/16 05:59 05:59 05:59 Output Total 3100 550 200 Balance -3100 -550 -200 PT 14.3 SEC (12.0-15.0) 10/07/16 13:20 INR 1.12 (0.83-1.16) 10/07/16 13:20 Gen: A&Ox 4, pleasant, good spirits Heent: nasal cannula - down to 1L, trial off today, perr, ecchymoses resolving, blisters on lips looking better Abd: nt nd, ready for BM this am Ext: digits continuing to improve Msk: stronger - able to walk a few steps today, pumping legs and feet. - Pending Discharge Pending Discharge Within 48 Hours: No ICD10 Worksheet Patient Problems: Problems Problem Status Onset ESBL (extended spectrum beta-lactamase) producing bacteria infection Acute ~ Renal colic on left side Acute
[2016-10-15] MEDS: ERTAPENEM 0.5 GM in NS 100 ML IV SCH (16:06)
[2016-10-15] MEDS: ACYCLOVIR 400 MG TAB PO SCH (18:09)
--- NOTE | 2016-10-15 18:22 | PCMIDPN ---
Assessment/Plan: Assessment/Plan: * Polymicrobial bacteremia with ESBL producing E coli as well as Klebsiella pneumoniae due to obstructive uropathy from ureteral stone status post nephrostomy: Plans for stone extraction tomorrow. Now has completed 14 days of ertapenem. Will continue this in interim pending extraction of stones unlikely for 48 hours post stone removal. * Candidemia: See above discussion. Continue micafungin. * Digital ischemia: No signs of superinfection present currently. * Fever: No recurrent fever and repeat blood cultures remain negative. * Oral HSV: Continue daily acyclovir. 10/15/16 18:20 10/15/16 18:22 Subjective: Overall feeling better. Working with PT and OT. Scheduled for dialysis later today. Objective: Vital Signs Temp Pulse Resp BP Pulse Ox 36.4 C 60 16 166/74 H 94 10/15/16 16:00 10/15/16 16:00 10/15/16 16:00 10/15/16 16:00 10/15/16 16:00 Laboratory Results 10/15/16 05:30 10/15/16 05:30 10/14/16 10/15/16 10/16/16 05:59 05:59 05:59 Output Total 3100 550 600 Balance -3100 -550 -600 Ertapenem # 14 Micafungin # 13 Blood cultures 10/12/16 no growth - Physical Exam General Appearance: alert, no apparent distress EENT: other (Oral HSV gradually improving) Abdomen: non-tender, No distended - Line/s LUE PICC Lines: No drainage, No erythema ICD10 Worksheet Patient Problems: Problems Problem Status Onset ESBL (extended spectrum beta-lactamase) producing bacteria infection Acute ~ Renal colic on left side Acute
--- NOTE | 2016-10-15 18:29 | SOAPPROG ---
SOAP Progress Note Assessment/Plan: Assessment: 1. LYLA - -Likely ischemic ATN in setting of septic shock. Requiring GRAPHICS COORDINATOR -She is now extubated and off dobutamine and all pressors. -Was on CRRT but stopped on 10/02 and switched to intermittent HD. -Borderline oliguria -HD today as stone extraction surgery planned for Sunday -Monitor for recovery 2. Anemia - -s/p 1 unit PRBCs 10/13, Hgb improved -Will monitor. Plan: 10/15/16 18:30 Subjective: Feels well. No c/o. Objective: Vital Signs Temp Pulse Resp BP Pulse Ox 36.4 C 60 16 166/74 H 94 10/15/16 16:00 10/15/16 16:00 10/15/16 16:00 10/15/16 16:00 10/15/16 16:00 Laboratory Results 10/15/16 05:30 10/15/16 05:30 10/14/16 10/15/16 10/16/16 05:59 05:59 05:59 Output Total 3100 550 600 Balance -3100 -550 -600 PT 14.3 SEC (12.0-15.0) 10/07/16 13:20 INR 1.12 (0.83-1.16) 10/07/16 13:20 Physical Exam - Physical Exam General Appearance: WD/WN Respiratory: lungs clear, normal breath sounds Cardiac/Chest: regular rate, rhythm Abdomen: non-tender, soft, other (L neph tube draining light yellow urine) Extremities: swelling ICD10 Worksheet Patient Problems: Problems Problem Status Onset ESBL (extended spectrum beta-lactamase) producing bacteria infection Acute ~ Renal colic on left side Acute
[2016-10-15] MEDS: MELATONIN 3 MG TAB PO SCH (21:02)
[2016-10-15] MEDS ORDERED: ALTEPLASE 2 MG VIAL MISC ONE ×2 (23:30)
[2016-10-16] MEDS: BENZOCAINE TP SCH ×4 (05:13→20:56)
[2016-10-16] MEDS: DOCOSANOL 2 GM CREAM TP SCH ×5 (05:13→20:57)
[2016-10-16 05:44] LABS: % IMMATURE GRANULYOCYTES 0.8 % (0.0-1.1); ABSOLUTE IMMATURE GRANULOCYTES 0.07 10^3/uL (0.00-0.10); ADD DIFF? NO; ADD MORPH? NO; ADD SCAN? NO; ATYPICAL LYMPHOCYTE FLAG 0 (0-99); FRAGMENT RBC FLAG 0 (0-99); HEMATOCRIT 24.4 % (38.0-47.0); HEMOGLOBIN 7.8 g/dL (12.6-16.3); LEFT SHIFT FLG 0 (0-99); LIPEMIA HEMOLYSIS FLAG 80 (0-99); MEAN CELL HEMOGLOBIN 30.8 pg (27.9-34.1); MEAN CELL VOLUME 96.4 fL (81.5-99.8); MEAN PLATELET VOLUME 11.3 fL (8.7-11.7); PLATELET CLUMPS FLAG 0 (0-99); PLATELET COUNT 305 10^3/uL (150-400); RED BLOOD CELL COUNT 2.53 10^6/uL (4.18-5.33); RED CELL DISTRIBUTION WIDTH 14.6 % (11.5-15.2)
[2016-10-16 06:09] LABS: ALANINE AMINOTRANSFERASE 52 IU/L (9-52); ALBUMIN 2.1 g/dL (3.5-5.0); ALKALINE PHOSPHATASE 88 IU/L (38-126); ANION GAP 6 mEq/L (8-16); ASPARTATE AMINOTRANSFERASE 37 IU/L (14-46); BILIRUBIN,TOTAL 0.8 mg/dL (0.1-1.4); CALCIUM 8.2 mg/dL (8.5-10.4); CARBON DIOXIDE 24 mEq/l (22-31); CHLORIDE 103 mEq/L (97-110); GLOMERULAR FILTRATION RATE 15; GLUCOSE 100 mg/dL (70-100); POTASSIUM 3.9 mEq/L (3.5-5.2); SODIUM 133 mEq/L (134-144); TOTAL PROTEIN 4.8 g/dL (6.3-8.2)
[2016-10-16] MEDS: CHOLECALCIFEROL VIT D3 2,000 UNITS TAB/CAP PO SCH ×2 (08:51→20:56)
[2016-10-16] MEDS: PANTOPRAZOLE SODIUM 40 MG TAB PO SCH (08:51)
[2016-10-16] MEDS: GABAPENTIN 100 MG CAP PO SCH (08:51)
[2016-10-16] MEDS: CALCIUM CARBONATE 500 MG CHEWABLE TAB PO SCH ×3 (08:52→20:56)
[2016-10-16] MEDS: MICAFUNGIN NA 100 MG in NS 100 ML IV SCH (08:52)
[2016-10-16] MEDS ORDERED: NS 1,000 ML IV SCH (10:00)
--- NOTE | 2016-10-16 12:24 | SOAPPROG ---
SOAP Progress Note Assessment/Plan: Assessment: 1. LYLA Possibly recovering. Better UO. Slowing plateau of Cr level. Will hold HD for now and assess daily. 2. Access Line not working well. If she needs further HD, she will need new line. 3. Anemia Hg down slightly. Monitor. 4. Nephrolithiasis For extraction today 5. Ischemic digits. Supportive care 10/12/16 10:17 10/16/16 12:20 Subjective: Doing ok, in good spirits Objective: Vital Signs Temp Pulse Resp BP Pulse Ox 36.9 C 68 18 139/65 H 94 10/16/16 08:00 10/16/16 08:00 10/16/16 08:00 10/16/16 08:00 10/16/16 08:00 Laboratory Results 10/16/16 05:15 10/16/16 05:15 10/15/16 10/16/16 10/17/16 05:59 05:59 05:59 Intake Total 300 Output Total 550 750 150 Balance -550 -450 -150 PT 14.3 SEC (12.0-15.0) 10/07/16 13:20 INR 1.12 (0.83-1.16) 10/07/16 13:20 Physical Exam - Physical Exam General Appearance: no apparent distress EENT: other (zoster labialis) Neck: other (catheter exit site ok) Respiratory: lungs clear Cardiac/Chest: regular rate, rhythm Extremities: pedal edema (trace) Neuro/Psych: oriented x 3 ICD10 Worksheet Patient Problems: Problems Problem Status Onset ESBL (extended spectrum beta-lactamase) producing bacteria infection Acute ~ Renal colic on left side Acute
[2016-10-16] MEDS ORDERED: HEPARIN 50,000 UNIT/10 ML VIAL ONE (13:00)
--- NOTE | 2016-10-16 13:11 | SOAPPROG ---
SOAP Progress Note Assessment/Plan: Assessment: 81 yo female admitted w/ obstructive stone s/p septic shock and DIC in recovery , w/ MOF - ATN/hepatitis, all improving. -LYLA - on going, 2/2 ischemic ATN likely, renal following, appreciate input, increased voiding significantly over last 24 hours. Was to have HD last night / attempted again this am but line not working - is doing well and watching for now, hopeful she will be done w/ HD but if not she will need new line. -obstructing stone w/ esbl E coli and Kleb as above w/ 10 mm additional stone and nephrostomy - plan for OR today - appreciate Dr. Grady and possible Dr. Taylor assistance with this. -ESBL E coli/Kleb/candiasis - appreciate ID input, on ertapenem and micafungin. Continued until stones/nephrostomy tube removed. -hsv - on acyclovir and topical cream for pain prn -dvt prohp- hep sq -PT/OT - doing a remarkable job! Making huge strides. -anemia - hg down a bit again today, will transfuse 1 uprbc w/ upcoming surgery today. -digit ischemia - due for dressing change/wound care today, slowly improving. 10/16/16 13:07 Subjective: Doing better and better, sleeping really well, a bit anxious w/ upcoming procedure today Objective: Vital Signs Temp Pulse Resp BP Pulse Ox 36.9 C 68 18 139/65 H 94 10/16/16 08:00 10/16/16 08:00 10/16/16 08:00 10/16/16 08:00 10/16/16 08:00 Laboratory Results 10/16/16 05:15 10/16/16 05:15 10/15/16 10/16/16 10/17/16 05:59 05:59 05:59 Intake Total 300 Output Total 550 750 150 Balance -550 -450 -150 PT 14.3 SEC (12.0-15.0) 10/07/16 13:20 INR 1.12 (0.83-1.16) 10/07/16 13:20 Gen: pleasant A&O x4 Heent: has been able to maintain sats on room air for long periods Chest: cta b CV rrr nl s1 s2 Abd soft nt nd Ext: dressings in place, digits slowly improving - Pending Discharge Pending Discharge Within 24 Hours: No ICD10 Worksheet Patient Problems: Problems Problem Status Onset ESBL (extended spectrum beta-lactamase) producing bacteria infection Acute ~ Renal colic on left side Acute
[2016-10-16] MEDS ORDERED: LIDOCAINE 2% JELLY 20 ML (UROJECT) ONE (13:38)
[2016-10-16] MEDS ORDERED: IOPAMIDOL (ISOVUE-M 300) 15 ML VIAL ONE (13:38)
[2016-10-16] MEDS ORDERED: MIDAZOLAM 2 MG/2 ML VIAL IVP ONE (14:37)
--- NOTE | 2016-10-16 14:37 | PDANEPAE ---
ANE Past Medical History - Pulmonary History Hx Oxygen in Use at Home: No - Endocrine History Hx Diabetes: No - Renal History Hx Renal Disorders: Yes - Liver History Hx Hepatic Disorders: Yes - Chronic Pain History Chronic Pain: No ANE Review of Systems Review of Systems: increased urine output, improving renal function ANE Patient History - Allergies Allergies/Adverse Reactions: codeine Allergy (Verified 09/26/16 07:52) - Home Medications Home Medications: Herbals/Supplements -Info Only 1 ea PO DAILY 09/26/16 [Last Taken Unknown] Lovastatin 10 mg PO DAILY 09/26/16 [Last Taken 09/26/16] Fillmore-3 Fatty Acids [Fish Oil 1000 mg (*)] 1,000 mg PO DAILY 09/26/16 [Last Taken Unknown] amLODIPine BESYLATE [Norvasc 10 mg (*)] 10 mg PO DAILY 09/26/16 [Last Taken ] celeCOXIB [Celebrex (*)] 200 mg PO DAILY 09/26/16 [Last Taken 09/26/16] - NPO status NPO Since - Liquids (Date): 10/16/16 NPO Since - Liquids (Time): 00:00 NPO Since - Solids (Date): 10/16/16 NPO Since - Solids (Time): 00:00 - Smoking Hx Smoking Status: Never smoked ANE Labs/Vital Signs - Labs Result Diagrams: 10/16/16 05:15 10/16/16 05:15 - Vital Signs Blood Pressure: 139/65 Heart Rate: 68 Respiratory Rate: 18 O2 Sat (%): 94 Height: 162.56 cm Weight: 73.3 kg
[2016-10-16] MEDS ORDERED: LIDOCAINE 2% 100 MG/5 ML SYR ONE (14:50)
[2016-10-16] MEDS ORDERED: DEXAMETHASONE 4 MG/ML VIAL ONE (14:50)
[2016-10-16] MEDS ORDERED: ONDANSETRON 4 MG/2 ML VIAL ONE (14:50)
[2016-10-16] MEDS ORDERED: fentaNYL 100 MCG/2 ML INJ ONE ×2 (14:50→16:37)
[2016-10-16] MEDS ORDERED: PROPOFOL 200 MG/20 ML VIAL ONE (14:50)
[2016-10-16] MEDS ORDERED: NALOXONE HCL 0.4 MG/ML INJ IVP PRN (16:22)
[2016-10-16] MEDS ORDERED: ACETAMINOPHEN 500 MG TAB PO PRN (16:22)
[2016-10-16] MEDS ORDERED: fentaNYL 100 MCG/2 ML INJ IVP PRN (16:22)
[2016-10-16] MEDS ORDERED: DEXAMETHASONE 4 MG/ML VIAL IVP PRN (16:22)
[2016-10-16] MEDS ORDERED: HYDROmorphONE/DILAUDID 1 MG/ML SYR IVP PRN (16:22)
[2016-10-16] MEDS ORDERED: MEPERIDINE 25 MG/ML SYR IVP PRN (16:22)
[2016-10-16] MEDS ORDERED: OXYCODONE/APAP 5/325 TAB PO PRN (16:22)
[2016-10-16] MEDS ORDERED: ONDANSETRON 4 MG/2 ML VIAL IVP PRN (16:22)
[2016-10-16] MEDS ORDERED: HYDROCODONE/APAP 5/325 TAB PO PRN (16:22)
[2016-10-16] MEDS ORDERED: LABETALOL HCL 5 MG/ML 20 ML MDV IVP PRN (16:22)
[2016-10-16] MEDS ORDERED: PROMETHAZINE HCL 25 MG/ML INJ IVP PRN (16:22)
--- NOTE | 2016-10-16 16:26 | POSTANESTH ---
Post Anesthetic Evaluation Cardiovascular Status: Similar to Pre-Op Cond Respiratory Status: Similar to Pre-op Cond. Level of Consciousness/Mental Status: Can Participate in Eval, Mildly Sleepy, Arousable Pain Control: Adequate, Prn Tx Ordered Nausea/Vomiting Control: Adequate, Prn Tx Ordered Complications Possibly Related to Anesthesia: None Noted Notes: Doing well
[2016-10-16] MEDS: ERTAPENEM 0.5 GM in NS 100 ML IV SCH (16:33)
--- NOTE | 2016-10-16 17:31 | POSTOPPROG ---
Post Op Note Date of Operation: 10/16/16 Surgeon: Blessing Grady (# [id number]) Anesthesia: LMA Pre-op Diagnosis: 1. Left nephroureterolithiasis 2. Left neph. tube Post-op Diagnosis: 1. Left nephroureterolithiasis 2. Left neph. tube Procedure: Left ureteroscopy & nephroscopy w/ holumium laser, neph. tube removal ,stent Findings: See op note Inf/Abcess present in the surg proc area at time of surgery?: No EBL: Minimal Complications: None Specimen(s): None Text Box - Additional Text Additional Text: To reduce drainage from nephrostomy skin site, will keep indwelling Shafer for 24 hours.
--- NOTE | 2016-10-16 19:03 | PCMIDPN ---
Assessment/Plan: Assessment: septic shock -- improved markedly from admission. The patient initially grew both ESBL E coli and Klebsiella from her blood. She is covered for these by ertapenem. Subsequently she grew Adriana albicans from another culture set and lines were changed. Micafungin continues in covers this isolate well. fever -single episode 4 days ago. Unclear etiology. No fever since. No growth in blood cultures and chest x-ray normal. Nephrolithiasis -likely the initiating etiology for the above events. Patient to go to OR today for stone extraction. Plan: 1) Continue ertapenem to cover both the E coli ESBL and Klebsiella. Plan to continue both ertapenem and micafungin through stone extraction. 2) continue micafungin for now. Anticipate course as above. Subjective: Patient has gone to the operating room for stone extraction. No significant events overnight. No fevers or chills. Objective: Ertapenem # 15 Micafungin # 14 Vital Signs Temp Pulse Resp BP Pulse Ox 36.4 C 58 L 12 159/80 H 91 L 10/16/16 18:31 10/16/16 18:31 10/16/16 18:31 10/16/16 18:31 10/16/16 18:31 Laboratory Results 10/16/16 05:15 10/16/16 05:15 10/15/16 10/16/16 10/17/16 05:59 05:59 05:59 Intake Total 300 1425 Output Total 550 750 185 Balance -550 -450 1240 ICD10 Worksheet Patient Problems: Problems Problem Status Onset ESBL (extended spectrum beta-lactamase) producing bacteria infection Acute ~ Renal colic on left side Acute
[2016-10-16] MEDS: MELATONIN 3 MG TAB PO SCH (20:56)
[2016-10-16] MEDS: ACYCLOVIR 400 MG TAB PO SCH (20:57)
--- NOTE | 2016-10-17 04:51 | GOP ---
[f rep st] OPERATIVE REPORT DATE OF OPERATION: 10/16/2016 SURGEON: Blessing Grady MD ANESTHESIA: Laryngeal mask. PREOPERATIVE DIAGNOSIS: 1. Left nephroureterolithiasis. 2. Status post left-sided nephrostomy tube placement. POSTOPERATIVE DIAGNOSIS: 1. Left nephroureterolithiasis. 2. Status post left-sided nephrostomy tube placement. PROCEDURE PERFORMED: 1. Cystourethroscopy, left retrograde pyelography. 2. Left ureteroscopy and nephroscopy with holmium laser calculus lithotripsy. 3. Left nephrostomy tube removal under fluoroscopic guidance. 4. Left ureteral stent placement (4.7-Uzbek x 24 cm). FINDINGS: Calculi in the proximal ureter and renal pelvis, as noted above. SPECIMENS: None. ESTIMATED BLOOD LOSS: Minimal. INDICATIONS: This woman was identified to have obstructing left proximal ureterolithiasis, along wi th a left renal pelvic calculus, upon hospital presentation about 3 weeks ago. She then developed u nexpected septic shock. She subsequently underwent a nephrostomy tube placement, along with multipl e other life saving interventions, and now is ready to present for treatment of her stones. The ind ications for the procedures, as well as potential risks and complications, were discussed with the p atsalvatore and her family preoperatively. She appeared to understand, her questions were answered, and she wished to proceed. Written informed surgical consent was thereafter obtained. DESCRIPTION OF PROCEDURE: The patient was brought to the operating room and administered laryngeal mask anesthesia. She was carefully placed in the dorsal lithotomy position on the cystoscopic table . The genital area was sterilely prepped with Betadine scrub and paint, then draped in usual steril e fashion. Cystoscopy was performed with a 30-degree lens through a 22-Uzbek sheath. Urethra was unremarkable. Bladder revealed no abnormalities. No abnormalities. Ureteral orifices were normal in regard to shape and position along the trigone. Cone-tip catheter was used to perform retrograde pyelography on the left side. This revealed a fill ing defect in the left proximal ureter and possibly in the renal pelvis, consistent with the calculi seen on preoperative imaging. Left-sided nephrostomy tube was present in proper position and curli ng in the renal pelvis. I dilated the entire length of the ureter with a2 separate inflations and d eflations of a 10 cm balloon by maintaining a pressure of 16 atmospheres for 4 minutes on each occas ion. Before doing this, a 0.035-inch hydrophilic guidewire was advanced up the left ureter until it was seen within the renal collecting system fluoroscopically. After the ureteral dilation process was completed, a semi-rigid ureteroscopy was performed. The ure teroscope was advanced to the ureteropelvic junction. One calculus was seen just distal to the uret eropelvic junction. This was passed into the renal collecting system with simple performance of tl i-rigid ureteroscopy. I then decided to proceed with flexible ureteroscopy. A 0.035-inch superstif f Amplatz guidewire was advanced up the left ureter, through the ureteroscope, until it was seen wit hin the renal collecting system. The ureteroscope was removed, thereby keeping [address] Using fluoroscopic guidance, a 35 cm hydrophilic ureteral access sheath was advanced over the superstiff guidewire until it was at the level of the ureteropelvic junction. The inner obturator and superstiff guidewire removed, the reby keeping the outer sheath and initial 0.03- inch guidewire in place. Flexible ureteroscopy was performed through the ureteral access sheath. It appeared to be there chandu eared to be 2 calculi that were visualized and these were fragmented to completion with a 200 micron holmium laser fiber. As expected, there was a fair amount of inflammation and some exudative mater ial within the renal pelvis and surrounding these stones, as well as adherent to the nephrostomy tub e. Once the stones had been completely fragmented until it appeared that no pieces were larger than 0.5 mm, the ureteroscope was removed in tandem with the ureteral access sheath. I then turned the patient over on her left side in order to visualize the nephrostomy site. The everett ssing was removed and the suture was cut. The Amplatz guidewire was inserted through the nephrostom y tube after releasing the pigtail. Under fluoroscopic guidance, the nephrostomy tube was removed i ntact removed intact without complication. This side was eventually dressed with antibiotic ointmen t, followed by 4 x 4's and Hypafix tape. I then returned to the patient's genital region. The cystoscope was back-loaded over the remaining 0.035-inch guidewire. A 4.7-Uzbek x 24 cm hydrophilic ureteral stent was then advanced over the gu idewire until it was properly positioned and seen fluoroscopically in the kidney and cystoscopically in the bladder. The bladder was then drained of all return which was relatively clear. The instru ments were removed, and 20 cc of 2% lidocaine injected transurethrally, followed by a 16-Uzbek Fole y catheter. This was connected to bag drainage. The patient was then awakened, transferred to her bed, then taken to the recovery room. She tolerated the procedure well overall. COMPLICATIONS: None. DISPOSITION: She was transferred to the recovery room in stable condition. She will be taken back to the floor, and I will keep the Shafer catheter in place for approximately 24 hours to allow her ne phrostomy skin site dry before its removal. /[id number]/MODL
[2016-10-17] MEDS: DOCOSANOL 2 GM CREAM TP SCH ×6 (05:19→21:36)
[2016-10-17] MEDS: BENZOCAINE TP SCH ×5 (05:19→23:55)
[2016-10-17 05:43] LABS: % IMMATURE GRANULYOCYTES 0.8 % (0.0-1.1); ABSOLUTE IMMATURE GRANULOCYTES 0.07 10^3/uL (0.00-0.10); ADD DIFF? NO; ADD MORPH? NO; ADD SCAN? NO; ATYPICAL LYMPHOCYTE FLAG 30 (0-99); FRAGMENT RBC FLAG 0 (0-99); HEMATOCRIT 28.1 % (38.0-47.0); HEMOGLOBIN 8.9 g/dL (12.6-16.3); LEFT SHIFT FLG 0 (0-99); LIPEMIA HEMOLYSIS FLAG 80 (0-99); MEAN CELL HEMOGLOBIN 30.7 pg (27.9-34.1); MEAN CELL HEMOGLOBIN CONCENTR. 31.7 g/dL (32.4-36.7); MEAN CELL VOLUME 96.9 fL (81.5-99.8); MEAN PLATELET VOLUME 11.5 fL (8.7-11.7); PLATELET CLUMPS FLAG 0 (0-99); PLATELET COUNT 261 10^3/uL (150-400); RED CELL DISTRIBUTION WIDTH 14.6 % (11.5-15.2)
[2016-10-17 06:13] LABS: ANION GAP 9 mEq/L (8-16); CALCIUM 8.4 mg/dL (8.5-10.4); CARBON DIOXIDE 23 mEq/l (22-31); CHLORIDE 105 mEq/L (97-110); CREATININE 3.1 mg/dL (0.6-1.0); GLOMERULAR FILTRATION RATE 14; GLUCOSE 125 mg/dL (70-100); POTASSIUM 4.1 mEq/L (3.5-5.2); SODIUM 137 mEq/L (134-144)
--- NOTE | 2016-10-17 08:50 | SOAPPROG ---
SOAP Progress Note Assessment/Plan: Assessment: Doing very well after surgery. Stones removed and nephrostomy tube removed. kIt is unlikely that she will need further dialysis. Plan: I think she is an ideal candidate for [facility]. Will await rehab consult. 09/27/16 08:30 09/27/16 18:18 09/29/16 18:09 09/30/16 10:06 10/02/16 11:02 10/03/16 21:46 10/04/16 08:23 10/06/16 18:13 10/13/16 18:52 10/14/16 16:19 10/17/16 08:49 Subjective: Feeling good this morning. Still having significant pain in the soles of her feet. No shortness of breath. Appetite good. Objective: Vital Signs Temp Pulse Resp BP Pulse Ox 36.8 C 63 16 149/82 H 99 10/17/16 08:00 10/17/16 08:00 10/17/16 08:00 10/17/16 08:00 10/17/16 08:00 Microbiology 10/12/16 06:25 Blood Culture - Final Blood 10/12/16 06:40 Blood Culture - Final Blood Laboratory Results 10/17/16 05:15 10/17/16 05:15 10/16/16 10/17/16 10/18/16 05:59 05:59 05:59 Intake Total 300 1925 Output Total 750 735 Balance -450 1190 PT 14.3 SEC (12.0-15.0) 10/07/16 13:20 INR 1.12 (0.83-1.16) 10/07/16 13:20 Good urine output. Tender to palpation over the soles of her feet. Afebrile. Oxygen saturations are good. Bun and CR and K+ essentially stable off dialysis. COR RRR. ICD10 Worksheet Patient Problems: Problems Problem Status Onset ESBL (extended spectrum beta-lactamase) producing bacteria infection Acute ~ Renal colic on left side Acute
[2016-10-17] MEDS: CALCIUM CARBONATE 500 MG CHEWABLE TAB PO SCH ×3 (09:58→21:31)
[2016-10-17] MEDS: MICAFUNGIN NA 100 MG in NS 100 ML IV SCH (09:58)
[2016-10-17] MEDS: CHOLECALCIFEROL VIT D3 2,000 UNITS TAB/CAP PO SCH ×2 (09:58→21:31)
[2016-10-17] MEDS: PANTOPRAZOLE SODIUM 40 MG TAB PO SCH (09:58)
[2016-10-17] MEDS: GABAPENTIN 100 MG CAP PO SCH (09:58)
--- NOTE | 2016-10-17 11:02 | SOAPPROG ---
SOAP Progress Note Assessment/Plan: Assessment: 1. LYLA Cr plateauing. Hopeful she will not need further HD 2. Access Line not working well. If she needs further HD, she will need new line. 3. Anemia Better after transfusion 4. Nephrolithiasis Stone has been removed. Nephrostomy out. 5. Ischemic digits. Supportive care Subjective: Looks quite good today. Objective: Vital Signs Temp Pulse Resp BP Pulse Ox 36.8 C 63 16 149/82 H 99 10/17/16 08:00 10/17/16 08:00 10/17/16 08:00 10/17/16 08:00 10/17/16 08:00 Microbiology 10/12/16 06:25 Blood Culture - Final Blood 10/12/16 06:40 Blood Culture - Final Blood Laboratory Results 10/17/16 05:15 10/17/16 05:15 10/16/16 10/17/16 10/18/16 05:59 05:59 05:59 Intake Total 300 1925 Output Total 750 735 Balance -450 1190 PT 14.3 SEC (12.0-15.0) 10/07/16 13:20 INR 1.12 (0.83-1.16) 10/07/16 13:20 Physical Exam - Physical Exam General Appearance: no apparent distress Respiratory: decreased breath sounds Cardiac/Chest: regular rate, rhythm Extremities: other (no edema, ischemic digits noted) Neuro/Psych: oriented x 3 ICD10 Worksheet Patient Problems: Problems Problem Status Onset ESBL (extended spectrum beta-lactamase) producing bacteria infection Acute ~ Renal colic on left side Acute
--- NOTE | 2016-10-17 12:28 | PCMIDPN ---
Assessment/Plan: Assessment/Plan: 1. Polymicrobial septic shock with ESBL E.coli/Klebsiella pneumonia secondary to obstructive uropathy: - Left ureter stone s/p left nephrostomy. Stones removed yesterday along with stent placement. Nephrostomy tube removed. - Currently on Invanz. -Initial blood cx positive on 09/27/16. f/u blood cx from 10/05/16 ngtd - wbc improved. -Continue current antibiotics for only short period post stone removal procedure. -updated patient and regarding listed issues including results of labs and cultures. . - 2. Fungemia: new -f/u blood cx with C. albicans -picc line and HD catheter changed - f/u blood cx from 10/05/16 ngtd - on micafungin primarily due to #5. LFT overall improved 3. Ischemic hepatopathy: -resolved 4. Digitial ischemia: - followed by wound care. Meds invanz 500mg daily- 10/02/16 micafungin 100mg daily- 10/03/16 Subjective: afebrile. sitting up in chair, feeling overall better. Mild abd discomfort after yesterday's procedure but overall better. denies nausea, vomitinlg, no diarrhea. Denies sob. Lips improved as well. Objective: Vital Signs Temp Pulse Resp BP Pulse Ox 36.3 C 59 L 16 152/69 H 99 10/17/16 11:53 10/17/16 11:53 10/17/16 11:53 10/17/16 11:53 10/17/16 11:53 Microbiology 10/12/16 06:25 Blood Culture - Final Blood 10/12/16 06:40 Blood Culture - Final Blood Laboratory Results 10/17/16 05:15 10/17/16 05:15 10/16/16 10/17/16 10/18/16 05:59 05:59 05:59 Intake Total 300 1925 Output Total 750 735 Balance -450 1190 - Physical Exam General Appearance: alert, no apparent distress Respiratory: coarse breath sounds (mild) Cardiac/Chest: regular rate, rhythm Extremities: No swelling Abdomen: normal bowel sounds, non-tender, soft, No distended Skin: No erythema ICD10 Worksheet Patient Problems: Problems Problem Status Onset ESBL (extended spectrum beta-lactamase) producing bacteria infection Acute ~ Renal colic on left side Acute
[2016-10-17] MEDS: ERTAPENEM 0.5 GM in NS 100 ML IV SCH (15:17)
[2016-10-17] MEDS: HEPARIN 5,000 UNIT/0.5 ML SYR SC SCH ×2 (15:17→21:31)
[2016-10-17] MEDS: ACYCLOVIR 400 MG TAB PO SCH (17:38)
--- NOTE | 2016-10-17 17:46 | SOAPPROG ---
SOAP Progress Note Assessment/Plan: Assessment: 1. Polymicrobial GNR septic shock: resolved. 2. POD 1 s/p ureteroscopy and nephroscopy w/ laser lithotripsy, nephrostomy tube removal, & ureteral stent placement for obstructing left nephroureterolithiasis. Doing well postop. 3. Acute renal failure. improving. Plan: 1. Remove Shafer now (as previously ordered). 2. Remove ureteral stent in office in 2-3 weeks. clinical situation reviewed w/ pt. and in detail this evening. Subjective: No complaints. Objective: Vital Signs Temp Pulse Resp BP Pulse Ox 36.7 C 68 16 138/75 H 96 10/17/16 15:12 10/17/16 15:12 10/17/16 15:12 10/17/16 15:12 10/17/16 15:12 Microbiology 10/12/16 06:25 Blood Culture - Final Blood 10/12/16 06:40 Blood Culture - Final Blood Laboratory Results 10/17/16 05:15 10/17/16 05:15 10/16/16 10/17/16 10/18/16 05:59 05:59 05:59 Intake Total 300 1925 Output Total 750 735 Balance -450 1190 PT 14.3 SEC (12.0-15.0) 10/07/16 13:20 INR 1.12 (0.83-1.16) 10/07/16 13:20 Physical Exam - Physical Exam General Appearance: WD/WN, alert, no apparent distress Abdomen: non-tender, soft Pelvic Exam: other (urine clear via Shafer) Back: Other (nephrostomy site dressing c/d/i) Neuro/Psych: alert, normal mood/affect, oriented x 3 ICD10 Worksheet Patient Problems: Problems Problem Status Onset ESBL (extended spectrum beta-lactamase) producing bacteria infection Acute ~ Renal colic on left side Acute
[2016-10-17] MEDS: MELATONIN 3 MG TAB PO SCH (21:31)
[2016-10-18 04:52] LABS: % IMMATURE GRANULYOCYTES 1.3 % (0.0-1.1); ABSOLUTE IMMATURE GRANULOCYTES 0.12 10^3/uL (0.00-0.10); ADD DIFF? NO; ADD MORPH? NO; ADD SCAN? NO; ATYPICAL LYMPHOCYTE FLAG 0 (0-99); FRAGMENT RBC FLAG 0 (0-99); HEMATOCRIT 29.4 % (38.0-47.0); HEMOGLOBIN 9.6 g/dL (12.6-16.3); LEFT SHIFT FLG 10 (0-99); LIPEMIA HEMOLYSIS FLAG 80 (0-99); MEAN CELL HEMOGLOBIN 31.5 pg (27.9-34.1); MEAN CELL HEMOGLOBIN CONCENTR. 32.7 g/dL (32.4-36.7); MEAN CELL VOLUME 96.4 fL (81.5-99.8); MEAN PLATELET VOLUME 11.4 fL (8.7-11.7); PLATELET CLUMPS FLAG 20 (0-99); PLATELET COUNT 289 10^3/uL (150-400); RED BLOOD CELL COUNT 3.05 10^6/uL (4.18-5.33); RED CELL DISTRIBUTION WIDTH 14.5 % (11.5-15.2)
[2016-10-18] MEDS: DOCOSANOL 2 GM CREAM TP SCH ×5 (05:00→21:27)
[2016-10-18 05:26] LABS: ANION GAP 8 mEq/L (8-16); CALCIUM 8.1 mg/dL (8.5-10.4); CARBON DIOXIDE 23 mEq/l (22-31); CHLORIDE 104 mEq/L (97-110); CREATININE 2.7 mg/dL (0.6-1.0); GLOMERULAR FILTRATION RATE 17; GLUCOSE 93 mg/dL (70-100); POTASSIUM 4.2 mEq/L (3.5-5.2); SODIUM 135 mEq/L (134-144)
[2016-10-18] MEDS: BENZOCAINE TP SCH ×4 (06:00→21:27)
[2016-10-18] MEDS: HEPARIN 5,000 UNIT/0.5 ML SYR SC SCH ×3 (06:00→21:23)
--- NOTE | 2016-10-18 08:38 | SOAPPROG ---
SOVICTOR HUGO Progress Note Assessment/Plan: Assessment: Doing very well after surgery. Stones removed and nephrostomy tube removed. Kidney functions improved to the point that further dialysis is not needed. Plan: I think she is an ideal candidate for [facility]. Will await rehab consult. She could transfer as soon as dislysis catheter is removed. Need to remove dialysis catheter today. 09/27/16 08:30 09/27/16 18:18 09/29/16 18:09 09/30/16 10:06 10/02/16 11:02 10/03/16 21:46 10/04/16 08:23 10/06/16 18:13 10/13/16 18:52 10/14/16 16:19 10/17/16 08:49 10/18/16 08:38 Subjective: Feeling good. No new complaints. Slept well Objective: Vital Signs Temp Pulse Resp BP Pulse Ox 37.8 C 64 16 157/85 H 93 10/18/16 08:00 10/18/16 08:00 10/18/16 08:00 10/18/16 08:00 10/18/16 08:00 Microbiology 10/12/16 06:25 Blood Culture - Final Blood 10/12/16 06:40 Blood Culture - Final Blood Laboratory Results 10/18/16 04:35 10/18/16 04:35 10/17/16 10/18/16 10/19/16 05:59 05:59 05:59 Intake Total 1925 1300 500 Output Total 735 1300 Balance 1190 0 500 PT 14.3 SEC (12.0-15.0) 10/07/16 13:20 INR 1.12 (0.83-1.16) 10/07/16 13:20 Renal functions improved with Cr 2.7. Hgb improved. WBC normal. ICD10 Worksheet Patient Problems: Problems Problem Status Onset ESBL (extended spectrum beta-lactamase) producing bacteria infection Acute ~ Renal colic on left side Acute
[2016-10-18] MEDS: PANTOPRAZOLE SODIUM 40 MG TAB PO SCH (09:22)
[2016-10-18] MEDS: CALCIUM CARBONATE 500 MG CHEWABLE TAB PO SCH ×3 (09:22→21:22)
[2016-10-18] MEDS: CHOLECALCIFEROL VIT D3 2,000 UNITS TAB/CAP PO SCH ×2 (09:22→21:22)
[2016-10-18] MEDS: MICAFUNGIN NA 100 MG in NS 100 ML IV SCH (09:22)
[2016-10-18] MEDS: GABAPENTIN 100 MG CAP PO SCH (09:23)
--- NOTE | 2016-10-18 13:41 | WOCRNPDOC ---
JON Advanced Assessment Note - Skin Integrity Problem, Advanced Assess Left Lateral Breast Blister Dressing Type: Hydrocolloid Dressing Description: Clean/Dry, Intact Exudate Amount: None Integumentary Issue Intervention: Dressing Removed Laura Wound Tissue: Intact Laura Wound Swelling: None Wound Bed Constitution: Healed Site Odor: None Skin Integrity Problem Comment: [place], intact new scar tissue: dressing DC'd. Right Fifth Finger Blister Dressing Type: Adaptic Touch, Christopher, Non-Bordered Foam Dressing Description: Clean/Dry, Intact Exudate Amount: Minimal Exudate Color: Yellow, Red Exudate Characteristic(s): Serosanguinous Integumentary Issue Intervention: Dressing Changed (Adaptic; Transfer foam in place of non-bordered, for brass bobbin winder dressing), Dressing Initialed & Dated, Barrier Cream Applied (Cavilon to intact periwound) Laura Wound Tissue: Ecchymotic, Raw, Thin Laura Wound Swelling: None Wound Bed Color: Blue, Purple, Red Wound Bed Constitution: Draining Sangenous Blister Wound Edges: Irregular Site Odor: None Skin Integrity Problem Comment: (Late Entry) Serosanguinous drainage seeping from small tears in gradually deflating roof of blister. Overall color of digit tissue continues to be dusky. Periwound tissue tone appears to be improving. Continuing current dressing change plan. Report on care to NADINE Dutton. Bilateral Toes Blisters Dressing Type: Christopher, Mepilex Transfer Dressing Description: Shadowed Exudate Amount: Moderate Exudate Color: Yellow, Red Exudate Characteristic(s): Dried, Serosanguinous Integumentary Issue Intervention: Dressing Changed (Mepilex Transfer foam, christopher wrap), Dressing Initialed & Dated, Barrier Cream Applied (Calazime to intact) Laura Wound Tissue: Ecchymotic, Swollen, Thin Wound Bed Color: Blue, Purple, Red Wound Bed Constitution: Draining Sangenous Blister Wound Edges: Irregular Site Odor: None Skin Integrity Problem Comment: Serosanguinous drainage seeping from tearing roofs of blisters, becoming partially deroofed. Overall color of digits continues to be ecchymotic/dusky. Periwound tissue tone appears to be improving. Continuing current dressing change plan. Report on care to NADINE Dutton.
--- NOTE | 2016-10-18 14:38 | PCMIDPN ---
Assessment/Plan: # Polymicrobial bacteremia with ESBL E coli, Klebsiella, and Adriana albicans. Source obstructive uropathy and left pyelonephritis but oddly sample from left kidney only grew ESBL E coli. Once Adriana albicans isolated to be cautious, all lines were changed. 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 epi 09/30/16 Blood culture (1 set): ESBL Escherichia Coli, Adriana Albicans 09/27/16 left kidney aspirate ESBL E coli 09/27/16 Urine,Catheterized Enterococcus Faecalis 09/27/16 Blood culture (2 sets): Escherichia Coli Esbl, Klebsiella Pneumoniae medications micafungin 100mg IV daily ertapenem 500mg IV daily Subjective: Patient frustrated by gradual improvement in strength. She states improvements are limited by pain in her feet. No diarrhea Son at bedside throughout exam and history Nephrostomy and Thornton removed Objective: Vital Signs Temp Pulse Resp BP Pulse Ox 36.8 C 87 18 136/81 H 93 10/18/16 11:21 10/18/16 11:21 10/18/16 11:21 10/18/16 11:21 10/18/16 11:21 Laboratory Results 10/18/16 04:35 10/18/16 04:35 10/17/16 10/18/16 10/19/16 05:59 05:59 05:59 Intake Total 1925 1300 1000 Output Total 735 1300 701 Balance 1190 0 299 - Physical Exam General Appearance: alert, no apparent distress EENT: other (Scab persistent middle upper lip but much improved) Respiratory: lungs clear, No accessory muscle use Neck: supple Cardiac/Chest: regular rate, rhythm Extremities: pedal edema, No calf tenderness Abdomen: non-tender, soft Pelvic Exam: No thornton Skin: other (Ischemic lesions on hands and feet bilaterally, general improvement with less dark discoloration), No rash Neuro/Psych: alert, normal mood/affect, oriented x 3 - Line/s RUE PICC Lines: No drainage, No erythema Mcnamara Lines: No drainage, No erythema - Time Spent With Patient Time Spent with Patient: greater than 35 minutes Time Spent with Patient: Greater than 35 minutes spent on this patients care, greater than 50% of time spent counseling, educating, and coordinating care regarding the above mentioned plan. ICD10 Worksheet Patient Problems: Problems Problem Status Onset ESBL (extended spectrum beta-lactamase) producing bacteria infection Acute ~ Renal colic on left side Acute
--- NOTE | 2016-10-18 17:28 | SOAPPROG ---
SOAP Progress Note Assessment/Plan: Assessment: 1. LYLA. Ischemia/NSAIDs/IV contrast. Nonoliguric. Creat now coming down. Have asked Dr. Fernandes to remove HD catheter tomorrow. 2. Urosepsis. Polymicrobial, due to obstructed L kidney stone. Continue invanz, micafungin per ID. Final day tomorrow. 3. Obstructing left ureteral stone. s/p stone removal/ureteral stent POD # 2. Plan: 09/28/16 08:25 09/28/16 08:27 09/29/16 09:46 09/29/16 09:47 09/29/16 09:51 10/04/16 08:56 10/04/16 08:56 10/04/16 08:58 10/04/16 08:59 10/04/16 09:00 10/18/16 17:27 10/18/16 17:28 Subjective: Eating well. Walked back to chair from BR. Happy with progress. Objective: Vital Signs Temp Pulse Resp BP Pulse Ox 36.3 C 77 18 166/94 H 95 10/18/16 16:00 10/18/16 16:00 10/18/16 16:00 10/18/16 16:00 10/18/16 16:00 Laboratory Results 10/18/16 04:35 10/18/16 04:35 10/17/16 10/18/16 10/19/16 05:59 05:59 05:59 Intake Total 1925 1300 1000 Output Total 735 1300 701 Balance 1190 0 299 PT 14.3 SEC (12.0-15.0) 10/07/16 13:20 INR 1.12 (0.83-1.16) 10/07/16 13:20 Tired, weak but ambulating with walker on own; wf crusted 1 cm lesion on upper lip RRR, no m/g/r L SC temp dialysis catheter CTAB Abdom soft, nontender Several ischemic digits, more pronounced on R hand Tr ankle pitting edema ICD10 Worksheet Patient Problems: Problems Problem Status Onset ESBL (extended spectrum beta-lactamase) producing bacteria infection Acute ~ Renal colic on left side Acute
[2016-10-18] MEDS: ACYCLOVIR 400 MG TAB PO SCH (18:19)
[2016-10-18] MEDS: ERTAPENEM 0.5 GM in NS 100 ML IV SCH (18:19)
[2016-10-18] MEDS: MELATONIN 3 MG TAB PO SCH (21:22)
[2016-10-19 05:00] LABS: HEMATOCRIT 26.6 % (38.0-47.0); HEMOGLOBIN 8.8 g/dL (12.6-16.3); MEAN CELL HEMOGLOBIN 31.9 pg (27.9-34.1); MEAN CELL HEMOGLOBIN CONCENTR. 33.1 g/dL (32.4-36.7); MEAN CELL VOLUME 96.4 fL (81.5-99.8); RED BLOOD CELL COUNT 2.76 10^6/uL (4.18-5.33); RED CELL DISTRIBUTION WIDTH 14.3 % (11.5-15.2)
[2016-10-19 05:14] LABS: ANION GAP 7 mEq/L (8-16); CALCIUM 8.1 mg/dL (8.5-10.4); CARBON DIOXIDE 24 mEq/l (22-31); CHLORIDE 105 mEq/L (97-110); CREATININE 2.4 mg/dL (0.6-1.0); GLOMERULAR FILTRATION RATE 19; GLUCOSE 102 mg/dL (70-100); POTASSIUM 3.9 mEq/L (3.5-5.2); SODIUM 136 mEq/L (134-144)
[2016-10-19] MEDS: ACETAMINOPHEN 325 MG TAB PO PRN (05:56)
[2016-10-19] MEDS: DOCOSANOL 2 GM CREAM TP SCH ×6 (05:59→21:20)
[2016-10-19] MEDS: BENZOCAINE TP SCH ×4 (06:19→21:21)
[2016-10-19] MEDS: GABAPENTIN 100 MG CAP PO SCH (09:59)
[2016-10-19] MEDS: PANTOPRAZOLE SODIUM 40 MG TAB PO SCH (09:59)
[2016-10-19] MEDS: CALCIUM CARBONATE 500 MG CHEWABLE TAB PO SCH ×3 (09:59→21:16)
[2016-10-19] MEDS: MICAFUNGIN NA 100 MG in NS 100 ML IV SCH (09:59)
--- NOTE | 2016-10-19 14:03 | SOAPPROG ---
SOAP Progress Note Assessment/Plan: Assessment: 81 yo female admitted w/ obstructive stone s/p septic shock and DIC in recovery , w/ MOF - ATN/lyla resolving well. DID have fever overnight. -LYLA - making remarkable recovery - Cr down again today, UOP great. Getting prior HD line out right now with Dr. Fernandes. -ESBL E coli/Kleb/candiasis - appreciate ID input, on ertapenem and micafungin - is to complete course today however, did have fever overnight and may easily still be voiding pieces of stones from lithotripsy - ? if due to fever if she should continue abx for a few more days? Will dw ID, appreciate input. -hsv - on acyclovir, will complete 10 d course, doing much better. -dvt prohp- hep sq -PT/OT - PT unable to work w / pt yesterday w/ conflicts w/ other events, hoping for PT today, pt really wants to continue work. -anemia - stable -digit ischemia - per wound care, new dressings last night, improving. -dispo - did have fever overnight - getting central line out today - cautious w / dispo want to make sure stable when comes off abx. Still weak but getting stronger. Ultimately in a few days she will hopefully be ready for [facility]. Appreciate case mngt assistance. 10/16/16 13:07 10/19/16 13:56 Subjective: Sleeping in this am, was up w/ son late last night. Objective: Vital Signs Temp Pulse Resp BP Pulse Ox 36.4 C 55 L 18 173/86 H 91 L 10/19/16 11:40 10/19/16 11:40 10/19/16 11:40 10/19/16 11:40 10/19/16 11:40 Laboratory Results 10/19/16 04:50 10/19/16 04:50 10/18/16 10/19/16 10/20/16 05:59 05:59 05:59 Intake Total 1300 1850 Output Total 1300 1801 Balance 0 49 PT 14.3 SEC (12.0-15.0) 10/07/16 13:20 INR 1.12 (0.83-1.16) 10/07/16 13:20 Gen: pleasant, just waking up oriented, c/o feeling hot overnight but better now HEENT: nasal cannula, blisters on lips improved CV: RRR, line in place L chest but Dr Fernandes present and will be removing Abd soft nt nd Ext: digits slowly continuing to improve - Pending Discharge Pending Discharge Within 24 Hours: No ICD10 Worksheet Patient Problems: Problems Problem Status Onset ESBL (extended spectrum beta-lactamase) producing bacteria infection Acute ~ Renal colic on left side Acute
[2016-10-19] MEDS: CHOLECALCIFEROL VIT D3 2,000 UNITS TAB/CAP PO SCH ×2 (14:42→21:16)
--- NOTE | 2016-10-19 15:41 | PCMIDPN ---
Assessment/Plan: # Polymicrobial bacteremia with ESBL E coli, Klebsiella, and Adriana albicans. Source obstructive uropathy and left pyelonephritis; 10/05/16 show clearance of bacteremia. lines were changed at time of candidemia. Stones are removed residual material characterized as "sand" and would not be detectable by patient --day 1414 of IV antifungal/antibiotic from negative blood cx; stop date today , 10/19/16, MAR adjusted # Fever, normal white count, no localizing symptoms except for left leg pain. -- Left leg pain and swelling, rule out DVT -- monitor fever curve off antibiotics (today was the last day of antibiotics) -- repeat blood cx if recurrent fever, could consider line infection. 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 epi 09/30/16 Blood culture (1 set): ESBL Escherichia Coli, Adriana Albicans 09/27/16 left kidney aspirate ESBL E coli 09/27/16 Urine,Catheterized Enterococcus Faecalis 09/27/16 Blood culture (2 sets): Escherichia Coli Esbl, Klebsiella Pneumoniae medications micafungin 100mg IV daily ertapenem 500mg IV daily case reviewed with Dr. Grady and Dr. Agosto Subjective: Patient describes some left leg pain that is limiting her rehab She feels a bit tired this afternoon Denies shortness of breath, cough, abdominal pain, diarrhea Objective: Vital Signs Temp Pulse Resp BP Pulse Ox 36.4 C 55 L 18 173/86 H 91 L 10/19/16 11:40 10/19/16 11:40 10/19/16 11:40 10/19/16 11:40 10/19/16 11:40 Laboratory Results 10/19/16 04:50 10/19/16 04:50 10/18/16 10/19/16 10/20/16 05:59 05:59 05:59 Intake Total 1300 1850 Output Total 1300 1801 Balance 0 49 - Physical Exam General Appearance: alert, no apparent distress EENT: other (Upper lip continues to crust over and healed) Respiratory: other (Decreased breath sounds in the base), No accessory muscle use Neck: supple Cardiac/Chest: regular rate, rhythm, other (Dressing in place in the left upper chest at site of removal of hemodialysis catheter) Extremities: swelling (Left lower extremity with associated mild tenderness), No erythema Abdomen: non-tender, soft Pelvic Exam: No thornton Skin: No rash Neuro/Psych: alert, normal mood/affect, oriented x 3 - Line/s RUE PICC Lines: No drainage, No erythema - Time Spent With Patient Time Spent with Patient: greater than 35 minutes Time Spent with Patient: Greater than 35 minutes spent on this patients care, greater than 50% of time spent counseling, educating, and coordinating care regarding the above mentioned plan. ICD10 Worksheet Patient Problems: Problems Problem Status Onset ESBL (extended spectrum beta-lactamase) producing bacteria infection Acute ~ Renal colic on left side Acute
--- NOTE | 2016-10-19 16:49 | SOAPPROG ---
SOAP Progress Note Assessment/Plan: Assessment: LYLA resolving zoster lip infection ureteral obstruction Plan: HD cath out today continue therapies follow lytes vol and renal function encouraged nutrition and physical rehab 10/19/16 16:46 Subjective: at bedside spirits good denies fever chills nausea or vomiting still with pain in her hands and feet from ischemia trying to eat as best she can Objective: Vital Signs Temp Pulse Resp BP Pulse Ox 36.4 C 64 16 164/93 H 90 L 10/19/16 15:46 10/19/16 15:46 10/19/16 15:46 10/19/16 15:46 10/19/16 15:46 Laboratory Results 10/19/16 04:50 10/19/16 04:50 10/18/16 10/19/16 10/20/16 05:59 05:59 05:59 Intake Total 1300 1850 Output Total 1300 1801 Balance 0 49 PT 14.3 SEC (12.0-15.0) 10/07/16 13:20 INR 1.12 (0.83-1.16) 10/07/16 13:20 Physical Exam - Physical Exam General Appearance: alert, other (ill appearing) Respiratory: No crackles, No wheezing Cardiac/Chest: regular rate, rhythm, No friction rub Abdomen: normal bowel sounds, non-tender, soft Skin: other (herpetic lesion on lip) Extremities: swelling Neuro/Psych: alert, normal mood/affect, oriented x 3 ICD10 Worksheet Patient Problems: Problems Problem Status Onset ESBL (extended spectrum beta-lactamase) producing bacteria infection Acute ~ Renal colic on left side Acute
--- NOTE | 2016-10-19 16:52 | SOAPPROG ---
ALIZA Progress Note Assessment/Plan: Assessment: pts dialysis catheter occluded and not functioning risks and options fully discussed and she wishes to proceed coags ok Plan:replace with flouro guidance 10/07/16 15:19 10/19/16 16:50 DOING MUCH BETTER / RENAL FUNCTION IMPROVING / CREATININE 2.4 /URINE OUTPUT GOOD / DIALYSIS CATHETER REMOVED WITHOUT DIFFICULTY Objective: Vital Signs Temp Pulse Resp BP Pulse Ox 36.4 C 64 16 164/93 H 90 L 10/19/16 15:46 10/19/16 15:46 10/19/16 15:46 10/19/16 15:46 10/19/16 15:46 Laboratory Results 10/19/16 04:50 10/19/16 04:50 10/18/16 10/19/16 10/20/16 05:59 05:59 05:59 Intake Total 1300 1850 Output Total 1300 1801 Balance 0 49 PT 14.3 SEC (12.0-15.0) 10/07/16 13:20 INR 1.12 (0.83-1.16) 10/07/16 13:20 ICD10 Worksheet Patient Problems: Problems Problem Status Onset ESBL (extended spectrum beta-lactamase) producing bacteria infection Acute ~ Renal colic on left side Acute
[2016-10-19] MEDS: ERTAPENEM 0.5 GM in NS 100 ML IV SCH (17:12)
[2016-10-19] MEDS: ACYCLOVIR 400 MG TAB PO SCH (17:12)
[2016-10-19] MEDS: MELATONIN 3 MG TAB PO SCH (21:16)
[2016-10-19] MEDS: HEPARIN 5,000 UNIT/0.5 ML SYR SC SCH (21:17)
[2016-10-20] MEDS: HEPARIN 5,000 UNIT/0.5 ML SYR SC SCH ×3 (05:06→21:41)
[2016-10-20] MEDS: DOCOSANOL 2 GM CREAM TP SCH ×5 (05:11→22:04)
[2016-10-20] MEDS: BENZOCAINE TP SCH ×4 (05:11→22:03)
[2016-10-20 05:26] LABS: HEMATOCRIT 25.5 % (38.0-47.0); HEMOGLOBIN 8.5 g/dL (12.6-16.3); MEAN CELL HEMOGLOBIN 32.3 pg (27.9-34.1); MEAN CELL HEMOGLOBIN CONCENTR. 33.3 g/dL (32.4-36.7); RED BLOOD CELL COUNT 2.63 10^6/uL (4.18-5.33); RED CELL DISTRIBUTION WIDTH 14.1 % (11.5-15.2)
[2016-10-20 05:30] LABS: ANION GAP 6 mEq/L (8-16); CALCIUM 7.9 mg/dL (8.5-10.4); CARBON DIOXIDE 25 mEq/l (22-31); CHLORIDE 106 mEq/L (97-110); GLOMERULAR FILTRATION RATE 24; GLUCOSE 104 mg/dL (70-100); POTASSIUM 3.9 mEq/L (3.5-5.2); SODIUM 137 mEq/L (134-144)
--- NOTE | 2016-10-20 08:40 | SOAPPROG ---
SOAP Progress Note Assessment/Plan: Assessment: Plan: 10/20/16 08:40 LYLA with continued improvement HTN--previous to catastrophe was on antihypertensives including amlodipine, resuming low dose may help tissue healing with vasodilation and BP control, will discuss with Dr Agosto weakness--continue PT/OT distal tissue injury--continue wound care anemia--check further labs, encourage protein consumption fever within past 48 hours--follow closely will need rehabm, not ready yet Subjective: The patient admits to heaviness in her legs as limiting her walking progress. Historically she was on Celebrex for left ankle and left knee pain. These joints are giving her some discomfort as well. Feet moderately challenging to walk on. Fingers with distal numbness but gradually less pain and better rom. She is tired. No SOB, no F/C/rigors, appetite low but improving Objective: Vital Signs Temp Pulse Resp BP Pulse Ox 37.5 C 77 18 153/73 H 96 10/20/16 03:06 10/20/16 08:00 10/20/16 08:00 10/20/16 08:00 10/20/16 08:00 Laboratory Results 10/20/16 05:08 10/20/16 05:08 10/19/16 10/20/16 10/21/16 05:59 05:59 05:59 Intake Total 1850 3700 Output Total 1801 2050 Balance 49 1650 PT 14.3 SEC (12.0-15.0) 10/07/16 13:20 INR 1.12 (0.83-1.16) 10/07/16 13:20 Gen: I woke patient up at start of interview, pleasant, sleepy. HEENT: lip swelling likely improving dramatically Lungs: diminished but clear, am throat congestion clears Heart: RRR Abd + bs, soft NT Ext: hypoperfusion damages diffusely, some serous drainage on toes Hgb stable to slightly lower, WBC great, BMP continues to improve ICD10 Worksheet Patient Problems: Problems Problem Status Onset ESBL (extended spectrum beta-lactamase) producing bacteria infection Acute ~ Renal colic on left side Acute
[2016-10-20 08:59] LABS: HEMATOCRIT 26.5 % (38.0-47.0)
--- NOTE | 2016-10-20 09:05 | SOAPPROG ---
SOAP Progress Note Assessment/Plan: Assessment: 1. LYLA. Ischemia/NSAIDs/IV contrast. Nonoliguric. Creat now coming down- improved to 2.0 today, good UOP HD cath now out 2. Urosepsis. Polymicrobial, due to obstructed L kidney stone. Completed course antibiotics per ID 3. Obstructing left ureteral stone. s/p stone removal/ureteral stent 4. Anemia- iron stores low, would benefit from replacement when sure infectious issues ok 5. Deconditioning- for SNF for further rehab, I encouraged her to use IS 6. 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 Cr improved. Fingertips still numb. No n/v, sob. Objective: Vital Signs Temp Pulse Resp BP Pulse Ox 37.5 C 77 18 153/73 H 96 10/20/16 03:06 10/20/16 08:00 10/20/16 08:00 10/20/16 08:00 10/20/16 08:00 Laboratory Results 10/20/16 05:08 10/20/16 05:08 10/19/16 10/20/16 10/21/16 05:59 05:59 05:59 Intake Total 1850 3700 Output Total 1801 2050 Balance 49 1650 PT 14.3 SEC (12.0-15.0) 10/07/16 13:20 INR 1.12 (0.83-1.16) 10/07/16 13:20 Physical Exam - Physical Exam General Appearance: no apparent distress, other (on O2 by NC, not tachypneic) EENT: other (mmm) Neck: other (LIJ cath prior site c/d/i. bandage on) Respiratory: crackles (faint at bases bilat) Cardiac/Chest: regular rate, rhythm Abdomen: normal bowel sounds, non-tender, soft Extremities: other (fingertips with ischemic lesions) Neuro/Psych: alert ICD10 Worksheet Patient Problems: Problems Problem Status Onset ESBL (extended spectrum beta-lactamase) producing bacteria infection Acute ~ Renal colic on left side Acute
[2016-10-20 09:18] LABS: % SATURATION 16 % (20-55); TOTAL IRON BINDING CAPACITY 184 ug/dL (260-490)
[2016-10-20] MEDS: CALCIUM CARBONATE 500 MG CHEWABLE TAB PO SCH ×3 (10:31→21:41)
[2016-10-20] MEDS: CHOLECALCIFEROL VIT D3 2,000 UNITS TAB/CAP PO SCH ×2 (10:31→21:41)
[2016-10-20] MEDS: GABAPENTIN 100 MG CAP PO SCH (10:32)
[2016-10-20] MEDS: PANTOPRAZOLE SODIUM 40 MG TAB PO SCH (10:33)
[2016-10-20] MEDS: SODIUM FERRIC GLUCONAT/SUCROSE 125 MG in NS 100 ML IV SCH (14:11)
[2016-10-20] MEDS: ACYCLOVIR 400 MG TAB PO SCH (17:43)
[2016-10-20] MEDS: MELATONIN 3 MG TAB PO SCH (21:42)
[2016-10-21] MEDS: HEPARIN 5,000 UNIT/0.5 ML SYR SC SCH ×3 (05:32→21:21)
[2016-10-21] MEDS: DOCOSANOL 2 GM CREAM TP SCH ×5 (05:38→23:07)
[2016-10-21] MEDS: BENZOCAINE TP SCH (05:38)
[2016-10-21 05:49] LABS: % IMMATURE GRANULYOCYTES 1.2 % (0.0-1.1); ABSOLUTE IMMATURE GRANULOCYTES 0.07 10^3/uL (0.00-0.10); ADD DIFF? NO; ADD MORPH? NO; ADD SCAN? NO; ATYPICAL LYMPHOCYTE FLAG 40 (0-99); FRAGMENT RBC FLAG 0 (0-99); HEMATOCRIT 26.8 % (38.0-47.0); HEMOGLOBIN 8.6 g/dL (12.6-16.3); LEFT SHIFT FLG 10 (0-99); LIPEMIA HEMOLYSIS FLAG 80 (0-99); MEAN CELL HEMOGLOBIN 31.5 pg (27.9-34.1); MEAN CELL HEMOGLOBIN CONCENTR. 32.1 g/dL (32.4-36.7); MEAN CELL VOLUME 98.2 fL (81.5-99.8); MEAN PLATELET VOLUME 11.1 fL (8.7-11.7); PLATELET CLUMPS FLAG 10 (0-99); PLATELET COUNT 308 10^3/uL (150-400); RED BLOOD CELL COUNT 2.73 10^6/uL (4.18-5.33)
[2016-10-21 06:11] LABS: ALANINE AMINOTRANSFERASE 49 IU/L (9-52); ALBUMIN 2.3 g/dL (3.5-5.0); ALKALINE PHOSPHATASE 95 IU/L (38-126); ANION GAP 9 mEq/L (8-16); ASPARTATE AMINOTRANSFERASE 35 IU/L (14-46); BILIRUBIN,TOTAL 0.8 mg/dL (0.1-1.4); CARBON DIOXIDE 25 mEq/l (22-31); CHLORIDE 105 mEq/L (97-110); CREATININE 1.7 mg/dL (0.6-1.0); GLOMERULAR FILTRATION RATE 29; GLUCOSE 107 mg/dL (70-100); POTASSIUM 3.4 mEq/L (3.5-5.2); SODIUM 139 mEq/L (134-144)
[2016-10-21] MEDS: CHOLECALCIFEROL VIT D3 2,000 UNITS TAB/CAP PO SCH ×2 (09:23→21:18)
[2016-10-21] MEDS: PANTOPRAZOLE SODIUM 40 MG TAB PO SCH (09:23)
[2016-10-21] MEDS: SODIUM FERRIC GLUCONAT/SUCROSE 125 MG in NS 100 ML IV SCH (09:23)
[2016-10-21] MEDS: CALCIUM CARBONATE 500 MG CHEWABLE TAB PO SCH (09:23)
[2016-10-21] MEDS: GABAPENTIN 100 MG CAP PO SCH (09:23)
[2016-10-21] MEDS ORDERED: GUAIFENESIN/DM 10 ML UDCUP PO PRN (10:09)
[2016-10-21] MEDS: POTASSIUM CL 10 MEQ TAB PO SCH ×2 (11:01→21:18)
--- NOTE | 2016-10-21 13:20 | SOAPPROG ---
SOAP Progress Note Assessment/Plan: Assessment: 1. LYLA. Ischemia/NSAIDs/IV contrast. Nonoliguric, improving- Cr down to 1.7 with good UOP Replete K now HD cath now out 2. Urosepsis. Polymicrobial, due to obstructed L kidney stone. Completed course antibiotics per ID 3. Obstructing left ureteral stone. s/p stone removal/ureteral stent -would avoid scheduled Ca replacement- her CA is ok with albumin correction- I have stopped it 4. Anemia- iron stores low, would benefit from replacement when sure infectious issues ok 5. Deconditioning- for SNF for further rehab, I encouraged her to use IS 6. HTN- amlodipine restarted- would titrate upwards a We will sign off now but please call with any questions. thanks for consulting us! 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 No sob. BP still on higher side. Cr improving. Objective: Vital Signs Temp Pulse Resp BP Pulse Ox 36.8 C 81 18 169/72 H 84 L 10/21/16 08:00 10/21/16 08:00 10/21/16 08:00 10/21/16 08:00 10/21/16 08:00 Laboratory Results 10/21/16 05:40 10/21/16 05:40 10/20/16 10/21/16 10/22/16 05:59 05:59 05:59 Intake Total 3700 950 Output Total 2050 2800 Balance 1650 -1850 PT 14.3 SEC (12.0-15.0) 10/07/16 13:20 INR 1.12 (0.83-1.16) 10/07/16 13:20 Physical Exam - Physical Exam General Appearance: alert, no apparent distress Cardiac/Chest: regular rate, rhythm Neuro/Psych: alert, oriented x 3 ICD10 Worksheet Patient Problems: Problems Problem Status Onset ESBL (extended spectrum beta-lactamase) producing bacteria infection Acute ~ Renal colic on left side Acute
[2016-10-21] MEDS: MELATONIN 3 MG TAB PO SCH (21:19)
[2016-10-22 05:17] LABS: % IMMATURE GRANULYOCYTES 1.5 % (0.0-1.1); ADD DIFF? NO; ADD MORPH? NO; ADD SCAN? NO; ATYPICAL LYMPHOCYTE FLAG 40 (0-99); FRAGMENT RBC FLAG 0 (0-99); HEMATOCRIT 27.7 % (38.0-47.0); HEMOGLOBIN 8.8 g/dL (12.6-16.3); LEFT SHIFT FLG 10 (0-99); LIPEMIA HEMOLYSIS FLAG 80 (0-99); MEAN CELL HEMOGLOBIN 31.2 pg (27.9-34.1); MEAN CELL HEMOGLOBIN CONCENTR. 31.8 g/dL (32.4-36.7); MEAN CELL VOLUME 98.2 fL (81.5-99.8); MEAN PLATELET VOLUME 11.1 fL (8.7-11.7); PLATELET CLUMPS FLAG 0 (0-99); PLATELET COUNT 334 10^3/uL (150-400); RED BLOOD CELL COUNT 2.82 10^6/uL (4.18-5.33); RED CELL DISTRIBUTION WIDTH 13.9 % (11.5-15.2)
[2016-10-22] MEDS: HEPARIN 5,000 UNIT/0.5 ML SYR SC SCH ×3 (05:21→21:22)
[2016-10-22 05:28] LABS: ANION GAP 8 mEq/L (8-16); CALCIUM 8.5 mg/dL (8.5-10.4); CARBON DIOXIDE 24 mEq/l (22-31); CHLORIDE 107 mEq/L (97-110); CREATININE 1.6 mg/dL (0.6-1.0); GLOMERULAR FILTRATION RATE 31; GLUCOSE 116 mg/dL (70-100); POTASSIUM 3.9 mEq/L (3.5-5.2); SODIUM 139 mEq/L (134-144)
[2016-10-22] MEDS: DOCOSANOL 2 GM CREAM TP SCH (05:40)
--- NOTE | 2016-10-22 07:29 | SOAPPROG ---
SOAP Progress Note Assessment/Plan: Assessment: Plan: 10/20/16 08:40 LYLA with continued improvement HTN--previous to catastrophe was on antihypertensives including amlodipine, resuming low dose may help tissue healing with vasodilation and BP control, will discuss with Dr Agosto weakness--continue PT/OT distal tissue injury--continue wound care anemia--check further labs, encourage protein consumption fever within past 48 hours--follow closely will need rehabm, not ready yet 10/22/16 07:27 LYLA--nicely steady improvement HTN, renal stones, edema--add 12.5 mg of chlorthalidone daily, follow BMP peripheral ischemic injuries--improving--update wound care for new direction as/ if needed for Tx at SNF anemia--improving with fe replacement constipation--LOC incontinence--frustrating for patient Subjective: She is feeling better slowly but steadily. Appetite is good. She feels a bit sleepy and would like to stop melatonin. She is preparing mentally for transition to SNF tomorrow. No BM for several days. Objective: Vital Signs Temp Pulse Resp BP Pulse Ox 36.4 C 75 16 154/77 H 95 10/21/16 23:32 10/21/16 23:32 10/21/16 23:32 10/21/16 23:32 10/21/16 23:32 Laboratory Results 10/22/16 04:48 10/22/16 04:48 10/21/16 10/22/16 10/23/16 05:59 05:59 05:59 Intake Total 950 100 Output Total 2800 2300 Balance -1850 -2200 PT 14.3 SEC (12.0-15.0) 10/07/16 13:20 INR 1.12 (0.83-1.16) 10/07/16 13:20 Gen: NAD, sleeping upon entering room HEENT: lips nearly completely healed, voice stronger Lungs: dry cough o/w clear Heart: RRR Abd + bs soft Fingers: continued improvement LE's less edema Hgb improving K+ 3.9 Cr 1.6 ICD10 Worksheet Patient Problems: Problems Problem Status Onset ESBL (extended spectrum beta-lactamase) producing bacteria infection Acute ~ Renal colic on left side Acute
[2016-10-22] MEDS: PANTOPRAZOLE SODIUM 40 MG TAB PO SCH (09:19)
[2016-10-22] MEDS: GABAPENTIN 100 MG CAP PO SCH (09:19)
[2016-10-22] MEDS: CHOLECALCIFEROL VIT D3 2,000 UNITS TAB/CAP PO SCH ×2 (09:19→20:01)
[2016-10-22] MEDS: SODIUM FERRIC GLUCONAT/SUCROSE 125 MG in NS 100 ML IV SCH (09:20)
[2016-10-22] MEDS: POTASSIUM CL 10 MEQ TAB PO SCH ×2 (09:20→20:01)
[2016-10-22] MEDS: CHLORTHALIDONE 25 MG TAB PO SCH (13:02)
--- NOTE | 2016-10-22 19:29 | WOCRNPDOC ---
WOCRN Advanced Assessment Note - Skin Integrity Problem, Advanced Assess Left Lateral Breast Blister Dressing Type: Open to Air Wound Bed Constitution: Healed Lip Pressure Injury Dressing Type: Open to Air Exudate Characteristic(s): None Wound Bed Constitution: Healed (nearly--small scab remaining) Right Fifth Finger Blister Dressing Type: Christopher, Non-Bordered Foam Dressing Description: Clean/Dry, Intact Exudate Amount: Scant Exudate Color: Yellow, Red Exudate Characteristic(s): Dried, Serosanguinous Integumentary Issue Intervention: Dressing Changed (Cavilon skin protectant, Aquacel Ag+, Mepilex Transfer, Christopher), Dressing Initialed & Dated, Lotion/Cream Applied (Skin Repair Cream to intact skin) Laura Wound Tissue: Ecchymotic, Painful/Tender Laura Wound Swelling: None Wound Bed Color: [place], Purple, Red Wound Bed Constitution: Smooth Tissue, De-roofed Sanguineous blister Wound Edges: Irregular Site Odor: None Peripheral Edema Location & Description: Discoloration appears to be gradually receding at all digits, with new epithelial development visible under peeling epidermis. Dressings changed as described above. Care modifications added to orders, discussed with patient and NADINE Dutton, present for care. Bilateral Toe Blister Dressing Type: Christopher, Mepilex Transfer Dressing Description: Shadowed Exudate Color: Yellow, Red Exudate Characteristic(s): Dried, Serosanguinous Integumentary Issue Intervention: Dressing Changed (Cavilon skin protectant, Aquacel Ag+, Mepilex Transfer, Christopher), Dressing Initialed & Dated Laura Wound Tissue: Ecchymotic, Altered Sensitivity (reports neuropathic sensation at distal plantar foot around callousing blisters), Painful/Tender ( at distal toes and plantar surfaces) Laura Wound Swelling: None Wound Bed Color: Purple, Red Wound Bed Constitution: Smooth Tissue, De-roofed Sanguineous blister Wound Edges: Irregular (loosening) Site Odor: None Lymphedema Present: Yes Peripheral Edema Location & Description: bilaterally symmetrical --pedal and lower extremity Skin Integrity Problem Comment: Right foot is more affected than the left. Drainage is lessening and discoloration appears to be gradually receding at all digits, with new epithelial development visible under peeling epidermis. Dressings changed as described above, with size D Tubigrips placed to add gentle compression to bilateral LEs. Encouraged patient to elevate LEs when in bed/reclining. Care modifications added to orders, and written for post- discharge to SNF as requested by ABIGAIL Ibrahim-- discussed with patient and NADINE Dutton, present for care.
[2016-10-23] MEDS: HEPARIN 5,000 UNIT/0.5 ML SYR SC SCH (05:13)
[2016-10-23 05:36] LABS: % IMMATURE GRANULYOCYTES 1.7 % (0.0-1.1); ABSOLUTE IMMATURE GRANULOCYTES 0.12 10^3/uL (0.00-0.10); ADD DIFF? NO; ADD MORPH? NO; ADD SCAN? NO; ATYPICAL LYMPHOCYTE FLAG 50 (0-99); FRAGMENT RBC FLAG 0 (0-99); HEMATOCRIT 28.3 % (38.0-47.0); HEMOGLOBIN 9.1 g/dL (12.6-16.3); LEFT SHIFT FLG 10 (0-99); LIPEMIA HEMOLYSIS FLAG 80 (0-99); MEAN CELL HEMOGLOBIN 31.5 pg (27.9-34.1); MEAN CELL HEMOGLOBIN CONCENTR. 32.2 g/dL (32.4-36.7); MEAN CELL VOLUME 97.9 fL (81.5-99.8); MEAN PLATELET VOLUME 11.1 fL (8.7-11.7); PLATELET CLUMPS FLAG 0 (0-99); PLATELET COUNT 396 10^3/uL (150-400); RED BLOOD CELL COUNT 2.89 10^6/uL (4.18-5.33); RED CELL DISTRIBUTION WIDTH 13.9 % (11.5-15.2)
[2016-10-23 06:05] LABS: ANION GAP 9 mEq/L (8-16); CALCIUM 8.7 mg/dL (8.5-10.4); CARBON DIOXIDE 25 mEq/l (22-31); CHLORIDE 106 mEq/L (97-110); CREATININE 1.4 mg/dL (0.6-1.0); GLOMERULAR FILTRATION RATE 36; GLUCOSE 104 mg/dL (70-100); POTASSIUM 4.2 mEq/L (3.5-5.2); SODIUM 140 mEq/L (134-144)
[2016-10-23 06:22] LABS: VITAMIN D 25-HYDROXY TOTAL 35.7 ng/mL (30-100)
[2016-10-23 08:23] VITALS: BP 154/77; PULSE 76; RESP 20; TEMP 98.5; O2SAT 96
--- NOTE | 2016-10-23 09:13 | SOAPPROG ---
SOAP Progress Note Assessment/Plan: Assessment: Plan: 10/05/16 09:52 Sepsis due to obstructing stone: improved. PICC line replaced yesterday due to positive f/u cx. Cath tip cx pending. Dialysis catheter likely to be removed today as well, possibly after dialysis, as per renal. Additional blood cx drawn this morning. WBC down significantly. Slight drop in hgb as well. LYLA: making small amount urine. Cr up to 2.2 today. Continuing with dialysis. Urine with small amount of Enteroccoccus. Thrombocytopenia: plts better today. Pain in L thigh: associated with petechiae. New complaint. Will check doppler to assess for clot. Not yet inclined to begin lovenox due to slight drop in hgb , ongoing need for plt transfusion, unless clot present. 10/05/16 09:54 10/07/16 10:21 Sepsis: making a remarkable recovery. Echocardiogram yesterday with normalized EF. F/u blood cx, cath tip cx negative so far. Remains on antibiotics for obstructing renal stone, sandy LYLA: to be dialyzed today. Making small amounts of urine. DVT prophylaxis: now on sq heparin as platelets have normalized 10/08/16 10:36 Sepsis: recovered. She is much improved today compared to the last 2 days. Remains on antibx per ID. Cath tip culture with S. epidermidis 2/2, but cx done a couple of hours previously is negative so far. LYLA: continues to require dialysis but catheter not functioning. Was replaced yesterday by surgery but dialysis short yesterday due to malfunction. Per discussion with Dr. Stinson, will keep her here one more day as these issues are worked out. Making more urine each day. Anemia: note decrease in hgb from yesterday. Will continue to monitor closely. 10/08/16 10:37 10/08/16 10:42 10/08/16 10:44 10/08/16 10:46 10/09/16 12:40 Sepsis: due to obstructing stone, resolved. Remains on Ivanz, micafungin LYLA: note Cr 4.4, K+ 5.4. To undergo dialysis today. Making more urine. Anemia: hgb down to 7.9, so will transfuse 1 u PRBCs with dialysis. Spoke to Dr. Angel about this. Concerned about her digital necrosis. Doubt she is bleeding , given the slow decline. Expect this is due to renal injury. Dispo: continue with PT, OT. Agree with transfer to floor after dialysis. 10/09/16 12:41 10/09/16 12:43 10/11/16 09:09 Sepsis: due to obstructing stone, which is still present. She remains on antibx as result. Dr. Grady to meet with pt today to look at stone removal, nephrostomy tube removal. LYLA: continues to slowly increase urine output through nephrostomy tube. HD today. Anemia: hgb improved following transfusion. Starting to decrease again, so will monitor closely. Note slightly increased plt count. Necrosis in fingers, toes: neurontin added yesterday to help with pain. Swelling in hands seems a little better. No suggestion infection at this point. 10/23/16 09:16 LYLA: continues to improve. Excellent urine output. Cr down to 1.4. K+ good on replacement. Htn: now on amlodipine, chlorthalidone. Readings still a little high. Chlorthalidone only recently added, so will continue to monitor for now. Weakness: continues with PT, OT. Anticipate transfer to rehab today. Digital ischemia: Improving slowly. Wound care to continue to follow. Orders in chart for transfer per wound care. Anemia: hgb stable, on Fe replacement Constipation: had BM. No abdominal discomfort Dispo: will transfer to rehab today. Subjective: Feeling well this morning. Did have a BM. Good appetite. Spirits good. Anticipating discharge to rehab today. Very appreciative of the care team here at the hospital. Wound care recommendations noted. Still with a lot of pain in feet. Objective: Vital Signs Temp Pulse Resp BP Pulse Ox 36.9 C 76 20 154/77 H 96 10/23/16 08:00 10/23/16 08:00 10/23/16 08:00 10/23/16 08:00 10/23/16 08:00 Laboratory Results 10/23/16 05:20 10/23/16 05:30 10/22/16 10/23/16 10/24/16 05:59 05:59 05:59 Intake Total 100 550 Output Total 2300 4000 Balance -2200 -3450 PT 14.3 SEC (12.0-15.0) 10/07/16 13:20 INR 1.12 (0.83-1.16) 10/07/16 13:20 General: well-appearing, pleasant, alert, good spirits Lungs: clear CV: RRR without murmur Abdomen: soft, NT Extremities: no edema. Fingers much improved in terms of ischemia and healing. ICD10 Worksheet Patient Problems: Problems Problem Status Onset ESBL (extended spectrum beta-lactamase) producing bacteria infection Acute ~ Renal colic on left side Acute
--- NOTE | 2016-10-23 09:27 | PDIAF ---
- Diagnosis Code Status: Full Code - Medication Management Discharge Medications: Medications to Continue on Transfer Herbals/Supplements -Info Only 1 ea PO DAILY 09/26/16 [Last Taken Unknown] Lovastatin 10 mg PO DAILY 09/26/16 [Last Taken 09/26/16] Chromo-3 Fatty Acids [Fish Oil 1000 mg (*)] 1,000 mg PO DAILY 09/26/16 [Last Taken Unknown] amLODIPine BESYLATE [Norvasc 10 mg (*)] 10 mg PO DAILY 09/26/16 [Last Taken ] celeCOXIB [Celebrex (*)] 200 mg PO DAILY 09/26/16 [Last Taken 09/26/16] Acetaminophen [Tylenol 325mg (*)] 650 mg PO Q4HRS PRN #0 tab 10/23/16 [Last Taken Unknown] Chlorthalidone [Chlorthalidone 25 mg (*)] 12.5 mg PO DAILY #0 tab 10/23/16 [ Last Taken Unknown] Cholecalciferol Vit D3 [Vitamin D3 2000 units tab (OTC)] 10,000 units PO BID #0 each 10/23/16 [Last Taken Unknown] Gabapentin [Neurontin 100 MG (*)] 100 mg PO DAILY #0 cap 10/23/16 [Last Taken Unknown] Heparin [Heparin SC 5000 unit/0.5 ml (*)] 5,000 unit SC 0600,1400,2200 #0 syr [Last Taken Unknown] Potassium Cl [Klor-Con 10 meq (RX)] 10 meq PO BID #0 tab 10/23/16 [Last Taken Unknown] Sodium Ferric Gluconat/Sucrose [Sodium Ferric Gluc Complex] 125 mg IV DAILY #0 vial 10/23/16 [Last Taken Unknown] Discharge Medications: Refer to the Discharge Home Medication list for PRN reason. - Orders Services needed: Registered Nurse, Physical Therapy, Occupational Therapy Diet Texture: Regular Texture Diet, Thin Liquids, Meds Whole in Puree - Labs/Radiology BMP Date: 10/26/16 CBC Date: 10/26/16 - Follow Up Care Current Providers and Referrals: Sanjuanita Agosto MD [Primary Care Provider] - As per Instructions
[2016-10-23] MEDS: SODIUM FERRIC GLUCONAT/SUCROSE 125 MG in NS 100 ML IV SCH (10:21)
[2016-10-23] MEDS: CHOLECALCIFEROL VIT D3 2,000 UNITS TAB/CAP PO SCH (10:22)
[2016-10-23] MEDS: GABAPENTIN 100 MG CAP PO SCH (10:23)
[2016-10-23] MEDS: PANTOPRAZOLE SODIUM 40 MG TAB PO SCH (10:24)
[2016-10-23] MEDS: POTASSIUM CL 10 MEQ TAB PO SCH (10:24)
--- NOTE | 2016-10-23 11:07 | SOAPPROG ---
SOAP Progress Note Assessment/Plan: Assessment: Plan: 10/05/16 09:52 Sepsis due to obstructing stone: improved. PICC line replaced yesterday due to positive f/u cx. Cath tip cx pending. Dialysis catheter likely to be removed today as well, possibly after dialysis, as per renal. Additional blood cx drawn this morning. WBC down significantly. Slight drop in hgb as well. LYLA: making small amount urine. Cr up to 2.2 today. Continuing with dialysis. Urine with small amount of Enteroccoccus. Thrombocytopenia: plts better today. Pain in L thigh: associated with petechiae. New complaint. Will check doppler to assess for clot. Not yet inclined to begin lovenox due to slight drop in hgb , ongoing need for plt transfusion, unless clot present. 10/05/16 09:54 10/07/16 10:21 Sepsis: making a remarkable recovery. Echocardiogram yesterday with normalized EF. F/u blood cx, cath tip cx negative so far. Remains on antibiotics for obstructing renal stone, sandy LYLA: to be dialyzed today. Making small amounts of urine. DVT prophylaxis: now on sq heparin as platelets have normalized 10/08/16 10:36 Sepsis: recovered. She is much improved today compared to the last 2 days. Remains on antibx per ID. Cath tip culture with S. epidermidis 2/2, but cx done a couple of hours previously is negative so far. LYLA: continues to require dialysis but catheter not functioning. Was replaced yesterday by surgery but dialysis short yesterday due to malfunction. Per discussion with Dr. Stinson, will keep her here one more day as these issues are worked out. Making more urine each day. Anemia: note decrease in hgb from yesterday. Will continue to monitor closely. 10/08/16 10:37 10/08/16 10:42 10/08/16 10:44 10/08/16 10:46 10/09/16 12:40 Sepsis: due to obstructing stone, resolved. Remains on Ivanz, micafungin LYLA: note Cr 4.4, K+ 5.4. To undergo dialysis today. Making more urine. Anemia: hgb down to 7.9, so will transfuse 1 u PRBCs with dialysis. Spoke to Dr. Angel about this. Concerned about her digital necrosis. Doubt she is bleeding , given the slow decline. Expect this is due to renal injury. Dispo: continue with PT, OT. Agree with transfer to floor after dialysis. 10/09/16 12:41 10/09/16 12:43 10/11/16 09:09 Sepsis: due to obstructing stone, which is still present. She remains on antibx as result. Dr. Grady to meet with pt today to look at stone removal, nephrostomy tube removal. LYLA: continues to slowly increase urine output through nephrostomy tube. HD today. Anemia: hgb improved following transfusion. Starting to decrease again, so will monitor closely. Note slightly increased plt count. Necrosis in fingers, toes: neurontin added yesterday to help with pain. Swelling in hands seems a little better. No suggestion infection at this point. 10/23/16 09:16 LYLA: continues to improve. Excellent urine output. Cr down to 1.4. K+ good on replacement. Htn: now on amlodipine, chlorthalidone. Readings still a little high. Chlorthalidone only recently added, so will continue to monitor for now. Weakness: continues with PT, OT. Anticipate transfer to rehab today. Digital ischemia: Improving slowly. Wound care to continue to follow. Orders in chart for transfer per wound care. Anemia: hgb stable, on Fe replacement Constipation: had BM. No abdominal discomfort Dispo: will transfer to rehab today. 10/23/16 11:06 Addendum: on discharge orders, celexicob restarted. This is an error. Please discontinue celexicob, and remove from discharge orders. Objective: Vital Signs Temp Pulse Resp BP Pulse Ox 36.9 C 76 20 154/77 H 96 10/23/16 08:00 10/23/16 08:00 10/23/16 08:00 10/23/16 08:00 10/23/16 08:00 Laboratory Results 10/23/16 05:20 10/23/16 05:30 10/22/16 10/23/16 10/24/16 05:59 05:59 05:59 Intake Total 100 550 Output Total 2300 4000 250 Balance -2200 -3450 -250 PT 14.3 SEC (12.0-15.0) 10/07/16 13:20 INR 1.12 (0.83-1.16) 10/07/16 13:20 ICD10 Worksheet Patient Problems: Problems Problem Status Onset ESBL (extended spectrum beta-lactamase) producing bacteria infection Acute ~ Renal colic on left side Acute
[2016-10-23] MEDS: CHLORTHALIDONE 25 MG TAB PO SCH (12:32)
--- NOTE | 2016-10-27 12:56 | GDS ---
[f rep st] DISCHARGE SUMMARY DISCHARGE DIAGNOSES: Severe sepsis due to obstructing left nephrolithiasis, acute kidney injury req uiring hemodialysis, respiratory failure requiring intubation, cardiomyopathy, shock liver, gram-neg ative bacteremia, fungemia, thrombocytopenia, neutropenia, disseminated intravascular coagulation, d igital necroses. CONSULTATIONS: Dr. Taylor, Dr. Grady, Dr. Gomez, Dr. Mora, Dr. Irene, Dr. Wyatt Fernandes. HISTORY OF PRESENT ILLNESS: The patient is a 81-year-old woman, who was [facility] for severe left-sided abdominal pain due to a proximal ureteral stone associated with hydr onephrosis seen on CT scan. Her initial labs were unremarkable. She was admitted for pain manageme nt. A urology consult was requested with plans to perform an intraoperative ureteroscopy and stent placement the following day. However that evening, the patient became hypotensive and was unrespons crystal to a fluid bolus. Her followup labs showed an increased white blood cell count, decreased hemog lobin and increased lactate and possible infiltrate on chest x-ray. She was transferred to the ICU due to sepsis. Her labs were markedly worse the following morning with an increased lactate, acidos is, renal insufficiency, a decreased white blood cell count as well as increasing O2 needs and hypot ension. She was diagnosed with severe sepsis. A PICC line was placed and a nephrostomy tube was pl aced. Echocardiogram showed a decreased ejection fraction of 15% to 20%. Aggressive management ove r the next several days included the use of multiple pressors for blood pressure support and IV anti biotics. Her acute kidney injury progressed and hemodialysis was initiated. Her liver enzymes maurilio me markedly elevated consistent with shock liver. Respiratory failure progressed and she required i ntubation and ventilatory support. She developed DIC and required blood products including red bloo d cell transfusions, FFP and platelet transfusions. Her blood cultures were positive for E coli, ES BL, Klebsiella and Adriana albicans. Her urine culture showed Enterococcus faecalis. She developed severe necrosis involving her lips, fingers and toes. Remarkably, the patient began to improve slo wly. She was able to be extubated. Her hypotension resolved and she was able to come off the press ors. Her liver enzymes normalized as did her cardiomyopathy. Her acute kidney injury improved and she was able to discontinue off hemodialysis. Both kidney stones were removed as was her nephrostom y tube. Her digital necrosis improved though remains an ongoing issue. Once out of the ICU, she be nate to participate in PT and OT although this is painful due to the necrosis in her toes. At the ti me of discharge to rehab, she is remarkably stable. MEDICATIONS ON DISCHARGE: Include iron, potassium, subcutaneous heparin, gabapentin, vitamin D, chl orthalidone 12.5 mg daily, amlodipine 10 mg daily, lovastatin 10 mg daily and fish oil. /[id number]/MODL
== END 2016-10-23 14:18 | DRG 853 ==
LOC: F1N 11:28 → F2N 09-27 06:47 → F3E 10-11 13:58
PROVIDERS: ADMIT Internal Medicine; ATTEND Internal Medicine
PROC: 0B9M8ZZ Drainage of Bilateral Lungs, Via Natural or Artificial Opening Endoscopic (ICD-10-PCS; principal; 2016-09-27)
PROC: 0BH17EZ Insertion of Endotracheal Airway into Trachea, Via Natural or Artificial Opening (ICD-10-PCS; principal; 2016-09-27)
PROC: 5A1945Z Respiratory Ventilation, 24-96 Consecutive Hours (ICD-10-PCS; principal; 2016-09-27)
PROC: 0T9430Z Drainage of Left Kidney Pelvis with Drainage Device, Percutaneous Approach (ICD-10-PCS; 2016-09-27)
PROC: 02HV33Z Insertion of Infusion Device into Superior Vena Cava, Percutaneous Approach (ICD-10-PCS; 2016-09-27)
PROC: 05HM33Z Insertion of Infusion Device into Right Internal Jugular Vein, Percutaneous Approach (ICD-10-PCS; 2016-09-27)
PROC: 30233K1 Transfusion of Nonautologous Frozen Plasma into Peripheral Vein, Percutaneous Approach (ICD-10-PCS; 2016-09-27)
PROC: 30233R1 Transfusion of Nonautologous Platelets into Peripheral Vein, Percutaneous Approach (ICD-10-PCS; 2016-09-27)
PROC: 30233N1 Transfusion of Nonautologous Red Blood Cells into Peripheral Vein, Percutaneous Approach (ICD-10-PCS; 2016-09-27)
PROC: 5A1D60Z (ICD-10-PCS; 2016-10-05)
PROC: 05H633Z Insertion of Infusion Device into Left Subclavian Vein, Percutaneous Approach (ICD-10-PCS; 2016-10-05)
PROC: 05H633Z Insertion of Infusion Device into Left Subclavian Vein, Percutaneous Approach (ICD-10-PCS; 2016-10-07)
PROC: 0TP5X0Z Removal of Drainage Device from Kidney, External Approach (ICD-10-PCS; 2016-10-16 15:00)
PROC: 0TC78ZZ Extirpation of Matter from Left Ureter, Via Natural or Artificial Opening Endoscopic (ICD-10-PCS; 2016-10-16 15:00)
PROC: 0T9780Z Drainage of Left Ureter with Drainage Device, Via Natural or Artificial Opening Endoscopic (ICD-10-PCS; 2016-10-16 15:00)
DX: A41.51 Sepsis due to Escherichia coli [E. coli] (principal); B37.7 Candidal sepsis; A41.59 Other Gram-negative sepsis; R65.21 Severe sepsis with septic shock; B00.1 Herpesviral vesicular dermatitis; N13.6 Pyonephrosis; N17.9 Acute kidney failure, unspecified; K72.90 Hepatic failure, unspecified without coma; J96.01 Acute respiratory failure with hypoxia; E87.2 Acidosis; D69.6 Thrombocytopenia, unspecified; I42.9 Cardiomyopathy, unspecified; B49 Unspecified mycosis; I10 Essential (primary) hypertension
CPT/HCPCS: 82607-90; 82947-QW; 86704-90; 87186-90; 87529-90; 92507-GN; 92523-GN; 92526-GN; 92610-GN; 96374; 97110-GP; 97116-GP; 97163-GP; 97167-GO; 97530-GO; 97530-GP; 97535-GO; C1726; C1729; C1751; C1758; C1769; C1894; C2625; G8978-GP-CL; G8978-GP-CM; G8979-GP-CI; G8979-GP-CJ; G8979-GP-CK; G8987-GO-CM; G8988-GO-CJ; G8996-GN-CH; G8996-GN-CJ; G8996-GN-CK; G8997-GN-CH; G8997-GN-CI; G8998-GN-CH; G9168-GN-CJ; G9169-GN-CJ; G9170-GN-CJ; J0610; J1100; J1170; J1250; J1335; J1644; J1650; J1885; J1956; J2001; J2185; J2248; J2250; J2370; J2405; J2704; J2916; J2997; J3010; J3370; P9016; P9017; P9035; P9041; Q9967

== ENCOUNTER → 2016-12-07 | Outpatient (CLI) | payer OTHER | LOC: FIMAGING 14:04 | PROVIDERS: ATTEND Specialist | DX: N20.0 Calculus of kidney (principal); R23.4 Changes in skin texture; I72.2 Aneurysm of renal artery ==

== ENCOUNTER 2016-12-26 17:28 | Inpatient (IN) | payer OTHER ==
[2016-12-26] MEDS ORDERED: VANCOMYCIN HCL/NORMAL SALINE 250 ML IV ONE (20:38)
[2016-12-26] MEDS ORDERED: SENNOSIDES/DOCUSATE SODIUM TAB PO PRN (20:40)
[2016-12-26] MEDS ORDERED: POLYETHYLENE GLYCOL 3350 17 GM PKT PO PRN (20:40)
[2016-12-26] MEDS ORDERED: LACTULOSE 20 GM/30 ML UDCUP PO PRN (20:40)
[2016-12-26] MEDS ORDERED: BISACODYL 10 MG SUPP PR PRN (20:40)
[2016-12-26] MEDS ORDERED: MAGNESIUM HYDROXIDE 30 ML UDCUP PO PRN (20:40)
[2016-12-26] MEDS ORDERED: ONDANSETRON 4 MG/2 ML VIAL IVP PRN (20:41)
[2016-12-26] MEDS ORDERED: ONDANSETRON DISINTEGRATING 4 MG TAB PO PRN (20:41)
--- NOTE | 2016-12-26 21:14 | SOAPPROG ---
SOAP Progress Note Assessment/Plan: Assessment: 81 yo female w/ L breast erythema/inflammation/tenderness/swelling -w/ recent MRSA UTI, s/p recent hospitalization w/ nephrolithiasis c/b sepsis/DIC/MOF w/ residual digital necrosis and generalized weakness but improving. -breast inflammation - mastitis vs inflammatory brca/brca - has scheduled mammogram tomorrow at 12:20 pm and ultrasound 2:20 pm -have dw Dr Duncan Birch who will be reading exams tomorrow and is aware of the clinical situation, have dw Dr. Tia Storey who will see Laura tomorrow late morning. Will place on IV abx w / invanz/vanco (vanco x 1 dose now then re-dose tomorrow depending clinically). Has had 4 days of augmentin as outpt w/o response. Has one dose left of doxycycline for recent MRSA UTI, this will be covered w/ above. -UTI - f/b Dr Grady, has one dose left of doxy - will be covered w/ above abx. -htn - on amlodipine and cozaar, bp has been well controlled w/ this as oupt, will follow -necrotic digits - has been f/b wound care at home qod - will ask for wound care consult to assist. She just was able to get dressings of fingers, still has on R foot. Cont low dose gabapentin to help with nerve pain. Will also consult PT w/ ongoing weakness from prior hospitalization. -anemia - has been on iron supplementation - will check cbc/fe studies. -dispo - suspect will need at least 72 hours iv abx, may need further intervention depending on imaging studies and surgical consult tomorrow. Will place as inpt given this. Failed outpt oral abx trial. Plan: 12/26/16 21:03 Subjective: c/o ongoing breast pain/swelling/erythema not better w/ trial of outpt abx Objective: GEN: A&O, pleasant, accompanied by spouse, teary about having to be hospitalized again. HEENT: eomi, perr NEck: soft/supple Respy cta b CV rrr nl s1 s2 Breasts: bilateral large/pendulous w/ L w/ significant erythema and swelling compared to R, ttp, induration/fluctuance ayo outer quadrant but whole breast involved Abd: soft nt/nd + bs Ext: L foot in boot w/ dressings on toes, fingers w/ healing necrosis greatly improved - Pending Discharge Pending Discharge Within 24 Hours: No ICD10 Worksheet Patient Problems: Problems Problem Status Onset ESBL (extended spectrum beta-lactamase) producing bacteria infection Acute ~ Renal colic on left side Acute
[2016-12-26] MEDS: ERTAPENEM 1 GM in NS 100 ML IV SCH (21:39)
[2016-12-26 22:14] LABS: % IMMATURE GRANULYOCYTES 0.3 % (0.0-1.1); ABSOLUTE IMMATURE GRANULOCYTES 0.02 10^3/uL (0.00-0.10); ADD DIFF? NO; ADD MORPH? NO; ADD SCAN? NO; ATYPICAL LYMPHOCYTE FLAG 30 (0-99); FRAGMENT RBC FLAG 0 (0-99); HEMOGLOBIN 11.7 g/dL (12.6-16.3); LEFT SHIFT FLG 0 (0-99); LIPEMIA HEMOLYSIS FLAG 80 (0-99); MEAN CELL HEMOGLOBIN 31.8 pg (27.9-34.1); MEAN CELL HEMOGLOBIN CONCENTR. 33.4 g/dL (32.4-36.7); MEAN CELL VOLUME 95.1 fL (81.5-99.8); MEAN PLATELET VOLUME 11.2 fL (8.7-11.7); PLATELET CLUMPS FLAG 0 (0-99); PLATELET COUNT 273 10^3/uL (150-400); RED BLOOD CELL COUNT 3.68 10^6/uL (4.18-5.33); RED CELL DISTRIBUTION WIDTH 13.3 % (11.5-15.2)
[2016-12-26 22:20] LABS: ANION GAP 10 mEq/L (8-16); CALCIUM 9.4 mg/dL (8.5-10.4); CARBON DIOXIDE 21 mEq/l (22-31); CHLORIDE 102 mEq/L (97-110); CREATININE 0.9 mg/dL (0.6-1.0); GLOMERULAR FILTRATION RATE > 60; GLUCOSE 106 mg/dL (70-100); POTASSIUM 4.5 mEq/L (3.5-5.2); SODIUM 133 mEq/L (134-144)
--- NOTE | 2016-12-26 22:20 | GHP ---
[f rep st] HISTORY AND PHYSICAL DATE OF ADMISSION: 12/26/2016 CHIEF COMPLAINT: Breast pain. HPI: The patient is a 81-year-old female, who presents for followup of breast erythema and discomfort in the clinic today. She had been seen 3 or 4 days prior with complaint of left breast swelling, erythema, warmth. She was placed on augmentin, and told to follow up in a few days to see how she was doing, in the interim to call if she was not getting better or if there is any worsening of symptoms. She came into the clinic today reporting she did not get any worse , but did not really have improvement. Her left breast is still extremely tender, and things are not really progressing for her. Also of note, she has also been taking doxycycline for an MRSA UTI, followed by Dr. Blessing Grady, and has 1 more day of this left. She is status post a recent hospitalization for nephrolithiasis, complicated by sepsis, DIC, multiorgan failure with resultant digital necrosis of her fingertips and some of her toes, but she has had overall an incredible recovery. She has some weakness, and still needs assistance of a cane with ambulation. She is getting home healthcare and wound care, and is having good progress with this. In clinic on exam she still had impressive erythema and swelling and tenderness to her L breast and the decision was made to admit her for IV abx, surgery consultation (had discussion w/ Dr Storey who will see pt tomorrow) and Dr. Duncan Birch in radiology - ordered mammogram and u/s for Wed at 12:20 and 2:20 respectively. REVIEW OF SYSTEMS: GENERAL: She denies any fevers or chills. No headache. She is just complaining of breast discomfort. She has had her normal appetite. She is a little bit fatigued. ENT: Denies sore throat, sinus pain, swollen glands, any recent illnesses. RESPIRATORY: Denies cough, shortness of breath, wheezing. CARDIOVASCULAR: Denies chest pain, irregular heartbeat, weakness. BREASTS: Complained of left breast discomfort. See HPI. GI: Denies constipation, nausea, vomiting, diarrhea. MUSCULOSKELETAL: She has some generalized weakness and loss of sensation in her feet and hands from her prior hospitalization, but she is greatly improving. SKIN: Other than the changes in her left breast, no other acute skin issues. NEUROLOGIC: She denies fainting or loss of strength acutely, other than the residual from hospitalization, and headache. PSYCHIATRIC: She has some anxiety and fear about returning back to the hospital understandably. PAST MEDICAL HISTORY: Significant for hypertension, osteoporosis, hearing loss , osteoarthritis, iron deficiency anemia. Last mammogram was April of 2012. SURGICAL HISTORY: Significant for ankle replacement on the left in 1999, left knee replacement surgery 2007. FAMILY HISTORY: Father not known well. Mother at 93. SOCIAL HISTORY: She is a nonsmoker, has rare alcohol. She is , recently retired. She exercises several times per week. She has 3 children and 7 grandchildren. MEDICATIONS: Recent Augmentin 875/125, 1 p.o. twice daily, last dose this morning. Gabapentin 100 mg 2-3 times per day for neuropathic pain from the ischemic digits. Cozaar 50 mg, amlodipine 5 mg, iron 27 mg daily, vitamin D 5, 000 international units once daily, topical Voltaren gel p.r.n. PHYSICAL EXAMINATION: VITALS: Blood pressure 124/84, temperature 96.9, heart rate 77, respiration rate 16, oxygen saturation 94% on room air. GENERAL: Pleasant female, no acute distress, not toxic appearing, although anxious about not improving and about being hospitalized. HEAD: NC/AT. EYES: EOMI. PERR. NECK: Soft and supple. No thyromegaly appreciated. Full range of motion. LYMPH NODES: Unable to appreciate cervical or supraclavicular adenopathy. She has some warmth and swelling into her left axilla area. SKIN: Other than breast, which will be noted later, no suspicious lesions otherwise. CARDIOVASCULAR: Regular rate and rhythm. S1, S2 normal. CHEST: Clear to auscultation bilaterally. BREASTS: Left breast with erythema, induration, fullness especially in the upper outer quadrant, pendulous bilaterally, but left breast markedly larger than her right. ABDOMEN: Soft, nontender, nondistended. No guarding or rigidity. MUSCULOSKELETAL: Overall full range of motion and normal, but does need a cane still with ambulation. EXTREMITIES: No clubbing, cyanosis, or edema, but does have finger tip ischemia. Toes still with dressings on them on her right foot, wearing a boot for ambulation. NEUROLOGIC: Nonfocal sensory exam with decreased sensation in her fingers and toes. PSYCHIATRIC: Alert, oriented. Cognitive exam intact, cooperative. Good eye contact. ASSESSMENT AND PLAN: A 81-year-old female, admitted for left breast erythema, induration, and swelling. Concerning for mastitis versus breast cancer, inflammatory breast cancer in the differential. Complicated by recent MRSA UTI , and status post recent hospitalization with nephrolithiasis, complicated by sepsis DIC with residual digital necrosis and generalized weakness, deconditioning, but improving. 1. Breast inflammation, mastitis versus possible breast cancer. She has a scheduled mammogram tomorrow at 12:20 p.m., and an ultrasound at 2:20. I have discussed the case with Dr. Duncan Birch, who will be reading the exam tomorrow, is aware of the clinical picture and situation. I have also discussed the case with Dr. Tia Storey, who will see the patient late tomorrow morning after she is done in the OR. In the mean time, we will place her on IV antibiotics with Invanz and vanco. She has failed 4 days trial with Augmentin as outpatient. 2. Urinary tract infection. She is followed by Dr. Grady in Urology. She has 1 dose left of doxycycline, but the Invanz/vancomycin will cover this. 3. Hypertension. Continue on amlodipine and Cozaar. We will monitor and reassess blood pressure as needed. 4. Necrotic digits. She has been followed by wound care at home every other day. We will ask for wound care consult to continue to assist while she is hospitalized. They are still doing dressing changes on her right foot. 5. Anemia. She has been on iron supplementation. We will check CBC, iron studies, and assess how she is doing. She did receive a transfusion prior to discharge from her last hospitalization as well. DISPOSITION: Suspect the patient will need at least 72 hours of IV antibiotics , and possible further intervention depending on the imaging studies and surgical consultation tomorrow. /[id number]/MODL MTDD
[2016-12-26 22:29] LABS: % SATURATION 22 % (20-55); TOTAL IRON BINDING CAPACITY 241 ug/dL (260-490)
[2016-12-26] MEDS: ENOXAPARIN 30 MG/0.3 ML SYR SC SCH (22:46)
[2016-12-26 23:15] LABS: C-REACTIVE PROTEIN < 5.0 mg/L (<10.0)
[2016-12-26 23:29] LABS: SEDIMENTATION RATE 11 MM/HR (0-30)
[2016-12-27] MEDS: ACIDOPHILUS PO SCH ×3 (05:25→20:06)
[2016-12-27] MEDS: [UNRECOGNIZED DRUG - OTHER] PO SCH ×3 (05:25→20:06)
[2016-12-27 05:51] LABS: % IMMATURE GRANULYOCYTES 0.3 % (0.0-1.1); ABSOLUTE IMMATURE GRANULOCYTES 0.02 10^3/uL (0.00-0.10); ADD DIFF? NO; ADD MORPH? NO; ADD SCAN? NO; ATYPICAL LYMPHOCYTE FLAG 20 (0-99); FRAGMENT RBC FLAG 0 (0-99); HEMATOCRIT 38.2 % (38.0-47.0); HEMOGLOBIN 12.6 g/dL (12.6-16.3); LEFT SHIFT FLG 0 (0-99); LIPEMIA HEMOLYSIS FLAG 80 (0-99); MEAN CELL HEMOGLOBIN 31.3 pg (27.9-34.1); PLATELET CLUMPS FLAG 0 (0-99); PLATELET COUNT 301 10^3/uL (150-400); RED BLOOD CELL COUNT 4.02 10^6/uL (4.18-5.33); RED CELL DISTRIBUTION WIDTH 13.3 % (11.5-15.2)
[2016-12-27] MEDS ORDERED: LOVASTATIN 10 MG PO SCH (09:00)
[2016-12-27] MEDS ORDERED: ACIDOPH PARACASEI B LACTIS PO SCH ×2 (09:00)
--- NOTE | 2016-12-27 09:02 | SOAPPROG ---
SOAP Progress Note Assessment/Plan: Assessment: Plan: 12/27/16 09:01 left breast mastitis vs inflammatory concern. Continue antibiotics. Imaging to diagnostic mammogram and US today, consult with Dr Saucedo. Subjective: Left breast pain not worse, not clearly much improved, otherwise she is feeling well. No challenges from the antibiotics at this point Objective: Vital Signs Temp Pulse Resp BP Pulse Ox 37.3 C 89 16 113/79 92 12/27/16 08:00 12/27/16 08:00 12/27/16 08:00 12/27/16 08:00 12/27/16 08:00 Laboratory Results 12/27/16 05:30 12/26/16 21:45 12/26/16 12/27/16 12/28/16 05:59 05:59 05:59 Intake Total 410 Output Total 350 Balance 410 -350 Gen: Bright Lungs CTAB Heart: RRR Breast no re-examined given pending imaging and surgical consult this am Digits--excellent recovery from necrosis WBC not elevated, neutrophils normal CMP ok ICD10 Worksheet Patient Problems: Problems Problem Status Onset Mastitis, left, acute Acute Urinary tract infection Acute ESBL (extended spectrum beta-lactamase) producing bacteria infection Acute ~ Renal colic on left side Acute
[2016-12-27] MEDS: ERTAPENEM 1 GM in NS 100 ML IV SCH (09:15)
[2016-12-27] MEDS: PRAVASTATIN SODIUM 10 MG TAB PO SCH (09:37)
[2016-12-27] MEDS: amLODIPine BESYLATE 5 MG TAB PO SCH (09:38)
[2016-12-27] MEDS: LOSARTAN POTASSIUM 50 MG TAB PO SCH (09:43)
[2016-12-27] MEDS: OMEGA-3 FATTY ACIDS 1,000 MG CAP PO SCH ×2 (09:43→19:55)
[2016-12-27] MEDS: ENOXAPARIN 30 MG/0.3 ML SYR SC SCH ×2 (09:44→19:53)
[2016-12-27] MEDS: CHOLECALCIFEROL VIT D3 2,000 UNITS TAB/CAP PO SCH ×2 (09:44)
[2016-12-27] MEDS: GABAPENTIN 100 MG CAP PO SCH ×2 (09:44→19:54)
--- NOTE | 2016-12-27 11:59 | WOCRNPDOC ---
WOCRN Advanced Assessment Note - Skin Integrity Problem, Advanced Assess 1st and 2nd Right Toes Dressing Type: Gauze, Xeroform Dressing Description: Clean/Dry, Intact Exudate Amount: Scant Exudate Characteristic(s): Cloudy, Serosanguinous Integumentary Issue Intervention: Dressing Removed Wound Bed Color: Black, [place] Wound Bed Constitution: Granulation Tissue, Stable Eschar Site Measurement - Head-to-Toe Length X Width X Depth (cm): 2nd toe: 0.5x0.5x0.1 Skin Integrity Problem Comment: Small areas of eschar on tips of 1st and 2nd toes. Stable on both. 2nd toe had a moist dressing on it which was contribituing to undermining of the eschar there. The dressing was removed as it likely was not helping the wound healing process in this care. No need for dressings. [place] with betadine BID and cover with bandaids. Cover 2nd toe wound for bathing for one more week. May want to follow up with brigadier regarding loose toe nail on great toe. Discussed plan with patient. Questions answered. Right Fifth Finger Dressing Type: Gauze Dressing Description: Clean/Dry, Intact Integumentary Issue Intervention: Dressing Removed Wound Bed Constitution: Stable Eschar Skin Integrity Problem Comment: No need for dressing. [place] with betadine BID and cover with bandaid per patient comfort.
[2016-12-27] MEDS ORDERED: LIDOCAINE 1% *Not for Epidural 20 ML MDV NB ONE (16:15)
--- NOTE | 2016-12-27 18:18 | GCON ---
[f rep st] CONSULTATION DATE OF CONSULTATION: 12/27/2016 REASON FOR CONSULTATION: Breast swelling with suspicion for malignancy. HISTORY OF PRESENT ILLNESS: The patient is a pleasant 81-year-old female who noted a fullness in th e left breast of approximately 1 month duration. She noted tenderness and warmth in the lateral por tion left breast of approximately 1 week's duration. She was seen by her primary care physician, Dr Arelis Agosto. She was initially started on oral antibiotics with Augmentin. The swelling did not improve. She was admitted and started on IV antibiotics. As part of her further workup, a diagnostic mammogram and breast ultrasound were performed earlier t makayla. Her mammogram revealed diffuse skin thickening throughout the left breast with innumerable mi crocalcifications present diffusely. The patient's left breast ultrasound revealed concerning christianson es with evidence of multiple enlarged left axillary lymph nodes. Surgical consultation has been requested. Dr. Tia Storey plans to do a breast punch biopsy this ev ening and has recommended an ultrasound-guided biopsy of one of her left axillary nodes to be done t omorrow morning. The patient feels there has been some slight improvement since starting IV antibiotic therapy. When seen this evening, she is accompanied by her . PAST MEDICAL HISTORY: 1. Recent hospital admission for urosepsis. 2. Hypertension. 3. Osteoporosis. 4. History of iron deficiency anemia. SURGICAL HISTORY: 1. Left ankle replacement, 1999. 2. Left knee replacement, 2007. FAMILY MEDICAL HISTORY: Patient reports that a maternal grandfather had head and neck carcinoma. T he patient's mother of a brain tumor at age 93. She does not know any of her father's side of her family medical history. She has no siblings. SOCIAL HISTORY: The patient lives locally in [place]. She is . She is a nonsmoker. She dr inks alcohol rarely. 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 REVIEW OF SYSTEMS: The patient denies any recent weight loss. She denies lymphadenopathy. She den ies chest pain, cough, exertional dyspnea. Denies abdominal pain or bloating. Denies any abnormali ty in the right breast. PHYSICAL EXAM: Patient's is present for entire exam. HEENT: Pupils equal. Sclerae are no nicteric. Conjunctivae normal. No palpable submandibular, cervical, or supraclavicular adenopathy. HEART: Regular without murmur. LUNGS: Clear bilaterally. No wheeze, no rhonchi. No crackles. ABDOMEN: No flank tenderness. The left breast reveals it is significantly larger than the right. There is diffuse edema throughout the breast, more pronounced laterally. The breast is warm to the touch. Peau de orange is present. There is edema surrounding the areola. There is diffuse thicken ing of the skin with no discretely palpable mass. There is no palpable left axillary adenopathy. T here is no left upper extremity swelling. Right breast is free of masses or abnormalities. No righ t axillary adenopathy. NEUROLOGIC: Patient is alert, oriented, and appropriate. IMAGING: As outlined above. CBC: White count 6.3, hemoglobin 12.6, hematocrit 38.2, platelet coun t 301,000 sodium 133, potassium 4.5, chloride 102, bicarb 21, BUN 26, creatinine 0.9. IMPRESSION: 1. Left breast swelling with mammographic and ultrasound changes concerning for possible breast mal ignancy. 2. Recent hospitalization for urosepsis with prolonged hospital stay. Elda is a pleasant 81-year-old female who is admitted with progressive left breast enlargement and swelling. She has mammographic and ultrasound changes concerning for a possible breast malignan cy. I have discussed her case with both Dr. Tia Storey of General Surgery and Dr. Sanjuanita Agosto. While there is a concern for breast malignancy, I do not think it is definitive in this case, especi ally in light of the significant warmth and tenderness in the involved breast, which suggests the po ssibility of an infection. She has had some subtle improvement with IV antibiotics. It is certainl y possible that she does have an underlying inflammatory breast cancer and a superimposed cellulitis due to lymphatic obstruction. I agree with the plan for punch biopsy which is being done this even ing. I also agree with an ultrasound-guided biopsy of one of her left axillary lymph nodes. The patient will likely be discharged tomorrow following her biopsy. I will arrange for followup wi th one of my colleagues in [place] to review pathology results. The patient and her had multiple questions this evening that were answered to their satisfac tion. Total time for today's visit was approximately 50 minutes, of which greater than 50% was spent in co unseling and care coordination. /[id number]/MODL
[2016-12-27] MEDS: ACETAMINOPHEN 325 MG TAB PO PRN ×2 (19:54→22:54)
[2016-12-27] MEDS: VANCOMYCIN HCL/NORMAL SALINE 250 ML IV SCH (22:54)
--- NOTE | 2016-12-28 05:11 | SUROPNOTE ---
[facility] Operative Report - Surgery Date of Procedure: 12/27/2016 Pre-procedure diagnosis: Left breast skin changes Procedure performed: Punch biopsy left breast Post-procedure diagnosis: Same Indications: 81 year old with swelling of left breast that has improved some with antibiotics. Rule out inflammatory breast cancer Findings: puckered dermis Complications: No immediate post-procedure complications Specimens: punch Description of Procedure: Ms. Guzmán was consented for the procedure. Her left breast was prepped and draped in the usual sterile fashion. 3 mls of 1% Lidocaine was used to infiltrate the tissues. I performed a punch biopsy x 2. Hemostasis was achieved with pressure. Steri-strips and a dressing were applied. She tolerated the procedure very well.
--- NOTE | 2016-12-28 05:39 | GCON ---
[f rep st] CONSULTATION DATE OF CONSULTATION: 12/27/2016 CHIEF COMPLAINT: Left breast pain. HISTORY OF PRESENT ILLNESS: The patient is a 81-year-old woman, who developed left breast pain 5 da ys prior to admission. She was seen by her primary care physician due to left breast swelling, eryt lizzie, and warmth. She was placed on Augmentin. She returned to the clinic 1 day prior to admission without much improvement. She was also taking doxycycline for a urinary tract infection. She has a history of a left breast infection when she was in the ICU approximately 2 months ago, which resol lilia. Since she has been admitted to the hospital. She has been on broad-spectrum antibiotics and r eports that there is some improvement in the erythema and warmth. PAST MEDICAL HISTORY: Most recently was admitted with nephrolithiasis with sepsis, DIC, and multior nate failure with resulting digital necrosis of her fingertips and toes. She is recovering well from this. Hypertension, osteoporosis, osteoarthritis. PAST SURGICAL HISTORY: Ankle replacement and left knee surgery. FAMILY HISTORY: Noncontributory. There is no family history of breast cancer. SOCIAL HISTORY: She is a nonsmoker. She is . She is active. MEDICATIONS: Reviewed on line. ALLERGIES: Codeine. REVIEW OF SYSTEMS: A 10-point review of systems is negative except per HPI. PHYSICAL EXAMINATION: VITAL SIGNS: 37.3, 89, 113/79, 16, 92% room air. GENERAL: Pleasant, well-n ourished, well-groomed woman, appears quite well sitting in room. HEENT: Normocephalic. Slight he aring deficit. Mucous membranes moist. Pupils equal and round. No scleral icterus. LUNGS: No in creased work of breathing. CARDIAC: No peripheral edema. LYMPH: No cervical or supraclavicular l ymphadenopathy. BREAST: Performed in the upright position, her left breast is considerably larger than her right breast. It is firm. There is slight warmth to it, there are areas that appear to be a pale red or pale purple in color. It is not overly tender to palpation. SKIN: She has areas of digital necrosis in her finger tips and toes. There does not appear to be any bone or tendon expos ed. Otherwise, warm and dry. PSYCH: Mood and affect normal. NEURO: Grossly intact. IMPRESSION AND PLAN: The patient is a 81-year-old woman with left breast mass, swelling, and tender ness. The differential diagnosis is mastitis versus an inflammatory breast cancer. We recommended mammogram and ultrasound. She had a mammogram that showed a prominent left breast skin thickening with microcalcifications in the left breast. There is also an axillary lymph node on the left side, which is enlarged. There w ere no abnormalities on the right breast. I will perform a punch biopsy of the skin, I also recomme nd to have a biopsy of the left axillary node. /[id number]/MODL
[2016-12-28 06:16] LABS: % IMMATURE GRANULYOCYTES 0.3 % (0.0-1.1); ABSOLUTE IMMATURE GRANULOCYTES 0.02 10^3/uL (0.00-0.10); ADD DIFF? NO; ADD MORPH? NO; ADD SCAN? NO; ATYPICAL LYMPHOCYTE FLAG 0 (0-99); FRAGMENT RBC FLAG 0 (0-99); HEMATOCRIT 36.5 % (38.0-47.0); HEMOGLOBIN 12.1 g/dL (12.6-16.3); LEFT SHIFT FLG 0 (0-99); LIPEMIA HEMOLYSIS FLAG 80 (0-99); MEAN CELL HEMOGLOBIN 31.3 pg (27.9-34.1); MEAN CELL HEMOGLOBIN CONCENTR. 33.2 g/dL (32.4-36.7); MEAN CELL VOLUME 94.6 fL (81.5-99.8); MEAN PLATELET VOLUME 10.9 fL (8.7-11.7); PLATELET CLUMPS FLAG 0 (0-99); PLATELET COUNT 283 10^3/uL (150-400); RED BLOOD CELL COUNT 3.86 10^6/uL (4.18-5.33); RED CELL DISTRIBUTION WIDTH 13.5 % (11.5-15.2)
[2016-12-28 06:33] VITALS: O2SAT 92
[2016-12-28 06:54] LABS: ANION GAP 9 mEq/L (8-16); CALCIUM 9.6 mg/dL (8.5-10.4); CARBON DIOXIDE 21 mEq/l (22-31); CHLORIDE 106 mEq/L (97-110); GLOMERULAR FILTRATION RATE 53; GLUCOSE 89 mg/dL (70-100); POTASSIUM 4.4 mEq/L (3.5-5.2); SODIUM 136 mEq/L (134-144)
[2016-12-28] MEDS: amLODIPine BESYLATE 5 MG TAB PO SCH (08:20)
[2016-12-28] MEDS: CHOLECALCIFEROL VIT D3 2,000 UNITS TAB/CAP PO SCH (08:22)
[2016-12-28] MEDS: GABAPENTIN 100 MG CAP PO SCH ×2 (08:23→22:37)
[2016-12-28] MEDS: LOSARTAN POTASSIUM 50 MG TAB PO SCH (08:23)
[2016-12-28] MEDS: OMEGA-3 FATTY ACIDS 1,000 MG CAP PO SCH ×2 (08:24→22:36)
[2016-12-28] MEDS: PRAVASTATIN SODIUM 10 MG TAB PO SCH (08:25)
[2016-12-28] MEDS: ACIDOPHILUS PO SCH ×2 (08:27→22:36)
[2016-12-28] MEDS: [UNRECOGNIZED DRUG - OTHER] PO SCH ×2 (08:27→22:36)
[2016-12-28] MEDS: ENOXAPARIN 30 MG/0.3 ML SYR SC SCH (08:30)
[2016-12-28] MEDS: ERTAPENEM 1 GM in NS 100 ML IV SCH (09:02)
--- NOTE | 2016-12-28 10:32 | SOAPPROG ---
SOAP Progress Note Assessment/Plan: Assessment: 81 yo female w/ L breast erythema/inflammation/tenderness/swelling -w/ recent MRSA UTI, s/p recent hospitalization w/ nephrolithiasis c/b sepsis/DIC/MOF w/ residual digital necrosis and generalized weakness but improving. -breast inflammation - mastitis vs inflammatory brca/brca - clinically has improved significantly with current IV abx - invanz/vanco - markedly decreased erythema and area of induration has lessened as well, which is encouraging and would be inconsistent with inflammatory breast cancer. She is scheduled for a L axillary lymph node biopsy tomorrow at 11am, and we are currently awaiting the results of the punch biopsy done by Dr. Tia Storey yesterday. Dr. Jorge Alberto Castellano is also following with [facility] and has discussed treatment options if biopsies do confirm CA. Dr. Wil Martines to see Laura this morning and will help with outpatient IV abx recommendation. (Greatly appreciate all input and assistance!) -Laura has a scheduled engagement in [place] today at 3pm- have agreed to let her leave for this with her peripheral IV in place as it is extremely important to her and her , and she will return to the hospital this evening to continue her abx and have her lymph node biopsy in the morning. -UTI - f/b Dr Grady, has one dose left of doxy - will be covered w/ above abx. -htn - on amlodipine and cozaar, bp has been well controlled w/ this as oupt, will follow -necrotic digits - has been f/b wound care at home qod - will ask for wound care consult to assist. She just was able to get dressings of fingers, still has on R foot. Cont low dose gabapentin to help with nerve pain. Will also consult PT w/ ongoing weakness from prior hospitalization. -anemia - has been on iron supplementation - will check cbc/fe studies. -dispo - Dr. Martines to determine course of IV abx, will possibly need PICC line depending on length of course. Hopefully discharge tomorrow after biopsy and can continue f/u and abx as outpatient. Plan: discussed abvoe 12/28/16 10:32 Subjective: Laura is overall feeling pretty well this morning. She reports having some breast tenderness near her biopsy site, but that the generalized breast pain she felt on admission has improved. She describes a "heavy" feeling to the breast. She is scheduled to be filmed this aftenoon at 3pm in [place] and would very much like to leave for this if possible. Objective: Vital Signs Temp Pulse Resp BP Pulse Ox 36.7 C 84 18 128/77 H 92 12/28/16 05:30 12/28/16 05:30 12/28/16 05:30 12/28/16 08:23 12/28/16 05:30 Laboratory Results 12/28/16 06:00 12/28/16 06:00 12/27/16 12/28/16 12/29/16 05:59 05:59 05:59 Intake Total 410 1100 Output Total 350 Balance 410 750 Gen- AAOx3, vitals stable over night Head- normocephalic, atraumatic EENT- PEERL, EOMI Resp- LCTAB, no rhonchi, wheezing, rales CV- S1S2, RRR, no murmur, rub, gallops Skin- L breast with marked improvement over the past two days. Decreased generalized erythema, remains warm to palpation, skin changes consistent with peau d'orange inferior of the areola, induration remains around areola and extends upward towards axilla. Dressing to lateral breast from punch biopsy- CDIArelis Sanchez describes mild tenderness to palpation of breast, but less so than on exam two days ago. Extremities- without edema Neuro- grossly intact Psych- emotional, though to be expected given the circumstances, and she is with a great support system. No acute psychosocial changes ICD10 Worksheet Patient Problems: Problems Problem Status Onset Urinary tract infection Acute Mastitis, left, acute Acute ESBL (extended spectrum beta-lactamase) producing bacteria infection Acute ~ Renal colic on left side Acute
--- NOTE | 2016-12-28 10:38 | SOAPPROG ---
SOAP Progress Note Assessment/Plan: Assessment: admitted for breast mastitis vs inflammatory breast cancer - improving on IV antibiotics - mammogram concerning for multiple calcifications and enlarged lymph node but no underlying mass - Punch biopsy performed 12/27/2016 to rule out inflammatory breast cancer - Scheduling lymph node biopsy - Can remove dressing on breast on 12/29/2016. I will call Laura with results of path S: Feeling improved. Has TV appearance at 3pm today O: Sitting in bed, appears well Left Breast is less indurated and less erythematous. Dressing is cdi Plan: 12/28/16 10:36 Objective: Vital Signs Temp Pulse Resp BP Pulse Ox 36.7 C 84 18 128/77 H 92 12/28/16 05:30 12/28/16 05:30 12/28/16 05:30 12/28/16 08:23 12/28/16 05:30 Laboratory Results 12/28/16 06:00 12/28/16 06:00 12/27/16 12/28/16 12/29/16 05:59 05:59 05:59 Intake Total 410 1100 Output Total 350 Balance 410 750 ICD10 Worksheet Patient Problems: Problems Problem Status Onset Mastitis, left, acute Acute Urinary tract infection Acute ESBL (extended spectrum beta-lactamase) producing bacteria infection Acute ~ Renal colic on left side Acute
[2016-12-28] MEDS ORDERED: THROMBIN (BOVINE) 5,000 UNIT VIAL TP ONE (14:24)
[2016-12-28] MEDS ORDERED: LIDOCAINE 1% 300 MG/30 ML SDV ONE (14:46)
[2016-12-28] MEDS: ACETAMINOPHEN 325 MG TAB PO PRN (15:42)
--- NOTE | 2016-12-28 18:00 | PCMIDPN ---
Assessment/Plan: Assessment: Patient known to us from previous admissions. Patient was admitted this visit secondary to left breast inflammation. She failed outpatient empiric treatment with Augmentin for mastitis. She was also on oral doxycycline for an MRSA UTI. The concern upon admission was that she may have non infectious or possibly malignant cause of inflammation of the left breast. Biopsy was taken yesterday. Clinically she has improved markedly overnight. Would continue both the vancomycin and ertapenem at present and await for biopsy results. If negative would treat for 5-7 days until erythema and swelling was completely resolved. Plan: 1. Continue both vancomycin ertapenem. 2. Follow vancomycin levels. 3. Follow pathology result. 4. Follow clinical course. 12/28/16 17:57 12/28/16 17:58 Subjective: Patient is resting comfortably in her hospital room. She denies any fevers or chills. States that the inflammation over her left breasts is significantly better. She feels the improvement is about 40%. Objective: Vancomycin # 2 Ertapenem # 2 Vital Signs Temp Pulse Resp BP Pulse Ox 36.7 C 84 18 128/77 H 92 12/28/16 05:30 12/28/16 05:30 12/28/16 05:30 12/28/16 08:23 12/28/16 05:30 Laboratory Results 12/28/16 06:00 12/28/16 06:00 12/27/16 12/28/16 12/29/16 05:59 05:59 05:59 Intake Total 410 1100 Output Total 350 Balance 410 750 ESR 11 MM/HR (0-30) 12/26/16 21:45 C-Reactive Protein < 5.0 mg/L (<10.0) 12/26/16 21:45 - Physical Exam General Appearance: WD/WN, alert, no apparent distress, non-toxic Respiratory: lungs clear, normal breath sounds, No respiratory distress Cardiac/Chest: regular rate, rhythm, No tachycardia Skin: normal color, warm/dry, other (Breast exam shows decreased erythema and skin thickening around the left breast. The left nipple is not inflamed anymore.), No rash Neuro/Psych: alert, normal mood/affect, oriented x 3 ICD10 Worksheet Patient Problems: Problems Problem Status Onset Mastitis, left, acute Acute Urinary tract infection Acute ESBL (extended spectrum beta-lactamase) producing bacteria infection Acute ~ Renal colic on left side Acute
[2016-12-28 18:46] VITALS: RESP 16
[2016-12-28 22:36] VITALS: PULSE 74; TEMP 97
[2016-12-28] MEDS: VANCOMYCIN HCL/NORMAL SALINE 250 ML IV SCH (23:30)
[2016-12-29] MEDS: GABAPENTIN 100 MG CAP PO SCH (08:59)
[2016-12-29] MEDS ORDERED: ACIDOPHILUS PO SCH (09:00)
[2016-12-29] MEDS: PRAVASTATIN SODIUM 10 MG TAB PO SCH (09:00)
[2016-12-29] MEDS: OMEGA-3 FATTY ACIDS 1,000 MG CAP PO SCH (09:00)
[2016-12-29] MEDS ORDERED: ALTEPLASE 2 MG VIAL IVP PRN (09:00)
[2016-12-29] MEDS ORDERED: [UNRECOGNIZED DRUG - OTHER] PO SCH (09:00)
[2016-12-29] MEDS: LOSARTAN POTASSIUM 50 MG TAB PO SCH (09:01)
[2016-12-29] MEDS: amLODIPine BESYLATE 5 MG TAB PO SCH (09:03)
[2016-12-29 09:04] VITALS: BP 107/63
[2016-12-29] MEDS: ERTAPENEM 1 GM in NS 100 ML IV SCH ×2 (09:04→11:24)
--- NOTE | 2016-12-29 09:06 | SOAPPROG ---
SOAP Progress Note Assessment/Plan: Assessment: 81 yo female w/ L breast erythema/inflammation/tenderness/swelling -w/ recent MRSA UTI, s/p recent hospitalization w/ nephrolithiasis c/b sepsis/DIC/MOF w/ residual digital necrosis and generalized weakness but improving. -breast inflammation - mastitis vs inflammatory brca/brca - clinically has improved significantly with current IV abx - invanz/vanco - continues to improve - decreased erythema though still with notable induration and mild warmth. Plan for single lumen PICC and set up for outpatient IV abx x 7 days (d/w Dr. Martines). Awaiting pathology results from biopsy either today or Sunday and will f/u outpatient as needed based on those results. -UTI - f/b Dr Grady, has one dose left of doxy - will be covered w/ above abx. -htn - on amlodipine and cozaar, bp has been well controlled w/ this as oupt, will follow -necrotic digits - has been f/b wound care at home qod - will ask for wound care to eval and treat today before she discharges. She just was able to get dressings of fingers, still has on R foot. Cont low dose gabapentin to help with nerve pain. Will also consult PT w/ ongoing weakness from prior hospitalization. -anemia - has been on iron supplementation - will check cbc/fe studies. -dispo - home this afternoon once PICC is placed and she is set up for home IV abx. Plan: as discussed above. 12/27/16 09:01 left breast mastitis vs inflammatory concern. Continue antibiotics. Imaging to diagnostic mammogram and US today, consult with Dr Saucedo. 12/29/16 09:06 Subjective: Laura is resting comfortably in bed enjoying breakfast. Her daughter is at the bedside. She says that she had a great evening, slept well, is extremely thankful that she was able to go to the filming last evening. She reports decreased breast tenderness and overall says she feels much better. Objective: Vital Signs Temp Pulse Resp BP Pulse Ox 36.1 C 74 16 118/73 92 12/28/16 22:35 12/28/16 22:35 12/28/16 22:35 12/28/16 22:35 12/28/16 22:35 Laboratory Results 12/28/16 06:00 12/28/16 06:00 12/28/16 12/29/16 12/30/16 05:59 05:59 05:59 Intake Total 1100 280 Output Total 350 Balance 750 280 Gen- AAOx3, vitals stable Head- normocephalic, atraumatic CV- S1S2, RRR, no murmur, rubs, gallops Resp- LCTAB, no rhonchi, rales, wheezing Abd- nontender, nondistended Skin- L breast with improving erythema, area of induration is improved from admission, though is still remarkable. L breast is warmer to palpation than the right. Two dressings in place from punch biopsy and axillary lymph node biopsy- both CDI. Extremities- no edema Neuro- grossly intact Psych- without acute change ICD10 Worksheet Patient Problems: Problems Problem Status Onset Mastitis, left, acute Acute Urinary tract infection Acute ESBL (extended spectrum beta-lactamase) producing bacteria infection Acute ~ Renal colic on left side Acute
--- NOTE | 2016-12-29 13:51 | PDIAF ---
- Diagnosis Diagnosis: Mastitis Code Status: Full Code - Medication Management Discharge Medications: Medications to Continue on Transfer Herbals/Supplements -Info Only 1 ea PO DAILY 09/26/16 [Last Taken Unknown] [place]-3 Fatty Acids [Fish Oil 1000 mg (*)] 2,000 mg PO DAILY 09/26/16 [Last Taken Unknown] Acetaminophen [Tylenol 325mg (*)] 650 mg PO Q4HRS PRN #0 tab 10/23/16 [Last Taken Unknown] Amoxicillin/Clavulanate Pot [Augmentin 875 MG TAB (*)] 875 mg PO BID 12/26/16 [ Last Taken 12/26/16] Cholecalciferol Vit D3 [Vitamin D3 2000 units tab (OTC)] 2,000 units PO DAILY [Last Taken Unknown] Doxycycline Hyclate [Vibramycin 100 MG (*)] 100 mg PO BID 12/26/16 [Last Taken 12/26/16] Gabapentin [Neurontin 100 MG (*)] 100 mg PO HS 12/26/16 [Last Taken Unknown] Gabapentin [Neurontin 100 MG (*)] 200 mg PO DAILY 12/26/16 [Last Taken Unknown] L.acidoph,Paracasei, B.lactis [Probiotic] 1 cap PO DAILY 12/26/16 [Last Taken Unknown] Losartan Potassium [Cozaar 50 mg (*)] 50 mg PO DAILY 12/26/16 [Last Taken Unknown] Lovastatin 10 mg PO DAILY 12/26/16 [Last Taken Unknown] [place]-3 Fatty Acids [Fish Oil 1000 mg (*)] 1,000 mg PO HS 12/26/16 [Last Taken Unknown] amLODIPine BESYLATE [Norvasc 5 mg (*)] 5 mg PO DAILY 12/26/16 [Last Taken ] Care Home Antibiotics: Vancomycin and Invanz Art Manager Antibiotic Stop Date: 01/05/17 Discharge Medications: Refer to the Discharge Home Medication list for PRN reason. PICC Care - Routine: Yes - Orders Services needed: Home Care, Registered Nurse Home Care Face to Face: I certify that this patient was under my care and that I had the required [id number] encounter meeting the encounter requirements on the discharge day. My findings support the fact that the patient is homebound as defined in CMS Chapter 7 Medicare Benefits Manual 30.1.1, The condition of the patient is such that there exists a normal inability to leave home and consequently, leaving home would require a considerable and taxing effort. Diet Recommendation: no restrictions on diet Diet Texture: Regular Texture Diet - Follow Up Care Current Providers and Referrals: Sanjuanita Agosto MD [Primary Care Provider] -
--- NOTE | 2016-12-29 14:21 | PDIAF ---
- Diagnosis Diagnosis: Mastitis Code Status: Full Code - Medication Management Discharge Medications: Medications to Continue on Transfer Herbals/Supplements -Info Only 1 ea PO DAILY 09/26/16 [Last Taken Unknown] Acetaminophen [Tylenol 325mg (*)] 650 mg PO Q4HRS PRN #0 tab 12/29/16 [Last Taken Unknown] Cholecalciferol Vit D3 [Vitamin D3 2000 units tab (OTC)] 2,000 units PO DAILY # 0 each 12/29/16 [Last Taken Unknown] Ertapenem [INVanz] 1 gm IV DAILY #0 vial 12/29/16 [Last Taken Unknown] Gabapentin [Neurontin 100 MG (*)] 100 mg PO BID #0 cap 12/29/16 [Last Taken Unknown] L.Acidoph,Paracasei, B.Lactis [Probiotic] 1 cap PO DAILY 12/29/16 [Last Taken Unknown] Losartan Potassium [Cozaar 50 mg (*)] 50 mg PO DAILY #0 tab 12/29/16 [Last Taken Unknown] [place]-3 Fatty Acids [Fish Oil 1000 mg (*)] 1,000 mg PO HS #0 cap 12/29/16 [Last Taken Unknown] [place]-3 Fatty Acids [Fish Oil 1000 mg (*)] 2,000 mg PO DAILY #0 cap 12/29/16 [ Last Taken Unknown] Pravastatin Sodium [Pravachol] 10 mg PO DAILY #0 tab 12/29/16 [Last Taken Unknown] Vancomycin HCl/Normal Saline [Vancomycin 1 gm (Premix)] 1 g IV DAILY@2300 #0 bag 12/29/16 [Last Taken Unknown] amLODIPine BESYLATE [Norvasc 5 mg (*)] 5 mg PO DAILY #0 tab 12/29/16 [Last Taken Unknown] Cardiopulmonary Technician Antibiotics: Vancomycin 1g IV q 24 hours; Invanz 1g IV q 24hours Cardiopulmonary Technician Antibiotic Stop Date: 01/05/17 Discharge Medications: Refer to the Discharge Home Medication list for PRN reason. PICC Care - Routine: Yes - Orders Services needed: Home Care, Registered Nurse Home Care Face to Face: I certify that this patient was under my care and that I had the required [id number] encounter meeting the encounter requirements on the discharge day. My findings support the fact that the patient is homebound as defined in CMS Chapter 7 Medicare Benefits Manual 30.1.1, The condition of the patient is such that there exists a normal inability to leave home and consequently, leaving home would require a considerable and taxing effort. Diet Recommendation: no restrictions on diet Diet Texture: Regular Texture Diet - Labs/Radiology CBC Date: 01/01/17 CMP Date: 01/01/17 Call or Fax Lab and Imaging Results to: Dr. Wil Martines - Follow Up Care Current Providers and Referrals: Sanjuanita Agosto MD [Primary Care Provider] -
[2016-12-29] MEDS ORDERED: VANCOMYCIN HCL/NORMAL SALINE 250 ML IV ONE (14:23)
[2016-12-29] MEDS: ACETAMINOPHEN 325 MG TAB PO PRN (15:09)
--- NOTE | 2016-12-29 15:16 | PDIAF ---
- Diagnosis Diagnosis: Mastitis Code Status: Full Code - Medication Management Discharge Medications: Medications to Continue on Transfer Herbals/Supplements -Info Only 1 ea PO DAILY 09/26/16 [Last Taken Unknown] Acetaminophen [Tylenol 325mg (*)] 650 mg PO Q4HRS PRN #0 tab 12/29/16 [Last Taken Unknown] Cholecalciferol Vit D3 [Vitamin D3 2000 units tab (OTC)] 2,000 units PO DAILY # 0 each 12/29/16 [Last Taken Unknown] Ertapenem [INVanz] 1 gm IV DAILY #0 vial 12/29/16 [Last Taken Unknown] Gabapentin [Neurontin 100 MG (*)] 100 mg PO BID #0 cap 12/29/16 [Last Taken Unknown] L.Acidoph,Paracasei, B.Lactis [Probiotic] 1 cap PO DAILY 12/29/16 [Last Taken Unknown] Losartan Potassium [Cozaar 50 mg (*)] 50 mg PO DAILY #0 tab 12/29/16 [Last Taken Unknown] [place]-3 Fatty Acids [Fish Oil 1000 mg (*)] 1,000 mg PO HS #0 cap 12/29/16 [Last Taken Unknown] [place]-3 Fatty Acids [Fish Oil 1000 mg (*)] 2,000 mg PO DAILY #0 cap 12/29/16 [ Last Taken Unknown] Pravastatin Sodium [Pravachol] 10 mg PO DAILY #0 tab 12/29/16 [Last Taken Unknown] Vancomycin HCl/Normal Saline [Vancomycin 1 gm (Premix)] 1 g IV DAILY@2300 #0 bag 12/29/16 [Last Taken Unknown] amLODIPine BESYLATE [Norvasc 5 mg (*)] 5 mg PO DAILY #0 tab 12/29/16 [Last Taken Unknown] Food Safety Manager Antibiotics: Vancomycin 1g IV q 24 hours; Invanz 1g IV q 24hours Food Safety Manager Antibiotic Stop Date: 01/05/17 Discharge Medications: Refer to the Discharge Home Medication list for PRN reason. PICC Care - Routine: Yes - Orders Services needed: Home Care, Registered Nurse, Physical Therapy, Occupational Therapy Home Care Face to Face: I certify that this patient was under my care and that I had the required [id number] encounter meeting the encounter requirements on the discharge day. My findings support the fact that the patient is homebound as defined in CMS Chapter 7 Medicare Benefits Manual 30.1.1, The condition of the patient is such that there exists a normal inability to leave home and consequently, leaving home would require a considerable and taxing effort. Diet Recommendation: no restrictions on diet Diet Texture: Regular Texture Diet - Labs/Radiology CBC Date: 01/01/17 CMP Date: 01/01/17 Call or Fax Lab and Imaging Results to: Dr. Wil Martines - Follow Up Care Current Providers and Referrals: Sanjuanita Agosto MD [Primary Care Provider] -
[2016-12-29 16:03] LABS: IMMUNOGLOBULIN G3 40.8 mg/dL; IMMUNOGLOBULIN G4 31.9 mg/dL
--- NOTE | 2016-12-29 16:25 | PCMIDPN ---
Assessment/Plan: Assessment: Patient known to us from previous admissions. Patient was admitted this visit secondary to left breast inflammation. She failed outpatient empiric treatment with Augmentin for mastitis. She was also on oral doxycycline for an MRSA UTI. The concern upon admission was that she may have non infectious or possibly malignant cause of inflammation of the left breast. Biopsy of the soft tissue of the breast revealed no malignancy. Mild inflammation only. Would treat for 5-7 days until erythema and swelling was completely resolved. Plan: 1. Continue both vancomycin and ertapenem. 2. Follow vancomycin levels. 3. Follow pathology result. 4. Follow clinical course. Subjective: Patient is resting comfortably in her hospital bed she has no new complaints. No fevers or chills. Notes that her left breast is slowly improving. Objective: Vancomycin # 3 Ertapenem # 3 Vital Signs Temp Pulse Resp BP Pulse Ox 36.1 C 74 16 107/63 92 12/28/16 22:35 12/28/16 22:35 12/28/16 22:35 12/29/16 09:03 12/28/16 22:35 Laboratory Results 12/28/16 06:00 12/28/16 06:00 12/28/16 12/29/16 12/30/16 05:59 05:59 05:59 Intake Total 1100 280 Output Total 350 Balance 750 280 ESR 11 MM/HR (0-30) 12/26/16 21:45 C-Reactive Protein < 5.0 mg/L (<10.0) 12/26/16 21:45 - Physical Exam General Appearance: WD/WN, alert, no apparent distress, non-toxic Respiratory: lungs clear, normal breath sounds, No respiratory distress Cardiac/Chest: regular rate, rhythm, No tachycardia Skin: normal color, warm/dry, rash (Can fluid erythema mild left breast with focal induration) Neuro/Psych: alert, normal mood/affect, oriented x 3 ICD10 Worksheet Patient Problems: Problems Problem Status Onset Mastitis, left, acute Acute Urinary tract infection Acute ESBL (extended spectrum beta-lactamase) producing bacteria infection Acute ~ Renal colic on left side Acute
== END 2016-12-29 18:07 | disposition home health service (06) | DRG 580 ==
LOC: FOB 20:40
PROVIDERS: ADMIT Internal Medicine; ATTEND Internal Medicine
PROC: 0JB60ZX Excision of Chest Subcutaneous Tissue and Fascia, Open Approach, Diagnostic (ICD-10-PCS; principal; 2016-12-27)
PROC: 07B63ZX Excision of Left Axillary Lymphatic, Percutaneous Approach, Diagnostic (ICD-10-PCS; 2016-12-28)
PROC: 02HV33Z Insertion of Infusion Device into Superior Vena Cava, Percutaneous Approach (ICD-10-PCS; 2016-12-29)
DX: N61.0 Mastitis without abscess (principal); C50.812 Malignant neoplasm of overlapping sites of left female breast; C77.3 Secondary and unspecified malignant neoplasm of axilla and upper limb lymph nodes; Z17.1 Estrogen receptor negative status [ER-]; L97.511 Non-pressure chronic ulcer of other part of right foot limited to breakdown of skin; L98.491 Non-pressure chronic ulcer of skin of other sites limited to breakdown of skin; N39.0 Urinary tract infection, site not specified; B95.62 Methicillin resistant Staphylococcus aureus infection as the cause of diseases classified elsewhere; D64.9 Anemia, unspecified; I10 Essential (primary) hypertension; Z96.662 Presence of left artificial ankle joint; Z96.652 Presence of left artificial knee joint; M81.0 Age-related osteoporosis without current pathological fracture
CPT/HCPCS: 82787-90; 97161-GP; C1751; G0204; G8978-GP-CI; G8979-GP-CI; G8980-GP-CI; J1335; J1650; J3370

== ENCOUNTER → 2017-01-05 | Outpatient (CLI) | payer OTHER ==
[~2017-01-05] MED LIST: GADOBUTROL 10 ML VIAL IVP ONE
== END ==
LOC: FIMAGING 08:10
PROVIDERS: ATTEND Internal Medicine
DX: M51.34 Other intervertebral disc degeneration, thoracic region (principal); M41.84 Other forms of scoliosis, thoracic region; C50.412 Malignant neoplasm of upper-outer quadrant of left female breast
CPT/HCPCS: 0159T; 70553; 78306; A9503; A9585; C8908

== ENCOUNTER 2017-01-11 05:49 | Day surgery (SDC) | payer OTHER ==
--- NOTE | 2017-01-10 17:47 | GHP ---
[f rep st] HISTORY AND PHYSICAL DATE OF ADMISSION: 01/11/2017 CHIEF COMPLAINT: Left breast cancer. HISTORY OF PRESENT ILLNESS: The patient is an 82-year-old woman who was admitted to the hospital in October due to sepsis. I later met her due to mastitis of her left breast and she also had enlarged axi llary lymph nodes. 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 It was ER/[place] positive, but the HER-2/antonio was equivocal and not enough tissue for FISH . I performed core needle biopsy in the office yesterday and there is, again, not sufficient specime n for the HER-2/antonio status. She will need a port for chemotherapy, even if she is HER-2/antonio negative . PAST MEDICAL HISTORY: Hypertension, history of sepsis. PAST SURGICAL HISTORY: Total ankle replacement. Total knee replacement. MEDICATIONS: Amlodipine, lovastatin, Neurontin, Norvasc. ALLERGIES: Codeine. FAMILY HISTORY: Significant for cancer. SOCIAL HISTORY: She drinks alcohol. She denies tobacco use. She is very active in the community. REVIEW OF SYSTEMS: Other than breast heaviness, her 10-point review of systems is negative. PHYSICAL EXAMINATION: GENERAL: Pleasant, well-nourished, well-groomed woman. HEENT: Normocephalic . No gross hearing deficits. Mucous membranes moist. Pupils equal and round. No scleral icterus. LUNGS: Clear to auscultation bilaterally. No increased work of breathing. CARDIAC: Regular rate. No peripheral edema. MUSCULOSKELETAL: Normal gait. Normal nails. SKIN: Multiple areas of necro sis on her fingers and toes. PSYCH: Mood and affect normal. BREAST: Left breast is considerably l arger than the right. There is no overlying skin erythema. There is a large mass in the upper outer breast. IMPRESSION AND PLAN: The patient is an 82-year-old with left breast carcinoma. [facility] right low-profile PowerPort placement and an excisional biopsy of the left br east. The risks and benefits, including but not limited to, stroke, heart attack, , blood clots , infection, bleeding, pneumothorax, delayed wound healing, were all discussed. She had her question s answered to her satisfaction and we will proceed. /[id number]/MODL
[2017-01-11] MEDS ORDERED: LIDOCAINE 1% 2 ML INJ ONE (06:43)
--- NOTE | 2017-01-11 06:45 | PDHPUP ---
History & Physical Update H&P update statement: This history and physical update is based on an assessment of the patient which was completed after admission or registration (within 24 hours), but prior to the surgery/procedure. H&P update: H&P reviewed & patient examined, no change in patient's condition since H&P completed
[2017-01-11] MEDS ORDERED: BUPIVACAINE 0.5% 30 ML SDV ONE (06:52)
[2017-01-11] MEDS ORDERED: LR 1,000 ML IV ONE (06:55)
[2017-01-11] MEDS ORDERED: LIDOCAINE 1% 2 ML INJ ID PRN (06:55)
--- NOTE | 2017-01-11 06:59 | PDANEPAE ---
ANE History of Present Illness h/o breast ca for port placement, breast bx ANE Past Medical History - Cardiovascular History Hx Hypertension: Yes Hx Arrhythmias: No Hx Chest Pain: No Hx Coronary Artery / Peripheral Vascular Disease: No Hx CHF / Valvular Disease: No Hx Palpitations: No Cardiovascular History Comment: BP 50/30 w/sepsis September 27, 2016. BP has normalized since being D/C 'd home from [facility] to Rehab. - Pulmonary History Hx COPD: No Hx Asthma/Reactive Airway Disease: No Hx Recent Upper Respiratory Infection: No Hx Oxygen in Use at Home: No Hx Sleep Apnea: No Sleep Apnea Screening Result - Last Documented: Negative Pulmonary History Comment: pneumonia May - Neurologic History Hx Cerebrovascular Accident: No Hx Seizures: No Hx Dementia: No - Endocrine History Hx Diabetes: No Obesity: no - Renal History Hx Renal Disorders: Yes Renal History Comment: ureteral stone removed 10-12-16.Cath placed for hemodialysis 10-21 . Cath D/C'd. - Liver History Hx Hepatic Disorders: No - Neurological & Psychiatric Hx Hx Neurological and Psychiatric Disorders: Yes Neurological / Psychiatric History Comment: FIORDALIZA for DDD-no pain radiating to legs. On Gabapentin for ankle and knee pain (celebrex D/C'd) - Cancer History Hx Cancer: Yes Cancer History Comment: Stage 3 L breast and L lymph node - Congenital Disorder History Hx Congenital Disorders: No - GI History GERD: no Hx Gastrointestinal Disorders: No - Other Health History Other Health History: Necrosis September-October due to vasopressors. Sm amt blackness remains R finger/pinky tip, R Great toe and 2nd toe. - Chronic Pain History Chronic Pain: No - Surgical History Prior Surgeries: L breast excisional bx-01-09-17. L ureteroscopy 10-12-16. L total ankle. L total knee ANE Review of Systems Review of systems is: negative Review of Systems: - Exercise capacity METS (RN): 4 METS ANE Patient History - Allergies Allergies/Adverse Reactions: codeine Allergy (Verified 01/10/17 17:38) Other-Enter Comments - Home Medications Home medications: home medication list seen and reviewed Home Medications: Lovastatin 01/10/17 [Last Taken 01/10/17 08:00] - Anes Hx Anes Hx: no prior problems - Smoking Hx Smoking Status: Never smoked ANE Labs/Vital Signs - Vital Signs Height: 165.1 cm Weight: 64.864 kg ANE Physical Exam - Airway Neck exam: FROM Mallampati Score: Class 1 Mouth exam: normal dental/mouth exam - Pulmonary Pulmonary: no respiratory distress - Cardiovascular Cardiovascular: regular rate and rhythym - ASA Status ASA Status: II ANE Anesthesia Plan Anesthesia Plan: GA w LMA
[2017-01-11] MEDS ORDERED: fentaNYL 100 MCG/2 ML INJ ONE ×2 (07:03→09:14)
[2017-01-11] MEDS ORDERED: PROPOFOL 200 MG/20 ML VIAL ONE (07:03)
[2017-01-11] MEDS ORDERED: LIDOCAINE 2% 5 ML SDV ONE (07:04)
[2017-01-11] MEDS ORDERED: ONDANSETRON 4 MG/2 ML VIAL ONE (07:04)
[2017-01-11] MEDS ORDERED: DEXAMETHASONE 4 MG/ML VIAL ONE (07:04)
[2017-01-11 07:12] VITALS: PULSE 66
[2017-01-11] MEDS ORDERED: ceFAZolin 2 GM/DEXTROSE 100 ML IV ONE (07:16)
[2017-01-11] MEDS ORDERED: ceFAZolin 1 GM VIAL ONE ×2 (07:29)
[2017-01-11] MEDS ORDERED: PROMETHAZINE HCL 25 MG/ML INJ IVP PRN (07:52)
[2017-01-11] MEDS ORDERED: HYDROmorphONE/DILAUDID 1 MG/ML SYR IVP PRN (07:52)
[2017-01-11] MEDS ORDERED: LR 500 ML IV PRN (07:52)
[2017-01-11] MEDS ORDERED: NALOXONE HCL 0.4 MG/ML INJ IVP PRN (07:52)
[2017-01-11] MEDS ORDERED: ONDANSETRON 4 MG/2 ML VIAL IVP PRN (07:52)
[2017-01-11] MEDS ORDERED: ALBUTEROL 3 ML DEYVIAL IH PRN (07:52)
[2017-01-11] MEDS ORDERED: fentaNYL 100 MCG/2 ML INJ IVP PRN (07:52)
[2017-01-11] MEDS ORDERED: ACETAMINOPHEN 500 MG TAB PO PRN (07:52)
[2017-01-11] MEDS ORDERED: KETOROLAC 30 MG/1 ML SDV ONE (08:01)
--- NOTE | 2017-01-11 08:18 | POSTOPPROG ---
Post Op Note Date of Operation: 01/11/17 Surgeon: Tia Storey Anesthesiologist: ryland Anesthesia: GET(General Endotracheal) Pre-op Diagnosis: L met breast cancer Post-op Diagnosis: same Indication: 82 yo with breast cancer Procedure: R US IJ port L breast excisional biopsy Findings: tip svc Inf/Abcess present in the surg proc area at time of surgery?: No EBL: Minimal Specimen(s): left breast tissue
--- NOTE | 2017-01-11 08:26 | POSTANESTH ---
Post Anesthetic Evaluation Cardiovascular Status: Normal, Stable Respiratory Status: Normal, Stable Level of Consciousness/Mental Status: Can Participate in Eval Pain Control: Adequate, Prn Tx Ordered Nausea/Vomiting Control: Adequate, Prn Tx Ordered Complications Possibly Related to Anesthesia: None Noted
[2017-01-11 08:36] VITALS: TEMP 97.7
[2017-01-11 08:52] VITALS: RESP 11
[2017-01-11] MEDS ORDERED: ACETAMINOPHEN 500 MG TAB ONE (09:28)
--- NOTE | 2017-01-11 10:15 | GOP ---
[f rep st] OPERATIVE REPORT DATE OF OPERATION: 01/11/2017 SURGEON: Tia Storey MD ANESTHESIA: General. ANESTHESIOLOGIST: Ja Casey MD. PREOPERATIVE DIAGNOSIS: Left breast cancer. POSTOPERATIVE DIAGNOSIS: Left breast cancer. PROCEDURE PERFORMED: Left breast excisional biopsy, and right ultrasound- guided internal jugular PowerPort placement. FINDINGS: Tip in the SVC junction, and very firm breast tissue. SPECIMENS: Breast tissue for pathology. ESTIMATED BLOOD LOSS: 10 cc. INDICATIONS: The patient is an 82-year-old woman, who had mastitis. She responded well to antibiotics, but was noted to have an enlarged axillary lymph node. This was biopsy-proven to be invasive ductal carcinoma. The ER and NM status are positive. The HER-2/antonio was equivocal, and there was not enough tissue for [id number]. I performed core needle biopsies, and again there was not adequate tissue to determine the HER-2/antonio status. She will require a port for chemotherapy and excisional biopsy for receptor status as well. DESCRIPTION OF PROCEDURE: The patient was brought into the operating room, placed supine on the table, and general anesthesia was administered. Her bilateral neck and chest and breasts were prepped and prepped and draped in the usual sterile fashion. She was placed in the Trendelenburg position. I infiltrated all sites with 0.5% Marcaine prior to making incisions. I used a total of 20 cc throughout the case. Using the ultrasound, I accessed the right internal jugular vein on the first attempt, with dark return of blood flow. I threaded the guidewire and removed the needle. Placement was confirmed in the IVC with fluoroscopy. I created a pocket to accommodate the port in the right chest. I tunneled this up to the insertion site. Under fluoroscopy, I measured the catheter and cut it to size. Using the Seldinger technique, I placed a dilator and sheath over the wire, removed the wire and the dilator. I peeled away the sheath. Placement was confirmed with fluoroscopy. I had to manipulate the catheter in order to make a gentle curve. The port withdrew blood easily, and was flushed with 5 cc of heparin 100 units/mL. The pocket was closed with 3-0 Vicryl, followed by 4-0 Monocryl. Dermabond applied. Next, attention was drawn to the left breast. I made an incision over the firm mass. I dissected down through the subcutaneous tissues until I encountered the mass. I obtained an excision of this area. I placed 3 titanium clips in the field. Hemostasis was achieved. The wound was closed with 3-0 Vicryl, followed by 4-0 Monocryl. Mastisol, Steri-Strips, and sterile dressing were applied. She was awakened in the operating room, extubated, transferred to PACU in stable condition. Postop chest x-ray showed the port at the caval- atrial junction without pneumothorax. /[id number]/MODL MTDD
[2017-01-11 12:24] VITALS: BP 155/63; O2SAT 97
== END 2017-01-11 12:26 | disposition home or self-care (01) ==
LOC: FSGY 05:49
PROVIDERS: ATTEND Surgery
PROC: 02HV33Z Insertion of Infusion Device into Superior Vena Cava, Percutaneous Approach (ICD-10-PCS; principal; 2017-01-11 07:15)
PROC: 0HBU0ZX Excision of Left Breast, Open Approach, Diagnostic (ICD-10-PCS; principal; 2017-01-11 07:15)
PROC: 0JH60XZ Insertion of Tunneled Vascular Access Device into Chest Subcutaneous Tissue and Fascia, Open Approach (ICD-10-PCS; principal; 2017-01-11 07:15)
DX: C50.412 Malignant neoplasm of upper-outer quadrant of left female breast (principal); C77.3 Secondary and unspecified malignant neoplasm of axilla and upper limb lymph nodes; I10 Essential (primary) hypertension; Z17.1 Estrogen receptor negative status [ER-]; Z87.442 Personal history of urinary calculi; Z96.659 Presence of unspecified artificial knee joint; Z96.669 Presence of unspecified artificial ankle joint
CPT/HCPCS: C1788; J0690; J1100; J1642; J1885; J2405; J2704; J3010

== ENCOUNTER → 2017-02-19 | Outpatient (CLI) | payer OTHER | LOC: FIMAGING 13:20 | PROVIDERS: ATTEND Internal Medicine | DX: M79.644 Pain in right finger(s) (principal); Z91.81 History of falling ==

== ENCOUNTER → 2017-05-09 | Outpatient (CLI) | payer OTHER | LOC: BHFA 14:45 | PROVIDERS: ATTEND Internal Medicine Cardiovascular Disease | DX: Z51.11 Encounter for antineoplastic chemotherapy (principal) ==

== ENCOUNTER → 2017-07-24 | Outpatient (CLI) | payer OTHER | LOC: FIMAGING 10:55 | PROVIDERS: ATTEND Radiology Radiation Oncology | DX: C50.412 Malignant neoplasm of upper-outer quadrant of left female breast (principal) | CPT/HCPCS: 78306; A9503 ==

== ENCOUNTER → 2017-07-30 | Outpatient (CLI) | payer OTHER | LOC: FIMAGING 14:57 | PROVIDERS: ATTEND Podiatrist Primary Podiatric Medicine | DX: M86.171 Other acute osteomyelitis, right ankle and foot (principal) ==

== ENCOUNTER → 2017-10-09 | Outpatient (CLI) | payer OTHER | LOC: BHFA 14:45 | PROVIDERS: ATTEND Internal Medicine Cardiovascular Disease | DX: Z51.11 Encounter for antineoplastic chemotherapy (principal) ==

== ENCOUNTER → 2017-12-26 | Outpatient (CLI) | payer OTHER | LOC: FIMAGING 10:43 | PROVIDERS: ATTEND Internal Medicine | DX: Z12.31 Encounter for screening mammogram for malignant neoplasm of breast (principal); Z85.3 Personal history of malignant neoplasm of breast ==

== ENCOUNTER → 2018-01-29 | Outpatient (CLI) | payer OTHER | LOC: FIMAGING 11:13 | PROVIDERS: ATTEND Internal Medicine | DX: Z13.820 Encounter for screening for osteoporosis (principal); M81.0 Age-related osteoporosis without current pathological fracture ==

== ENCOUNTER → 2018-02-11 | Outpatient (CLI) | payer OTHER | LOC: BHFA 15:30 | PROVIDERS: ATTEND Internal Medicine Cardiovascular Disease | DX: Z51.11 Encounter for antineoplastic chemotherapy (principal) ==